=== PATIENT | male | born 1970 | race Caucasian/White ===

== ENCOUNTER 2021-06-13 11:24 | Inpatient (IN) | payer BC ==
[2021-06-13] MEDS ORDERED: IBUPROFEN 600 MG TAB PO STA (12:21)
[2021-06-13] MEDS ORDERED: ACETAMINOPHEN TAB 500 MG TAB PO STA (12:21)
--- NOTE | 2021-06-13 12:24 | ED ---
General Adult HPI - General Chief complaint: Shortness of Breath Stated complaint: fever, SOB, exhaustion Time Seen by Provider: 06/13/21 12:00 Source: patient, RN notes reviewed Mode of arrival: ambulatory Limitations: no limitations - History of Present Illness Initial comments: 50-year-old male presents to the emergency room for a chief complaint of shortness of breath. Patient states he developed a cough on June 02. About one week ago today he started to get short of breath and symptoms started to get worse. He fevers. He has had severe shortness of breath. He is not vaccinated for COVID-19. He suspects he has COVID-19.Patient has no other complaints at this time including chest pain, abdominal pain, nausea or vomiting, headache, or visual changes. - Related Data Home Medications Medication Instructions Recorded Confirmed No Known Home Medications 06/13/21 06/13/21 Allergies Allergy/AdvReac Type Severity Reaction Status Date / Time Penicillins Allergy Rash/Hives Verified 06/13/21 12:50 Review of Systems ROS Statement: Those systems with pertinent positive or pertinent negative responses have been documented in the HPI. ROS Other: All systems not noted in ROS Statement are negative. Past Medical History Past Medical History: No Reported History History of Any Multi-Drug Resistant Organisms: None Reported Past Surgical History: No Surgical Hx Reported Past Psychological History: No Psychological Hx Reported Smoking Status: Never smoker Past Alcohol Use History: None Reported Past Drug Use History: None Reported General Exam Limitations: no limitations General appearance: alert, in no apparent distress Head exam: Present: atraumatic Eye exam: Present: normal appearance, PERRL, EOMI. Absent: scleral icterus, conjunctival injection ENT exam: Present: normal exam, mucous membranes moist Neck exam: Present: normal inspection, full ROM. Absent: tenderness Respiratory exam: Present: normal lung sounds bilaterally, rales. Absent: respiratory distress, wheezes Cardiovascular Exam: Present: regular rate, normal rhythm, normal heart sounds GI/Abdominal exam: Present: soft, normal bowel sounds. Absent: distended, tenderness Neurological exam: Present: alert Course Vital Signs 06/13/21 06/13/21 06/13/21 11:46 11:59 12:30 Temperature 101.7 F H Pulse Rate 101 H 87 Respiratory 24 22 20 Rate Blood Pressure 170/110 161/98 O2 Sat by Pulse 87 L 92 L Oximetry 06/13/21 06/13/21 13:30 15:02 Temperature 100.2 F H Pulse Rate 96 88 Respiratory 22 18 Rate Blood Pressure 163/98 139/94 O2 Sat by Pulse 94 L 93 L Oximetry EKG Findings - EKG Comments: EKG Findings:: Sinus tachycardia, ventricular rate 101, pr int 124, QTC 508 Medical Decision Making - Medical Decision Making Presents febrile and 87% on room air. Patient transitioned to 4 L nasal cannula and is saturating 92-94%. CBC and CMP unremarkable aside from some mild transaminitis. COVID-19 is positive. D-dimer was obtained and is positive. CTA shows no evidence of PE however there is diffuse bilateral ground glass densities consistent with acute inflammatory process suspicious for COVID-19 pneumonia. Patient will be admitted on Decadron and pulmonology will be consulted. - Lab Data Result diagrams: 06/13/21 12:30 06/13/21 12:30 Lab Results 06/13/21 06/13/21 06/13/21 Range/Units 12:30 12:30 12:30 WBC 8.0 (3.8-10.6) k/uL RBC 5.59 (4.30-5.90) m/uL Hgb 15.6 (13.0-17.5) gm/dL Hct 48.0 (39.0-53.0) % MCV 85.8 (80.0-100.0) fL MCH 27.9 (25.0-35.0) pg MCHC 32.5 (31.0-37.0) g/dL RDW 13.8 (11.5-15.5) % Plt Count 117 L (150-450) k/uL MPV 10.4 Neutrophils % 87 % Lymphocytes % 7 % Monocytes % 4 % Eosinophils % 0 % Basophils % 1 % Neutrophils # 6.9 (1.3-7.7) k/uL Lymphocytes # 0.6 L (1.0-4.8) k/uL Monocytes # 0.3 (0-1.0) k/uL Eosinophils # 0.0 (0-0.7) k/uL Basophils # 0.1 (0-0.2) k/uL PT 9.7 (9.0-12.0) sec INR 0.9 (<1.2) APTT 24.8 (22.0-30.0) sec D-Dimer 1.86 H (<0.60) mg/L FEU Sodium 133 L (137-145) mmol/L Potassium 3.7 (3.5-5.1) mmol/L Chloride 98 (98-107) mmol/L Carbon Dioxide 24 (22-30) mmol/L Anion Gap 11 mmol/L BUN 16 (9-20) mg/dL Creatinine 0.90 (0.66-1.25) mg/dL Est GFR (CKD-EPI)AfAm >90 (>60 ml/min/1.73 sqM) Est GFR (CKD-EPI)NonAf >90 (>60 ml/min/1.73 sqM) Glucose 117 H (74-99) mg/dL Plasma Lactic Acid Scar (0.7-2.0) mmol/L Calcium 8.2 L (8.4-10.2) mg/dL Magnesium 1.9 (1.6-2.3) mg/dL Total Bilirubin 1.0 (0.2-1.3) mg/dL AST 110 H (17-59) U/L ALT 41 (4-49) U/L Alkaline Phosphatase 91 (38-126) U/L Lactate Dehydrogenase 2142 H (313-618) U/L C-Reactive Protein 9.0 H (<1.0) mg/dL Total Protein 6.7 (6.3-8.2) g/dL Albumin 3.7 (3.5-5.0) g/dL Coronavirus (PCR) (Not Detectd) Influenza Type A (PCR) (Not Detectd) Influenza Type B (PCR) (Not Detectd) RSV (PCR) (Not Detectd) SARS-CoV-2 (PCR) (Not Detectd) 06/13/21 06/13/21 06/13/21 Range/Units 12:30 12:30 13:44 WBC (3.8-10.6) k/uL RBC (4.30-5.90) m/uL Hgb (13.0-17.5) gm/dL Hct (39.0-53.0) % MCV (80.0-100.0) fL MCH (25.0-35.0) pg MCHC (31.0-37.0) g/dL RDW (11.5-15.5) % Plt Count (150-450) k/uL MPV Neutrophils % % Lymphocytes % % Monocytes % % Eosinophils % % Basophils % % Neutrophils # (1.3-7.7) k/uL Lymphocytes # (1.0-4.8) k/uL Monocytes # (0-1.0) k/uL Eosinophils # (0-0.7) k/uL Basophils # (0-0.2) k/uL PT (9.0-12.0) sec INR (<1.2) APTT (22.0-30.0) sec D-Dimer (<0.60) mg/L FEU Sodium (137-145) mmol/L Potassium (3.5-5.1) mmol/L Chloride (98-107) mmol/L Carbon Dioxide (22-30) mmol/L Anion Gap mmol/L BUN (9-20) mg/dL Creatinine (0.66-1.25) mg/dL Est GFR (CKD-EPI)AfAm (>60 ml/min/1.73 sqM) Est GFR (CKD-EPI)NonAf (>60 ml/min/1.73 sqM) Glucose (74-99) mg/dL Plasma Lactic Acid Scar 1.6 (0.7-2.0) mmol/L Calcium (8.4-10.2) mg/dL Magnesium (1.6-2.3) mg/dL Total Bilirubin (0.2-1.3) mg/dL AST (17-59) U/L ALT (4-49) U/L Alkaline Phosphatase (38-126) U/L Lactate Dehydrogenase (313-618) U/L C-Reactive Protein (<1.0) mg/dL Total Protein (6.3-8.2) g/dL Albumin (3.5-5.0) g/dL Coronavirus (PCR) Not Detected (Not Detectd) Influenza Type A (PCR) Not Detected (Not Detectd) Influenza Type B (PCR) Not Detected (Not Detectd) RSV (PCR) Not Detected (Not Detectd) SARS-CoV-2 (PCR) Detected A (Not Detectd) Disposition Clinical Impression: COVID-19, Pneumonia due to COVID-19 virus, Acute respiratory failure with hypoxia Disposition: ADMITTED IP TO THIS HOSP Is patient prescribed a controlled substance at d/c from ED?: No Referrals: Gurmeet Pretty MD [Primary Care Provider] - 1-2 days Time of Disposition: 15:18
--- NOTE | 2021-06-13 12:46 | XR ---
EXAMINATION TYPE: XR chest 1V portable DATE OF EXAM: 06/13/2021 COMPARISON: NONE HISTORY: Covid 19 pneumonia, fever and shortness of breath TECHNIQUE: Single frontal view of the chest is obtained. FINDINGS: Bilateral airspace disease is present. There is no evident pneumothorax or pleural effusio n. Cardiac mediastinal silhouette is within normal limits. There are overlying leads. IMPRESSION: Findings consistent with Covid pneumonia, follow-up suggested.
[2021-06-13 12:57] LABS: INR 0.9 (<1.2); Partial Thromboplastin Time 24.8 sec (22.0-30.0); Prothrombin Time 9.7 sec (9.0-12.0)
[2021-06-13 13:02] LABS: ALT 41 U/L (4-49); AST 110 U/L (17-59); African American GFR (CKD) >90 (>60 ml/min/1.73 sqM); Albumin 3.7 g/dL (3.5-5.0); Alkaline Phosphatase 91 U/L (38-126); Anion Gap 11 mmol/L; Blood Urea Nitrogen 16 mg/dL (9-20); Calcium 8.2 mg/dL (8.4-10.2); Carbon Dioxide 24 mmol/L (22-30); Chloride 98 mmol/L (98-107); Glucose 117 mg/dL (74-99); Magnesium 1.9 mg/dL (1.6-2.3); Non-African American GFR(CKD) >90 (>60 ml/min/1.73 sqM); Potassium 3.7 mmol/L (3.5-5.1); Sodium 133 mmol/L (137-145); Total Protein 6.7 g/dL (6.3-8.2)
[2021-06-13 13:04] LABS: Basophils # (A) 0.1 k/uL (0-0.2); Basophils % (A) 1 %; Eosinophils % (A) 0 %; HGB 15.6 gm/dL (13.0-17.5); Lymphocytes # (A) 0.6 k/uL (1.0-4.8); Lymphocytes % (A) 7 %; MCH 27.9 pg (25.0-35.0); MCHC 32.5 g/dL (31.0-37.0); MCV 85.8 fL (80.0-100.0); Mean Platelet Volume 10.4; Monocytes # (A) 0.3 k/uL (0-1.0); Monocytes % (A) 4 %; Neutrophils # (A) 6.9 k/uL (1.3-7.7); Neutrophils % (A) 87 %; Platelet Count 117 k/uL (150-450); RBC 5.59 m/uL (4.30-5.90); RDW 13.8 % (11.5-15.5)
[2021-06-13 13:07] LABS: LDH 2142 U/L (313-618)
[2021-06-13] MEDS ORDERED: DEXAMETHASONE SOD PHOSPHATE 10 MG/ML 1 ML VIAL IVP STA (13:32)
--- NOTE | 2021-06-13 14:09 | CT ---
EXAMINATION TYPE: CT chest angio for PE DATE OF EXAM: 06/13/2021 COMPARISON: None HISTORY: SOB CT DLP: 340.6 mGycm Automated exposure control for dose reduction was used. CONTRAST: CT Chest for pulmonary embolism performed with with IV Contrast, patient injected with 100 mL of Isov ue 370. FINDINGS: There are marked diffuse groundglass densities throughout both lungs consistent with an acute inflamm atory process, highly suspicious for Covid pneumonia.. There is mild mediastinal and hilar adenopathy. There is no pleural effusion or pneumothorax. Vessels chest are normal and there is no filling the pulmonary arteries or pulmonary embolism Limited scanning through the upper abdomen reveals no gross abnormality. The osseous structures are intact. IMPRESSION: 1. No evidence of pulmonary embolism. 2. Diffuse bilateral ground glass densities consistent with an acute inflammatory process, suspicious for Covid pneumonia and clinical correlation is recommended.
[2021-06-13] MEDS ORDERED: NALOXONE 0.4 MG/ML 1 ML VIAL IV PRN (15:18)
[2021-06-13] MEDS ORDERED: ACETAMINOPHEN TAB 325 MG TAB PO PRN (15:18)
[2021-06-13] MEDS: SODIUM CHLORIDE 0.9% 1,000 ML IV SCH (16:13)
[2021-06-13] MEDS: ENOXAPARIN 40 MG/0.4 ML SYRINGE SQ SCH (16:14)
--- NOTE | 2021-06-13 17:20 | P.HPIM ---
History of Present Illness H&P Date: 06/13/21 Chief Complaint: Shortness of breath, weakness 50-year-old man with no significant medical history, unvaccinated for Covid, presented with generalized weakness, dyspnea. He developed symptoms on June 02. He has fevers, chills, loss of appetite. He noticed that his shortness of breath was getting worse and worse, prompting his evaluation in the emergency room. He denies chest pain, palpitations, syncope, presyncope, abdominal pain, diarrhea, constipation, numbness/weakness. In the emergency room, patient is febrile to a maximum of 101.7, blood pressure 163/98, heart rate 96, 94% on 4 L of nasal cannula. CBC remarkable for thrombocytopenia and lymphopenia to 117/0.6 respectively. D-dimer was elevated to 1.6. Sodium was 133. Lactate dehydrogenase was 2142. CRP was 9.0. Covid PCR was positive. Chest x-ray demonstrated bilateral infiltrates consistent with Covid pneumonia, which CTA confirmed; CTA did not show pulmonary embolism. EKG is significant for sinus tachycardia without ischemic changes. Review of Systems All Systems reviewed and pertinent positives and negatives noted in HPI, all other symptoms are negative Past Medical History Past Medical History: No Reported History History of Any Multi-Drug Resistant Organisms: None Reported Past Surgical History: No Surgical Hx Reported Past Psychological History: No Psychological Hx Reported Smoking Status: Never smoker Past Alcohol Use History: None Reported Past Drug Use History: None Reported Medications and Allergies Home Medications Medication Instructions Recorded Confirmed Type No Known Home Medications 06/13/21 06/13/21 History Allergies Allergy/AdvReac Type Severity Reaction Status Date / Time Penicillins Allergy Rash/Hives Verified 06/13/21 12:50 Physical Exam Osteopathic Statement: *. No significant issues noted on an osteopathic structural exam other than those noted in the History and Physical/Consult. Vitals: Vital Signs Temp Pulse Resp BP Pulse Ox 06/13/21 16:14 99.7 F H 80 20 131/95 93 L 06/13/21 15:02 100.2 F H 88 18 139/94 93 L 06/13/21 13:30 96 22 163/98 94 L 06/13/21 12:30 87 20 161/98 92 L 06/13/21 11:59 22 06/13/21 11:46 101.7 F H 101 H 24 170/110 87 L Intake and Output 06/13/21 06/13/21 06/13/21 06:59 14:59 22:59 Other: Weight 90 kg Gen: awake, alert HEENT: normocephalic, atraumatic, good hearing acuity, moist mucous membranes Resp: good air exchange, breathing comfortably with no accessory muscle use CVS: good distal perfusion x 4, GI: soft, NTTP, ND : no SPT, no CVAT, moore catheter not present MSK: no pitting edema, no clubbing Neuro: non-focal, moving all extremities Psych: cooperative, euthymic mood Results CBC & Chem 7: 06/13/21 12:30 06/13/21 12:30 Labs: Abnormal Lab Results - Last 24 Hours (Table) 06/13/21 06/13/21 06/13/21 Range/Units 12:30 12:30 12:30 Plt Count 117 L (150-450) k/uL Lymphocytes # 0.6 L (1.0-4.8) k/uL D-Dimer 1.86 H (<0.60) mg/L FEU Sodium 133 L (137-145) mmol/L Glucose 117 H (74-99) mg/dL Calcium 8.2 L (8.4-10.2) mg/dL AST 110 H (17-59) U/L Lactate Dehydrogenase 2142 H (313-618) U/L C-Reactive Protein 9.0 H (<1.0) mg/dL SARS-CoV-2 (PCR) (Not Detectd) 06/13/21 Range/Units 13:44 Plt Count (150-450) k/uL Lymphocytes # (1.0-4.8) k/uL D-Dimer (<0.60) mg/L FEU Sodium (137-145) mmol/L Glucose (74-99) mg/dL Calcium (8.4-10.2) mg/dL AST (17-59) U/L Lactate Dehydrogenase (313-618) U/L C-Reactive Protein (<1.0) mg/dL SARS-CoV-2 (PCR) Detected A (Not Detectd) Assessment and Plan Assessment: Acute hypoxemic respiratory failure ARDS secondary to Covid 19 -Admit to inpatient, telemetry -Pulmonary consult -Dexamethasone -Vitamin C/D, zinc -Daily inflammatory markers -Oxygen as needed Patient is a full code DVT prophylaxis with enoxaparin
[2021-06-14] MEDS: SODIUM CHLORIDE 0.9% 1,000 ML IV SCH ×2 (06:25→16:30)
[2021-06-14] MEDS: ENOXAPARIN 40 MG/0.4 ML SYRINGE SQ SCH (07:59)
[2021-06-14] MEDS: ASCORBIC ACID 500 MG TAB PO SCH (07:59)
[2021-06-14] MEDS: DEXAMETHASONE SOD PHOSPHATE 10 MG/ML 1 ML VIAL IVP SCH (07:59)
[2021-06-14] MEDS: CHOLECALCIFEROL 25 MCG (1000 IU) TABLET PO SCH (07:59)
[2021-06-14] MEDS: ZINC SULFATE 220 MG CAP PO SCH (08:00)
[2021-06-14 11:34] LABS: HCT 40.8 % (39.6-50.0); HGB 13.2 g/dL (13.0-17.0); MCH 27.3 pg (27.0-32.0); MCHC 32.4 g/dL (32.0-37.0); MCV 84.3 fL (80.0-97.0); Mean Platelet Volume 10.9 fL (9.5-12.2); Platelet Count 227 X 10*3/uL (140-440); RBC 4.84 X 10*6/uL (4.40-5.60); RDW 14.5 % (11.5-14.5); WBC 6.16 X 10*3/uL (4.50-10.00)
[2021-06-14 12:05] LABS: African American GFR (CKD) 110.3 (60.0-200.0); Albumin 3.3 g/dL (3.8-4.9); Albumin/Globulin Ratio 1.4 (1.60-3.17); Anion Gap 12.8 mmol/L (10.00-18.00); BUN/Creat Ratio 19.65 Ratio (12.00-20.00); Bilirubin, Conjugated 0.21 mg/dL (0.20-0.40); Bilirubin,Unconjugated 0.22 mg/dL (0.20-1.00); Blood Urea Nitrogen 18.1 mg/dL (9.0-27.0); C Reactive Protein 9.8 mg/dL (0.00-0.80); Calcium 8.2 mg/dL (8.7-10.3); Carbon Dioxide 24.2 mmol/L (20.0-27.5); Globulin 2.4 g/dL (1.6-3.3); Magnesium 2.4 mg/dL (1.5-2.4); Non-African American GFR(CKD) 95.2 (60.0-200.0); Potassium 3.9 mmol/L (3.5-5.5); Total Bilirubin 0.4 mg/dL (0.30-1.20); Total Protein 5.7 g/dL (6.2-8.2)
[2021-06-14 12:16] LABS: Basophils # (A) 0.01 X 10*3/uL (0.00-0.10); Basophils % (A) 0.2 %; Eosinophils # (A) 0 X 10*3/uL (0.04-0.35); Eosinophils % (A) 0 %; Lymphocytes # (A) 0.79 X 10*3/uL (0.90-5.00); Lymphocytes % (A) 12.8 %; Monocytes # (A) 0.32 X 10*3/uL (0.20-1.00); Monocytes % (A) 5.2 %; Neutrophils # (A) 4.99 X 10*3/uL (1.80-7.70)
--- NOTE | 2021-06-14 12:21 | P.PN ---
Subjective Progress Note Date: 06/14/21 Increased o2 requirement today, now on 5L, still does not qualify for baricitinib. ongoing steroids, vitamins. Objective - Vital Signs Vital signs: Vital Signs Temp 97.8 F 06/14/21 09:03 Pulse 83 06/14/21 09:03 Resp 17 06/14/21 09:03 BP 134/85 06/14/21 09:03 Pulse Ox 90 L 06/14/21 09:03 Intake & Output 06/13/21 06/14/21 06/14/21 18:59 06:59 18:59 Intake Total 600 Balance 600 Weight 90 kg Intake: Intake, IV Titration 600 Amount Sodium Chloride 0.9% 1, 600 000 ml @ 75 mls/hr IV . [id number] [facility] Rx#:[id number] Other: # Voids 0 - Exam Gen: awake, alert HEENT: normocephalic, atraumatic, good hearing acuity, moist mucous membranes Resp: good air exchange, breathing comfortably with no accessory muscle use CVS: good distal perfusion x 4, GI: soft, NTTP, ND : no SPT, no CVAT, moore catheter not present MSK: no pitting edema, no clubbing Neuro: non-focal, moving all extremities Psych: cooperative, euthymic mood - Labs CBC & Chem 7: 06/14/21 07:19 06/14/21 07:19 Labs: Abnormal Lab Results - Last 24 Hours (Table) 06/13/21 06/13/21 06/13/21 Range/Units 12:30 12:30 12:30 Plt Count 117 L (150-450) k/uL Immature Gran # (0.00-0.04) X 10*3/uL Lymphocytes # 0.6 L (1.0-4.8) k/uL Eosinophils # (0.04-0.35) X 10*3/uL D-Dimer 1.86 H (<0.60) mg/L FEU Sodium 133 L (137-145) mmol/L Glucose 117 H (74-99) mg/dL Calcium 8.2 L (8.4-10.2) mg/dL Ferritin 1948.0 H (22.0-322.0) ng/mL AST 110 H (17-59) U/L Lactate Dehydrogenase 2142 H (313-618) U/L C-Reactive Protein 9.0 H (<1.0) mg/dL Total Protein (6.2-8.2) g/dL Albumin (3.8-4.9) g/dL Albumin/Globulin Ratio (1.60-3.17) g/dL Procalcitonin (0.02-0.09) ng/mL SARS-CoV-2 (PCR) (Not Detectd) 06/13/21 06/13/21 06/14/21 Range/Units 12:30 13:44 07:19 Plt Count (150-450) k/uL Immature Gran # 0.05 H (0.00-0.04) X 10*3/uL Lymphocytes # 0.79 L (1.0-4.8) k/uL Eosinophils # 0 L (0.04-0.35) X 10*3/uL D-Dimer (<0.60) mg/L FEU Sodium (137-145) mmol/L Glucose (74-99) mg/dL Calcium (8.4-10.2) mg/dL Ferritin (22.0-322.0) ng/mL AST (17-59) U/L Lactate Dehydrogenase (313-618) U/L C-Reactive Protein (<1.0) mg/dL Total Protein (6.2-8.2) g/dL Albumin (3.8-4.9) g/dL Albumin/Globulin Ratio (1.60-3.17) g/dL Procalcitonin 0.31 H (0.02-0.09) ng/mL SARS-CoV-2 (PCR) Detected A (Not Detectd) 06/14/21 06/14/21 Range/Units 07:19 07:19 Plt Count (150-450) k/uL Immature Gran # (0.00-0.04) X 10*3/uL Lymphocytes # (1.0-4.8) k/uL Eosinophils # (0.04-0.35) X 10*3/uL D-Dimer 1.41 H (<0.60) mg/L FEU Sodium (137-145) mmol/L Glucose 147 H (74-99) mg/dL Calcium 8.2 L (8.4-10.2) mg/dL Ferritin (22.0-322.0) ng/mL AST 70 H (17-59) U/L Lactate Dehydrogenase 668 H (313-618) U/L C-Reactive Protein 9.80 H (<1.0) mg/dL Total Protein 5.7 L (6.2-8.2) g/dL Albumin 3.3 L (3.8-4.9) g/dL Albumin/Globulin Ratio 1.40 L (1.60-3.17) g/dL Procalcitonin (0.02-0.09) ng/mL SARS-CoV-2 (PCR) (Not Detectd) Assessment and Plan Assessment: Acute hypoxemic respiratory failure ARDS secondary to Covid 19 -Admit to inpatient, telemetry -Pulmonary consult -Dexamethasone -Vitamin C/D, zinc -Daily inflammatory markers -Oxygen as needed Patient is a full code DVT prophylaxis with enoxaparin
--- NOTE | 2021-06-14 14:53 | P.CNPUL ---
History of Present Illness Consult date: 06/14/21 Requesting physician: Jessica Funk Reason for consult: dyspnea, abnormal CXR/CT Chief complaint: Shortness of breath cough congestion History of present illness: This is a pleasant 50-year-old male patient with no significant past medical history. Resulted to the emergency room yesterday with ongoing symptoms of shortness of breath cough and congestion. His symptoms started 06/02/2021. He is not vaccinated against the COVID-19. He was suspicious of possible symptoms and did test positive yesterday. He did have a temperature of 100.2. He is oxygen saturation 87% on room air. He's currently seen today in consultation on the regular medical floor. He is requiring 5 L nasal cannula to maintain O2 saturation at 94%. He has normal saline at 75 ML's per hour. His x-ray reveals bilateral airspace disease. CT angiogram ruled out pulmonary embolism. There is diffuse bilateral groundglass densities consistent with COVID-19 pneumonia. White count 6.1. Hemoglobin 13.2. Platelets 227. Lymphocytes 0.79. D-dimer 1.41. Sodium 141 potassium 3.9. Creatinine 0.9. Glucose 147. LDH 668. C- reactive protein 9.8. Pro-calcitonin 0.31. He's been initiated on Decadron, Lovenox, vitamin supplements. Review of Systems REVIEW OF SYSTEMS: CONSTITUTIONAL: Denies any recent significant weight loss or weight gain. EYES: Denies change in vision. EARS, NOSE, MOUTH, THROAT: Denies headaches, denies sore throat. CARDIOVASCULAR: Denies chest pain, palpitations or syncopal episodes. RESPIRATORY: Positive for shortness of breath, cough, congestion no hemoptysis. GASTROINTESTINAL: Denies change in appetite, denies abdominal pain GENITOURINARY: Denies hematuria, denies infections. MUSKULOSKELETAL: Denies pain, denies swelling. INTEGUMENTARY: Denies rash, denies eczema. NEUROLOGICAL: Denies recent memory loss, no recent seizure activity. PSYCHIATRIC: Denies anxiety, denies depression. HEMATOLOGIC/LYMPHATIC: Denies anemia, denies enlarged lymph nodes. Past Medical History Past Medical History: No Reported History History of Any Multi-Drug Resistant Organisms: None Reported Past Surgical History: No Surgical Hx Reported Past Psychological History: No Psychological Hx Reported Smoking Status: Never smoker Past Alcohol Use History: None Reported Past Drug Use History: None Reported Medications and Allergies Home Medications Medication Instructions Recorded Confirmed Type No Known Home Medications 06/13/21 06/13/21 History Allergies Allergy/AdvReac Type Severity Reaction Status Date / Time Penicillins Allergy Rash/Hives Verified 06/13/21 12:50 Physical Exam Vitals: Vital Signs Temp Pulse Pulse Resp BP BP Pulse Ox 06/14/21 09:03 97.8 F 83 17 134/85 90 L 06/14/21 06:00 98.2 F 73 17 113/49 94 L 06/14/21 02:00 97.2 F L 66 18 112/73 94 L 06/13/21 22:00 98.1 F 71 18 130/81 93 L 06/13/21 20:51 18 06/13/21 18:27 78 18 93 L 06/13/21 17:22 75 18 127/84 92 L 06/13/21 16:14 99.7 F H 80 20 131/95 93 L 06/13/21 15:02 100.2 F H 88 18 139/94 93 L Intake and Output 06/13/21 06/14/21 06/14/21 22:59 06:59 14:59 Intake Total 600 Balance 600 Intake: Intake, IV Titration 600 Amount Sodium Chloride 0.9% 1, 600 000 ml @ 75 mls/hr IV . [id number] [facility] Rx#:[id number] Other: # Voids 0 Weight 90 kg GENERAL EXAM: Alert, pleasant 50-year-old male patient, up in a chair at the bedside, on 5 L nasal cannula, fairly, comfortable in no apparent distress. HEAD: Normocephalic. EYES: Normal reaction of pupils, equal size. NOSE: Clear with pink turbinates. THROAT: No erythema or exudates. NECK: No masses, no JVD. CHEST: No chest wall deformity. LUNGS: Equal air entry with crackles in the bilateral bases. CVS: S1 and S2 normal with no audible murmur, regular rhythm. ABDOMEN: No hepatosplenomegaly, normal bowel sounds, no guarding or rigidity. SPINE: No scoliosis or deformity SKIN: No rashes CENTRAL NERVOUS SYSTEM: No focal deficits, tone is normal in all 4 extremities. EXTREMITIES: There is no peripheral edema. No clubbing, no cyanosis. Peripheral pulses are intact. Results - Laboratory Findings CBC and BMP: 06/14/21 07:19 06/14/21 07:19 PT/INR, D-dimer PT 9.7 sec (9.0-12.0) 06/13/21 12:30 INR 0.9 (<1.2) 06/13/21 12:30 D-Dimer 1.41 mg/L FEU (<0.60) H 06/14/21 07:19 Abnormal lab findings: Abnormal Labs 06/13/21 06/13/21 06/13/21 12:30 12:30 12:30 Plt Count 117 L Immature Gran # Lymphocytes # 0.6 L Eosinophils # D-Dimer 1.86 H Sodium 133 L Glucose 117 H Calcium 8.2 L Ferritin 1948.0 H AST 110 H Lactate Dehydrogenase 2142 H C-Reactive Protein 9.0 H Total Protein Albumin Albumin/Globulin Ratio Procalcitonin SARS-CoV-2 (PCR) 06/13/21 06/13/21 06/14/21 12:30 13:44 07:19 Plt Count Immature Gran # 0.05 H Lymphocytes # 0.79 L Eosinophils # 0 L D-Dimer Sodium Glucose Calcium Ferritin AST Lactate Dehydrogenase C-Reactive Protein Total Protein Albumin Albumin/Globulin Ratio Procalcitonin 0.31 H SARS-CoV-2 (PCR) Detected A 06/14/21 06/14/21 07:19 07:19 Plt Count Immature Gran # Lymphocytes # Eosinophils # D-Dimer 1.41 H Sodium Glucose 147 H Calcium 8.2 L Ferritin AST 70 H Lactate Dehydrogenase 668 H C-Reactive Protein 9.80 H Total Protein 5.7 L Albumin 3.3 L Albumin/Globulin Ratio 1.40 L Procalcitonin SARS-CoV-2 (PCR) - Diagnostic Findings Chest x-ray: image reviewed CT scan - chest: image reviewed Assessment and Plan Assessment: 1 Acute hypoxemic respiratory failure secondary to acute COVID-19 pneumonia. Started June 02. Outside the window for Remdesivir. Not vaccinated. 2 Elevated inflammatory markers secondary to above Plan: The patient was seen and evaluated today Chest x-ray, CAT scans and labs reviewed Continue Lovenox, Decadron, vitamin supplements Add incentive spirometer Titrate the FiO2 as tolerated We will continue to follow and make further recommendations based on his clinical status I, the cosigning physician, performed a history & physical examination of the patient. Lungs sounds bilateral bases. Maintaining good O2 saturations in the 90s on 5 liters per minute per nasal cannula. I discussed the assessment and plan of care with my nurse practitioner, Amy Mccormick. I attest to the above consultation as dictated by her. Time with Patient: Greater than 30
[2021-06-15] MEDS: SODIUM CHLORIDE 0.9% 1,000 ML IV SCH ×2 (07:27→20:50)
[2021-06-15] MEDS: ENOXAPARIN 40 MG/0.4 ML SYRINGE SQ SCH (07:27)
[2021-06-15] MEDS: ASCORBIC ACID 500 MG TAB PO SCH (07:28)
[2021-06-15] MEDS: DEXAMETHASONE SOD PHOSPHATE 10 MG/ML 1 ML VIAL IVP SCH (07:28)
[2021-06-15] MEDS: CHOLECALCIFEROL 25 MCG (1000 IU) TABLET PO SCH (07:28)
[2021-06-15] MEDS: ZINC SULFATE 220 MG CAP PO SCH (07:28)
--- NOTE | 2021-06-15 07:37 | XR ---
EXAMINATION TYPE: XR chest 1V portable DATE OF EXAM: 06/15/2021 CLINICAL HISTORY: Difficulty breathing progress study. TECHNIQUE: Single AP portable upright view of the chest is obtained. COMPARISON: Chest x-ray from 2 days earlier FINDINGS: Bilateral multifocal and confluent opacities remain present. Cardiac silhouette size stabl e and upper limits of normal. Osseous structures are intact IMPRESSION: Bilateral multifocal and confluent opacities consistent with covid-19 infection are redem onstrated. No significant change from 2 days earlier.
[2021-06-15] MEDS: ONDANSETRON 4 MG/2 ML VIAL IVP PRN (09:33)
[2021-06-15 11:28] LABS: C Reactive Protein 3.6 mg/dL (0.00-0.80)
--- NOTE | 2021-06-15 12:10 | P.PN ---
Subjective Progress Note Date: 06/15/21 Pt having some nausea today, but otherwise reports feeling the same to slightly better. O2 requirement unchanged from yesterday. Objective - Vital Signs Vital signs: Vital Signs Temp 97.5 F L 06/15/21 09:15 Pulse 82 06/15/21 09:15 Resp 17 06/15/21 09:15 BP 142/91 06/15/21 09:15 Pulse Ox 93 L 06/15/21 09:15 Intake & Output 06/14/21 06/15/21 06/15/21 18:59 06:59 18:59 Intake Total 600 900 600 Output Total 500 Balance 600 400 600 Intake: Intake, IV Titration 600 900 600 Amount Sodium Chloride 0.9% 1, 600 900 600 000 ml @ 75 mls/hr IV . [id number] [facility] Rx#:[id number] Output: Urine 500 Other: # Voids 2 - Exam Gen: awake, alert HEENT: normocephalic, atraumatic, good hearing acuity, moist mucous membranes Resp: good air exchange, breathing comfortably with no accessory muscle use CVS: good distal perfusion x 4, GI: soft, NTTP, ND : no SPT, no CVAT, moore catheter not present MSK: no pitting edema, no clubbing Neuro: non-focal, moving all extremities Psych: cooperative, euthymic mood - Labs CBC & Chem 7: 06/14/21 07:19 06/14/21 07:19 Labs: Abnormal Lab Results - Last 24 Hours (Table) 06/14/21 06/15/21 06/15/21 Range/Units 07:19 06:48 06:48 Immature Gran # 0.05 H (0.00-0.04) X 10*3/uL Lymphocytes # 0.79 L (0.90-5.00) X 10*3/uL Eosinophils # 0 L (0.04-0.35) X 10*3/uL D-Dimer 2.09 H (<0.60) mg/L FEU Lactate Dehydrogenase 581 H (120-246) U/L C-Reactive Protein 3.60 H (0.00-0.80) mg/dL Assessment and Plan Assessment: Acute hypoxemic respiratory failure ARDS secondary to Covid 19 -Admit to inpatient, telemetry -Pulmonary consult -Dexamethasone -Vitamin C/D, zinc -Daily inflammatory markers -Oxygen as needed Patient is a full code DVT prophylaxis with enoxaparin
--- NOTE | 2021-06-15 13:59 | P.PN ---
Subjective Progress Note Date: 06/15/21 Principal diagnosis: Dyspnea, hypoxia, COVID-19 This is a pleasant 50-year-old male patient with no significant past medical history. Resulted to the emergency room yesterday with ongoing symptoms of shortness of breath cough and congestion. His symptoms started 06/02/2021. He is not vaccinated against the COVID-19. He was suspicious of possible symptoms and did test positive yesterday. He did have a temperature of 100.2. He is oxygen saturation 87% on room air. He's currently seen today in consultation on the regular medical floor. He is requiring 5 L nasal cannula to maintain O2 saturation at 94%. He has normal saline at 75 ML's per hour. His x-ray reveals bilateral airspace disease. CT angiogram ruled out pulmonary embolism. There is diffuse bilateral groundglass densities consistent with COVID-19 pneumonia. White count 6.1. Hemoglobin 13.2. Platelets 227. Lymphocytes 0.79. D-dimer 1.41. Sodium 141 potassium 3.9. Creatinine 0.9. Glucose 147. LDH 668. C- reactive protein 9.8. Pro-calcitonin 0.31. He's been initiated on Decadron, Lovenox, vitamin supplements. On 06/15/2021 patient seen in follow-up on medical surgical floor. He is awake and alert, in no acute distress, he is currently on 5 L of oxygen, pulse ox is 93%, he's coughing up occasionally small amount of blood-tinged sputum, no complaints of chest discomfort, lung sounds reveal some diffuse crackles, does have a cough, this morning she felt nauseous, he required some Zofran, however does not appear to be in any acute distress currently, he continues on Decadron 6 mg daily, he is receiving Lovenox 40 mg, he is on multivitamins, and she is receiving gentle IV hydration at 75 ML per hour. His chest x-ray today showing bilateral multifocal and confluent opacities consistent with COVID-19 infection, no significant change compared to 2 days earlier. His labs have been reviewed, d-dimer is 2.09, slightly increased, electrolytes and renal profile were unremarkable and yesterday's labs, his inflammatory markers are improving and LDH is down to 581, and CRP is down to 3.6, pro-calcitonin level was ordered along is 0.31. Objective - Vital Signs Vital signs: Vital Signs Temp 97.5 F L 06/15/21 09:15 Pulse 82 06/15/21 09:15 Resp 17 06/15/21 09:15 BP 142/91 06/15/21 09:15 Pulse Ox 93 L 06/15/21 09:15 Intake & Output 06/14/21 06/15/21 06/15/21 18:59 06:59 18:59 Intake Total 600 900 600 Output Total 500 Balance 600 400 600 Intake: Intake, IV Titration 600 900 600 Amount Sodium Chloride 0.9% 1, 600 900 600 000 ml @ 75 mls/hr IV . [id number] [facility] Rx#:[id number] Output: Urine 500 Other: # Voids 2 - Exam GENERAL EXAM: Alert, very pleasant, 50-year-old white male, on 5 L of oxygen with a pulse ox of 93% comfortable in no apparent distress. HEAD: Normocephalic/atraumatic. EYES: Normal reaction of pupils, equal size. Conjunctiva pink, sclera white. NOSE: Clear with pink turbinates. THROAT: No erythema or exudates. NECK: No masses, no JVD, no thyroid enlargement, no adenopathy. CHEST: No chest wall deformity. Symmetrical expansion. LUNGS: Equal air entry with basilar crackles CVS: Regular rate and rhythm, normal S1 and S2, no gallops, no murmurs, no rubs ABDOMEN: Soft, nontender. No hepatosplenomegaly, normal bowel sounds, no guarding or rigidity. EXTREMITIES: No clubbing, no edema, no cyanosis, 2+ pulses and upper and lower extremities. MUSCULOSKELETAL: Muscle strength and tone normal. SPINE: No scoliosis or deformity SKIN: No rashes CENTRAL NERVOUS SYSTEM: Alert and oriented -3. No focal deficits, tone is normal in all 4 extremities. PSYCHIATRIC: Alert and oriented -3. Appropriate affect. Intact judgment and insight. - Labs CBC & Chem 7: 06/14/21 07:19 06/14/21 07:19 Labs: Abnormal Lab Results - Last 24 Hours (Table) 06/15/21 06/15/21 Range/Units 06:48 06:48 D-Dimer 2.09 H (<0.60) mg/L FEU Lactate Dehydrogenase 581 H (120-246) U/L C-Reactive Protein 3.60 H (0.00-0.80) mg/dL Assessment and Plan Plan: Assessment: #1. Acute hypoxic respiratory failure related to acute COVID-19 related pneumonia, patient presented to the emergency department on 06/13/2021. First onset of symptoms was on 06/02/2021 area he is not vaccinated against the COVID- 19. he was outside the window for Remdesivir. #2. Elevated inflammatory markers related to the above, improving #3. Elevated d-dimer, without CT evidence of pulmonary embolism #4. Mild hyponatremia related to dehydration, improving with gentle IV hydration Plan: Continue Decadron Continue current dose Lovenox We will obtain lower extremity Dopplers to rule out possibility DVT Continue multivitamins Will try to obtain sputum for culture Follow-up her calcitonin, follow-up inflammatory markers and a d-dimer tomorrow I performed a history & physical examination of the patient and discussed their management with my nurse practitioner, Sharri White. I reviewed the nurse practitioner's note and agree with the documented findings and plan of care. Lung sounds are positive for diffuse crackles throughout the lung george. The findings and the impression was discussed with the patient. I attest to the documentation by the nurse practitioner. Time with Patient: Less than 30
--- NOTE | 2021-06-15 16:15 | US ---
EXAMINATION TYPE: US venous doppler duplex LE DATE OF EXAM: 06/15/2021 3:36 PM COMPARISON: NONE CLINICAL HISTORY: elevated d-dimer. Exam done portable on covid patient SIDE PERFORMED: Bilateral TECHNIQUE: The lower extremity deep venous system is examined utilizing real time linear array sonog yehuda with graded compression, doppler sonography and color-flow sonography. VESSELS IMAGED: Common Femoral Vein Deep Femoral Vein Greater Saphenous Vein * Femoral Vein Popliteal Vein Small Saphenous Vein * Proximal Calf Veins (* superficial vessels) Right Leg: Appears negative for DVT Left Leg: Appears negative for DVT IMPRESSION: No evidence of deep vein thrombosis in both legs.
[2021-06-15] MEDS ORDERED: LORazepam 2 MG/ML INJ IV STA (23:21)
[2021-06-16 02:39] LABS: Glucose,Whole Blood 117 mg/dL (75-99)
--- NOTE | 2021-06-16 02:41 | P.PN ---
Progress Note - Text Progress Note Date: 06/15/21 RN notified me to evaluate patient who is becoming anxious and increasingly hypoxic. he also reporting left hand and arm numbness. no other focal neuro deficits. upon arrival , BP within normal limits, heart rate in 70s. however, he was hypoxic in mid to upper 80s while on 15 LPM NC. patient reporting left fingers numbness and feels his left forearm numb. patient was switched to non rebreather at 15 LPM which he seems to tolerate better and his oxygen sat improved to 92-95% upon exam patient alert oriented X3 , anxious lungs good breath sounds bilaterally CVS normal S1 S2 RRR neuro , strength 5/5 bilateral upper extremity and bilateral lower extremity , sensation to light touch is grossly intact, finger nose test intact bilaterally , no facial droop , speech intact acute hypoxic respiratory failure 2/2 COVID anxiety continue supportive care oxygenation improved with non rebreather one time dose of ativan ordered
[2021-06-16] MEDS ORDERED: SODIUM CHLORIDE 0.9% 1,000 ML IV ONE (02:47)
[2021-06-16] MEDS ORDERED: ASPIRIN 325 MG TAB PO STA (03:12)
--- NOTE | 2021-06-16 03:16 | CT ---
CT brain. History weakness. Comparison none. TECHNIQUE: Images of the brain obtained without contrast. FINDINGS: Ventricles of normal size. There is no mass effect or midline shift. There is no sign of intracranial hemorrhage. Calvarium is intact. There is no evidence of cerebral edema. There is incomplete pneumat ization of the mastoid sinuses. IMPRESSION: Negative unenhanced head CT scan.
--- NOTE | 2021-06-16 03:21 | CT ---
EXAMINATION TYPE: CODE STROKE: CTA head neck DATE OF EXAM: 06/16/2021 COMPARISON: None HISTORY: R/O Stroke CT DLP: 637.7 mGycm Automated exposure control for dose reduction was used. CONTRAST: Performed with IV Contrast, patient injected with 65 mL of Isovue 370. Images obtained from the aortic arch to the vertex of the brain with IV contrast. There are 3-D postprocess images. There is normal branching pattern of the great vessels on the aortic arch. There is extensive airspac e infiltrates in the visualized lung george. There is arterial flow in both subclavian arteries. Ther e is arterial flow in the common internal and external carotid arteries bilaterally. There is wide pa tency of a carotid artery bifurcations. There is arterial flow in both vertebral arteries. There is n o evidence of carotid or vertebral artery aneurysm or dissection. There is arterial flow in the anterior middle and posterior cerebral arteries. There is no sign of in tracranial aneurysm or neovascularity. There is no evidence of intracranial arterial stenosis. There is normal enhancement of the venous sinuses. There is no mass effect. IMPRESSION: Negative CT angiogram of the brain. Negative CT angiogram of the neck. Extensive pulmonary infiltrates.
--- NOTE | 2021-06-16 03:30 | P.PN ---
Progress Note - Text Progress Note Date: 06/16/21 code stroke was called on the patient for left upper extremity sudden flaccid paralysis neuro recommended CT brain and CTA head and neck which both returned negative upon brief exam , patient symptoms are inconsistent, and changes with each exam for example , when asked to raise his left upper extremity , he would shaking raise his left upper extremity all the way , however with hand droop , at the same time when keeping his left upper extremity down , he has a slightly weak machine spreader in his left hand again exam is inconsistent along with some off/on vigorous shaking of his whole left upper extremity plan neuro recommends no immediate intervention at this time , except for medical m anagement with full dose aspirin neuro consult in AM , with possible [place]AK[place]ET to rule out seizure seizure precautions
[2021-06-16 03:52] LABS: Basophils % (A) 0 %; Eosinophils % (A) 0 %; Lymphocytes % (A) 9 %; MCH 28.2 pg (25.0-35.0); MCHC 32.5 g/dL (31.0-37.0); MCV 86.7 fL (80.0-100.0); Mean Platelet Volume 8.3; Monocytes # (A) 0.5 k/uL (0-1.0); Monocytes % (A) 4 %; Neutrophils # (A) 9.6 k/uL (1.3-7.7); Neutrophils % (A) 85 %; RBC 4.38 m/uL (4.30-5.90); RDW 13.9 % (11.5-15.5); WBC 11.2 k/uL (3.8-10.6)
[2021-06-16 03:57] LABS: HGB 12.3 gm/dL (13.0-17.5); INR 0.9 (<1.2); Platelet Count 332 k/uL (150-450); Prothrombin Time 9.9 sec (9.0-12.0)
[2021-06-16 04:01] LABS: Partial Thromboplastin Time 19.1 sec (22.0-30.0)
[2021-06-16 04:07] LABS: ALT 54 U/L (4-49); AST 66 U/L (17-59); African American GFR (CKD) >90 (>60 ml/min/1.73 sqM); Albumin 2.7 g/dL (3.5-5.0); Alkaline Phosphatase 76 U/L (38-126); Anion Gap 8 mmol/L; Blood Urea Nitrogen 24 mg/dL (9-20); Calcium 7.6 mg/dL (8.4-10.2); Carbon Dioxide 22 mmol/L (22-30); Chloride 108 mmol/L (98-107); Globulin 2.7 g/dL; Glucose 105 mg/dL (74-99); Non-African American GFR(CKD) >90 (>60 ml/min/1.73 sqM); Potassium 4.1 mmol/L (3.5-5.1); Sodium 138 mmol/L (137-145); Total Bilirubin 0.9 mg/dL (0.2-1.3); Total Protein 5.4 g/dL (6.3-8.2)
[2021-06-16] MEDS: DEXAMETHASONE SOD PHOSPHATE 10 MG/ML 1 ML VIAL IVP SCH (07:50)
[2021-06-16] MEDS: ENOXAPARIN 40 MG/0.4 ML SYRINGE SQ SCH (07:50)
[2021-06-16] MEDS: CHOLECALCIFEROL 25 MCG (1000 IU) TABLET PO SCH (07:50)
[2021-06-16] MEDS: ZINC SULFATE 220 MG CAP PO SCH (07:50)
[2021-06-16] MEDS: ASCORBIC ACID 500 MG TAB PO SCH (07:50)
[2021-06-16] MEDS: SODIUM CHLORIDE 0.9% 1,000 ML IV SCH (07:52)
[2021-06-16 10:35] LABS: Basophils # (A) 0.01 X 10*3/uL (0.00-0.10); Basophils % (A) 0.1 %; Eosinophils # (A) 0.01 X 10*3/uL (0.04-0.35); Eosinophils % (A) 0.1 %; HCT 38.1 % (39.6-50.0); HGB 12.2 g/dL (13.0-17.0); Lymphocytes % (A) 10.8 %; MCH 27.1 pg (27.0-32.0); MCV 84.5 fL (80.0-97.0); Mean Platelet Volume 10.2 fL (9.5-12.2); Monocytes # (A) 0.55 X 10*3/uL (0.20-1.00); Monocytes % (A) 5.4 %; Neutrophils # (A) 8.43 X 10*3/uL (1.80-7.70); Neutrophils % (A) 82.5 %; Platelet Count 301 X 10*3/uL (140-440); RBC 4.51 X 10*6/uL (4.40-5.60); RDW 14.4 % (11.5-14.5); WBC 10.21 X 10*3/uL (4.50-10.00)
[2021-06-16] MEDS ORDERED: ASPIRIN 325 MG TAB PO SCH (11:30)
[2021-06-16 11:38] LABS: C Reactive Protein 2.9 mg/dL (0.00-0.80)
--- NOTE | 2021-06-16 11:42 | P.CNNES ---
History of Present Illness Consult date: 06/16/21 Requesting physician: Keenan Bingham Reason for Consult: Stroke History of Present Illness: Patient is a 50-year-old left-handed male came to the hospital on 06/13/2020 at 11:24 AM with chief complaints of shortness of breath, and a cough that started on June 02. Patient has developed severe shortness of breath. He is not vaccinated for Covid-19. Patient is otherwise very healthy, with no history of hypertension or diabetes. Patient's blood test shows mild transaminitis. Thomas virus was positive. D-dimer was positive. CTA shows no evidence of PE however there is diffuse bilateral groundglass densities consistent with acute inflammatory process, suspicious for Covid-19 pneumonia. Patient started on Decadron. Patient had a stroke code activated yesterday. On looking at the notes of the nurse, as below. Patient yesterday at 10:50 PM patient called the nurse complaining he has developed abnormal involuntary movement of left arm. Patient reported seeing a kaleidoscope like things, shapes/colors in his vision. The nurse noticed that his left arm was moving in a regular "snakelike" movements. Patient was noted to have some weakness in the left upper extremity although he was able to lift them up above the shoulder bilaterally. His tongue was midline and there was no facial droop. Patient was speaking clear sentences. Patient was able to lift bilateral lower extremities evenly. Patient noticed that he was unable to feel his left hand. Patient does not take any antidepressants or antipsychotics. Patient was seen by internal medicine, and some anxiety was suspected. Patient was given Ativan. Apparently stroke code was activated at 2:32 AM early this morning. The nurse noticed that patient's left arm was weak and numbness were worsening. Patient was unable to grasp with the hand and his left arm was limp when asked to lift it up. Patient was still alert and oriented 3 with mild slurring to his speech. He was able to answer questions appropriately. Patient mentioned that he cannot feel his arm and that the muscle spasms he is experiencing are uncontrollable. He was able to stick out his tongue, his pupils are equal and reactive. No facial drooping. Patient's left foot had increased weakness. Patient on placed on nonrebreather as saturation was 90- 93%. Vital signs at 2:40 AM was 148/89, temperature 98.1, pulse rate 82 and saturation 90%. Stroke neurologist Dr. Bingham was contacted, who noticed no large vessel occlusion. One-time dose of aspirin 325 mg was ordered and a neurology consult. Patient did not receive TPA. Patient has been on Lovenox 40 mg subcu daily since arrival to the hospital. CT head was normal, CTA of head and neck reported as "negative". Extensive pulmonary infiltrates. I personally reviewed computed tomography scan of the head and agree with the findings. No acute process. No hyperdensity. Patient had a venous Doppler of bilateral lower extremities performed yesterday which was negative. Patient's blood tests from early this morning shows WBC 11.2 hemoglobin 12.3, platelets 332. D-dimer is elevated 4.11. Normal INR, PTT 19.1. Electrolytes are normal, BUN 24 creatinine 0.93. Glucose was normal. AST 66, ALT 54. Troponin negative. Influenza negative, Thomas virus positive. I started my service week, this morning (Wednesday) at 8 AM. Reviewed patient's chart. Patient states that his symptoms last night started while he was awake The left hand was moving in a curling manner. At present he complains of numbness of the left arm, but not the leg. He denies any weakness. Denies any speech problems, no headache or any visual issues. He appears overall sick. Patient's current NIH stroke scale is 9. (0, 0, 0, 0, 2, 2, 1, 0, 1, 0, 0, 2, 0, 0, 1) Patient denies any history of hypertension, diabetes, no history of strokes. He states his mother had CVA in the past. Could not tell more details. He does not take any antiplatelet medication at home. Does not smoke. 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 Review of Systems As above in detail. Patient has shortness of breath. Denies any chest pain, no abdominal pain. Patient not able to provide details of review of systems because of his mental status. Past Medical History Past Medical History: No Reported History History of Any Multi-Drug Resistant Organisms: None Reported Past Surgical History: No Surgical Hx Reported Past Psychological History: No Psychological Hx Reported Smoking Status: Never smoker Past Alcohol Use History: None Reported Past Drug Use History: None Reported Medications and Allergies Home Medications Medication Instructions Recorded Confirmed Type No Known Home Medications 06/13/21 06/13/21 History Allergies Allergy/AdvReac Type Severity Reaction Status Date / Time Penicillins Allergy Rash/Hives Verified 06/13/21 12:50 Physical Examination - Vital Signs Vital Signs: Vital Signs Temp Pulse Resp BP Pulse Ox 06/16/21 05:04 98.3 F 79 16 138/88 97 06/16/21 04:58 17 06/16/21 02:30 97.9 F 75 28 H 132/79 96 06/16/21 02:25 22 06/16/21 02:06 97.9 F 75 16 132/79 96 06/16/21 01:00 98.3 F 63 17 126/80 92 L 06/15/21 23:50 17 96 06/15/21 23:30 98.2 F 77 17 135/80 93 L 06/15/21 23:22 17 85 L 06/15/21 23:20 17 88 L 06/15/21 22:50 17 06/15/21 21:40 17 91 L 06/15/21 21:37 97.7 F 81 16 126/80 88 L 06/15/21 19:31 90 17 06/15/21 17:09 98.0 F 79 17 136/85 90 L 06/15/21 13:56 97.9 F 78 17 133/82 94 L Intake and Output 06/15/21 06/16/21 06/16/21 22:59 06:59 14:59 Intake Total 1600 Balance 1600 Intake: Intake, IV Titration 1600 Amount Sodium Chloride 0.9% 1, 600 000 ml @ 75 mls/hr IV . [id number] [facility] Rx#:[id number] Sodium Chloride 0.9% 1, 1000 000 ml @ 999 mls/hr IV . Q1H1M [facility] Rx#:[id number] Patient is a middle aged male, who is appearing sick, mild respiratory distress, appears generalized weak, slightly lethargic. Patient is otherwise awake, follows commands well. Speech and language functions are normal. Patient can name and repeat very well. No aphasia or dysarthria. Attention, concentration is decreased and fund of knowledge is adequate. Patient knows it is June 2021 and that he is in the hospital. On cranial examination, pupils are round and reacting to light, patient has slight right gaze preference. His visual george reveal complete homonymous hemianopia on the left noticed on confrontation, extraocular muscles are intact with no nystagmus. Face has left-sided asymmetry, with normal movement of the upper part of the face, tongue protrudes to the midline. Palatal elevation and sensation normal, hearing is normal, facial sensation decreased on the left. Shoulder shrug at least moderately decreased on the left. On muscle strength testing, there patient's strength is normal in the right arm and right leg. On the left side, biceps is 4+, triceps 5, deltoid 4+, inspector salvage 2. Patient has left wrist drop. Ankle dorsiflexion is decreased range of motion, but the strength appears normal. Hip flexion is 4+5-on the left side. Deep tendon reflexes are 2+ to 3+ bilaterally and plantar is questionable up on the left whereas questionable down on the right. Sensory to touch reveals severe deficit on the left side. Patient not able to feel sensations of the left. Cerebellar function showed no ataxia for [id number] testing although he is slow on the left. Tone is decreased in the left hand and bulk of muscles normal. Gait not checked. On general examination, there is no carotid bruit or murmur, S1-S2 audible. Abdomen is soft nontender, no organomegaly. Chest is clear. Peripheral pulses are present. No edema. Results - Laboratory Findings CBC and BMP: 06/16/21 07:41 06/16/21 07:41 Abnormal Lab Findings: Abnormal Labs 06/13/21 06/13/21 06/13/21 12:30 12:30 12:30 WBC Hgb Hct Plt Count 117 L Immature Gran # Neutrophils # Lymphocytes # 0.6 L Eosinophils # APTT D-Dimer 1.86 H Sodium 133 L Chloride BUN Glucose 117 H POC Glucose (mg/dL) Calcium 8.2 L Ferritin 1948.0 H AST 110 H ALT Lactate Dehydrogenase 2142 H C-Reactive Protein 9.0 H Total Protein Albumin Albumin/Globulin Ratio Procalcitonin SARS-CoV-2 (PCR) 06/13/21 06/13/21 06/14/21 12:30 13:44 07:19 WBC Hgb Hct Plt Count Immature Gran # 0.05 H Neutrophils # Lymphocytes # 0.79 L Eosinophils # 0 L APTT D-Dimer Sodium Chloride BUN Glucose POC Glucose (mg/dL) Calcium Ferritin AST ALT Lactate Dehydrogenase C-Reactive Protein Total Protein Albumin Albumin/Globulin Ratio Procalcitonin 0.31 H SARS-CoV-2 (PCR) Detected A 06/14/21 06/14/21 06/15/21 07:19 07:19 06:48 WBC Hgb Hct Plt Count Immature Gran # Neutrophils # Lymphocytes # Eosinophils # APTT D-Dimer 1.41 H 2.09 H Sodium Chloride BUN Glucose 147 H POC Glucose (mg/dL) Calcium 8.2 L Ferritin AST 70 H ALT Lactate Dehydrogenase 668 H C-Reactive Protein 9.80 H Total Protein 5.7 L Albumin 3.3 L Albumin/Globulin Ratio 1.40 L Procalcitonin SARS-CoV-2 (PCR) 06/15/21 06/16/21 06/16/21 06:48 02:37 03:08 WBC 11.2 H Hgb 12.3 L D Hct 38.0 L Plt Count Immature Gran # Neutrophils # 9.6 H Lymphocytes # Eosinophils # APTT D-Dimer Sodium Chloride BUN Glucose POC Glucose (mg/dL) 117 H Calcium Ferritin AST ALT Lactate Dehydrogenase 581 H C-Reactive Protein 3.60 H Total Protein Albumin Albumin/Globulin Ratio Procalcitonin SARS-CoV-2 (PCR) 06/16/21 06/16/21 03:08 03:08 WBC Hgb Hct Plt Count Immature Gran # Neutrophils # Lymphocytes # Eosinophils # APTT 19.1 L D-Dimer 4.11 H Sodium Chloride 108 H BUN 24 H Glucose 105 H POC Glucose (mg/dL) Calcium 7.6 L Ferritin AST 66 H ALT 54 H Lactate Dehydrogenase C-Reactive Protein Total Protein 5.4 L Albumin 2.7 L Albumin/Globulin Ratio Procalcitonin SARS-CoV-2 (PCR) Assessment and Plan Assessment: * Acute ischemic stroke, manifesting with complete left homonymous hemianopia, left hemisensory loss and mild left hemiparesis. Patient's NIH stroke scale is 9. Patient did not receive TPA. * Acute Covid-19 infection with pneumonia. * Elevated d-dimer * Elevated hepatic panel Plan: * Patient has received aspirin 325 mg earlier this morning. We will continue aspirin for now. * Stat MRI of the brain rule out any hemorrhagic conversion. If negative, then we'll add Plavix. * MRA of the head rule out large vessel occlusion, not visible on the CTA head. * 2-D echo with bubble study to rule out PFO. * Hemoglobin A1c, fasting lipid panel. * Continue Lovenox 40 mg subcu for DVT prophylaxis. * Continue close neuro checks. * Start Telemetry monitoring now (not on telemetry at this time). * Consider transfer to stepdown unit for close neurological monitoring. * Permissive hypertension. * Neurology will follow. Addendum: MRI of the brain revealed significant evolving right-sided acute infarcts. These areas of acute infarction involves the right parietal lobe posterior watershed but additional multifocal areas of involvement throughout the frontal and temporal lobes. These involvement in the right head of caudate nucleus, extending into the basal ganglia through the anterior limb of the internal capsule. No definitive restricted diffusion on the left. Background mild diffuse age-related cerebral atrophy and chronic small vessel ischemic change. MRA of the brain revealed suboptimal study without significant focal stenosis or obvious aneurysm at the level of [place]. 2-D echo with bubble study has been completed, results pending. Start Plavix 75 mg daily along with aspirin 81 mg. Patient being transferred to ICU. Discussed with patient's friend Jennifer and updated about his condition. Time with Patient: Greater than 30
[2021-06-16 11:45] LABS: African American GFR (CKD) 109.9 (60.0-200.0); Albumin 2.9 g/dL (3.8-4.9); Albumin/Globulin Ratio 1.38 (1.60-3.17); Anion Gap 11.5 mmol/L (10.00-18.00); BUN/Creat Ratio 22.51 Ratio (12.00-20.00); Bilirubin, Conjugated 0.27 mg/dL (0.20-0.40); Bilirubin,Unconjugated 0.33 mg/dL (0.20-1.00); Blood Urea Nitrogen 20.8 mg/dL (9.0-27.0); Calcium 7.5 mg/dL (8.7-10.3); Carbon Dioxide 19.9 mmol/L (20.0-27.5); Globulin 2.1 g/dL (1.6-3.3); Non-African American GFR(CKD) 94.8 (60.0-200.0); Potassium 3.4 mmol/L (3.5-5.5); Total Bilirubin 0.6 mg/dL (0.30-1.20)
[2021-06-16] MEDS: POTASSIUM CHLORIDE ER 10 MEQ TAB.ER.PRT PO SCH (12:35)
--- NOTE | 2021-06-16 14:25 | MR ---
EXAMINATION TYPE: MR brain wo con DATE OF EXAM: 06/16/2021 COMPARISON: CT brain earlier today HISTORY: Acute CVA. Acute onset neural deficit earlier today. TECHNIQUE: Multiplanar, multisequence imaging of the brain and brainstem is performed without IV cont rast. FINDINGS: Some motion artifact degradation is present. Diffusion weighted images demonstrate multifocal areas of increased signal on diffusion-weighted imag ing with diminished signal on ADC mapping on the right side with greatest involvement right parietal lobe posterior watershed but additional multifocal areas of involvement throughout the frontal and te mporal lobes. There is involvement in the right head of caudate nucleus extending into the basal gang pepe through the anterior limb of the internal capsule. No definitive restricted diffusion on the left . Mild ventricular and sulcal prominence. Few small scattered foci of T2 hyperintensity seen throughout the white matter bilaterally. Midline structures demonstrate normal morphology. The craniocervical junction appears within normal limits. Normal vascular flow voids are present. Mild mucosal thickening inferior maxillary sinuses ot herwise paranasal sinuses are clear. Globes are intact bilaterally. IMPRESSION: 1. Significant evolving right-sided acute infarcts as detailed above. 2. Background mild diffuse age-related cerebral atrophy and chronic small vessel ischemic change is n oted.
--- NOTE | 2021-06-16 14:28 | MR ---
EXAMINATION TYPE: MR angio head wo con DATE OF EXAM: 06/16/2021 COMPARISON: CTA head earlier today HISTORY: Acute CVA TECHNIQUE: Time of flight images focusing on the [place] were performed without contrast.. 2-D and 3-D postprocessing imaging is performed an independent workstation and reviewed. FINDINGS: Exam slightly suboptimal as degraded by patient motion. Codominant vertebral arteries paten t to basilar junction redemonstrated. No significant focal stenosis or aneurysm. Hypoplastic bilatera l posterior communicating arteries noted. Images of the anterior circulation show hypoplastic anterior communicating artery. There is no signif icant focal stenosis or aneurysm clearly seen bilaterally. IMPRESSION: Suboptimal study without significant focal stenosis or obvious aneurysm at the level of t he [place].
--- NOTE | 2021-06-16 16:48 | P.PN ---
Subjective Progress Note Date: 06/16/21 Principal diagnosis: COVID-19 pneumonia/CVA Patient was examined at bedside today complaining of any new symptomatology. Apparently overnight surgical neurologic deficits was outside the window and was found to have a stroke. Case was discussed with RN present at bedside. Ra rology consult is pending MRI. Patient continues to be on high flow approximately 10 L modified high flow. Saturation above 92%. Objective - Vital Signs Vital signs: Vital Signs Temp 97.9 F 06/16/21 14:00 Pulse 73 06/16/21 14:00 Resp 20 06/16/21 14:00 BP 142/89 06/16/21 14:00 Pulse Ox 92 L 06/16/21 14:00 Intake & Output 06/15/21 06/16/21 06/16/21 18:59 06:59 18:59 Intake Total 600 1600 600 Balance 600 1600 600 Intake: Intake, IV Titration 600 1600 600 Amount Sodium Chloride 0.9% 1, 600 600 600 000 ml @ 75 mls/hr IV . [id number] [facility] Rx#:[id number] Sodium Chloride 0.9% 1, 1000 000 ml @ 999 mls/hr IV . Q1H1M [facility] Rx#:[id number] - Exam Constitutional: No acute distress, conversant, pleasant Eyes:Anicteric sclerae, moist conjunctiva, no lid-lag, PERRLA, ENMT: Oropharynx clear, no erythema, exudates Neck: Supple, FROM, no masses, or JVD, No carotid bruits, No thyromegaly Lungs: Some rhonchi appreciated Cardiovascular: Heart regular in rate and rhythm, No murmurs, gallops, or rubs, No peripheral edema Abdominal: Soft, Nontender, no guarding, rebound or rigidity, Normoactive bowel sounds, No hepatomegaly, No splenomegaly, No palpable mass Neuro: -Cranial nerves II 12 grossly intact -Sensation upper and lower extremity -Patient does have left upper extremity weakness and unable to make a fist- -slight facial droop noted on the left - Labs CBC & Chem 7: 06/16/21 07:41 06/16/21 07:41 Labs: Abnormal Lab Results - Last 24 Hours (Table) 06/16/21 06/16/21 06/16/21 Range/Units 02:37 03:08 03:08 WBC 11.2 H (3.8-10.6) k/uL Hgb 12.3 L D (13.0-17.5) gm/dL Hct 38.0 L (39.0-53.0) % Immature Gran # (0.00-0.04) X 10*3/uL Neutrophils # 9.6 H (1.3-7.7) k/uL Eosinophils # (0.04-0.35) X 10*3/uL APTT 19.1 L (22.0-30.0) sec D-Dimer 4.11 H (<0.60) mg/L FEU Potassium (3.5-5.5) mmol/L Chloride (98-107) mmol/L Carbon Dioxide (20.0-27.5) mmol/L BUN (9-20) mg/dL BUN/Creatinine Ratio (12.00-20.00) Ratio Glucose (74-99) mg/dL POC Glucose (mg/dL) 117 H (75-99) mg/dL Calcium (8.4-10.2) mg/dL AST (17-59) U/L ALT (4-49) U/L Lactate Dehydrogenase (120-246) U/L C-Reactive Protein (0.00-0.80) mg/dL Total Protein (6.3-8.2) g/dL Albumin (3.5-5.0) g/dL Albumin/Globulin Ratio (1.60-3.17) g/dL Procalcitonin (0.02-0.09) ng/mL 06/16/21 06/16/21 06/16/21 Range/Units 03:08 07:41 07:41 WBC (3.8-10.6) k/uL Hgb (13.0-17.5) gm/dL Hct (39.0-53.0) % Immature Gran # (0.00-0.04) X 10*3/uL Neutrophils # (1.3-7.7) k/uL Eosinophils # (0.04-0.35) X 10*3/uL APTT (22.0-30.0) sec D-Dimer (<0.60) mg/L FEU Potassium 3.4 L (3.5-5.5) mmol/L Chloride 108 H (98-107) mmol/L Carbon Dioxide 19.9 L (20.0-27.5) mmol/L BUN 24 H (9-20) mg/dL BUN/Creatinine Ratio 22.51 H (12.00-20.00) Ratio Glucose 105 H (74-99) mg/dL POC Glucose (mg/dL) (75-99) mg/dL Calcium 7.6 L 7.5 L (8.4-10.2) mg/dL AST 66 H 54 H (17-59) U/L ALT 54 H 60 H (4-49) U/L Lactate Dehydrogenase 510 H (120-246) U/L C-Reactive Protein 2.90 H (0.00-0.80) mg/dL Total Protein 5.4 L 5.0 L (6.3-8.2) g/dL Albumin 2.7 L 2.9 L (3.5-5.0) g/dL Albumin/Globulin Ratio 1.38 L (1.60-3.17) g/dL Procalcitonin 0.13 H (0.02-0.09) ng/mL 06/16/21 Range/Units 07:41 WBC 10.21 H (3.8-10.6) k/uL Hgb 12.2 L (13.0-17.5) gm/dL Hct 38.1 L (39.0-53.0) % Immature Gran # 0.11 H (0.00-0.04) X 10*3/uL Neutrophils # 8.43 H (1.3-7.7) k/uL Eosinophils # 0.01 L (0.04-0.35) X 10*3/uL APTT (22.0-30.0) sec D-Dimer (<0.60) mg/L FEU Potassium (3.5-5.5) mmol/L Chloride (98-107) mmol/L Carbon Dioxide (20.0-27.5) mmol/L BUN (9-20) mg/dL BUN/Creatinine Ratio (12.00-20.00) Ratio Glucose (74-99) mg/dL POC Glucose (mg/dL) (75-99) mg/dL Calcium (8.4-10.2) mg/dL AST (17-59) U/L ALT (4-49) U/L Lactate Dehydrogenase (120-246) U/L C-Reactive Protein (0.00-0.80) mg/dL Total Protein (6.3-8.2) g/dL Albumin (3.5-5.0) g/dL Albumin/Globulin Ratio (1.60-3.17) g/dL Procalcitonin (0.02-0.09) ng/mL Microbiology - Last 24 Hours (Table) 06/15/21 23:50 Gram Stain - Preliminary Sputum Sputum Culture - Preliminary Assessment and Plan Plan: Assessment: #1 acute hypoxia respiratory distress secondary to COVID-19 pneumonia #2 COVID-19 pneumonia #3 acute ischemic stroke most likely secondary to COVID as a risk factor? #4 essential hypertension Plan: -Aspiration/fall precaution -Obtain 2-D echocardiogram with bubble study -Risk stratify patient with lipid profile, hemoglobin A1c -Allow for permissive hypertension -Patient did not receive TPA was outside the window overnight -Neurology consulted -PT/OT, swallow eval -Pulmonary and neurology consulted -MRI pending, CTA, computed tomography scan of the head -DVT prophylaxis as per neurology Disposition disposition discharge in the next 48 hours after evaluation of CVA and respiratory status improves.
--- NOTE | 2021-06-16 16:52 | P.PN ---
Subjective Progress Note Date: 06/16/21 Principal diagnosis: Dyspnea, hypoxia, COVID-19 This is a pleasant 50-year-old male patient with no significant past medical history. Resulted to the emergency room yesterday with ongoing symptoms of shortness of breath cough and congestion. His symptoms started 06/02/2021. He is not vaccinated against the COVID-19. He was suspicious of possible symptoms and did test positive yesterday. He did have a temperature of 100.2. He is oxygen saturation 87% on room air. He's currently seen today in consultation on the regular medical floor. He is requiring 5 L nasal cannula to maintain O2 saturation at 94%. He has normal saline at 75 ML's per hour. His x-ray reveals bilateral airspace disease. CT angiogram ruled out pulmonary embolism. There is diffuse bilateral groundglass densities consistent with COVID-19 pneumonia. White count 6.1. Hemoglobin 13.2. Platelets 227. Lymphocytes 0.79. D-dimer 1.41. Sodium 141 potassium 3.9. Creatinine 0.9. Glucose 147. LDH 668. C- reactive protein 9.8. Pro-calcitonin 0.31. He's been initiated on Decadron, Lovenox, vitamin supplements. On 06/15/2021 patient seen in follow-up on medical surgical floor. He is awake and alert, in no acute distress, he is currently on 5 L of oxygen, pulse ox is 93%, he's coughing up occasionally small amount of blood-tinged sputum, no complaints of chest discomfort, lung sounds reveal some diffuse crackles, does have a cough, this morning she felt nauseous, he required some Zofran, however does not appear to be in any acute distress currently, he continues on Decadron 6 mg daily, he is receiving Lovenox 40 mg, he is on multivitamins, and she is receiving gentle IV hydration at 75 ML per hour. His chest x-ray today showing bilateral multifocal and confluent opacities consistent with COVID-19 infection, no significant change compared to 2 days earlier. His labs have been reviewed, d-dimer is 2.09, slightly increased, electrolytes and renal profile were unremarkable and yesterday's labs, his inflammatory markers are improving and LDH is down to 581, and CRP is down to 3.6, pro-calcitonin level was ordered along is 0.31. On 06/16/2021 patient seen in follow-up on medical surgical floor. Patient is awake and alert, in no acute distress, however patient suffered an acute ischemic stroke last night. Last night patient was noted to develop left arm weakness and numbness which was worsening, patient was unable to grasp with his left hand, and his left arm was limp. Patient was noted to have mild slurring of his speech however he was able to answer questions appropriately. His pupils are equal and reactive, he also had some left foot increased weakness. Code stroke was called, and CT of the brain showed negative unenhanced head CT scan, angiography CT of the brain showed no acute findings, and it was negative CT angiogram of the neck. Patient is currently awaiting MRI and MRA of the brain, neurology services are following. Currently remains on Lovenox 40 mg daily, he is on aspirin which was started today at 325 mg daily. He also remains on Deca dron 6 mg daily, 0.9 normal saline at a rate of 75 ML per hour. He is afebrile, blood pressures been stable at 142/89, placed on a monitor. Objective - Vital Signs Vital signs: Vital Signs Temp 97.9 F 06/16/21 14:00 Pulse 73 06/16/21 14:00 Resp 20 06/16/21 14:00 BP 142/89 06/16/21 14:00 Pulse Ox 92 L 06/16/21 14:00 Intake & Output 06/15/21 06/16/21 06/16/21 18:59 06:59 18:59 Intake Total 600 1600 600 Balance 600 1600 600 Intake: Intake, IV Titration 600 1600 600 Amount Sodium Chloride 0.9% 1, 600 600 600 000 ml @ 75 mls/hr IV . [id number] [facility] Rx#:[id number] Sodium Chloride 0.9% 1, 1000 000 ml @ 999 mls/hr IV . Q1H1M [facility] Rx#:[id number] - Exam GENERAL EXAM: Alert, very pleasant, 50-year-old white male, on 10 L of oxygen with a pulse ox of 92-97% comfortable in no apparent distress. HEAD: Normocephalic/atraumatic. EYES: Normal reaction of pupils, equal size. Conjunctiva pink, sclera white. NOSE: Clear with pink turbinates. THROAT: No erythema or exudates. NECK: No masses, no JVD, no thyroid enlargement, no adenopathy. CHEST: No chest wall deformity. Symmetrical expansion. LUNGS: Equal air entry with basilar crackles CVS: Regular rate and rhythm, normal S1 and S2, no gallops, no murmurs, no rubs ABDOMEN: Soft, nontender. No hepatosplenomegaly, normal bowel sounds, no guarding or rigidity. EXTREMITIES: No clubbing, no edema, no cyanosis, 2+ pulses and upper and lower extremities. MUSCULOSKELETAL: Muscle strength and tone normal. SPINE: No scoliosis or deformity SKIN: No rashes CENTRAL NERVOUS SYSTEM: Alert and oriented -3. No focal deficits, tone is normal in all 4 extremities. PSYCHIATRIC: Alert and oriented -3. Appropriate affect. Intact judgment and insight. - Labs CBC & Chem 7: 06/16/21 07:41 06/16/21 07:41 Labs: Abnormal Lab Results - Last 24 Hours (Table) 06/16/21 06/16/21 06/16/21 Range/Units 02:37 03:08 03:08 WBC 11.2 H (3.8-10.6) k/uL Hgb 12.3 L D (13.0-17.5) gm/dL Hct 38.0 L (39.0-53.0) % Immature Gran # (0.00-0.04) X 10*3/uL Neutrophils # 9.6 H (1.3-7.7) k/uL Eosinophils # (0.04-0.35) X 10*3/uL APTT 19.1 L (22.0-30.0) sec D-Dimer 4.11 H (<0.60) mg/L FEU Potassium (3.5-5.5) mmol/L Chloride (98-107) mmol/L Carbon Dioxide (20.0-27.5) mmol/L BUN (9-20) mg/dL BUN/Creatinine Ratio (12.00-20.00) Ratio Glucose (74-99) mg/dL POC Glucose (mg/dL) 117 H (75-99) mg/dL Calcium (8.4-10.2) mg/dL AST (17-59) U/L ALT (4-49) U/L Lactate Dehydrogenase (120-246) U/L C-Reactive Protein (0.00-0.80) mg/dL Total Protein (6.3-8.2) g/dL Albumin (3.5-5.0) g/dL Albumin/Globulin Ratio (1.60-3.17) g/dL Procalcitonin (0.02-0.09) ng/mL 06/16/21 06/16/21 06/16/21 Range/Units 03:08 07:41 07:41 WBC (3.8-10.6) k/uL Hgb (13.0-17.5) gm/dL Hct (39.0-53.0) % Immature Gran # (0.00-0.04) X 10*3/uL Neutrophils # (1.3-7.7) k/uL Eosinophils # (0.04-0.35) X 10*3/uL APTT (22.0-30.0) sec D-Dimer (<0.60) mg/L FEU Potassium 3.4 L (3.5-5.5) mmol/L Chloride 108 H (98-107) mmol/L Carbon Dioxide 19.9 L (20.0-27.5) mmol/L BUN 24 H (9-20) mg/dL BUN/Creatinine Ratio 22.51 H (12.00-20.00) Ratio Glucose 105 H (74-99) mg/dL POC Glucose (mg/dL) (75-99) mg/dL Calcium 7.6 L 7.5 L (8.4-10.2) mg/dL AST 66 H 54 H (17-59) U/L ALT 54 H 60 H (4-49) U/L Lactate Dehydrogenase 510 H (120-246) U/L C-Reactive Protein 2.90 H (0.00-0.80) mg/dL Total Protein 5.4 L 5.0 L (6.3-8.2) g/dL Albumin 2.7 L 2.9 L (3.5-5.0) g/dL Albumin/Globulin Ratio 1.38 L (1.60-3.17) g/dL Procalcitonin 0.13 H (0.02-0.09) ng/mL 06/16/21 Range/Units 07:41 WBC 10.21 H (3.8-10.6) k/uL Hgb 12.2 L (13.0-17.5) gm/dL Hct 38.1 L (39.0-53.0) % Immature Gran # 0.11 H (0.00-0.04) X 10*3/uL Neutrophils # 8.43 H (1.3-7.7) k/uL Eosinophils # 0.01 L (0.04-0.35) X 10*3/uL APTT (22.0-30.0) sec D-Dimer (<0.60) mg/L FEU Potassium (3.5-5.5) mmol/L Chloride (98-107) mmol/L Carbon Dioxide (20.0-27.5) mmol/L BUN (9-20) mg/dL BUN/Creatinine Ratio (12.00-20.00) Ratio Glucose (74-99) mg/dL POC Glucose (mg/dL) (75-99) mg/dL Calcium (8.4-10.2) mg/dL AST (17-59) U/L ALT (4-49) U/L Lactate Dehydrogenase (120-246) U/L C-Reactive Protein (0.00-0.80) mg/dL Total Protein (6.3-8.2) g/dL Albumin (3.5-5.0) g/dL Albumin/Globulin Ratio (1.60-3.17) g/dL Procalcitonin (0.02-0.09) ng/mL Microbiology - Last 24 Hours (Table) 06/15/21 23:50 Gram Stain - Preliminary Sputum Sputum Culture - Preliminary Assessment and Plan Plan: Assessment: #1. Acute hypoxic respiratory failure related to acute COVID-19 related pneumonia, patient presented to the emergency department on 06/13/2021. First onset of symptoms was on 06/02/2021 area he is not vaccinated against the COVID- 19. he was outside the window for Remdesivir. #2. Acute ischemic stroke with left-sided upper and lower extremity weakness, mild left hemiparesis, and mild slurring of speech, CT of the brain without contrast, and angiography CT showed no acute findings, MRI and MRA of the brain or being completed. Neurology service is following. Patient was started on aspirin #3. Elevated inflammatory markers related to the above, improving #4. Elevated d-dimer, without CT evidence of pulmonary embolism #5. Mild hyponatremia related to dehydration, resolved with gentle IV hydration Plan: Maintain aspiration precautions Continue current medical treatment with Decadron, continue Lovenox Continue Decadron Continue current dose Lovenox Today's labs have been reviewed, d-dimer has increased, his lower extremity Dopplers were negative for DVT Unfortunately the patient has suffered an acute ischemic stroke Patient is being followed closely by neurology services on the case Continue close neurological monitoring Patient has been started on aspirin Tinea with neurology recommendations MRI of the brain feel significant involving right-sided acute infarct Continue to follow Overall prognosis is extremely guarded Transfer the patient to the intensive care unit, for closer monitoring follow up blood work for tomorrow, CBC, CMP, chest x-ray, PT/INR, d-dimer, PTT, LDH, CRP in the morning I performed a history & physical examination of the patient and discussed their management with my nurse practitioner, Sharri White. I reviewed the nurse practitioner's note and agree with the documented findings and plan of care. Lung sounds are positive for diffuse crackles throughout the lung george. The findings and the impression was discussed with the patient. I attest to the documentation by the nurse practitioner. Time with Patient: Greater than 30
[2021-06-16 18:36] LABS: Glucose,Whole Blood 139 mg/dL (75-99)
[2021-06-17] MEDS: CLOPIDOGREL 75 MG TAB PO SCH ×2 (04:49→20:16)
[2021-06-17] MEDS: SODIUM CHLORIDE 0.9% 1,000 ML IV SCH ×2 (04:50→19:30)
[2021-06-17 06:27] LABS: Basophils % (A) 0 %; Eosinophils % (A) 0 %; HCT 38.9 % (39.0-53.0); HGB 12.4 gm/dL (13.0-17.5); Lymphocytes # (A) 0.8 k/uL (1.0-4.8); Lymphocytes % (A) 8 %; MCH 27.3 pg (25.0-35.0); MCHC 31.8 g/dL (31.0-37.0); MCV 85.8 fL (80.0-100.0); Mean Platelet Volume 7.8; Monocytes # (A) 0.5 k/uL (0-1.0); Monocytes % (A) 5 %; Neutrophils # (A) 9.1 k/uL (1.3-7.7); Neutrophils % (A) 85 %; Platelet Count 354 k/uL (150-450); RBC 4.53 m/uL (4.30-5.90); RDW 13.9 % (11.5-15.5); WBC 10.7 k/uL (3.8-10.6)
[2021-06-17 06:44] LABS: ALT 81 U/L (4-49); AST 73 U/L (17-59); African American GFR (CKD) >90 (>60 ml/min/1.73 sqM); Albumin 2.8 g/dL (3.5-5.0); Alkaline Phosphatase 96 U/L (38-126); Anion Gap 5 mmol/L; Blood Urea Nitrogen 19 mg/dL (9-20); Carbon Dioxide 22 mmol/L (22-30); Chloride 112 mmol/L (98-107); Glucose 107 mg/dL (74-99); LDH 1517 U/L (313-618); Non-African American GFR(CKD) 89 (>60 ml/min/1.73 sqM); Potassium 3.8 mmol/L (3.5-5.1); Sodium 139 mmol/L (137-145); Total Bilirubin 1.3 mg/dL (0.2-1.3); Total Protein 5.7 g/dL (6.3-8.2)
[2021-06-17 06:52] LABS: Prothrombin Time 10.9 sec (9.0-12.0)
[2021-06-17 07:52] LABS: C Reactive Protein 15.5 mg/dL (<1.0)
[2021-06-17] MEDS: ZINC SULFATE 220 MG CAP PO SCH (08:18)
[2021-06-17] MEDS: ASCORBIC ACID 500 MG TAB PO SCH (08:18)
[2021-06-17] MEDS: DEXAMETHASONE SOD PHOSPHATE 10 MG/ML 1 ML VIAL IVP SCH (08:19)
[2021-06-17] MEDS: ASPIRIN 81 MG PO SCH (08:19)
[2021-06-17] MEDS: ENOXAPARIN 40 MG/0.4 ML SYRINGE SQ SCH (08:20)
[2021-06-17] MEDS: CHOLECALCIFEROL 25 MCG (1000 IU) TABLET PO SCH (08:22)
--- NOTE | 2021-06-17 09:14 | P.PN ---
Subjective Progress Note Date: 06/17/21 Principal diagnosis: Dyspnea, hypoxia, COVID-19 This is a pleasant 50-year-old male patient with no significant past medical history. Resulted to the emergency room yesterday with ongoing symptoms of shortness of breath cough and congestion. His symptoms started 06/02/2021. He is not vaccinated against the COVID-19. He was suspicious of possible symptoms and did test positive yesterday. He did have a temperature of 100.2. He is oxygen saturation 87% on room air. He's currently seen today in consultation on the regular medical floor. He is requiring 5 L nasal cannula to maintain O2 saturation at 94%. He has normal saline at 75 ML's per hour. His x-ray reveals bilateral airspace disease. CT angiogram ruled out pulmonary embolism. There is diffuse bilateral groundglass densities consistent with COVID-19 pneumonia. White count 6.1. Hemoglobin 13.2. Platelets 227. Lymphocytes 0.79. D-dimer 1.41. Sodium 141 potassium 3.9. Creatinine 0.9. Glucose 147. LDH 668. C- reactive protein 9.8. Pro-calcitonin 0.31. He's been initiated on Decadron, Lovenox, vitamin supplements. On 06/15/2021 patient seen in follow-up on medical surgical floor. He is awake and alert, in no acute distress, he is currently on 5 L of oxygen, pulse ox is 93%, he's coughing up occasionally small amount of blood-tinged sputum, no complaints of chest discomfort, lung sounds reveal some diffuse crackles, does have a cough, this morning she felt nauseous, he required some Zofran, however does not appear to be in any acute distress currently, he continues on Decadron 6 mg daily, he is receiving Lovenox 40 mg, he is on multivitamins, and she is receiving gentle IV hydration at 75 ML per hour. His chest x-ray today showing bilateral multifocal and confluent opacities consistent with COVID-19 infection, no significant change compared to 2 days earlier. His labs have been reviewed, d-dimer is 2.09, slightly increased, electrolytes and renal profile were unremarkable and yesterday's labs, his inflammatory markers are improving and LDH is down to 581, and CRP is down to 3.6, pro-calcitonin level was ordered along is 0.31. On 06/16/2021 patient seen in follow-up on medical surgical floor. Patient is awake and alert, in no acute distress, however patient suffered an acute ischemic stroke last night. Last night patient was noted to develop left arm weakness and numbness which was worsening, patient was unable to grasp with his left hand, and his left arm was limp. Patient was noted to have mild slurring of his speech however he was able to answer questions appropriately. His pupils are equal and reactive, he also had some left foot increased weakness. Code stroke was called, and CT of the brain showed negative unenhanced head CT scan, angiography CT of the brain showed no acute findings, and it was negative CT angiogram of the neck. Patient is currently awaiting MRI and MRA of the brain, neurology services are following. Currently remains on Lovenox 40 mg daily, he is on aspirin which was started today at 325 mg daily. He also remains on Deca dron 6 mg daily, 0.9 normal saline at a rate of 75 ML per hour. He is afebrile, blood pressures been stable at 142/89, placed on a monitor. On 06/17/2021 patient seen in follow-up in the intensive care unit, yesterday he was transferred to the intensive care unit in view of his evolving acute isch emic CVA. On today's exam his left upper arm weakness is improved, he is able to lift up his left arm against gravity, however he is unable to psychologist with his left hand, left lower extremity strength is improved, he still has a slight left facial droop in the corner of his mouth, his speech is improved, and he was noted to have normal swallowing issues, he is awake and alert, he is oriented 3, is currently on 15 L per high flow nasal cannula however his pulse ox is only 85-86%. Generally she seems to be weak but in no acute distress. He remains on Decadron 6 mg daily, she remains on prophylactic Lovenox, aspirin 325 mg and Lipitor was added by neurology service. His bilateral airspace disease, fairly stable in appearance. Today's labs have been reviewed showing white blood cell count of 10.7, hemoglobin of 12.4, his platelet count is 354, d-dimer is 13.59, sodium is 139, potassium 3.8, chloride is 112, CO2 is 22, BUN is 19 creatinine 0.98, his LDH has increased and is up to 1517, and CRP is up to 15.5 on today's labs. On yesterday's labs at 0.13. Overnight patient has been afeb rile, and hemodynamically stable. Sinus mechanism with a controlled rate. Maintenance IV fluids are 0.9 normal saline at a rate of 75 ML per hour. As a week occasional cough, but denies any worsening dyspnea. Objective - Vital Signs Vital signs: Vital Signs Temp 98.8 F 06/17/21 04:00 Pulse 68 06/17/21 07:00 Resp 28 H 06/17/21 07:00 BP 151/95 06/17/21 07:00 Pulse Ox 95 06/17/21 07:00 Intake & Output 06/16/21 06/17/21 06/17/21 18:59 06:59 18:59 Intake Total 600 800 75 Output Total 1700 Balance 600 -900 75 Weight 101.3 kg Intake: Intake, IV Titration 600 750 75 Amount Sodium Chloride 0.9% 1, 600 750 75 000 ml @ 75 mls/hr IV . [id number] [facility] Rx#:[id number] Oral 50 Output: Urine 1700 - Exam GENERAL EXAM: Alert, very pleasant, 50-year-old white male, on 15 L of oxygen with a pulse ox of 85% comfortable in no apparent distress. HEAD: Normocephalic/atraumatic. EYES: Normal reaction of pupils, equal size. Conjunctiva pink, sclera white. NOSE: Clear with pink turbinates. THROAT: No erythema or exudates. NECK: No masses, no JVD, no thyroid enlargement, no adenopathy. CHEST: No chest wall deformity. Symmetrical expansion. LUNGS: Equal air entry with basilar crackles CVS: Regular rate and rhythm, normal S1 and S2, no gallops, no murmurs, no rubs ABDOMEN: Soft, nontender. No hepatosplenomegaly, normal bowel sounds, no guarding or rigidity. EXTREMITIES: No clubbing, no edema, no cyanosis, 2+ pulses and upper and lower extremities. MUSCULOSKELETAL: Muscle strength and tone normal. SPINE: No scoliosis or deformity SKIN: No rashes CENTRAL NERVOUS SYSTEM: Alert and oriented -3. Patient has slight left facial droop, left arm weakness improved, able to lift left arm against gravity, but unable to psychologist with left hand, left leg strength is improved PSYCHIATRIC: Alert and oriented -3. Appropriate affect. Intact judgment and insight. - Labs CBC & Chem 7: 06/17/21 06:08 06/17/21 06:08 Labs: Abnormal Lab Results - Last 24 Hours (Table) 06/16/21 06/16/21 06/16/21 Range/Units 07:41 07:41 07:41 WBC 10.21 H (4.50-10.00) X 10*3/uL Hgb 12.2 L (13.0-17.0) g/dL Hct 38.1 L (39.6-50.0) % Immature Gran # 0.11 H (0.00-0.04) X 10*3/uL Neutrophils # 8.43 H (1.80-7.70) X 10*3/uL Lymphocytes # (1.0-4.8) k/uL Eosinophils # 0.01 L (0.04-0.35) X 10*3/uL D-Dimer (<0.60) mg/L FEU Potassium 3.4 L (3.5-5.5) mmol/L Chloride (98-107) mmol/L Carbon Dioxide 19.9 L (20.0-27.5) mmol/L BUN/Creatinine Ratio 22.51 H (12.00-20.00) Ratio Glucose (74-99) mg/dL POC Glucose (mg/dL) (75-99) mg/dL Calcium 7.5 L (8.7-10.3) mg/dL AST 54 H (14-35) U/L ALT 60 H (10-49) U/L Lactate Dehydrogenase 510 H (120-246) U/L C-Reactive Protein 2.90 H (0.00-0.80) mg/dL Total Protein 5.0 L (6.2-8.2) g/dL Albumin 2.9 L (3.8-4.9) g/dL Albumin/Globulin Ratio 1.38 L (1.60-3.17) g/dL Procalcitonin 0.13 H (0.02-0.09) ng/mL 06/16/21 06/17/21 06/17/21 Range/Units 18:34 06:08 06:08 WBC 10.7 H (4.50-10.00) X 10*3/uL Hgb 12.4 L (13.0-17.0) g/dL Hct 38.9 L (39.6-50.0) % Immature Gran # (0.00-0.04) X 10*3/uL Neutrophils # 9.1 H (1.80-7.70) X 10*3/uL Lymphocytes # 0.8 L (1.0-4.8) k/uL Eosinophils # (0.04-0.35) X 10*3/uL D-Dimer (<0.60) mg/L FEU Potassium (3.5-5.5) mmol/L Chloride 112 H (98-107) mmol/L Carbon Dioxide (20.0-27.5) mmol/L BUN/Creatinine Ratio (12.00-20.00) Ratio Glucose 107 H (74-99) mg/dL POC Glucose (mg/dL) 139 H (75-99) mg/dL Calcium 8.0 L (8.7-10.3) mg/dL AST 73 H (14-35) U/L ALT 81 H (10-49) U/L Lactate Dehydrogenase 1517 H (120-246) U/L C-Reactive Protein 15.5 H (0.00-0.80) mg/dL Total Protein 5.7 L (6.2-8.2) g/dL Albumin 2.8 L (3.8-4.9) g/dL Albumin/Globulin Ratio (1.60-3.17) g/dL Procalcitonin (0.02-0.09) ng/mL 06/17/21 Range/Units 06:08 WBC (4.50-10.00) X 10*3/uL Hgb (13.0-17.0) g/dL Hct (39.6-50.0) % Immature Gran # (0.00-0.04) X 10*3/uL Neutrophils # (1.80-7.70) X 10*3/uL Lymphocytes # (1.0-4.8) k/uL Eosinophils # (0.04-0.35) X 10*3/uL D-Dimer 13.59 H (<0.60) mg/L FEU Potassium (3.5-5.5) mmol/L Chloride (98-107) mmol/L Carbon Dioxide (20.0-27.5) mmol/L BUN/Creatinine Ratio (12.00-20.00) Ratio Glucose (74-99) mg/dL POC Glucose (mg/dL) (75-99) mg/dL Calcium (8.7-10.3) mg/dL AST (14-35) U/L ALT (10-49) U/L Lactate Dehydrogenase (120-246) U/L C-Reactive Protein (0.00-0.80) mg/dL Total Protein (6.2-8.2) g/dL Albumin (3.8-4.9) g/dL Albumin/Globulin Ratio (1.60-3.17) g/dL Procalcitonin (0.02-0.09) ng/mL Microbiology - Last 24 Hours (Table) 06/15/21 23:50 Gram Stain - Preliminary Sputum Sputum Culture - Preliminary Assessment and Plan Plan: Assessment: #1. Acute hypoxic respiratory failure related to acute COVID-19 related pneumonia, patient presented to the emergency department on 06/13/2021. First onset of symptoms was on 06/02/2021 area he is not vaccinated against the COVID- 19. he was outside the window for Remdesivir. #2. Acute ischemic stroke with left-sided upper and lower extremity weakness, mild left hemiparesis, and mild slurring of speech, CT of the brain without contrast, and angiography CT showed no acute findings, MRI and MRA of the brain completed. MRI of the brain showed significant evolving right-sided acute infarct. MRA of the brain showed no significant focal stenosis, or obvious aneurysm at the level of the [place]. Neurology service is following. Patient was started on aspirin #3. Elevated inflammatory markers related to the above, improved and then worsened #4. Elevated d-dimer, without CT evidence of pulmonary embolism, evidence of DVT on lower extremity Dopplers. #5. Mild hyponatremia related to dehydration, resolved with gentle IV hydration Plan: Titrate FiO2 to keep O2 sats at or above 90% Today's chest x-ray reviewed showing stable airspace disease bilaterally, however his oxygenation needs are increased, and placed on Airvo Maintain aspiration precautions Continue current medical treatment with Decadron 6 mg daily, continue Lovenox 40 mg daily Neurologically patient is a bit better left sided weakness slightly improved Speech is improved, no difficulty swallowing detected Continue close neurological monitoring Echocardiogram completed, report is not available yet Hemodynamically patient is stable Keep patient in ICU follow up blood work for tomorrow, CBC, CMP, chest x-ray, PT/INR, d-dimer, PTT, LDH, CRP in the morning I performed a history & physical examination of the patient and discussed their management with my nurse practitioner, Sharri White. I reviewed the nurse practitioner's note and agree with the documented findings and plan of care. Lung sounds are positive for diffuse crackles throughout the lung george. The findings and the impression was discussed with the patient. I attest to the documentation by the nurse practitioner. Time with Patient: Greater than 30
--- NOTE | 2021-06-17 09:37 | XR ---
EXAMINATION TYPE: XR chest 1V portable DATE OF EXAM: 06/17/2021 COMPARISON: 06/15/2021 HISTORY: Cough TECHNIQUE: Single frontal view of the chest is obtained. FINDINGS: Bilateral multifocal and confluent opacities remain present. Cardiac silhouette size stabl e and upper limits of normal. Osseous structures are intact IMPRESSION: Stable diffuse bilateral areas of infiltrate.
[2021-06-17 12:24] LABS: Chol/HDL Ratio 2.67 Ratio; LDL Cholesterol,Calculated 51.4 mg/dL (0.0-131.0)
--- NOTE | 2021-06-17 16:48 | P.PN ---
Subjective Progress Note Date: 06/17/21 Principal diagnosis: COVID-19 pneumonia/CVA Patient was examined at bedside today not complaining of any new symptomatology. No worsening or new neurologic deficits noted. Patient's left upper extremity weakness is also slightly improving compared to yesterday. Today he was able to make a small cyst which was not possible yesterday. Continues to demonstrate good strength in his lower extremities and sensation within normal limits. Unfortunately continues to be on high flow and we will titrate his oxygen levels accordingly to maintain saturations above 92%. Objective - Vital Signs Vital signs: Vital Signs Temp 98.8 F 06/17/21 04:00 Pulse 72 06/17/21 13:00 Resp 22 06/17/21 13:00 BP 139/91 06/17/21 13:00 Pulse Ox 93 L 06/17/21 15:56 Intake & Output 06/16/21 06/17/21 06/17/21 18:59 06:59 18:59 Intake Total 133 052 5623 Output Total 1700 300 Balance 600 -900 765 Weight 101.3 kg Intake: IV 450 Sodium Chloride 0.9% 1, 450 000 ml @ 75 mls/hr IV . [id number] [facility] Rx#:[id number] Intake, IV Titration 600 750 75 Amount Sodium Chloride 0.9% 1, 600 750 75 000 ml @ 75 mls/hr IV . [id number] [facility] Rx#:[id number] Oral 50 540 Output: Urine 1700 300 - Exam Constitutional: No acute distress, conversant, pleasant Eyes:Anicteric sclerae, moist conjunctiva, no lid-lag, PERRLA, ENMT: Oropharynx clear, no erythema, exudates Neck: Supple, FROM, no masses, or JVD, No carotid bruits, No thyromegaly Lungs: Some rhonchi appreciated Cardiovascular: Heart regular in rate and rhythm, No murmurs, gallops, or rubs, No peripheral edema Abdominal: Soft, Nontender, no guarding, rebound or rigidity, Normoactive bowel sounds, No hepatomegaly, No splenomegaly, No palpable mass Neuro: -Cranial nerves II 12 grossly intact -Sensation upper and lower extremity -Patient does have left upper extremity weakness and unable to make a decision as improved compared to yesterday. -slight facial droop noted on the left-improving -No worsening dysarthria noted - Labs CBC & Chem 7: 06/17/21 06:08 06/17/21 06:08 Labs: Abnormal Lab Results - Last 24 Hours (Table) 06/16/21 06/17/21 06/17/21 Range/Units 18:34 06:08 06:08 WBC 10.7 H (3.8-10.6) k/uL Hgb 12.4 L (13.0-17.5) gm/dL Hct 38.9 L (39.0-53.0) % Neutrophils # 9.1 H (1.3-7.7) k/uL Lymphocytes # 0.8 L (1.0-4.8) k/uL D-Dimer (<0.60) mg/L FEU Chloride 112 H (98-107) mmol/L Glucose 107 H (74-99) mg/dL POC Glucose (mg/dL) 139 H (75-99) mg/dL Calcium 8.0 L (8.4-10.2) mg/dL AST 73 H (17-59) U/L ALT 81 H (4-49) U/L Lactate Dehydrogenase 1517 H (313-618) U/L C-Reactive Protein 15.5 H (<1.0) mg/dL Total Protein 5.7 L (6.3-8.2) g/dL Albumin 2.8 L (3.5-5.0) g/dL 06/17/21 Range/Units 06:08 WBC (3.8-10.6) k/uL Hgb (13.0-17.5) gm/dL Hct (39.0-53.0) % Neutrophils # (1.3-7.7) k/uL Lymphocytes # (1.0-4.8) k/uL D-Dimer 13.59 H (<0.60) mg/L FEU Chloride (98-107) mmol/L Glucose (74-99) mg/dL POC Glucose (mg/dL) (75-99) mg/dL Calcium (8.4-10.2) mg/dL AST (17-59) U/L ALT (4-49) U/L Lactate Dehydrogenase (313-618) U/L C-Reactive Protein (<1.0) mg/dL Total Protein (6.3-8.2) g/dL Albumin (3.5-5.0) g/dL Microbiology - Last 24 Hours (Table) 06/15/21 23:50 Gram Stain - Preliminary Sputum Sputum Culture - Preliminary Assessment and Plan Plan: Assessment: #1 acute hypoxia respiratory distress secondary to COVID-19 pneumonia #2 COVID-19 pneumonia #3 acute ischemic stroke most likely secondary to COVID as a risk factor? #4 essential hypertension Plan: -Aspiration/fall precaution -Obtain 2-D echocardiogram with bubble study pending read -Risk stratify patient pending hemoglobin A1c -PT/OT, swallow eval normal -Pulmonary and neurology consulted -She continues to be on high flow with a setting of 50 L 65% FiO2 -DVT prophylaxis Lovenox Disposition disposition discharge in the next 48 hours after evaluation of CVA and respiratory status improves.
--- NOTE | 2021-06-17 22:53 | P.PN ---
Subjective Progress Note Date: 06/17/21 Patient was seen for a follow-up. Patient is doing much better. Patient denies headache, only when he coughs, gets right temporal headache. Denies any dizziness, any pain anywhere. Denies any visual problem. Objective - Vital Signs Vital signs: Vital Signs Temp 98.8 F 06/17/21 04:00 Pulse 68 06/17/21 07:00 Resp 28 H 06/17/21 07:00 BP 151/95 06/17/21 07:00 Pulse Ox 92 L 06/17/21 09:06 Intake & Output 06/16/21 06/17/21 06/17/21 18:59 06:59 18:59 Intake Total 600 800 75 Output Total 1700 Balance 600 -900 75 Weight 101.3 kg Intake: Intake, IV Titration 600 750 75 Amount Sodium Chloride 0.9% 1, 600 750 75 000 ml @ 75 mls/hr IV . [id number] [facility] Rx#:[id number] Oral 50 Output: Urine 1700 - Exam Patient is a middle aged male, who is appearing sick, mild respiratory distress, appears generalized weak, slightly lethargic, however much better than yesterday. Patient has high flow oxygen running through airvo. He appears more interactive, more alert. Patient is otherwise awake, follows commands well. Speech and language functions are normal. Patient can name and repeat very well. Able to name objects like knuckles, and can repeat. No aphasia or dysarthria. Attention, concentration is decreased and fund of knowledge is adequate. Patient knows it is June 2021 and that he is in the hospital. On cranial examination, pupils are round and reacting to light, patient is acknowledging bilateral visual george much better. His visual george reveal complete homonymous hemianopia on the left, noticed on confrontation, extraocular muscles are intact with no nystagmus. Face has left-sided asymmetry, with normal movement of the upper part of the face, tongue protrudes to the midline. Palatal elevation and sensation normal, hearing is normal, facial sensation equal bilaterally. Shoulder shrug at least moderately decreased on the left. On muscle strength testing, there patient's strength is normal in the right arm and right leg. 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 Patient has left wrist drop. Normal strength in the left lower extremity distally and proximally as compared to the right. Deep tendon reflexes are 2+ to 3+ bilaterally and plantar is questionable up on the left whereas questionable down on the right. Sensory to touch has much improved. Patient not neglecting the left side as compared to yesterday. Patient has no neglect in the lower extremity although still has mild neglect on the left on double simultaneous stimulation. Cerebellar function showed no ataxia for [id number] testing although he is slow on the left. Tone is decreased in the left hand and bulk of muscles normal. Gait not checked. On general examination, there is no carotid bruit or murmur, S1-S2 audible. Abdomen is soft nontender, no organomegaly. Chest is clear. Peripheral pulses are present. No edema. Patient's NIH stroke scale is 7 (0, 0, 0, 0, 2, 2, 1, 0, 0, 0, 0, 1, 0, 0, 1) - Labs CBC & Chem 7: 06/17/21 06:08 06/17/21 06:08 Labs: Abnormal Lab Results - Last 24 Hours (Table) 06/16/21 06/16/21 06/17/21 Range/Units 07:41 18:34 06:08 WBC (3.8-10.6) k/uL Hgb (13.0-17.5) gm/dL Hct (39.0-53.0) % Neutrophils # (1.3-7.7) k/uL Lymphocytes # (1.0-4.8) k/uL D-Dimer (<0.60) mg/L FEU Potassium 3.4 L (3.5-5.5) mmol/L Chloride 112 H (98-107) mmol/L Carbon Dioxide 19.9 L (20.0-27.5) mmol/L BUN/Creatinine Ratio 22.51 H (12.00-20.00) Ratio Glucose 107 H (74-99) mg/dL POC Glucose (mg/dL) 139 H (75-99) mg/dL Calcium 7.5 L 8.0 L (8.7-10.3) mg/dL AST 54 H 73 H (14-35) U/L ALT 60 H 81 H (10-49) U/L Lactate Dehydrogenase 510 H 1517 H (120-246) U/L C-Reactive Protein 2.90 H 15.5 H (0.00-0.80) mg/dL Total Protein 5.0 L 5.7 L (6.2-8.2) g/dL Albumin 2.9 L 2.8 L (3.8-4.9) g/dL Albumin/Globulin Ratio 1.38 L (1.60-3.17) g/dL 06/17/21 06/17/21 Range/Units 06:08 06:08 WBC 10.7 H (3.8-10.6) k/uL Hgb 12.4 L (13.0-17.5) gm/dL Hct 38.9 L (39.0-53.0) % Neutrophils # 9.1 H (1.3-7.7) k/uL Lymphocytes # 0.8 L (1.0-4.8) k/uL D-Dimer 13.59 H (<0.60) mg/L FEU Potassium (3.5-5.5) mmol/L Chloride (98-107) mmol/L Carbon Dioxide (20.0-27.5) mmol/L BUN/Creatinine Ratio (12.00-20.00) Ratio Glucose (74-99) mg/dL POC Glucose (mg/dL) (75-99) mg/dL Calcium (8.7-10.3) mg/dL AST (14-35) U/L ALT (10-49) U/L Lactate Dehydrogenase (120-246) U/L C-Reactive Protein (0.00-0.80) mg/dL Total Protein (6.2-8.2) g/dL Albumin (3.8-4.9) g/dL Albumin/Globulin Ratio (1.60-3.17) g/dL Microbiology - Last 24 Hours (Table) 06/15/21 23:50 Gram Stain - Preliminary Sputum Sputum Culture - Preliminary Assessment and Plan Assessment: * Acute ischemic stroke, manifesting with complete left homonymous hemianopia, left hemisensory loss and mild left hemiparesis. Patient's NIH stroke scale is 7 today. Patient's examination is much improved as compared to yesterday. * Acute Covid-19 infection with pneumonia. * Elevated d-dimer * Elevated hepatic panel Plan: Patient is doing much better as compared to yesterday. Continue dual antiplatelet medications with Plavix 75 mg and aspirin 81 mg. Telemetry monitoring showing sinus rhythm, with no other arrhythmia. Lipid panel with cholesterol 127, LDL 51, HDL 47 and triglycerides 140. Lipids are well controlled, no indication for statins. Hemoglobin A1c pending. MRI of the brain revealed significant evolving right-sided acute infarcts. These areas of acute infarction involves the right parietal lobe posterior watershed but additional multifocal areas of involvement throughout the frontal and temporal lobes. These involvement in the right head of caudate nucleus, extending into the basal ganglia through the anterior limb of the internal caps ule. No definitive restricted diffusion on the left. Background mild diffuse age-related cerebral atrophy and chronic small vessel ischemic change. MRA of the brain revealed suboptimal study without significant focal stenosis or obvious aneurysm at the level of [place]. 2-D echo has been completed, results still pending. Suggest cardiology consultation for embolic strokes noted on the MRI. Continue Lovenox 40 mg subcu daily for DVT prophylaxis. PT OT, speech therapy Treatment of other medical conditions as per IM and critical care. Discussed with nursing staff.
[2021-06-18 06:33] LABS: African American GFR (CKD) >90 (>60 ml/min/1.73 sqM); Anion Gap 5 mmol/L; Blood Urea Nitrogen 23 mg/dL (9-20); Carbon Dioxide 21 mmol/L (22-30); Chloride 111 mmol/L (98-107); Glucose 111 mg/dL (74-99); Non-African American GFR(CKD) >90 (>60 ml/min/1.73 sqM); Sodium 137 mmol/L (137-145)
[2021-06-18] MEDS: SODIUM CHLORIDE 0.9% 1,000 ML IV SCH ×2 (06:58→18:03)
--- NOTE | 2021-06-18 08:57 | US ---
EXAMINATION TYPE: US abdomen limited DATE OF EXAM: 06/18/2021 COMPARISON: CT CLINICAL HISTORY: ELEVATED LFTS. Elevated LFT's EXAM MEASUREMENTS: Liver Length: 16.5 cm Gallbladder Wall: 0.3 cm CBD: 0.4 cm Right Kidney: 12.4 x 5.9 x 5.6 cm Pancreas: wnl, body and tail obscured by overlying bowel gas Liver: There is a coarse echotexture present, poor penetration of the ultrasound, liver may be enlar ged Gallbladder: Lumen clear, slightly contracted, pt not NPO Evidence for sonographic Gallegos's sign: NO CBD: wnl Right Kidney: Cyst lower pole= 1.5 cm , cortical medullary differentiation is maintained, there is n o hydronephrosis IMPRESSION: Correlate for possible hepatic steatosis, hepatocellular disease. Exam is limited.
--- NOTE | 2021-06-18 08:58 | P.PN ---
Subjective Progress Note Date: 06/18/21 Principal diagnosis: Dyspnea, hypoxia, COVID-19 This is a pleasant 50-year-old male patient with no significant past medical history. Resulted to the emergency room yesterday with ongoing symptoms of shortness of breath cough and congestion. His symptoms started 06/02/2021. He is not vaccinated against the COVID-19. He was suspicious of possible symptoms and did test positive yesterday. He did have a temperature of 100.2. He is oxygen saturation 87% on room air. He's currently seen today in consultation on the regular medical floor. He is requiring 5 L nasal cannula to maintain O2 saturation at 94%. He has normal saline at 75 ML's per hour. His x-ray reveals bilateral airspace disease. CT angiogram ruled out pulmonary embolism. There is diffuse bilateral groundglass densities consistent with COVID-19 pneumonia. White count 6.1. Hemoglobin 13.2. Platelets 227. Lymphocytes 0.79. D-dimer 1.41. Sodium 141 potassium 3.9. Creatinine 0.9. Glucose 147. LDH 668. C- reactive protein 9.8. Pro-calcitonin 0.31. He's been initiated on Decadron, Lovenox, vitamin supplements. On 06/15/2021 patient seen in follow-up on medical surgical floor. He is awake and alert, in no acute distress, he is currently on 5 L of oxygen, pulse ox is 93%, he's coughing up occasionally small amount of blood-tinged sputum, no complaints of chest discomfort, lung sounds reveal some diffuse crackles, does have a cough, this morning she felt nauseous, he required some Zofran, however does not appear to be in any acute distress currently, he continues on Decadron 6 mg daily, he is receiving Lovenox 40 mg, he is on multivitamins, and she is receiving gentle IV hydration at 75 ML per hour. His chest x-ray today showing bilateral multifocal and confluent opacities consistent with COVID-19 infection, no significant change compared to 2 days earlier. His labs have been reviewed, d-dimer is 2.09, slightly increased, electrolytes and renal profile were unremarkable and yesterday's labs, his inflammatory markers are improving and LDH is down to 581, and CRP is down to 3.6, pro-calcitonin level was ordered along is 0.31. On 06/16/2021 patient seen in follow-up on medical surgical floor. Patient is awake and alert, in no acute distress, however patient suffered an acute ischemic stroke last night. Last night patient was noted to develop left arm weakness and numbness which was worsening, patient was unable to grasp with his left hand, and his left arm was limp. Patient was noted to have mild slurring of his speech however he was able to answer questions appropriately. His pupils are equal and reactive, he also had some left foot increased weakness. Code stroke was called, and CT of the brain showed negative unenhanced head CT scan, angiography CT of the brain showed no acute findings, and it was negative CT angiogram of the neck. Patient is currently awaiting MRI and MRA of the brain, neurology services are following. Currently remains on Lovenox 40 mg daily, he is on aspirin which was started today at 325 mg daily. He also remains on Deca dron 6 mg daily, 0.9 normal saline at a rate of 75 ML per hour. He is afebrile, blood pressures been stable at 142/89, placed on a monitor. On 06/17/2021 patient seen in follow-up in the intensive care unit, yesterday he was transferred to the intensive care unit in view of his evolving acute isch emic CVA. 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 Generally she seems to be weak but in no acute distress. He remains on Decadron 6 mg daily, she remains on prophylactic Lovenox, aspirin 325 mg and Lipitor was added by neurology service. His bilateral airspace disease, fairly stable in appearance. Today's labs have been reviewed showing white blood cell count of 10.7, hemoglobin of 12.4, his platelet count is 354, d-dimer is 13.59, sodium is 139, potassium 3.8, chloride is 112, CO2 is 22, BUN is 19 creatinine 0.98, his LDH has increased and is up to 1517, and CRP is up to 15.5 on today's labs. On yesterday's labs at 0.13. Overnight patient has been afeb rile, and hemodynamically stable. Sinus mechanism with a controlled rate. Maintenance IV fluids are 0.9 normal saline at a rate of 75 ML per hour. As a week occasional cough, but denies any worsening dyspnea. On 06/18/2021 patient is seen in follow-up in the intensive care unit. He is awake and alert, oriented 3, seems a little fatigued, but no acute distress, he states he still coughs, the cough is dry, lung sounds are positive for diffuse rales, his oxygenation has further worsened, and he is currently on high flow oxygen device in the form of Airvo and 50 L and FiO2 of 80%, and his pulse ox is 89-95%, he is on 0.9 normal saline AT 75 ML per hour. Today's chest x-ray and blood work is still pending, his inflammatory markers and d-dimer were worsening on yesterday's labs however there was no CTA evidence of pulmonary embolism or lower extremity DVT on his lower extremity Dopplers. Neurologically patient seems to be stable compared to yesterday's exam, he still has left facial weakness in the corner of his mouth, and left hand weakness. He is able to lift his arm up against gravity. His left lower extremity weakness has significantly improved. And continues on Decadron 6 program daily, prophylactic Lovenox 40 mg daily, he is tolerating oral intake, his speech is non-slurred. He continues on oral aspirin 325 mg, we'll file showed triglycerides of 140, cholesterol level of 127, LDL of 58 1.4, HDL of 47.6. Echocardiogram has been completed but the results are still pending Objective - Vital Signs Vital signs: Vital Signs Temp 98.5 F 06/18/21 08:00 Pulse 91 06/18/21 08:00 Resp 16 06/18/21 08:00 BP 144/93 06/18/21 08:00 Pulse Ox 89 L 06/18/21 08:00 Intake & Output 06/17/21 06/18/21 06/18/21 18:59 06:59 18:59 Intake Total 1680 1180 75 Output Total 500 575 0 Balance 1180 605 75 Weight 99.8 kg Intake: IV 825 900 75 Sodium Chloride 0.9% 1, 825 900 75 000 ml @ 75 mls/hr IV . [id number] [facility] Rx#:[id number] Intake, IV Titration 75 Amount Sodium Chloride 0.9% 1, 75 000 ml @ 75 mls/hr IV . [id number] [facility] Rx#:[id number] Oral 780 280 Output: Urine 500 575 0 Other: Voiding Method Urinal - Exam GENERAL EXAM: Alert, very pleasant, 50-year-old white male, on Airvo at 50l/ and Fio2 of 80% comfortable in no apparent distress. HEAD: Normocephalic/atraumatic. EYES: Normal reaction of pupils, equal size. Conjunctiva pink, sclera white. NOSE: Clear with pink turbinates. THROAT: No erythema or exudates. NECK: No masses, no JVD, no thyroid enlargement, no adenopathy. CHEST: No chest wall deformity. Symmetrical expansion. LUNGS: Equal air entry with basilar crackles CVS: Regular rate and rhythm, normal S1 and S2, no gallops, no murmurs, no rubs ABDOMEN: Soft, nontender. No hepatosplenomegaly, normal bowel sounds, no guarding or rigidity. EXTREMITIES: No clubbing, no edema, no cyanosis, 2+ pulses and upper and lower extremities. MUSCULOSKELETAL: Muscle strength and tone normal. SPINE: No scoliosis or deformity SKIN: No rashes CENTRAL NERVOUS SYSTEM: Alert and oriented -3. 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 Appropriate affect. Intact judgment and insight. - Labs CBC & Chem 7: 06/17/21 06:08 06/18/21 05:50 Labs: Abnormal Lab Results - Last 24 Hours (Table) 06/18/21 Range/Units 05:50 Chloride 111 H (98-107) mmol/L Carbon Dioxide 21 L (22-30) mmol/L BUN 23 H (9-20) mg/dL Glucose 111 H (74-99) mg/dL Calcium 8.0 L (8.4-10.2) mg/dL Microbiology - Last 24 Hours (Table) 06/15/21 23:50 Gram Stain - Preliminary Sputum Sputum Culture - Preliminary Assessment and Plan Plan: Assessment: #1. Acute hypoxic respiratory failure related to acute COVID-19 related pneumonia, patient presented to the emergency department on 06/13/2021. First onset of symptoms was on 06/02/2021 area he is not vaccinated against the COVID- 19. he was outside the window for Remdesivir. #2. Acute ischemic stroke with left-sided upper and lower extremity weakness, mild left hemiparesis, and mild slurring of speech, CT of the brain without contrast, and angiography CT showed no acute findings, MRI and MRA of the brain completed. MRI of the brain showed significant evolving right-sided acute infarct. MRA of the brain showed no significant focal stenosis, or obvious aneurysm at the level of the [place]. Neurology service is following. Patient was started on aspirin #3. Elevated inflammatory markers related to the above, improved and then worsened #4. Elevated d-dimer, without CT evidence of pulmonary embolism, evidence of DVT on lower extremity Dopplers. #5. Mild hyponatremia related to dehydration, resolved with gentle IV hydration Plan: Remains on Airvo at 50 L and FiO2 of 80% Does not appear to be in any acute distress We'll consult with pharmacy to see if the patient is a candidate for Baricitinib Continue current medical treatment with Decadron 6 mg daily, continue Lovenox 40 mg daily Neurologically patient is stable Has the slight left facial droop, and left hand weakness, but left leg weakness has improved, no dysarthria, no dysphagia Continue close neurological monitoring Echocardiogram completed, report is still not available Keep patient in ICU follow up blood work for tomorrow, CBC, CMP, chest x-ray, d-dimer, PTT, LDH, CRP in the morning I performed a history & physical examination of the patient and discussed their management with my nurse practitioner, Sharri White. I reviewed the nurse practitioner's note and agree with the documented findings and plan of care. Lung sounds are positive for diffuse crackles throughout the lung george. The findings and the impression was discussed with the patient. I attest to the documentation by the nurse practitioner. Time with Patient: Greater than 30
[2021-06-18 09:02] LABS: Basophils # (A) 0.1 k/uL (0-0.2); Basophils % (A) 0 %; Eosinophils # (A) 0.1 k/uL (0-0.7); Eosinophils % (A) 1 %; HCT 39.4 % (39.0-53.0); HGB 12.3 gm/dL (13.0-17.5); Lymphocytes # (A) 1.2 k/uL (1.0-4.8); Lymphocytes % (A) 11 %; MCH 27.5 pg (25.0-35.0); MCHC 31.3 g/dL (31.0-37.0); MCV 88.1 fL (80.0-100.0); Mean Platelet Volume 8.5; Monocytes # (A) 0.5 k/uL (0-1.0); Monocytes % (A) 5 %; Neutrophils # (A) 8.7 k/uL (1.3-7.7); Neutrophils % (A) 81 %; Platelet Count 362 k/uL (150-450); RBC 4.47 m/uL (4.30-5.90); WBC 10.8 k/uL (3.8-10.6)
--- NOTE | 2021-06-18 09:10 | XR ---
EXAMINATION TYPE: XR chest 1V portable DATE OF EXAM: 06/18/2021 COMPARISON: Chest x-ray 06/17/2021 HISTORY: Covid pneumonia TECHNIQUE: Single frontal view of the chest is obtained. FINDINGS: Bilateral airspace disease is again noted. There is no evident pneumothorax or pleural eff usion. Cardiac mediastinal silhouette is stable. There are overlying artifacts. IMPRESSION: Findings consistent with patient's history Covid pneumonia are stable
[2021-06-18] MEDS: ASPIRIN 81 MG PO SCH (09:12)
[2021-06-18] MEDS: ASCORBIC ACID 500 MG TAB PO SCH (09:12)
[2021-06-18] MEDS: ZINC SULFATE 220 MG CAP PO SCH (09:12)
[2021-06-18] MEDS: DEXAMETHASONE SOD PHOSPHATE 10 MG/ML 1 ML VIAL IVP SCH (09:13)
[2021-06-18] MEDS: CHOLECALCIFEROL 25 MCG (1000 IU) TABLET PO SCH (09:13)
[2021-06-18] MEDS: ENOXAPARIN 40 MG/0.4 ML SYRINGE SQ SCH (09:13)
[2021-06-18] MEDS: BARICITINIB 2 MG TABLET PO SCH ×2 (09:55→14:44)
[2021-06-18 13:08] LABS: Hepatitis A Antibody IgM Nonreactive (Nonreactive); Hepatitis B Core IgM Nonreactive (Nonreactive); Hepatitis B Surface Antigen Nonreactive (Nonreactive); Hepatitis C IgG Antibody Nonreactive (Nonreactive)
--- NOTE | 2021-06-18 15:26 | P.PN ---
Subjective Progress Note Date: 06/18/21 Patient was seen and examined at the bedside in ICU. He is awake and oriented 3. He denies any chest pain or shortness of breath. Patient currently on a rapid 50 L 80%. Still complaining of weakness in the left side. Objective - Vital Signs Vital signs: Vital Signs Temp 98.8 F 06/18/21 12:00 Pulse 71 06/18/21 14:00 Resp 30 H 06/18/21 14:00 BP 143/97 06/18/21 14:00 Pulse Ox 94 L 06/18/21 14:00 Intake & Output 06/17/21 06/18/21 06/18/21 18:59 06:59 18:59 Intake Total 1680 1180 1100 Output Total 930 352 9488 Balance 1180 605 100 Weight 99.8 kg Intake: IV 825 900 600 Sodium Chloride 0.9% 1, 825 900 600 000 ml @ 75 mls/hr IV . [id number] [facility] Rx#:[id number] Intake, IV Titration 75 Amount Sodium Chloride 0.9% 1, 75 000 ml @ 75 mls/hr IV . [id number] [facility] Rx#:[id number] Oral 780 280 500 Output: Urine 399 350 1162 Other: Voiding Method Urinal Urinal - Exam GENERAL EXAM: Alert, very pleasant, 50-year-old white male, on Airvo at 50l/ and Fio2 of 80% comfortable in no apparent distress. HEAD: Normocephalic/atraumatic. EYES: Normal reaction of pupils, equal size. Conjunctiva pink, sclera white. NOSE: Clear with pink turbinates. THROAT: No erythema or exudates. NECK: No masses, no JVD, no thyroid enlargement, no adenopathy. CHEST: No chest wall deformity. Symmetrical expansion. LUNGS: Equal air entry with basilar crackles CVS: Regular rate and rhythm, normal S1 and S2, no gallops, no murmurs, no rubs ABDOMEN: Soft, nontender. No hepatosplenomegaly, normal bowel sounds, no guarding or rigidity. EXTREMITIES: No clubbing, no edema, no cyanosis, 2+ pulses and upper and lower extremities. MUSCULOSKELETAL: Muscle strength and tone normal. SPINE: No scoliosis or deformity SKIN: No rashes CENTRAL NERVOUS SYSTEM: Alert and oriented -3. 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 Appropriate affect. Intact judgment and insight. - Labs CBC & Chem 7: 06/18/21 05:50 06/18/21 05:50 Labs: Abnormal Lab Results - Last 24 Hours (Table) 06/18/21 06/18/21 06/18/21 Range/Units 05:50 05:50 05:50 WBC 10.8 H (3.8-10.6) k/uL Hgb 12.3 L (13.0-17.5) gm/dL Neutrophils # 8.7 H (1.3-7.7) k/uL D-Dimer 17.91 H (<0.60) mg/L FEU Chloride 111 H (98-107) mmol/L Carbon Dioxide 21 L (22-30) mmol/L BUN 23 H (9-20) mg/dL Glucose 111 H (74-99) mg/dL Calcium 8.0 L (8.4-10.2) mg/dL Microbiology - Last 24 Hours (Table) 06/15/21 23:50 Gram Stain - Final Sputum Sputum Culture - Final Assessment and Plan Plan: Assessment and Plan: #Acute hypoxic respiratory failure related to acute COVID-19 related pneumonia -patient presented to the emergency department on 06/13/2021. -First onset of symptoms was on 06/02/2021 area he is not vaccinated against the COVID-19. -he was outside the window for Remdesivir. -Remains on Airvo at 50 L and FiO2 of 80% -Does not appear to be in any acute distress -Prednisone Decadron -Pharmacy started Baricitinib -Pulmonary critical following #Elevated d-dimer, without CT evidence of pulmonary embolism, evidence of DVT on lower extremity Dopplers. #Acute ischemic stroke with left-hemiparesis, and mild slurring of speech -CT of the brain without contrast, and angiography CT showed no acute findings, MRI and MRA of the brain completed. -MRI of the brain showed significant evolving right-sided acute infarct. MRA of the brain showed no significant focal stenosis, or obvious aneurysm at the level of the [place]. -Neurology service is following. Patient was started on aspirin and Plavix -Statin and hold due to elevated LFTs -LDL 51.4 -2-D echo pending reading -Neurology recommended further consultation to rule out embolic CVA -PT/OT evaluation #Elevated LFTs -Check hepatitis panel -Ultrasound of abdomen -Trend LFTs daily #DVT prophylaxis with Lovenox
--- NOTE | 2021-06-18 16:13 | P.PN ---
Subjective Progress Note Date: 06/18/21 Patient was seen for a follow-up. Patient is clinically stable as compared to yesterday. Patient denies headache, only when he coughs, gets right temporal headache. Denies any dizziness, any pain anywhere. Denies any visual problem. Objective - Vital Signs Vital signs: Vital Signs Temp 98.8 F 06/18/21 12:00 Pulse 79 06/18/21 15:00 Resp 27 H 06/18/21 15:00 BP 143/95 06/18/21 15:00 Pulse Ox 100 06/18/21 15:00 Intake & Output 06/17/21 06/18/21 06/18/21 18:59 06:59 18:59 Intake Total 1680 1180 1175 Output Total 556 720 6253 Balance 1180 605 175 Weight 99.8 kg Intake: IV 825 900 675 Sodium Chloride 0.9% 1, 825 900 675 000 ml @ 75 mls/hr IV . [id number] [facility] Rx#:[id number] Intake, IV Titration 75 Amount Sodium Chloride 0.9% 1, 75 000 ml @ 75 mls/hr IV . [id number] [facility] Rx#:[id number] Oral 780 280 500 Output: Urine 776 317 4090 Other: Voiding Method Urinal Urinal - Exam Patient is a middle aged male, who is appearing sick, mild respiratory distress, appears generalized weak, slightly lethargic, however stable as compared to yesterday. Patient has high flow oxygen running through airvo. He appears clinically and changes compared to yesterday. Patient is otherwise awake, follows commands well. Speech and language functions are normal. Patient can name and repeat very well. No aphasia or dysarthria. Attention, concentration is decreased and fund of knowledge is adequate. On cranial examination, pupils are round and reacting to light, patient is a cknowledging bilateral visual george much better. His visual george reveal complete homonymous hemianopia on the left, although not as dense as yesterday. extraocular muscles are intact with no nystagmus. Patient's left eye somewhat adducts, which was also noticed for the last couple days, but did not document. He still has full extraocular muscles movement. No diplopia. Face has left- sided asymmetry, with normal movement of the upper part of the face, tongue protrudes to the midline. Palatal elevation and sensation normal, hearing is normal, facial sensation equal bilaterally. Shoulder shrug at least moderately decreased on the left. On muscle strength testing, there patient's strength is normal in the right arm and right leg. On the left side, biceps is 5-, triceps 5, deltoid 4+5-, guest services 4. Patient has left wrist drop, slightly better than yesterday. Normal strength in the left lower extremity distally and proximally as compared to the right. Deep tendon reflexes are 2+ to 3+ bilaterally and plantar is questionable up on the left whereas questionable down on the right. Sensory to touch still sore shows significant sensory deficit on the left. Cerebellar function showed no ataxia for [id number] testing although he is slow on the left. Tone is decreased in the left hand and bulk of muscles normal. Gait not checked. On general examination, there is no carotid bruit or murmur, S1-S2 audible. Abdomen is soft nontender, no organomegaly. Chest is clear. Peripheral pulses are present. No edema. Patient's NIH stroke scale is 7 (0, 0, 0, 0, 2, 2, 1, 0, 0, 0, 0, 1, 0, 0, 1) - Labs CBC & Chem 7: 06/18/21 05:50 06/18/21 05:50 Labs: Abnormal Lab Results - Last 24 Hours (Table) 06/18/21 06/18/21 06/18/21 Range/Units 05:50 05:50 05:50 WBC 10.8 H (3.8-10.6) k/uL Hgb 12.3 L (13.0-17.5) gm/dL Neutrophils # 8.7 H (1.3-7.7) k/uL D-Dimer 17.91 H (<0.60) mg/L FEU Chloride 111 H (98-107) mmol/L Carbon Dioxide 21 L (22-30) mmol/L BUN 23 H (9-20) mg/dL Glucose 111 H (74-99) mg/dL Calcium 8.0 L (8.4-10.2) mg/dL Microbiology - Last 24 Hours (Table) 06/15/21 23:50 Gram Stain - Final Sputum Sputum Culture - Final Assessment and Plan Assessment: * Acute ischemic stroke, manifesting with complete left homonymous hemianopia, left hemisensory loss and mild left hemiparesis. Patient's NIH stroke scale remains at 7 today. Patient's left arm strength has improved slightly as compared to yesterday. * Acute Covid-19 infection with pneumonia. * Elevated d-dimer * Elevated hepatic panel Plan: Patient is doing much better as compared to yesterday. Continue dual antiplatelet medications with Plavix 75 mg and aspirin 81 mg. Telemetry monitoring showing sinus rhythm, with no other arrhythmia. Lipid panel with cholesterol 127, LDL 51, HDL 47 and triglycerides 140. Lipids are well controlled, no indication for statins. Hemoglobin A1c pending. MRI of the brain revealed significant evolving right-sided acute infarcts. These areas of acute infarction involves the right parietal lobe posterior watershed but additional multifocal areas of involvement throughout the frontal and temporal lobes. These involvement in the right head of caudate nucleus, extending into the basal ganglia through the anterior limb of the internal capsule. No definitive restricted diffusion on the left. Background mild diffuse age-related cerebral atrophy and chronic small vessel ischemic change. MRA of the brain revealed suboptimal study without significant focal stenosis or obvious aneurysm at the level of [place]. 2-D echo has been completed, results still pending. Await cardiology consultation for embolic strokes noted on the MRI. Continue Lovenox 40 mg subcu daily for DVT prophylaxis. PT OT, speech therapy Treatment of other medical conditions as per IM and critical care. Discussed with nursing staff.
[2021-06-18] MEDS: CLOPIDOGREL 75 MG TAB PO SCH (20:00)
[2021-06-18 23:33] LABS: LDH 467 U/L (120-246)
[2021-06-19 05:06] LABS: Basophils # (A) 0.1 k/uL (0-0.2); Basophils % (A) 0 %; Eosinophils # (A) 0.1 k/uL (0-0.7); Eosinophils % (A) 1 %; HCT 39.9 % (39.0-53.0); HGB 12.7 gm/dL (13.0-17.5); Lymphocytes # (A) 1.4 k/uL (1.0-4.8); Lymphocytes % (A) 12 %; MCH 27.8 pg (25.0-35.0); MCHC 31.9 g/dL (31.0-37.0); MCV 87.3 fL (80.0-100.0); Mean Platelet Volume 7.8; Monocytes # (A) 0.5 k/uL (0-1.0); Monocytes % (A) 5 %; Neutrophils # (A) 8.8 k/uL (1.3-7.7); Neutrophils % (A) 80 %; Platelet Count 439 k/uL (150-450); RBC 4.57 m/uL (4.30-5.90); WBC 11.1 k/uL (3.8-10.6)
[2021-06-19 05:39] LABS: ALT 73 U/L (4-49); AST 40 U/L (17-59); African American GFR (CKD) >90 (>60 ml/min/1.73 sqM); Albumin 2.7 g/dL (3.5-5.0); Alkaline Phosphatase 96 U/L (38-126); Anion Gap 6 mmol/L; Blood Urea Nitrogen 22 mg/dL (9-20); Calcium 8.4 mg/dL (8.4-10.2); Carbon Dioxide 22 mmol/L (22-30); Chloride 110 mmol/L (98-107); Glucose 104 mg/dL (74-99); Non-African American GFR(CKD) >90 (>60 ml/min/1.73 sqM); Potassium 4.4 mmol/L (3.5-5.1); Sodium 138 mmol/L (137-145); Total Bilirubin 1.1 mg/dL (0.2-1.3); Total Protein 5.7 g/dL (6.3-8.2)
[2021-06-19] MEDS: SODIUM CHLORIDE 0.9% 1,000 ML IV SCH (06:10)
--- NOTE | 2021-06-19 06:11 | P.CONS ---
History of Present Illness - Chief Complaint Medical debility - History of Present Illness I had the opportunity to see patient for inpatient rehab consultation with regard to medical debility. Patient admitted June 13 with shortness of breath, cough, Covid pneumonia. Admitted to Dr. Cheek. Seen by Dr. Camarillo. Seen by neurology, Dr. Asa Naranjo for developing stroke with left hemiparesthesias. Workup includes initial C-spine CT which did demonstrated only diffuse groundglass appearance in the lungs. Venous Doppler negative for right or left leg. Head CT, angiogram CT, brain MRA and head CT were all negative. Brain MRI demonstrated diffuse atrophy and right-sided cerebral changes or infarcts. Abdominal ultrasound consistent with hepatics steatosis. Multiple chest x-rays followed for the pneumonia. His started therapies. PT reports minimal assistance for bed mobility, transfers, gait 28 foot hand-held. OT reports minimal assist for upper dressing, moderate assistance for lower dr essing bathing, maximal assistance for toileting and minimal assistance for functional mobility and transfers. Speech therapy assessing cognition. Previous functional history as elicited from patient: 50-year-old white male who is single lives in one floor home with daughter and mom. Works full-time. Describes independent with own cooking, laundry, driving, standing shower and gait without device. Review of Systems Review of systems: ENT: Denies sneezes or discharge. Eyes: Denies discharge or photophobia. Cardiac: Denies chest pain or palpitation. Pulmonary: At least mild shortness of breath. Gastrointestinal: Denies nausea, emesis, constipation, diarrhea. Genitourinary: Denies discharge or frequency. Musculoskeletal: Denies muscle or bone aches. Neurologic: Gen. weakness and sleepy affect. Endocrine: Denies shakes or sweats. Oncology: Denies cancers. Dermatologic: Denies rash, itching, pruritus. ALLERGY/immunology: Denies sneezes, rashes. Past Medical History Past Medical History: No Reported History History of Any Multi-Drug Resistant Organisms: None Reported Past Surgical History: No Surgical Hx Reported Past Psychological History: No Psychological Hx Reported Smoking Status: Never smoker Past Alcohol Use History: None Reported Past Drug Use History: None Reported Medications and Allergies Home Medications Medication Instructions Recorded Confirmed Type No Known Home Medications 06/13/21 06/13/21 History Allergies Allergy/AdvReac Type Severity Reaction Status Date / Time Penicillins Allergy Rash/Hives Verified 06/13/21 12:50 Physical Exam Vitals: Vital Signs Temp Pulse Resp BP Pulse Ox 06/19/21 04:11 95 06/19/21 03:00 56 L 21 112/89 96 06/19/21 02:00 58 L 21 131/88 97 06/19/21 01:00 64 24 126/91 93 L 06/19/21 00:45 94 L 06/19/21 00:08 66 27 H 95 06/19/21 00:00 98.2 F 63 24 112/96 95 06/18/21 23:00 60 21 132/93 98 06/18/21 22:00 68 24 142/94 96 06/18/21 21:17 96 06/18/21 21:00 68 19 149/97 97 06/18/21 20:00 98.5 F 76 37 H 136/87 97 06/18/21 19:00 74 26 H 139/85 96 06/18/21 18:00 77 16 136/94 97 06/18/21 17:00 80 24 128/96 96 06/18/21 16:00 98.8 F 58 L 22 130/80 99 06/18/21 15:00 79 27 H 143/95 100 06/18/21 14:00 71 30 H 143/97 94 L 06/18/21 13:00 70 23 163/85 98 06/18/21 12:00 98.8 F 74 17 154/117 92 L 06/18/21 11:00 63 24 147/100 96 06/18/21 10:00 71 24 141/96 95 06/18/21 09:00 86 36 H 160/99 92 L 06/18/21 08:00 98.5 F 91 16 144/93 89 L 06/18/21 07:00 58 L 25 H 158/100 95 Intake and Output 06/18/21 06/18/21 06/19/21 14:59 22:59 06:59 Intake Total 1100 1040 450 Output Total 1000 850 0 Balance 100 190 450 Intake: IV 600 600 450 Sodium Chloride 0.9% 1, 600 600 450 000 ml @ 75 mls/hr IV . [id number] [facility] Rx#:[id number] Oral 500 440 Output: Urine 1000 850 0 Other: Voiding Method Urinal Urinal Urinal # Bowel Movements 1 Skin: Good color, texture, turgor. General: Medium build and comfortable and sleepy this a.m. appearance. Head: Normocephalic, atraumatic. Eyes: Symmetric. Pupils equal round. Ears: Symmetric. Hearing within normal limits. Mouth: Clear. Neck: Supple. Carotid without bruit. Cardiac: Regular rate and rhythm. Lungs: Clear anteriorly and posteriorly. Abdomen: Soft active nontender. Extremities: Normal tone. Neurological: Mental status: Alert, cooperative, pleasant. Cranial nerves: Symmetric facial tone and trapezius. Motor: Active movement arms less than antigravity in legs poor. May be slightly weaker on left side. Sensation: Intact throughout. DTRs: Symmetric and equal throughout. Mobility: Requires assistance for functional debility. Results CBC & Chem 7: 06/19/21 04:29 06/19/21 04:29 Labs: Abnormal Lab Results - Last 24 Hours (Table) 06/18/21 06/18/21 06/18/21 Range/Units 05:50 05:50 05:50 WBC 10.8 H (3.8-10.6) k/uL Hgb 12.3 L (13.0-17.5) gm/dL Neutrophils # 8.7 H (1.3-7.7) k/uL D-Dimer 17.91 H (<0.60) mg/L FEU Chloride 111 H (98-107) mmol/L Carbon Dioxide 21 L (22-30) mmol/L BUN 23 H (9-20) mg/dL Glucose 111 H (74-99) mg/dL Calcium 8.0 L (8.4-10.2) mg/dL ALT (4-49) U/L Lactate Dehydrogenase 467 H (120-246) U/L C-Reactive Protein 10.60 H (0.00-0.80) mg/dL Total Protein (6.3-8.2) g/dL Albumin (3.5-5.0) g/dL 06/19/21 06/19/21 06/19/21 Range/Units 04:29 04:29 04:29 WBC 11.1 H (3.8-10.6) k/uL Hgb 12.7 L (13.0-17.5) gm/dL Neutrophils # 8.8 H (1.3-7.7) k/uL D-Dimer 10.00 H (<0.60) mg/L FEU Chloride (98-107) mmol/L Carbon Dioxide (22-30) mmol/L BUN (9-20) mg/dL Glucose (74-99) mg/dL Calcium (8.4-10.2) mg/dL ALT (4-49) U/L Lactate Dehydrogenase 1059 H (120-246) U/L C-Reactive Protein 6.0 H (0.00-0.80) mg/dL Total Protein (6.3-8.2) g/dL Albumin (3.5-5.0) g/dL 06/19/21 Range/Units 04:29 WBC (3.8-10.6) k/uL Hgb (13.0-17.5) gm/dL Neutrophils # (1.3-7.7) k/uL D-Dimer (<0.60) mg/L FEU Chloride 110 H (98-107) mmol/L Carbon Dioxide (22-30) mmol/L BUN 22 H (9-20) mg/dL Glucose 104 H (74-99) mg/dL Calcium (8.4-10.2) mg/dL ALT 73 H (4-49) U/L Lactate Dehydrogenase (120-246) U/L C-Reactive Protein (0.00-0.80) mg/dL Total Protein 5.7 L (6.3-8.2) g/dL Albumin 2.7 L (3.5-5.0) g/dL Microbiology - Last 24 Hours (Table) 06/15/21 23:50 Gram Stain - Final Sputum Sputum Culture - Final Assessment and Plan (1) Acute respiratory failure with hypoxia Current Visit: Yes Status: Acute Code(s): J96.01 - ACUTE RESPIRATORY FAILURE WITH HYPOXIA SNOMED Code(s): 16655452 (2) Pneumonia due to COVID-19 virus Current Visit: Yes Status: Acute Code(s): U07.1 - COVID-19; J12.82 - PNEUMONIA DUE TO CORONAVIRUS DISEASE 2018 SNOMED Code(s): 451209234394437523 Plan: Impression: 1. Medical debility with Covid positive pneumonia. 2. Stroke and left hemiparesthesias. I Comments and plan: At this time PT, OT, TIRE CLASSIFIER ongoing. Patient still within Covid restrictions and with severe weakness was therapy appropriate for inpatient rehab at this time. Of course ICU. We'll continue to follow with yourself.
--- NOTE | 2021-06-19 09:19 | P.PN ---
Subjective Progress Note Date: 06/19/21 Principal diagnosis: Dyspnea, hypoxia, COVID-19 This is a pleasant 50-year-old male patient with no significant past medical history. Resulted to the emergency room yesterday with ongoing symptoms of shortness of breath cough and congestion. His symptoms started 06/02/2021. He is not vaccinated against the COVID-19. He was suspicious of possible symptoms and did test positive yesterday. He did have a temperature of 100.2. He is oxygen saturation 87% on room air. He's currently seen today in consultation on the regular medical floor. He is requiring 5 L nasal cannula to maintain O2 saturation at 94%. He has normal saline at 75 ML's per hour. His x-ray reveals bilateral airspace disease. CT angiogram ruled out pulmonary embolism. There is diffuse bilateral groundglass densities consistent with COVID-19 pneumonia. White count 6.1. Hemoglobin 13.2. Platelets 227. Lymphocytes 0.79. D-dimer 1.41. Sodium 141 potassium 3.9. Creatinine 0.9. Glucose 147. LDH 668. C- reactive protein 9.8. Pro-calcitonin 0.31. He's been initiated on Decadron, Lovenox, vitamin supplements. On 06/15/2021 patient seen in follow-up on medical surgical floor. He is awake and alert, in no acute distress, he is currently on 5 L of oxygen, pulse ox is 93%, he's coughing up occasionally small amount of blood-tinged sputum, no complaints of chest discomfort, lung sounds reveal some diffuse crackles, does have a cough, this morning she felt nauseous, he required some Zofran, however does not appear to be in any acute distress currently, he continues on Decadron 6 mg daily, he is receiving Lovenox 40 mg, he is on multivitamins, and she is receiving gentle IV hydration at 75 ML per hour. His chest x-ray today showing bilateral multifocal and confluent opacities consistent with COVID-19 infection, no significant change compared to 2 days earlier. His labs have been reviewed, d-dimer is 2.09, slightly increased, electrolytes and renal profile were unremarkable and yesterday's labs, his inflammatory markers are improving and LDH is down to 581, and CRP is down to 3.6, pro-calcitonin level was ordered along is 0.31. On 06/16/2021 patient seen in follow-up on medical surgical floor. Patient is awake and alert, in no acute distress, however patient suffered an acute ischemic stroke last night. Last night patient was noted to develop left arm weakness and numbness which was worsening, patient was unable to grasp with his left hand, and his left arm was limp. Patient was noted to have mild slurring of his speech however he was able to answer questions appropriately. His pupils are equal and reactive, he also had some left foot increased weakness. Code stroke was called, and CT of the brain showed negative unenhanced head CT scan, angiography CT of the brain showed no acute findings, and it was negative CT angiogram of the neck. Patient is currently awaiting MRI and MRA of the brain, neurology services are following. Currently remains on Lovenox 40 mg daily, he is on aspirin which was started today at 325 mg daily. He also remains on Deca dron 6 mg daily, 0.9 normal saline at a rate of 75 ML per hour. He is afebrile, blood pressures been stable at 142/89, placed on a monitor. On 06/17/2021 patient seen in follow-up in the intensive care unit, yesterday he was transferred to the intensive care unit in view of his evolving acute isch emic CVA. 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 Generally she seems to be weak but in no acute distress. He remains on Decadron 6 mg daily, she remains on prophylactic Lovenox, aspirin 325 mg and Lipitor was added by neurology service. His bilateral airspace disease, fairly stable in appearance. Today's labs have been reviewed showing white blood cell count of 10.7, hemoglobin of 12.4, his platelet count is 354, d-dimer is 13.59, sodium is 139, potassium 3.8, chloride is 112, CO2 is 22, BUN is 19 creatinine 0.98, his LDH has increased and is up to 1517, and CRP is up to 15.5 on today's labs. On yesterday's labs at 0.13. Overnight patient has been afeb rile, and hemodynamically stable. Sinus mechanism with a controlled rate. Maintenance IV fluids are 0.9 normal saline at a rate of 75 ML per hour. As a week occasional cough, but denies any worsening dyspnea. On 06/18/2021 patient is seen in follow-up in the intensive care unit. He is awake and alert, oriented 3, seems a little fatigued, but no acute distress, he states he still coughs, the cough is dry, lung sounds are positive for diffuse rales, his oxygenation has further worsened, and he is currently on high flow oxygen device in the form of Airvo and 50 L and FiO2 of 80%, and his pulse ox is 89-95%, he is on 0.9 normal saline AT 75 ML per hour. Today's chest x-ray and blood work is still pending, his inflammatory markers and d-dimer were worsening on yesterday's labs however there was no CTA evidence of pulmonary embolism or lower extremity DVT on his lower extremity Dopplers. Neurologically patient seems to be stable compared to yesterday's exam, he still has left facial weakness in the corner of his mouth, and left hand weakness. He is able to lift his arm up against gravity. His left lower extremity weakness has significantly improved. And continues on Decadron 6 program daily, prophylactic Lovenox 40 mg daily, he is tolerating oral intake, his speech is non-slurred. He continues on oral aspirin 325 mg, we'll file showed triglycerides of 140, cholesterol level of 127, LDL of 58 1.4, HDL of 47.6. Echocardiogram has been completed but the results are still pending On 06/19/2021 patient seen in follow-up in the intensive care unit, today he is awake and alert, oriented 3 sitting up in the recliner, breathing comfortably, he is currently switched over to regular high flow nasal cannula at 14 L and his pulse ox is 95%, he denies any worsening dyspnea, he has a mild occasional dry cough. No complaints of chest discomfort. Subsequently his oxygen was dropped down to 13 L, patient continues to maintain stable O2 saturations, no new chest x-ray today, yesterday's chest x-ray was showing airspace disease with no evident pneumothorax or pleural effusion. 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 Objective - Vital Signs Vital signs: Vital Signs Temp 98.4 F 06/19/21 04:00 Pulse 52 L 06/19/21 07:00 Resp 21 06/19/21 07:00 BP 132/85 06/19/21 07:00 Pulse Ox 97 06/19/21 07:38 Intake & Output 06/18/21 06/19/21 06/19/21 18:59 06:59 18:59 Intake Total 1600 1140 150 Output Total 1000 1350 500 Balance 600 -210 -350 Intake: IV 900 900 150 Sodium Chloride 0.9% 1, 900 900 150 000 ml @ 75 mls/hr IV . [id number] [facility] Rx#:[id number] Oral 700 240 Output: Urine 1000 1350 500 Other: Voiding Method Urinal Urinal # Bowel Movements 1 - Exam GENERAL EXAM: Alert, very pleasant, 50-year-old white male, on 14 l/min, sitting up in recliner comfortable in no apparent distress. HEAD: Normocephalic/atraumatic. EYES: Normal reaction of pupils, equal size. Conjunctiva pink, sclera white. NOSE: Clear with pink turbinates. THROAT: No erythema or exudates. NECK: No masses, no JVD, no thyroid enlargement, no adenopathy. CHEST: No chest wall deformity. Symmetrical expansion. LUNGS: Equal air entry with basilar crackles CVS: Regular rate and rhythm, normal S1 and S2, no gallops, no murmurs, no rubs ABDOMEN: Soft, nontender. No hepatosplenomegaly, normal bowel sounds, no guarding or rigidity. EXTREMITIES: No clubbing, no edema, no cyanosis, 2+ pulses and upper and lower extremities. MUSCULOSKELETAL: Muscle strength and tone normal. SPINE: No scoliosis or deformity SKIN: No rashes CENTRAL NERVOUS SYSTEM: Alert and oriented -3. Patient has slight left facial droop, left arm weakness improved, able to lift left arm against gravity, but unable to network/telecom engineer with left hand, left leg strength is improved PSYCHIATRIC: Alert and oriented -3. Appropriate affect. Intact judgment and insight. - Labs CBC & Chem 7: 06/19/21 04:29 06/19/21 04:29 Labs: Abnormal Lab Results - Last 24 Hours (Table) 06/18/21 06/18/21 06/19/21 Range/Units 05:50 05:50 04:29 WBC (3.8-10.6) k/uL Hgb (13.0-17.5) gm/dL Neutrophils # (1.3-7.7) k/uL D-Dimer 17.91 H 10.00 H (<0.60) mg/L FEU Chloride (98-107) mmol/L BUN (9-20) mg/dL Glucose (74-99) mg/dL ALT (4-49) U/L Lactate Dehydrogenase 467 H (120-246) U/L C-Reactive Protein 10.60 H (0.00-0.80) mg/dL Total Protein (6.3-8.2) g/dL Albumin (3.5-5.0) g/dL 06/19/21 06/19/21 06/19/21 Range/Units 04:29 04:29 04:29 WBC 11.1 H (3.8-10.6) k/uL Hgb 12.7 L (13.0-17.5) gm/dL Neutrophils # 8.8 H (1.3-7.7) k/uL D-Dimer (<0.60) mg/L FEU Chloride 110 H (98-107) mmol/L BUN 22 H (9-20) mg/dL Glucose 104 H (74-99) mg/dL ALT 73 H (4-49) U/L Lactate Dehydrogenase 1059 H (120-246) U/L C-Reactive Protein 6.0 H (0.00-0.80) mg/dL Total Protein 5.7 L (6.3-8.2) g/dL Albumin 2.7 L (3.5-5.0) g/dL Microbiology - Last 24 Hours (Table) 06/15/21 23:50 Gram Stain - Final Sputum Sputum Culture - Final Assessment and Plan Plan: Assessment: #1. Acute hypoxic respiratory failure related to acute COVID-19 related pneumonia, patient presented to the emergency department on 06/13/2021. First onset of symptoms was on 06/02/2021 area he is not vaccinated against the COVID- 19. he was outside the window for Remdesivir. #2. Acute ischemic stroke with left-sided upper and lower extremity weakness, mild left hemiparesis, and mild slurring of speech, CT of the brain without contrast, and angiography CT showed no acute findings, MRI and MRA of the brain completed. MRI of the brain showed significant evolving right-sided acute infarct. MRA of the brain showed no significant focal stenosis, or obvious aneurysm at the level of the [place]. Neurology service is following. Patient was started on aspirin #3. Elevated inflammatory markers related to the above, improved and then worsened #4. Elevated d-dimer, without CT evidence of pulmonary embolism, evidence of DVT on lower extremity Dopplers. #5. Mild hyponatremia related to dehydration, resolved with gentle IV hydration Plan: Oxygenation has improved, and patient was transitioned to regular nasal cannula at 14 L, and he is breathing comfortably maintaining stable O2 saturations. Not appear to be in any acute distress, Neurologically patient has remained stable, still continues to have a slight left facial droop, and left hand weakness but his left leg weakness has improved We'll continue with current Decadron dose, and Lovenox, continue COVID-19 multivitamins, We'll continue with neurology recommendations We'll obtain antiphospholipid antibody panel, Continue following inflammatory markers, d-dimer follow up chest x-ray, CBC CMP, LDH, CRP, d-dimer in the morning Physical therapy recommendations Encouraged the patient to deep breathe and cough, Today as tolerated Post monitoring in the ICU I performed a history & physical examination of the patient and discussed their management with my nurse practitioner, Sharri White. I reviewed the nurse practitioner's note and agree with the documented findings and plan of care. Lung sounds are positive for diffuse crackles throughout the lung george. The findings and the impression was discussed with the patient. I attest to the documentation by the nurse practitioner. Time with Patient: Greater than 30
[2021-06-19] MEDS: ASCORBIC ACID 500 MG TAB PO SCH (09:35)
[2021-06-19] MEDS: DEXAMETHASONE SOD PHOSPHATE 10 MG/ML 1 ML VIAL IVP SCH (09:35)
[2021-06-19] MEDS: CHOLECALCIFEROL 25 MCG (1000 IU) TABLET PO SCH (09:36)
[2021-06-19] MEDS: ENOXAPARIN 40 MG/0.4 ML SYRINGE SQ SCH (09:36)
[2021-06-19] MEDS: ZINC SULFATE 220 MG CAP PO SCH (09:36)
[2021-06-19] MEDS: ASPIRIN 81 MG PO SCH (09:36)
--- NOTE | 2021-06-19 11:43 | P.PN ---
Subjective Progress Note Date: 06/19/21 Patient was seen and examined at the bedside in ICU. He is awake and oriented 3. He denies any chest pain or shortness of breath. Patient currently on 6 L high flow nasal cannula satting. He reports improvement in the weakness in the left side. Otherwise no acute changes overnight Objective - Vital Signs Vital signs: Vital Signs Temp 98.4 F 06/19/21 04:00 Pulse 73 06/19/21 11:00 Resp 26 H 06/19/21 11:00 BP 119/74 06/19/21 11:00 Pulse Ox 97 06/19/21 11:00 Intake & Output 06/18/21 06/19/21 06/19/21 18:59 06:59 18:59 Intake Total 1600 1140 150 Output Total 1000 1350 500 Balance 600 -210 -350 Intake: IV 900 900 150 Sodium Chloride 0.9% 1, 900 900 150 000 ml @ 75 mls/hr IV . [id number] [facility] Rx#:[id number] Oral 700 240 Output: Urine 1000 1350 500 Other: Voiding Method Urinal Urinal # Bowel Movements 1 - Exam GENERAL EXAM: Alert, very pleasant, 50-year-old white male, on 6 L high flow nasal cannula HEAD: Normocephalic/atraumatic. EYES: Normal reaction of pupils, equal size. Conjunctiva pink, sclera white. NOSE: Clear with pink turbinates. THROAT: No erythema or exudates. NECK: No masses, no JVD, no thyroid enlargement, no adenopathy. CHEST: No chest wall deformity. Symmetrical expansion. LUNGS: Equal air entry with basilar crackles CVS: Regular rate and rhythm, normal S1 and S2, no gallops, no murmurs, no rubs ABDOMEN: Soft, nontender. No hepatosplenomegaly, normal bowel sounds, no guar ding or rigidity. EXTREMITIES: No clubbing, no edema, no cyanosis, 2+ pulses and upper and lower extremities. MUSCULOSKELETAL: Muscle strength and tone normal. 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 Intact judgment and insight. - Labs CBC & Chem 7: 06/19/21 04:29 06/19/21 04:29 Labs: Abnormal Lab Results - Last 24 Hours (Table) 06/18/21 06/19/21 06/19/21 Range/Units 05:50 04:29 04:29 WBC (3.8-10.6) k/uL Hgb (13.0-17.5) gm/dL Neutrophils # (1.3-7.7) k/uL D-Dimer 10.00 H (<0.60) mg/L FEU Chloride (98-107) mmol/L BUN (9-20) mg/dL Glucose (74-99) mg/dL ALT (4-49) U/L Lactate Dehydrogenase 467 H 1059 H (120-246) U/L C-Reactive Protein 10.60 H 6.0 H (0.00-0.80) mg/dL Total Protein (6.3-8.2) g/dL Albumin (3.5-5.0) g/dL 06/19/21 06/19/21 Range/Units 04:29 04:29 WBC 11.1 H (3.8-10.6) k/uL Hgb 12.7 L (13.0-17.5) gm/dL Neutrophils # 8.8 H (1.3-7.7) k/uL D-Dimer (<0.60) mg/L FEU Chloride 110 H (98-107) mmol/L BUN 22 H (9-20) mg/dL Glucose 104 H (74-99) mg/dL ALT 73 H (4-49) U/L Lactate Dehydrogenase (120-246) U/L C-Reactive Protein (0.00-0.80) mg/dL Total Protein 5.7 L (6.3-8.2) g/dL Albumin 2.7 L (3.5-5.0) g/dL Microbiology - Last 24 Hours (Table) 06/15/21 23:50 Gram Stain - Final Sputum Sputum Culture - Final Assessment and Plan Plan: Assessment and Plan: #Acute hypoxic respiratory failure related to acute COVID-19 related pneumonia -patient presented to the emergency department on 06/13/2021. -First onset of symptoms was on 06/02/2021 area he is not vaccinated against the COVID-19. -he was outside the window for Remdesivir. -Remains on 6 L high flow nasal cannula -Does not appear to be in any acute distress -Resume Decadron -Pharmacy started Baricitinib -Pulmonary critical following #Elevated d-dimer, without CT evidence of pulmonary embolism, evidence of DVT on lower extremity Dopplers. #Acute ischemic stroke with left-hemiparesis, and mild slurring of speech -CT of the brain without contrast, and angiography CT showed no acute findings, MRI and MRA of the brain completed. -MRI of the brain showed significant evolving right-sided acute infarct. MRA of the brain showed no significant focal stenosis, or obvious aneurysm at the level of the [place]. -Neurology service is following. Patient was started on aspirin and Plavix -Statin and hold due to elevated LFTs -LDL 51.4 -2-D echo pending reading -Neurology recommended cardiology consultation to rule out embolic CVA -PT/OT evaluation #Elevated LFTs -LFTs are trending down -Completely secondary to call with -Negative hepatitis panel -Ultrasound of abdomen showed hepatic steatosis and hepatocellular disease -Trend LFTs daily #DVT prophylaxis with Lovenox
--- NOTE | 2021-06-19 18:19 | P.CRDCN ---
History of Present Illness History of present illness: This is Dr. Gonzalez dictating an H/P on this patient Chart review IMPRESSION / ASSESSMENT: Thrombotic-embolic CVA as noted below, in the setting of Covid with pneumonitis Symptoms began on the night of 15 June and there was a corresponding increase in d-dimer is at that time and subsequently for the next 48 hours Absence of any atrial fibrillation Currently and dual antiplatelet therapy PLAN: 2-D echo and Doppler study to assess cardiac structure and function Consider oral anticoagulation plus single antiplatelet therapy since the stroke occurred in association with a rapidly rising d-dimers I would leave that decision to neurology Monitor blood pressure Patient's LDL is excellent No other input at this point HPI patient admitted with Covid pneumonia and acute is free failure with hypoxia, on June 13, 2021 Currently consulted on June 19, 2021 for evaluation of embolic stroke Diffuse bilateral groundglass densities consistent with acute inflammatory process on CT chest from june EKG showed sinus rhythm nonspecific ST-T abnormality normal CO narrow QRS heart rate 101 beats a minute No evidence for DVT on June 15. Seen by pulmonary medicine and management for Covid pneumonitis begun On the night of 15 June patient reported left finger numbness He was alert and oriented 3 that evening He has sudden onset of left upper extremity flaccid paralysis on June 16 No intracranial hemorrhage on computed tomography scan of the brain Negative CT angios the brain and neck Seen by neurology Complete homonymous hemianopia left-sided, left hemisensory loss, mild left hemiparesis Patient did not receive TPA Elevated d-dimer rising levels from through 19 of June, from 1.86-4.1-13.59 then 17.9 and now reduced to 10.0 MRI of the brain shows a significant involving the right-sided acute infarct, multifocal involving the frontal and temporal lobes and caudate nucleus and basal ganglia and anterior lip of the internal capsule EXAMINATION: Normal blood pressure readings for most part with occasional elevations 254 and 163 mmHg on the REVIEW OF LABS, ECG & MEDICAL DATA No evidence for atrial fibrillation Past Medical History Past Medical History: No Reported History History of Any Multi-Drug Resistant Organisms: None Reported Past Surgical History: No Surgical Hx Reported Past Psychological History: No Psychological Hx Reported Smoking Status: Never smoker Past Alcohol Use History: None Reported Past Drug Use History: None Reported Medications and Allergies Home Medications Medication Instructions Recorded Confirmed Type No Known Home Medications 06/13/21 06/13/21 History Allergies Allergy/AdvReac Type Severity Reaction Status Date / Time Penicillins Allergy Rash/Hives Verified 06/13/21 12:50 Physical Exam Vitals: Vital Signs Temp Pulse Resp BP Pulse Ox 06/19/21 15:00 62 26 H 125/93 93 L 06/19/21 14:00 65 25 H 138/93 99 06/19/21 13:00 78 31 H 130/88 95 06/19/21 12:00 58 L 18 130/86 97 06/19/21 11:00 73 26 H 119/74 97 06/19/21 10:00 82 24 137/88 97 06/19/21 09:44 96 06/19/21 09:00 68 28 H 147/91 97 06/19/21 08:00 67 26 H 133/89 91 L 06/19/21 07:38 97 06/19/21 07:00 52 L 21 132/85 94 L 06/19/21 06:00 50 L 24 117/74 94 L 06/19/21 05:00 54 L 20 109/72 93 L 06/19/21 04:11 95 06/19/21 04:00 98.4 F 56 L 19 122/81 95 06/19/21 03:00 56 L 21 112/89 96 06/19/21 02:00 58 L 21 131/88 97 06/19/21 01:00 64 24 126/91 93 L 06/19/21 00:45 94 L 06/19/21 00:08 66 27 H 95 06/19/21 00:00 98.2 F 63 24 112/96 95 06/18/21 23:00 60 21 132/93 98 06/18/21 22:00 68 24 142/94 96 06/18/21 21:17 96 06/18/21 21:00 68 19 149/97 97 06/18/21 20:00 98.5 F 76 37 H 136/87 97 06/18/21 19:00 74 26 H 139/85 96 Intake and Output 06/19/21 06/19/21 06/19/21 06:59 14:59 22:59 Intake Total 600 880 Output Total 500 500 Balance 100 380 Intake: IV 600 450 Sodium Chloride 0.9% 1, 600 450 000 ml @ 75 mls/hr IV . [id number] [facility] Rx#:[id number] Oral 430 Output: Urine 500 500 Other: Voiding Method Urinal Urinal Results 06/19/21 04:29 06/19/21 04:29 Cardiac Enzymes 06/18/21 06/19/21 06/19/21 Range/Units 05:50 04:29 04:29 AST 40 (17-59) U/L Lactate Dehydrogenase 467 H 1059 H (120-246) U/L CBC 06/19/21 Range/Units 04:29 WBC 11.1 H (3.8-10.6) k/uL RBC 4.57 (4.30-5.90) m/uL Hgb 12.7 L (13.0-17.5) gm/dL Hct 39.9 (39.0-53.0) % Plt Count 439 (150-450) k/uL Comprehensive Metabolic Panel 06/19/21 Range/Units 04:29 Sodium 138 (137-145) mmol/L Potassium 4.4 (3.5-5.1) mmol/L Chloride 110 H (98-107) mmol/L Carbon Dioxide 22 (22-30) mmol/L BUN 22 H (9-20) mg/dL Creatinine 0.82 (0.66-1.25) mg/dL Glucose 104 H (74-99) mg/dL Calcium 8.4 (8.4-10.2) mg/dL AST 40 (17-59) U/L ALT 73 H (4-49) U/L Alkaline Phosphatase 96 (38-126) U/L Total Protein 5.7 L (6.3-8.2) g/dL Albumin 2.7 L (3.5-5.0) g/dL Current Medications Generic Name Dose Route Start Last Admin Trade Name Freq PRN Reason Stop Dose Admin Ascorbic Acid 1,000 mg 06/14/21 09:00 06/19/21 09:35 Ascorbic Acid 500 Mg Tab PO 1,000 mg DAILY [facility] Administration Aspirin 81 mg 06/17/21 09:00 06/19/21 09:36 Aspirin 81 Mg PO 81 mg DAILY [facility] Administration Cholecalciferol 50 mcg 06/14/21 09:00 06/19/21 09:36 Cholecalciferol 25 Mcg (1000 Iu) Tablet PO 50 mcg DAILY [facility] Administration Clopidogrel Bisulfate 75 mg 06/16/21 22:30 06/18/21 20:00 Clopidogrel 75 Mg Tab PO 75 mg HS [facility] Administration Dexamethasone Sodium Phosphate 6 mg 06/14/21 09:00 06/19/21 09:35 Dexamethasone Sod Phosphate 10 Mg/Ml 1 Ml Vial IVP 6 mg DAILY [facility] Administration Enoxaparin Sodium 40 mg 06/13/21 15:48 06/19/21 09:36 Enoxaparin 40 Mg/0.4 Ml Syringe SQ 40 mg DAILY [facility] Administration Naloxone HCl 0.2 mg 06/13/21 15:18 Naloxone 0.4 Mg/Ml 1 Ml Vial IV Q2M PRN Opioid Reversal Ondansetron HCl 4 mg 06/15/21 09:17 06/15/21 09:33 Ondansetron 4 Mg/2 Ml Vial IVP 4 mg Q6HR PRN Administration Nausea And Vomiting Zinc Sulfate 220 mg 06/14/21 09:00 06/19/21 09:36 Zinc Sulfate 220 Mg Cap PO 220 mg DAILY [facility] Administration Intake and Output 06/19/21 06/19/21 06/19/21 06:59 14:59 22:59 Intake Total 600 880 Output Total 500 500 Balance 100 380 Intake: IV 600 450 Sodium Chloride 0.9% 1, 600 450 000 ml @ 75 mls/hr IV . [id number] [facility] Rx#:[id number] Oral 430 Output: Urine 500 500 Other: Voiding Method Urinal Urinal 06/19/21 04:29 06/19/21 04:29
[2021-06-19 20:48] LABS: Cardiolipin Ab IgG Interp NEGATIVE (NEGATIVE); Cardiolipin Ab IgM Interp NEGATIVE (NEGATIVE); Cardiolipin IgA Antibody <2.0 U/mL; Cardiolipin IgM Antibody <1.5 U/mL
[2021-06-19] MEDS: CLOPIDOGREL 75 MG TAB PO SCH (21:18)
--- NOTE | 2021-06-19 23:42 | P.PN ---
Subjective Progress Note Date: 06/19/21 Patient was seen for a follow-up. Patient is more alert and awake today. Patient is sitting in the recliner. Patient denies headache. Denies any dizziness, any pain anywhere. Denies any visual problem. Objective - Vital Signs Vital signs: Vital Signs Temp 97.8 F 06/19/21 21:14 Pulse 66 06/19/21 21:14 Resp 18 06/19/21 21:14 BP 153/86 06/19/21 21:14 Pulse Ox 97 06/19/21 21:14 Intake & Output 06/19/21 06/19/21 06/20/21 06:59 18:59 06:59 Intake Total 1140 880 Output Total 1350 500 Balance -210 380 Intake: IV 900 450 Sodium Chloride 0.9% 1, 900 450 000 ml @ 75 mls/hr IV . [id number] [facility] Rx#:[id number] Oral 240 430 Output: Urine 1350 500 Other: Voiding Method Urinal Urinal # Bowel Movements 1 - Exam Patient is a middle aged male, with slightly slow mentation. Patient appears generalized weak, more alert than yesterday. Patient is otherwise awake, follows commands well. Speech and language functions are normal. Patient can name and repeat very well. No aphasia or dysarthria. Attention, concentration is decreased and fund of knowledge is adequate. On cranial examination, pupils are round and reacting to light, patient is acknowledging bilateral visual george much better. His visual george reveal complete homonymous hemianopia on the left. His extraocular muscles are intact with no nystagmus. Patient's left eye somewhat adducts, which was also noticed for the last couple days, but did not document. He still has full extraocular muscles movement. No diplopia. Face has left-sided asymmetry, , improved as compared to yesterday. His tongue protrudes to the midline. Palatal elevation and sensation normal, hearing is normal, facial sensation equal bilaterally. Shoulder shrug at least moderately decreased on the left. On muscle strength testing, there patient's strength is normal in the right arm and right leg. On the left side, deltoid 5 to 5-, biceps is 5, triceps 5, sql server bi developer 4+. Patient has less left wrist drop as compared to yesterday. Normal strength in the left lower extremity distally and proximally as compared to the right. Deep tendon reflexes are 2+ to 3+ bilaterally and plantar is questionable up on the left whereas questionable down on the right. Sensory to touch revealed decreased sensation in the left arm as compared to the right arm. However sensations are equal in both legs. Cerebellar function showed no ataxia for [id number] testing although he is slow on the left. Tone is decreased in the left hand and bulk of muscles normal. Gait not checked. On general examination, there is no carotid bruit or murmur, S1-S2 audible. Abdomen is soft nontender, no organomegaly. Chest is clear. Peripheral pulses are present. No edema. Patient's NIH stroke scale is 6 (0, 0, 0, 0, 2, 1, 1, 0, 0, 0, 0, 1, 0, 0, 1) - Labs CBC & Chem 7: 06/19/21 04:29 06/19/21 04:29 Labs: Abnormal Lab Results - Last 24 Hours (Table) 06/18/21 06/19/21 06/19/21 Range/Units 05:50 04:29 04:29 WBC (3.8-10.6) k/uL Hgb (13.0-17.5) gm/dL Neutrophils # (1.3-7.7) k/uL D-Dimer 10.00 H (<0.60) mg/L FEU Chloride (98-107) mmol/L BUN (9-20) mg/dL Glucose (74-99) mg/dL ALT (4-49) U/L Lactate Dehydrogenase 467 H 1059 H (120-246) U/L C-Reactive Protein 6.0 H (<1.0) mg/dL Total Protein (6.3-8.2) g/dL Albumin (3.5-5.0) g/dL 06/19/21 06/19/21 Range/Units 04:29 04:29 WBC 11.1 H (3.8-10.6) k/uL Hgb 12.7 L (13.0-17.5) gm/dL Neutrophils # 8.8 H (1.3-7.7) k/uL D-Dimer (<0.60) mg/L FEU Chloride 110 H (98-107) mmol/L BUN 22 H (9-20) mg/dL Glucose 104 H (74-99) mg/dL ALT 73 H (4-49) U/L Lactate Dehydrogenase (120-246) U/L C-Reactive Protein (<1.0) mg/dL Total Protein 5.7 L (6.3-8.2) g/dL Albumin 2.7 L (3.5-5.0) g/dL Assessment and Plan Assessment: * Acute ischemic stroke, manifesting with complete left homonymous hemianopia, left hemisensory loss and mild left hemiparesis. Patient's NIH stroke scale improved at 6 today. Patient's left arm strength has improved slightly as compared to yesterday. * Acute Covid-19 infection with pneumonia. * Elevated d-dimer * Elevated hepatic panel Plan: Patient is doing better as compared to yesterday. Continue dual antiplatelet medications with Plavix 75 mg and aspirin 81 mg. Lipid panel with cholesterol 127, LDL 51, HDL 47 and triglycerides 140. Lipids are well controlled, no indication for statins. Hemoglobin A1c pending. MRI of the brain revealed significant evolving right-sided acute infarcts. These areas of acute infarction involves the right parietal lobe posterior watershed but additional multifocal areas of involvement throughout the frontal and temporal lobes. These involvement in the right head of caudate nucleus, extending into the basal ganglia through the anterior limb of the internal capsule. No definitive restricted diffusion on the left. Background mild diffuse age-related cerebral atrophy and chronic small vessel ischemic change. MRA of the brain revealed suboptimal study without significant focal stenosis or obvious aneurysm at the level of [place]. 2-D echo has been completed, results still pending. Await cardiology consultation for embolic strokes noted on the MRI. Continue Lovenox 40 mg subcu daily for DVT prophylaxis. PT OT, speech therapy Treatment of other medical conditions as per IM and critical care.
[2021-06-20] MEDS: ASPIRIN 81 MG PO SCH (08:40)
[2021-06-20] MEDS: ZINC SULFATE 220 MG CAP PO SCH (08:40)
[2021-06-20] MEDS: DEXAMETHASONE SOD PHOSPHATE 10 MG/ML 1 ML VIAL IVP SCH (08:40)
[2021-06-20] MEDS: ENOXAPARIN 40 MG/0.4 ML SYRINGE SQ SCH (08:40)
[2021-06-20] MEDS: CHOLECALCIFEROL 25 MCG (1000 IU) TABLET PO SCH (08:41)
[2021-06-20] MEDS: ASCORBIC ACID 500 MG TAB PO SCH (08:41)
[2021-06-20 08:45] LABS: African American GFR (CKD) 113.4 (60.0-200.0); Albumin/Globulin Ratio 1.2 (1.60-3.17); Anion Gap 10.3 mmol/L (10.00-18.00); BUN/Creat Ratio 21.33 Ratio (12.00-20.00); Blood Urea Nitrogen 19.2 mg/dL (9.0-27.0); C Reactive Protein 3.3 mg/dL (0.00-0.80); Calcium 8.6 mg/dL (8.7-10.3); Carbon Dioxide 24.7 mmol/L (20.0-27.5); Globulin 2.5 g/dL (1.6-3.3); Non-African American GFR(CKD) 97.9 (60.0-200.0); Potassium 4.4 mmol/L (3.5-5.5); Total Bilirubin 0.8 mg/dL (0.30-1.20); Total Protein 5.5 g/dL (6.2-8.2)
--- NOTE | 2021-06-20 08:58 | XR ---
EXAMINATION TYPE: XR chest 1V portable DATE OF EXAM: 06/20/2021 COMPARISON: 06/18/2021 HISTORY: Shortness of breath TECHNIQUE: Single frontal view of the chest is obtained. FINDINGS: Bilateral airspace disease is again noted. There is no evident pneumothorax or pleural eff usion. Cardiac mediastinal silhouette is stable. Metallic densities overlying the right lung apices c ould be related to her surgery perfusion patient correlate with hypertrophic changes of the spine. IMPRESSION: Stable diffuse bilateral infiltrates.
[2021-06-20] MEDS: ONDANSETRON 4 MG/2 ML VIAL IVP PRN (08:59)
[2021-06-20 09:02] LABS: Glucose,Whole Blood 112 mg/dL (75-99)
[2021-06-20 09:08] LABS: INR 0.95 (0.90-1.11); Prothrombin Time 10.8 sec (9.9-11.9)
[2021-06-20 09:14] LABS: Basophils # (A) 0.03 X 10*3/uL (0.00-0.10); Basophils % (A) 0.3 %; Eosinophils # (A) 0.14 X 10*3/uL (0.04-0.35); Eosinophils % (A) 1.5 %; HCT 37.7 % (39.6-50.0); HGB 11.9 g/dL (13.0-17.0); Lymphocytes # (A) 1.75 X 10*3/uL (0.90-5.00); Lymphocytes % (A) 18.9 %; MCH 26.8 pg (27.0-32.0); MCHC 31.6 g/dL (32.0-37.0); MCV 84.9 fL (80.0-97.0); Mean Platelet Volume 9.8 fL (9.5-12.2); Monocytes # (A) 0.89 X 10*3/uL (0.20-1.00); Monocytes % (A) 9.6 %; Neutrophils % (A) 66.8 %; Platelet Count 467 X 10*3/uL (140-440); RBC 4.44 X 10*6/uL (4.40-5.60); RDW 14.3 % (11.5-14.5); WBC 9.28 X 10*3/uL (4.50-10.00)
--- NOTE | 2021-06-20 09:14 | ECHOF ---
Referral Reason:Acute ischemic CVA MEASUREMENTS -------- HEIGHT: 0.0 cm WEIGHT: 0.0 kg BP: FINDINGS -------- Sinus rhythm. Limited Echo due to Covid 19 exposure: bubble study inconclusive due to images. Overall left ventricular systolic function is low-normal with, an EF between 50 - 55 %. CONCLUSIONS -------- 1. Limited Echo due to Covid 19 exposure: bubble study inconclusive due to images. 2. Overall left ventricular systolic function is low-normal with, an EF between 50 - 55 %. PRODUCE FIELD MERCHANDISER: Benita Victor RDCS
[2021-06-20] MEDS: APIXABAN 5 MG TAB PO SCH ×2 (09:46→19:56)
--- NOTE | 2021-06-20 10:51 | P.PN ---
Subjective Progress Note Date: 06/20/21 CHIEF COMPLAINT: CVA HISTORY OF PRESENT ILLNESS: This is a 50 year old male who was admitted to the hospital secondary to Covid. Patient developed left-sided weakness. He was found to have an acute CVA. Neurology is following. echocardiogram completed revealing ejection fraction 50-55%. vital signs are stable. Patient is on 5 L nasal cannula with oxygen saturations greater than 92%. PHYSICAL EXAM: Thorough physical exam not completed secondary to limited evaluation/examination due to Covid19 ASSESSMENT: Acute Covid 19 Pneumonia acute hypoxic respiratory failure Acute ischemic CVA Elevated D-Dimer Elevated LFTs PLAN: Per. Dr. Gonzalez, he spoke with neurology and okay to begin Eliquis. Will begin Eliquis 5mg BID. Continue plavix Continue telemetry monitoring Continue to monitor blood pressure Further recommendations pending patient course Nurse practitioner note has been reviewed by physician. Signing provider agrees with the documented findings, assessment, and plan of care. Objective - Vital Signs Vital signs: Vital Signs Temp 98.0 F 06/20/21 10:00 Pulse 67 06/20/21 10:00 Resp 17 06/20/21 10:00 BP 143/88 06/20/21 10:00 Pulse Ox 95 06/20/21 10:00 Intake & Output 06/19/21 06/20/21 06/20/21 18:59 06:59 18:59 Intake Total 880 Output Total 500 500 Balance 380 -500 Intake: IV 450 Sodium Chloride 0.9% 1, 450 000 ml @ 75 mls/hr IV . [id number] [facility] Rx#:[id number] Oral 430 Output: Urine 500 500 Other: Voiding Method Urinal Urinal # Voids 2 - Labs CBC & Chem 7: 06/20/21 06:22 06/20/21 06:22 Labs: Abnormal Lab Results - Last 24 Hours (Table) 06/17/21 06/20/21 06/20/21 Range/Units 06:08 06:22 06:22 Hgb 11.9 L (13.0-17.0) g/dL Hct 37.7 L (39.6-50.0) % MCH 26.8 L (27.0-32.0) pg MCHC 31.6 L (32.0-37.0) g/dL Plt Count 467 H (140-440) X 10*3/uL Immature Gran # 0.27 H (0.00-0.04) X 10*3/uL BUN/Creatinine Ratio 21.33 H (12.00-20.00) Ratio POC Glucose (mg/dL) (75-99) mg/dL Hemoglobin A1c 6.5 H (4.0-6.0) % Calcium 8.6 L (8.7-10.3) mg/dL ALT 73 H (10-49) U/L Lactate Dehydrogenase 372 H (120-246) U/L C-Reactive Protein 3.30 H (0.00-0.80) mg/dL Total Protein 5.5 L (6.2-8.2) g/dL Albumin 3.0 L (3.8-4.9) g/dL Albumin/Globulin Ratio 1.20 L (1.60-3.17) g/dL 06/20/21 Range/Units 08:49 Hgb (13.0-17.0) g/dL Hct (39.6-50.0) % MCH (27.0-32.0) pg MCHC (32.0-37.0) g/dL Plt Count (140-440) X 10*3/uL Immature Gran # (0.00-0.04) X 10*3/uL BUN/Creatinine Ratio (12.00-20.00) Ratio POC Glucose (mg/dL) 112 H (75-99) mg/dL Hemoglobin A1c (4.0-6.0) % Calcium (8.7-10.3) mg/dL ALT (10-49) U/L Lactate Dehydrogenase (120-246) U/L C-Reactive Protein (0.00-0.80) mg/dL Total Protein (6.2-8.2) g/dL Albumin (3.8-4.9) g/dL Albumin/Globulin Ratio (1.60-3.17) g/dL
--- NOTE | 2021-06-20 12:43 | P.PN ---
Subjective Progress Note Date: 06/20/21 This is a pleasant 50-year-old male patient with no significant past medical history. Resulted to the emergency room yesterday with ongoing symptoms of shortness of breath cough and congestion. His symptoms started 06/02/2021. He is not vaccinated against the COVID-19. He was suspicious of possible symptoms and did test positive yesterday. He did have a temperature of 100.2. He is oxygen saturation 87% on room air. He's currently seen today in consultation on the regular medical floor. He is requiring 5 L nasal cannula to maintain O2 saturation at 94%. He has normal saline at 75 ML's per hour. His x-ray reveals bilateral airspace disease. CT angiogram ruled out pulmonary embolism. There is diffuse bilateral groundglass densities consistent with COVID-19 pneumonia. White count 6.1. Hemoglobin 13.2. Platelets 227. Lymphocytes 0.79. D-dimer 1.41. Sodium 141 potassium 3.9. Creatinine 0.9. Glucose 147. LDH 668. C- reactive protein 9.8. Pro-calcitonin 0.31. He's been initiated on Decadron, Lovenox, vitamin supplements. On 06/15/2021 patient seen in follow-up on medical surgical floor. He is awake and alert, in no acute distress, he is currently on 5 L of oxygen, pulse ox is 93%, he's coughing up occasionally small amount of blood-tinged sputum, no complaints of chest discomfort, lung sounds reveal some diffuse crackles, does have a cough, this morning she felt nauseous, he required some Zofran, however does not appear to be in any acute distress currently, he continues on Decadron 6 mg daily, he is receiving Lovenox 40 mg, he is on multivitamins, and she is r eceiving gentle IV hydration at 75 ML per hour. His chest x-ray today showing bilateral multifocal and confluent opacities consistent with COVID-19 infection, no significant change compared to 2 days earlier. His labs have been reviewed, d-dimer is 2.09, slightly increased, electrolytes and renal profile were unremarkable and yesterday's labs, his inflammatory markers are improving and LDH is down to 581, and CRP is down to 3.6, pro-calcitonin level was ordered along is 0.31. On 06/16/2021 patient seen in follow-up on medical surgical floor. Patient is awake and alert, in no acute distress, however patient suffered an acute ischemic stroke last night. Last night patient was noted to develop left arm weakness and numbness which was worsening, patient was unable to grasp with his left hand, and his left arm was limp. Patient was noted to have mild slurring of his speech however he was able to answer questions appropriately. His pupils are equal and reactive, he also had some left foot increased weakness. Code stroke was called, and CT of the brain showed negative unenhanced head CT scan, angiography CT of the brain showed no acute findings, and it was negative CT angiogram of the neck. Patient is currently awaiting MRI and MRA of the brain, neurology services are following. Currently remains on Lovenox 40 mg daily, he is on aspirin which was started today at 325 mg daily. He also remains on Decadron 6 mg daily, 0.9 normal saline at a rate of 75 ML per hour. He is af ebrile, blood pressures been stable at 142/89, placed on a monitor. On 06/17/2021 patient seen in follow-up in the intensive care unit, yesterday he was transferred to the intensive care unit in view of his evolving acute ischemic CVA. 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 Generally she seems to be weak but in no acute distress. He remains on Decadron 6 mg daily, she remains on prophylactic Lovenox, aspirin 325 mg and Lipitor was added by neurology service. His bilateral airspace disease, fairly stable in appearance. Today's labs have been reviewed showing white blood cell count of 10.7, hemoglobin of 12.4, his platelet count is 354, d-dimer is 13.59, sodium is 139, potassium 3.8, chloride is 112, CO2 is 22, BUN is 19 creatinine 0.98, his LDH has increased and is up to 1517, and CRP is up to 15.5 on today's labs. On yesterday's labs at 0.13. Overnight patient has been afebrile, and hemodynamically stable. Sinus mechanism with a controlled rate. Maintenance IV fluids are 0.9 normal saline at a rate of 75 ML per hour. As a week occasional cough, but denies any worsening dyspnea. On 06/18/2021 patient is seen in follow-up in the intensive care unit. He is awake and alert, oriented 3, seems a little fatigued, but no acute distress, he states he still coughs, the cough is dry, lung sounds are positive for diffuse rales, his oxygenation has further worsened, and he is currently on high flow oxygen device in the form of Airvo and 50 L and FiO2 of 80%, and his pulse ox is 89-95%, he is on 0.9 normal saline AT 75 ML per hour. Today's chest x-ray and blood work is still pending, his inflammatory markers and d-dimer were worsening on yesterday's labs however there was no CTA evidence of pulmonary embolism or lower extremity DVT on his lower extremity Dopplers. Neurologically patient seems to be stable compared to yesterday's exam, he still has left facial weakness in the corner of his mouth, and left hand weakness. He is able to lift his arm up against gravity. His left lower extremity weakness has significantly improved. And continues on Decadron 6 program daily, prophylactic Lovenox 40 mg daily, he is tolerating oral intake, his speech is non-slurred. He continues on oral aspirin 325 mg, we'll file showed triglycerides of 140, cholesterol level of 127, LDL of 58 1.4, HDL of 47.6. Echocardiogram has been completed but the results are still pending On 06/19/2021 patient seen in follow-up in the intensive care unit, today he is awake and alert, oriented 3 sitting up in the recliner, breathing comfortably, he is currently switched over to regular high flow nasal cannula at 14 L and his pulse ox is 95%, he denies any worsening dyspnea, he has a mild occasional dry cough. No complaints of chest discomfort. Subsequently his oxygen was dropped down to 13 L, patient continues to maintain stable O2 saturations, no new chest x-ray today, yesterday's chest x-ray was showing airspace disease with no evident pneumothorax or pleural effusion. 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 06/20/2021, I'm seeing this patient for a follow-up. The patient is sleepy. He is communicating. Increased lethargy and sleepiness is probably related to his underlying CVA. He continues to have weakness in his left upper extremity. Is able to swallow. He is able to sit up on a chair. He is down to 5 L about 2 by nasal cannula. No signs of any respiratory distress for now. The patient has a white cell count of 9.8 with a hemoglobin of 11.9 and a platelet count of 11/08/1968. The patient's d-dimer was as high as 10.0 yesterday and this was essentially dropping in value. Rest of the electrodes are all normal. Renal function stable and is normal. Patient has a LDH level of 372, CRP level is down to 3.3, antiphospholipid antibodies came back all negative. Blood sugars of 112. A repeat chest x-ray was done today and the chest x-ray shows stable bilateral diffuse pulmonary infiltrates consistent with COVID pneumonia. No new onset neurological deficits. No headaches. No seizure activity. No altered mentation. He is communicating. He is appropriate. Objective - Vital Signs Vital signs: Vital Signs Temp 98.0 F 06/20/21 10:00 Pulse 67 06/20/21 10:00 Resp 17 06/20/21 10:00 BP 143/88 06/20/21 10:00 Pulse Ox 95 06/20/21 10:00 Intake & Output 06/19/21 06/20/21 06/20/21 18:59 06:59 18:59 Intake Total 880 Output Total 500 500 Balance 380 -500 Intake: IV 450 Sodium Chloride 0.9% 1, 450 000 ml @ 75 mls/hr IV . [id number] [facility] Rx#:[id number] Oral 430 Output: Urine 500 500 Other: Voiding Method Urinal Urinal # Voids 2 - Exam GENERAL EXAM: Alert, very pleasant, 50-year-old white male, on 5 l/min, sitting up in recliner comfortable in no apparent distress. HEAD: Normocephalic/atraumatic. EYES: Normal reaction of pupils, equal size. Conjunctiva pink, sclera white. NOSE: Clear with pink turbinates. THROAT: No erythema or exudates. NECK: No masses, no JVD, no thyroid enlargement, no adenopathy. CHEST: No chest wall deformity. Symmetrical expansion. LUNGS: Equal air entry with basilar crackles CVS: Regular rate and rhythm, normal S1 and S2, no gallops, no murmurs, no rubs ABDOMEN: Soft, nontender. No hepatosplenomegaly, normal bowel sounds, no guarding or rigidity. EXTREMITIES: No clubbing, no edema, no cyanosis, 2+ pulses and upper and lower extremities. MUSCULOSKELETAL: Muscle strength and tone normal. SPINE: No scoliosis or deformity SKIN: No rashes CENTRAL NERVOUS SYSTEM: Alert and oriented -3. 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 Appropriate affect. Intact judgment and insight. - Labs CBC & Chem 7: 06/20/21 06:22 06/20/21 06:22 Labs: Abnormal Lab Results - Last 24 Hours (Table) 06/17/21 06/20/21 06/20/21 Range/Units 06:08 06:22 06:22 Hgb 11.9 L (13.0-17.0) g/dL Hct 37.7 L (39.6-50.0) % MCH 26.8 L (27.0-32.0) pg MCHC 31.6 L (32.0-37.0) g/dL Plt Count 467 H (140-440) X 10*3/uL Immature Gran # 0.27 H (0.00-0.04) X 10*3/uL BUN/Creatinine Ratio 21.33 H (12.00-20.00) Ratio POC Glucose (mg/dL) (75-99) mg/dL Hemoglobin A1c 6.5 H (4.0-6.0) % Calcium 8.6 L (8.7-10.3) mg/dL ALT 73 H (10-49) U/L Lactate Dehydrogenase 372 H (120-246) U/L C-Reactive Protein 3.30 H (0.00-0.80) mg/dL Total Protein 5.5 L (6.2-8.2) g/dL Albumin 3.0 L (3.8-4.9) g/dL Albumin/Globulin Ratio 1.20 L (1.60-3.17) g/dL 06/20/21 Range/Units 08:49 Hgb (13.0-17.0) g/dL Hct (39.6-50.0) % MCH (27.0-32.0) pg MCHC (32.0-37.0) g/dL Plt Count (140-440) X 10*3/uL Immature Gran # (0.00-0.04) X 10*3/uL BUN/Creatinine Ratio (12.00-20.00) Ratio POC Glucose (mg/dL) 112 H (75-99) mg/dL Hemoglobin A1c (4.0-6.0) % Calcium (8.7-10.3) mg/dL ALT (10-49) U/L Lactate Dehydrogenase (120-246) U/L C-Reactive Protein (0.00-0.80) mg/dL Total Protein (6.2-8.2) g/dL Albumin (3.8-4.9) g/dL Albumin/Globulin Ratio (1.60-3.17) g/dL Assessment and Plan Plan: #1. Acute hypoxic respiratory failure related to acute COVID-19 related pneumonia, patient presented to the emergency department on 06/13/2021. First onset of symptoms was on 06/02/2021 area he is not vaccinated against the COVID- 19. he was outside the window for Remdesivir. During the course of his illness, the patient developed an acute right-sided infarct. He continues to have left-sided weakness gases is mainly in his left upper extremity. Motor function left upper extremities around 3-5. His oxygenation is improved. His shortness of breath is less. Patient is currently on 5 L of oxygen by nasal cannula. The patient is also demonstrated improvement in inflammatory markers including LDH and CRP. D-dimer was elevated and the number is essentially improving. The patient remains on Decadron for now. #2. Acute ischemic stroke with left-sided upper and lower extremity weakness, mild left hemiparesis, and mild slurring of speech, CT of the brain without contrast, and angiography CT showed no acute findings, MRI and MRA of the brain completed. MRI of the brain showed significant evolving right-sided acute infarct. MRA of the brain showed no significant focal stenosis, or obvious aneurysm at the level of the [place]. Neurology service is following. Patient was started on aspirin. No interval worsening in the neurologic findings and the patient continues to have motor weakness on the left upper extremity. He is able to swallow. No altered mentation. #3. Elevated inflammatory markers related to the above, improved #4. Elevated d-dimer, without CT evidence of pulmonary embolism, evidence of DVT on lower extremity Dopplers. the d-dimer level is improving. #5. Mild hyponatremia related to dehydration, resolved with gentle IV hydration, sodium level has normalized Plan: Oxygenation has improved, and patient was transitioned to regular nasal cannula and FiO2 has been weaned down to 5 L per minute nasal cannula Not appear to be in any acute distress Chest x-ray findings from today are essentially stable bilateral pulmonary infiltrates Neurologically patient has remained stable, still continues to have a slight left facial droop, and left hand weakness but his left leg weakness has improved. The weakness is stable compared to yesterday. The patient continues to have some lethargy and increased sleepiness. The patient remains on aspirin. No new onset focal neurological deficits. We'll continue with current Decadron dose, and Lovenox, continue COVID-19 multivitamins, We'll continue with neurology recommendations the patient had a negative ntiphospholipid antibody panel, Continue following inflammatory markers, d-dimer. Note that the inflammatory markers improved and the d-dimer is also improving Physical therapy recommendations We'll continue to follow make further recommendations based on his progress. The left ICU and currently is on the medical floor.
[2021-06-20 13:34] VITALS: BMI 30.7
--- NOTE | 2021-06-20 17:08 | P.PN ---
Subjective Progress Note Date: 06/20/21 Patient was seen and examined at the bedside. He was transferred out of the ICU overnight. He is awake and oriented 3. He denies any chest pain or shortness of breath. Patient currently on 5 L nasal cannula satting. He reports improvement in the weakness in the left side. Otherwise no acute changes overnight Objective - Vital Signs Vital signs: Vital Signs Temp 97.7 F 06/20/21 15:21 Pulse 69 06/20/21 15:21 Resp 17 06/20/21 15:21 BP 110/71 06/20/21 15:21 Pulse Ox 96 06/20/21 15:21 Intake & Output 06/19/21 06/20/21 06/20/21 18:59 06:59 18:59 Intake Total 880 300 Output Total 500 500 Balance 380 -500 300 Weight 99.8 kg Intake: IV 450 Sodium Chloride 0.9% 1, 450 000 ml @ 75 mls/hr IV . [id number] [facility] Rx#:[id number] Oral 430 300 Output: Urine 500 500 Other: Voiding Method Urinal Urinal # Voids 2 - Labs CBC & Chem 7: 06/20/21 06:22 06/20/21 06:22 Labs: Abnormal Lab Results - Last 24 Hours (Table) 06/17/21 06/20/21 06/20/21 Range/Units 06:08 06:22 06:22 Hgb 11.9 L (13.0-17.0) g/dL Hct 37.7 L (39.6-50.0) % MCH 26.8 L (27.0-32.0) pg MCHC 31.6 L (32.0-37.0) g/dL Plt Count 467 H (140-440) X 10*3/uL Immature Gran # 0.27 H (0.00-0.04) X 10*3/uL BUN/Creatinine Ratio 21.33 H (12.00-20.00) Ratio POC Glucose (mg/dL) (75-99) mg/dL Hemoglobin A1c 6.5 H (4.0-6.0) % Calcium 8.6 L (8.7-10.3) mg/dL ALT 73 H (10-49) U/L Lactate Dehydrogenase 372 H (120-246) U/L C-Reactive Protein 3.30 H (0.00-0.80) mg/dL Total Protein 5.5 L (6.2-8.2) g/dL Albumin 3.0 L (3.8-4.9) g/dL Albumin/Globulin Ratio 1.20 L (1.60-3.17) g/dL 06/20/21 Range/Units 08:49 Hgb (13.0-17.0) g/dL Hct (39.6-50.0) % MCH (27.0-32.0) pg MCHC (32.0-37.0) g/dL Plt Count (140-440) X 10*3/uL Immature Gran # (0.00-0.04) X 10*3/uL BUN/Creatinine Ratio (12.00-20.00) Ratio POC Glucose (mg/dL) 112 H (75-99) mg/dL Hemoglobin A1c (4.0-6.0) % Calcium (8.7-10.3) mg/dL ALT (10-49) U/L Lactate Dehydrogenase (120-246) U/L C-Reactive Protein (0.00-0.80) mg/dL Total Protein (6.2-8.2) g/dL Albumin (3.8-4.9) g/dL Albumin/Globulin Ratio (1.60-3.17) g/dL Assessment and Plan Plan: Assessment and Plan: #Acute hypoxic respiratory failure related to acute COVID-19 related pneumonia -Improving -Patient currently 5 L nasal cannula -patient presented to the emergency department on 06/13/2021. -First onset of symptoms was on 06/02/2021 area he is not vaccinated against the COVID-19. -he was outside the window for Remdesivir. -Does not appear to be in any acute distress -Resume Decadron -Pharmacy started Baricitinib -Pulmonary critical following #Elevated d-dimer, without CT evidence of pulmonary embolism, evidence of DVT on lower extremity Dopplers. #Acute thromboembolic stroke with left-hemiparesis, and mild slurring of speech -CT of the brain without contrast, and angiography CT showed no acute findings, MRI and MRA of the brain completed. -MRI of the brain showed significant evolving right-sided acute infarct. MRA of the brain showed no significant focal stenosis, or obvious aneurysm at the level of the [place]. -Neurology service is following. Patient was started on aspirin and Plavix -Statin and hold due to elevated LFTs -LDL 51.4 -2-D echo pending reading -Discussed with Dr. Naranjo from neurology. He recommended Eliquis 5 mg twice daily and to discontinue both aspirin and Plavix. -PT/OT evaluation #Elevated LFTs -LFTs are trending down -Completely secondary to call with -Negative hepatitis panel -Ultrasound of abdomen showed hepatic steatosis and hepatocellular disease -Trend LFTs daily #DVT prophylaxis with Lovenox
--- NOTE | 2021-06-21 01:30 | P.PN ---
Subjective Progress Note Date: 06/20/21 Patient was seen for a follow-up. Patient is almost fully alert and awake today. Patient is sitting in the recliner. Patient denies headache. Denies any dizziness, any pain anywhere. Denies any visual problem. He does use eye- glasses. Objective - Vital Signs Vital signs: Vital Signs Temp 97.6 F 06/20/21 18:48 Pulse 77 06/20/21 20:00 Resp 17 06/20/21 20:00 BP 125/80 06/20/21 18:48 Pulse Ox 96 06/20/21 18:48 Intake & Output 06/20/21 06/20/21 06/21/21 06:59 18:59 06:59 Intake Total 300 Output Total 500 Balance -500 300 Weight 99.8 kg Intake: Oral 300 Output: Urine 500 Other: Voiding Method Urinal Urinal # Voids 2 - Exam Patient is a middle aged male, with slightly slow mentation. Patient much more alert and awake today. Patient is more interactive. Patient is fully awake, follows commands well. Speech and language functions are normal. Patient can name and repeat very well. No aphasia or dysarthria. Attention, concentration is decreased and fund of knowledge is adequate. On cranial examination, pupils are round and reacting to light, patient is acknowledging bilateral visual george much better. His visual georeg reveal complete homonymous hemianopia on the left. It appears patient has slightly better vision in the central lateral region on the left, as compared to left upper and left lower quadrants of visual field. His extraocular muscles are intact with no nystagmus. Patient's left eye somewhat adducts, which was also noticed for the last couple days, but did not document. She denies any history of lazy eye. He still has full extraocular muscles movement. No diplopia. Face has left-sided asymmetry, improved as compared to yesterday. His tongue protrudes to the midline. Palatal elevation and sensation normal, hearing is normal, facial sensation equal bilaterally. Shoulder shrug at least moderately decreased on the left. On muscle strength testing, there patient's strength is normal in the right arm and right leg. 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 Patient able to extend his left wrist much better. Less wrist drop. Normal strength in the left lower extremity distally and proximally as compared to the right. Deep tendon reflexes are 2+ to 3+ bilaterally and plantar is questionable up on the left whereas questionable down on the right. Sensory to touch revealed decreased sensation in the left arm as compared to the right arm. However sensations are equal in both legs. Cerebellar function showed no ataxia for [id number] testing although he is slow on the left. Tone is decreased in the left hand and bulk of muscles normal. Gait not checked. On general examination, there is no carotid bruit or murmur, S1-S2 audible. Abdomen is soft nontender, no organomegaly. Chest is clear. Patient has mod erate peripheral edema.. Patient's NIH stroke scale is 6 (0, 0, 0, 0, 2, 1, 1, 0, 0, 0, 0, 1, 0, 0, 1) - Labs CBC & Chem 7: 06/20/21 06:22 06/20/21 06:22 Labs: Abnormal Lab Results - Last 24 Hours (Table) 06/17/21 06/20/21 06/20/21 Range/Units 06:08 06:22 06:22 Hgb 11.9 L (13.0-17.0) g/dL Hct 37.7 L (39.6-50.0) % MCH 26.8 L (27.0-32.0) pg MCHC 31.6 L (32.0-37.0) g/dL Plt Count 467 H (140-440) X 10*3/uL Immature Gran # 0.27 H (0.00-0.04) X 10*3/uL BUN/Creatinine Ratio 21.33 H (12.00-20.00) Ratio POC Glucose (mg/dL) (75-99) mg/dL Hemoglobin A1c 6.5 H (4.0-6.0) % Calcium 8.6 L (8.7-10.3) mg/dL ALT 73 H (10-49) U/L Lactate Dehydrogenase 372 H (120-246) U/L C-Reactive Protein 3.30 H (0.00-0.80) mg/dL Total Protein 5.5 L (6.2-8.2) g/dL Albumin 3.0 L (3.8-4.9) g/dL Albumin/Globulin Ratio 1.20 L (1.60-3.17) g/dL 06/20/21 Range/Units 08:49 Hgb (13.0-17.0) g/dL Hct (39.6-50.0) % MCH (27.0-32.0) pg MCHC (32.0-37.0) g/dL Plt Count (140-440) X 10*3/uL Immature Gran # (0.00-0.04) X 10*3/uL BUN/Creatinine Ratio (12.00-20.00) Ratio POC Glucose (mg/dL) 112 H (75-99) mg/dL Hemoglobin A1c (4.0-6.0) % Calcium (8.7-10.3) mg/dL ALT (10-49) U/L Lactate Dehydrogenase (120-246) U/L C-Reactive Protein (0.00-0.80) mg/dL Total Protein (6.2-8.2) g/dL Albumin (3.8-4.9) g/dL Albumin/Globulin Ratio (1.60-3.17) g/dL Assessment and Plan Assessment: * Acute ischemic stroke, manifesting with complete left homonymous hemianopia, left hemisensory loss and mild left hemiparesis. Patient's NIH stroke scale again at 6 today. Patient's left arm strength has improved as compared to yesterday. * Acute Covid-19 infection with pneumonia. * Elevated d-dimer * Elevated hepatic panel Plan: Patient is doing better as compared to yesterday. Continue dual antiplatelet medications with Plavix 75 mg and aspirin 81 mg. Lipid panel with cholesterol 127, LDL 51, HDL 47 and triglycerides 140. Lipids are well controlled, no indication for statins. Patient's hepatic enzymes are also elevated, therefore would hold off on statins. Hemoglobin A1c 6.5 MRI of the brain revealed significant evolving right-sided acute infarcts. These areas of acute infarction involves the right parietal lobe posterior watershed but additional multifocal areas of involvement throughout the frontal and temporal lobes. These involvement in the right head of caudate nucleus, extending into the basal ganglia through the anterior limb of the internal capsule. No definitive restricted diffusion on the left. Background mild diffuse age-related cerebral atrophy and chronic small vessel ischemic change. MRA of the brain revealed suboptimal study without significant focal stenosis or obvious aneurysm at the level of [place] of [place]. 2-D echo has been completed, results still pending. Discussed with cardiology Dr. Gonzalez, appreciate input. Patient started on Eliquis 5 mg bid for stroke prevention, as his strokes were clearly embolic in nature (especially in background of elevated D-dimer). Patient is 5 days post stroke, therefore anticoagulation is okay to start at this time. However we will stop antiplatelet medications, as patient has no evidence of atherosclerotic cerebrovascular disease. Start Pepcid 20 mg twice a day for gastric ulcer prophylaxis. PT OT, speech therapy Neurologically clear for transfer to inpatient rehabilitation. Dr. Pacheco covering neurology service over the weekend. Dr. Emiliano Barahona will sta rt neurology service on Wednesday. Please call neurology if any concerns.
--- NOTE | 2021-06-21 08:10 | XR ---
EXAMINATION TYPE: XR chest 1V portable DATE OF EXAM: 06/21/2021 COMPARISON: 06/20/2021 HISTORY: Pneumonia TECHNIQUE: Single frontal view of the chest is obtained. FINDINGS: There has been a mild decrease in the scattered partially consolidative airspace opacities bilaterally. There is no pneumothorax. There is no large pleural effusion. Heart size is normal. There is a chroni c rotator cuff tear of the right shoulder. IMPRESSION: Mild interval improvement in the acute cardiopulmonary disease.
[2021-06-21] MEDS: DEXAMETHASONE SOD PHOSPHATE 10 MG/ML 1 ML VIAL IVP SCH (09:23)
[2021-06-21] MEDS: CHOLECALCIFEROL 25 MCG (1000 IU) TABLET PO SCH (09:24)
[2021-06-21] MEDS: ZINC SULFATE 220 MG CAP PO SCH (09:24)
[2021-06-21] MEDS: ASCORBIC ACID 500 MG TAB PO SCH (09:24)
[2021-06-21] MEDS: APIXABAN 5 MG TAB PO SCH ×2 (09:24→19:55)
[2021-06-21] MEDS: FAMOTIDINE 20 MG TAB PO SCH ×2 (09:25→19:55)
--- NOTE | 2021-06-21 11:09 | P.PN ---
Subjective Progress Note Date: 06/21/21 Patient was seen and examined at the bedside. Patient currently on 5 L nasal cannula. He denies any chest pain or shortness of breath. He stated that the weakness in his left side is slowly getting better. Objective - Vital Signs Vital signs: Vital Signs Temp 97.7 F 06/21/21 10:00 Pulse 73 06/21/21 10:00 Resp 20 06/21/21 10:00 BP 123/88 06/21/21 10:00 Pulse Ox 99 06/21/21 10:00 Intake & Output 06/20/21 06/21/21 06/21/21 18:59 06:59 18:59 Intake Total 300 Balance 300 Weight 99.8 kg 99.9 kg Intake: Oral 300 Other: Voiding Method Urinal - Exam GENERAL EXAM: Alert, very pleasant, 50-year-old white male, on 6 L high flow nasal cannula HEAD: Normocephalic/atraumatic. EYES: Normal reaction of pupils, equal size. Conjunctiva pink, sclera white. NOSE: Clear with pink turbinates. THROAT: No erythema or exudates. NECK: No masses, no JVD, no thyroid enlargement, no adenopathy. CHEST: No chest wall deformity. Symmetrical expansion. LUNGS: Equal air entry with basilar crackles CVS: Regular rate and rhythm, normal S1 and S2, no gallops, no murmurs, no rubs ABDOMEN: Soft, nontender. No hepatosplenomegaly, normal bowel sounds, no gu arding or rigidity. EXTREMITIES: No clubbing, no edema, no cyanosis, 2+ pulses and upper and lower e xtremities. MUSCULOSKELETAL: Muscle strength and tone normal. 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 Intact judgment and insight. - Labs CBC & Chem 7: 06/20/21 06:22 06/20/21 06:22 Assessment and Plan Plan: Assessment and Plan: #Acute hypoxic respiratory failure related to acute COVID-19 related pneumonia -Improving -Patient currently 5 L nasal cannula -patient presented to the emergency department on 06/13/2021. -First onset of symptoms was on 06/02/2021 area he is not vaccinated against the COVID-19. -he was outside the window for Remdesivir. -Does not appear to be in any acute distress -Resume Decadron -Finished Baricitinib -Pulmonary following #Acute thromboembolic stroke with left-hemiparesis, and mild slurring of speech -CT of the brain without contrast, and angiography CT showed no acute findings, MRI and MRA of the brain completed. -MRI of the brain showed significant evolving right-sided acute infarct. MRA of the brain showed no significant focal stenosis, or obvious aneurysm at the level of the [facility] [place]. -Neurology service is following. Patient was started on aspirin and Plavix -Statin and hold due to elevated LFTs -LDL 51.4 -2-D echo EF 50-55% and includes with bubble study -Discussed with Dr. Naranjo from neurology. He recommended Eliquis 5 mg twice daily and to discontinue both aspirin and Plavix. -PT/OT evaluation #Elevated LFTs -LFTs are trending down. ALT stable. -Fatty liver on ultrasound -Ultrasound of abdomen showed hepatic steatosis and hepatocellular disease -Trend LFTs daily #DVT prophylaxis : Patient will Eliquis disposition : long-term home
--- NOTE | 2021-06-21 11:17 | P.PN ---
Subjective Progress Note Date: 06/21/21 The patient is a 50-year-old male who was admitted to the hospital secondary to cocaine. Patient upset but sided hemiparesis he was found to have an acute CVA secondary to elevated d-dimer. Echocardiogram revealed EF at 50-55%. Left- sided hemiparesis is improving. The patient was interviewed as he was sitting comfortably in the recliner chair. He states his breathing is improving. He has not been up ambulating throughout his room. He believes his left-sided weakness is improving. No chest pain or chest pressure. PHYSICAL EXAM: Thorough physical exam is not completed secondary to limited eval uation/examination due to COVID-19. VITALS: Blood pressure 123/88, 5 L nasal cannula, temp 97.7F, pulse 73, respiratory rate 20 TELEMETRY: Sinus rhythm LABS: No labs completed today IMPRESSION: Acute COVID-19 Zak pneumonia Acute ischemic CVA Elevated d-dimer Elevated LFTs PLAN: Recommend continuing anticoagulation Further recommendations based upon clinical course The patient has been seen and evaluated by nurse practitioner and coordinating physician. Plan of care has been reviewed and agreed upon by Dr Gonzalez. Objective - Vital Signs Vital signs: Vital Signs Temp 97.7 F 06/21/21 10:00 Pulse 73 06/21/21 10:00 Resp 20 06/21/21 10:00 BP 123/88 06/21/21 10:00 Pulse Ox 99 06/21/21 10:00 Intake & Output 06/20/21 06/21/21 06/21/21 18:59 06:59 18:59 Intake Total 300 Balance 300 Weight 99.8 kg 99.9 kg Intake: Oral 300 Other: Voiding Method Urinal - Labs CBC & Chem 7: 06/20/21 06:22 06/20/21 06:22
[2021-06-21 12:30] LABS: African American GFR (CKD) 114.9 (60.0-200.0); Albumin 3.1 g/dL (3.8-4.9); Albumin/Globulin Ratio 1.19 (1.60-3.17); Anion Gap 18.8 mmol/L (10.00-18.00); BUN/Creat Ratio 22.94 Ratio (12.00-20.00); C Reactive Protein 1.7 mg/dL (0.00-0.80); Calcium 8.8 mg/dL (8.7-10.3); Carbon Dioxide 17.4 mmol/L (20.0-27.5); Globulin 2.6 g/dL (1.6-3.3); Non-African American GFR(CKD) 99.1 (60.0-200.0); Potassium 4.8 mmol/L (3.5-5.5); Total Bilirubin 0.7 mg/dL (0.30-1.20); Total Protein 5.6 g/dL (6.2-8.2)
[2021-06-21 12:52] LABS: INR 0.96 (0.90-1.11); Prothrombin Time 10.9 sec (9.9-11.9)
[2021-06-21 13:40] LABS: Basophils # (A) 0.03 X 10*3/uL (0.00-0.10); Basophils % (A) 0.3 %; Eosinophils # (A) 0.15 X 10*3/uL (0.04-0.35); Eosinophils % (A) 1.7 %; HCT 40.1 % (39.6-50.0); HGB 12.4 g/dL (13.0-17.0); Lymphocytes # (A) 1.79 X 10*3/uL (0.90-5.00); Lymphocytes % (A) 20.5 %; MCH 26.7 pg (27.0-32.0); MCHC 30.9 g/dL (32.0-37.0); MCV 86.4 fL (80.0-97.0); Mean Platelet Volume 9.7 fL (9.5-12.2); Monocytes # (A) 0.85 X 10*3/uL (0.20-1.00); Monocytes % (A) 9.7 %; Neutrophils # (A) 5.58 X 10*3/uL (1.80-7.70); Neutrophils % (A) 64.1 %; Platelet Count 470 X 10*3/uL (140-440); RBC 4.64 X 10*6/uL (4.40-5.60); RDW 14.5 % (11.5-14.5); WBC 8.72 X 10*3/uL (4.50-10.00)
--- NOTE | 2021-06-21 14:54 | P.PN ---
Subjective Progress Note Date: 06/21/21 This is a pleasant 50-year-old male patient with no significant past medical history. Resulted to the emergency room yesterday with ongoing symptoms of shortness of breath cough and congestion. His symptoms started 06/02/2021. He is not vaccinated against the COVID-19. He was suspicious of possible symptoms and did test positive yesterday. He did have a temperature of 100.2. He is oxygen saturation 87% on room air. He's currently seen today in consultation on the regular medical floor. He is requiring 5 L nasal cannula to maintain O2 saturation at 94%. He has normal saline at 75 ML's per hour. His x-ray reveals bilateral airspace disease. CT angiogram ruled out pulmonary embolism. There is diffuse bilateral groundglass densities consistent with COVID-19 pneumonia. White count 6.1. Hemoglobin 13.2. Platelets 227. Lymphocytes 0.79. D-dimer 1.41. Sodium 141 potassium 3.9. Creatinine 0.9. Glucose 147. LDH 668. C- reactive protein 9.8. Pro-calcitonin 0.31. He's been initiated on Decadron, Lovenox, vitamin supplements. On 06/15/2021 patient seen in follow-up on medical surgical floor. He is awake and alert, in no acute distress, he is currently on 5 L of oxygen, pulse ox is 93%, he's coughing up occasionally small amount of blood-tinged sputum, no complaints of chest discomfort, lung sounds reveal some diffuse crackles, does have a cough, this morning she felt nauseous, he required some Zofran, however does not appear to be in any acute distress currently, he continues on Decadron 6 mg daily, he is receiving Lovenox 40 mg, he is on multivitamins, and she is r eceiving gentle IV hydration at 75 ML per hour. His chest x-ray today showing bilateral multifocal and confluent opacities consistent with COVID-19 infection, no significant change compared to 2 days earlier. His labs have been reviewed, d-dimer is 2.09, slightly increased, electrolytes and renal profile were unremarkable and yesterday's labs, his inflammatory markers are improving and LDH is down to 581, and CRP is down to 3.6, pro-calcitonin level was ordered along is 0.31. On 06/16/2021 patient seen in follow-up on medical surgical floor. Patient is awake and alert, in no acute distress, however patient suffered an acute ischemic stroke last night. Last night patient was noted to develop left arm weakness and numbness which was worsening, patient was unable to grasp with his left hand, and his left arm was limp. Patient was noted to have mild slurring of his speech however he was able to answer questions appropriately. His pupils are equal and reactive, he also had some left foot increased weakness. Code stroke was called, and CT of the brain showed negative unenhanced head CT scan, angiography CT of the brain showed no acute findings, and it was negative CT angiogram of the neck. Patient is currently awaiting MRI and MRA of the brain, neurology services are following. Currently remains on Lovenox 40 mg daily, he is on aspirin which was started today at 325 mg daily. He also remains on Decadron 6 mg daily, 0.9 normal saline at a rate of 75 ML per hour. He is af ebrile, blood pressures been stable at 142/89, placed on a monitor. On 06/17/2021 patient seen in follow-up in the intensive care unit, yesterday he was transferred to the intensive care unit in view of his evolving acute ischemic CVA. On today's exam his left upper arm weakness is improved, he is able to lift up his left arm against gravity, however he is unable to manager sterile with his left hand, left lower extremity strength is improved, he still has a slight left facial droop in the corner of his mouth, his speech is improved, and he was noted to have normal swallowing issues, he is awake and alert, he is oriented 3, is currently on 15 L per high flow nasal cannula however his pulse ox is onl y 85-86%. Generally she seems to be weak but in no acute distress. He remains on Decadron 6 mg daily, she remains on prophylactic Lovenox, aspirin 325 mg and Lipitor was added by neurology service. His bilateral airspace disease, fairly stable in appearance. Today's labs have been reviewed showing white blood cell count of 10.7, hemoglobin of 12.4, his platelet count is 354, d-dimer is 13.59, sodium is 139, potassium 3.8, chloride is 112, CO2 is 22, BUN is 19 creatinine 0.98, his LDH has increased and is up to 1517, and CRP is up to 15.5 on today's labs. On yesterday's labs at 0.13. Overnight patient has been afebrile, and hemodynamically stable. Sinus mechanism with a controlled rate. Maintenance IV fluids are 0.9 normal saline at a rate of 75 ML per hour. As a week occasional cough, but denies any worsening dyspnea. On 06/18/2021 patient is seen in follow-up in the intensive care unit. He is awake and alert, oriented 3, seems a little fatigued, but no acute distress, he states he still coughs, the cough is dry, lung sounds are positive for diffuse rales, his oxygenation has further worsened, and he is currently on high flow oxygen device in the form of Airvo and 50 L and FiO2 of 80%, and his pulse ox is 89-95%, he is on 0.9 normal saline AT 75 ML per hour. Today's chest x-ray and blood work is still pending, his inflammatory markers and d-dimer were worsening on yesterday's labs however there was no CTA evidence of pulmonary embolism or lower extremity DVT on his lower extremity Dopplers. Neurologically patient seems to be stable compared to yesterday's exam, he still has left facial weakness in the corner of his mouth, and left hand weakness. He is able to lift his arm up against gravity. His left lower extremity weakness has significantly improved. And continues on Decadron 6 program daily, prophylactic Lovenox 40 mg daily, he is tolerating oral intake, his speech is non-slurred. He continues on oral aspirin 325 mg, we'll file showed triglycerides of 140, cholesterol level of 127, LDL of 58 1.4, HDL of 47.6. Echocardiogram has been completed but the results are still pending On 06/19/2021 patient seen in follow-up in the intensive care unit, today he is awake and alert, oriented 3 sitting up in the recliner, breathing comfortably, he is currently switched over to regular high flow nasal cannula at 14 L and his pulse ox is 95%, he denies any worsening dyspnea, he has a mild occasional dry cough. No complaints of chest discomfort. Subsequently his oxygen was dropped down to 13 L, patient continues to maintain stable O2 saturations, no new chest x-ray today, yesterday's chest x-ray was showing airspace disease with no evident pneumothorax or pleural effusion. He was started on Baricitinib yesterday on 06/18/2021, continues on Decadron, and prophylactic Lovenox, he is on full dose aspirin, and COVID-19 multivitamins, neurologically he has been stable, and he still continues to have left manager sterile weakness, and slight left faci al droop, no dysphagia, no dysarthria. 06/20/2021, I'm seeing this patient for a follow-up. The patient is sleepy. He is communicating. Increased lethargy and sleepiness is probably related to his underlying CVA. He continues to have weakness in his left upper extremity. Is able to swallow. He is able to sit up on a chair. He is down to 5 L about 2 by nasal cannula. No signs of any respiratory distress for now. The patient has a white cell count of 9.8 with a hemoglobin of 11.9 and a platelet count of 11/08/1968. The patient's d-dimer was as high as 10.0 yesterday and this was essentially dropping in value. Rest of the electrodes are all normal. Renal function stable and is normal. Patient has a LDH level of 372, CRP level is down to 3.3, antiphospholipid antibodies came back all negative. Blood sugars of 112. A repeat chest x-ray was done today and the chest x-ray shows stable bilateral diffuse pulmonary infiltrates consistent with COVID pneumonia. No new onset neurological deficits. No headaches. No seizure activity. No altered mentation. He is communicating. He is appropriate. 06/21/2021, the patient is much more alert compared to yesterday. He is getting up by himself and is moving himself back and forth to the bathroom. He reports that his left arm weakness improved. His breathing is also getting better. The patient is currently on oxygen at 5 L per minute nasal cannula with a pulse ox ranging between 96-98%. This can be further weaned down. He is afebrile. He is hemodynamically stable. He remains on treatment and the patient is currently receiving Decadron 6 mg IV every 24 hours. The patient is suffering from an acute ischemic stroke and he seems to be improving. No new onset focal neurological deficits. CAT scan of the brain without contrast and angiogram of the brain showed no acute abnormalities. MRI of the brain showed a right-sided acute infarct. MRA of the brain was also noted. His LDL level was 51. Echocardiogram was within normal limits and the patient is being seen by neurology. Overall Mr. status is also stable. In terms of his blood work, the patient's white cell count is at 8.7 with a hemoglobin of 12.4 and platelet count of 470. The patient has a LDH evidence of dropped down to 346, CRP is at 1.7. Sodium is at 139. TPN is at 20 with a creatinine of 0.9. Renal function is stable at creatinine of 0.9. LFTs are showing some mild transaminitis with an AST of 37, ALT of 75 and alkaline phosphatase of 93. Objective - Vital Signs Vital signs: Vital Signs Temp 97.5 F L 06/21/21 14:15 Pulse 83 06/21/21 14:15 Resp 17 06/21/21 14:15 BP 112/69 06/21/21 14:15 Pulse Ox 96 06/21/21 14:15 Intake & Output 06/20/21 06/21/21 06/21/21 18:59 06:59 18:59 Intake Total 300 Balance 300 Weight 99.8 kg 99.9 kg Intake: Oral 300 Other: Voiding Method Urinal # Voids 1 - Exam GENERAL EXAM: Alert, very pleasant, 50-year-old white male, on 5 l/min, sitting up in recliner comfortable in no apparent distress. HEAD: Normocephalic/atraumatic. EYES: Normal reaction of pupils, equal size. Conjunctiva pink, sclera white. NOSE: Clear with pink turbinates. THROAT: No erythema or exudates. NECK: No masses, no JVD, no thyroid enlargement, no adenopathy. CHEST: No chest wall deformity. Symmetrical expansion. LUNGS: Equal air entry with basilar crackles CVS: Regular rate and rhythm, normal S1 and S2, no gallops, no murmurs, no rubs ABDOMEN: Soft, nontender. No hepatosplenomegaly, normal bowel sounds, no guarding or rigidity. EXTREMITIES: No clubbing, no edema, no cyanosis, 2+ pulses and upper and lower extremities. MUSCULOSKELETAL: Muscle strength and tone normal. SPINE: No scoliosis or deformity SKIN: No rashes CENTRAL NERVOUS SYSTEM: Alert and oriented -3. Patient has slight left facial droop, left arm weakness improved, able to lift left arm against gravity, but unable to manager sterile with left hand, left leg strength is improved PSYCHIATRIC: Alert and oriented -3. Appropriate affect. Intact judgment and i nsight. - Labs CBC & Chem 7: 06/21/21 07:41 06/21/21 07:41 Labs: Abnormal Lab Results - Last 24 Hours (Table) 06/21/21 06/21/21 Range/Units 07:41 07:41 Hgb 12.4 L (13.0-17.0) g/dL MCH 26.7 L (27.0-32.0) pg MCHC 30.9 L (32.0-37.0) g/dL Plt Count 470 H (140-440) X 10*3/uL Immature Gran # 0.32 H (0.00-0.04) X 10*3/uL Carbon Dioxide 17.4 L (20.0-27.5) mmol/L Anion Gap 18.80 H (10.00-18.00) mmol/L BUN/Creatinine Ratio 22.94 H (12.00-20.00) Ratio AST 37 H (14-35) U/L ALT 75 H (10-49) U/L Lactate Dehydrogenase 346 H (120-246) U/L C-Reactive Protein 1.70 H (0.00-0.80) mg/dL Total Protein 5.6 L (6.2-8.2) g/dL Albumin 3.1 L (3.8-4.9) g/dL Albumin/Globulin Ratio 1.19 L (1.60-3.17) g/dL Assessment and Plan Plan: #1. Acute hypoxic respiratory failure related to acute COVID-19 related p neumonia, patient presented to the emergency department on 06/13/2021. First onset of symptoms was on 06/02/2021 area he is not vaccinated against the COVID- 19. he was outside the window for Remdesivir. During the course of his illness, the patient developed an acute right-sided infarct. He continues to have left-sided weakness gases is mainly in his left upper extremity. Motor function left upper extremities around 3-5. His oxygenation is improved. His shortness of breath is less. Patient is currently on 5 L of oxygen by nasal cannula. The patient is also demonstrated improvement in inflammatory markers including LDH and CRP. D-dimer was elevated and the number is essentially impr oving. The patient remains on Decadron for now. Clinically improving. Inflammatory markers are quite low at this point in time. No worsening shortness of breath. #2. Acute ischemic stroke with left-sided upper and lower extremity weakness, mild left hemiparesis, and mild slurring of speech, CT of the brain without contrast, and angiography CT showed no acute findings, MRI and MRA of the brain completed. MRI of the brain showed significant evolving right-sided acute infarct. MRA of the brain showed no significant focal stenosis, or obvious aneurysm at the level of the [place]. Neurology service is following. Patient was started on aspirin. No interval worsening in the neurologic findings and the patient continues to have motor weakness on the left upper extremity. He is able to swallow. No altered mentation. Clinically improving. Motor function the left upper extremity is also improving and the patient is emanating. #3. Elevated inflammatory markers related to the above, improved #4. Elevated d-dimer, without CT evidence of pulmonary embolism, evidence of DV T on lower extremity Dopplers. the d-dimer level is improving. #5. Mild hyponatremia related to dehydration, resolved with gentle IV hydration, sodium level has normalized Plan: Oxygenation has improved, and patient was transitioned to regular nasal cannula and FiO2 has been weaned down to 5 L per minute nasal cannula, the patient can be further weaned down on his FiO2 Chest x-ray findings from today are essentially stable bilateral pulmonary infiltrates Neurologically patient has remained stable, still continues to have a slight left facial droop, and left hand weakness but his left leg weakness has improved. The weakness is stable compared to yesterday. The patient continues to have some lethargy and increased sleepiness. The patient remains on aspirin. No new onset focal neurological deficits. The patient reports since he is getting stronger and daily basis. We'll continue with current Decadron dose and the patient is currently off Baricitinib. We'll continue with neurology recommendations the patient had a negative ntiphospholipid antibody panel, Physical therapy recommendations We'll continue to follow make further recommendations based on his progress.
--- NOTE | 2021-06-22 07:54 | XR ---
EXAMINATION TYPE: XR chest 1V portable DATE OF EXAM: 06/22/2021 COMPARISON: 06/21/2021 HISTORY: Covid pneumonia TECHNIQUE: Single frontal view of the chest is obtained. FINDINGS: There is no interval change in diffuse interstitial and small alveolar/airspace opacities. There is no pneumothorax or large pleural effusion. Heart size normal. The osseous structures are in tact IMPRESSION: No change in the diffuse acute cardiopulmonary process.
[2021-06-22] MEDS: CHOLECALCIFEROL 25 MCG (1000 IU) TABLET PO SCH (08:52)
[2021-06-22] MEDS: APIXABAN 5 MG TAB PO SCH ×2 (08:52→20:44)
[2021-06-22] MEDS: FAMOTIDINE 20 MG TAB PO SCH ×2 (08:52→20:44)
[2021-06-22] MEDS: ASCORBIC ACID 500 MG TAB PO SCH (08:52)
[2021-06-22] MEDS: ZINC SULFATE 220 MG CAP PO SCH (08:52)
[2021-06-22] MEDS: DEXAMETHASONE SOD PHOSPHATE 10 MG/ML 1 ML VIAL IVP SCH (08:52)
[2021-06-22 12:06] LABS: African American GFR (CKD) 112.7 (60.0-200.0); Albumin 3.1 g/dL (3.8-4.9); Albumin/Globulin Ratio 1.22 (1.60-3.17); Anion Gap 10.2 mmol/L (10.00-18.00); BUN/Creat Ratio 20.99 Ratio (12.00-20.00); Calcium 8.7 mg/dL (8.7-10.3); Carbon Dioxide 26.3 mmol/L (20.0-27.5); Globulin 2.5 g/dL (1.6-3.3); Non-African American GFR(CKD) 97.2 (60.0-200.0); Potassium 4.4 mmol/L (3.5-5.5); Total Bilirubin 0.8 mg/dL (0.30-1.20); Total Protein 5.6 g/dL (6.2-8.2)
[2021-06-22 12:14] LABS: INR 0.97 (0.90-1.11)
--- NOTE | 2021-06-22 13:36 | P.PN ---
Subjective Patient was seen and examined at the bedside. Patient currently on 5 L nasal cannula. He denies any chest pain or shortness of breath. Patient weakness in the left side is improving and he is currently ambulatory. No reported acute changes overnight Objective - Vital Signs Vital signs: Vital Signs Temp 98.8 F 06/22/21 10:00 Pulse 74 06/22/21 10:00 Resp 16 06/22/21 10:00 BP 126/82 06/22/21 10:00 Pulse Ox 94 L 06/22/21 11:40 Intake & Output 06/21/21 06/22/21 06/22/21 18:59 06:59 18:59 Output Total 700 Balance -700 Weight 98 kg Output: Urine 700 Other: Voiding Method Urinal # Voids 1 1 1 - Exam GENERAL EXAM: Alert, very pleasant, 50-year-old white male, on 6 L high flow nasal cannula HEAD: Normocephalic/atraumatic. EYES: Normal reaction of pupils, equal size. Conjunctiva pink, sclera white. NOSE: Clear with pink turbinates. THROAT: No erythema or exudates. NECK: No masses, no JVD, no thyroid enlargement, no adenopathy. CHEST: No chest wall deformity. Symmetrical expansion. LUNGS: Equal air entry with basilar crackles CVS: Regular rate and rhythm, normal S1 and S2, no gallops, no murmurs, no rubs ABDOMEN: Soft, nontender. No hepatosplenomegaly, normal bowel sounds, no guarding or rigidity. EXTREMITIES: No clubbing, no edema, no cyanosis, 2+ pulses and upper and lower extremities. MUSCULOSKELETAL: Muscle strength and tone normal. 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 Intact judgment and insight. - Labs CBC & Chem 7: 06/21/21 07:41 06/22/21 07:02 Labs: Abnormal Lab Results - Last 24 Hours (Table) 06/21/21 06/22/21 Range/Units 07:41 07:02 Hgb 12.4 L (13.0-17.0) g/dL MCH 26.7 L (27.0-32.0) pg MCHC 30.9 L (32.0-37.0) g/dL Plt Count 470 H (140-440) X 10*3/uL Immature Gran # 0.32 H (0.00-0.04) X 10*3/uL BUN/Creatinine Ratio 20.99 H (12.00-20.00) Ratio ALT 71 H (10-49) U/L Lactate Dehydrogenase 334 H (120-246) U/L C-Reactive Protein 1.00 H (0.00-0.80) mg/dL Total Protein 5.6 L (6.2-8.2) g/dL Albumin 3.1 L (3.8-4.9) g/dL Albumin/Globulin Ratio 1.22 L (1.60-3.17) g/dL Assessment and Plan Plan: Assessment and Plan: #Acute hypoxic respiratory failure related to acute COVID-19 related pneumonia -Improving -Patient currently 5 L nasal cannula -patient presented to the emergency department on 06/13/2021. -First onset of symptoms was on 06/02/2021 area he is not vaccinated against the COVID-19. -he was outside the window for Remdesivir. -Does not appear to be in any acute distress -Resume Decadron -Finished Baricitinib -Pulmonary following #Acute thromboembolic stroke with left-hemiparesis, and mild slurring of speech -Sided Weakness is improving -CT of the brain without contrast, and angiography CT showed no acute findings, MRI and MRA of the brain completed. -MRI of the brain showed significant evolving right-sided acute infarct. MRA of the brain showed no significant focal stenosis, or obvious aneurysm at the level of the [place]. -Neurology service is following. Patient was started on aspirin and Plavix -Statin and hold due to elevated LFTs -LDL 51.4 -2-D echo EF 50-55% and includes with bubble study -Discussed with Dr. Naranjo from neurology. -Neurology recommended Eliquis 5 mg twice daily -aspirin and Plavix both discontinued. -PT/OT evaluation #Elevated LFTs -AST level normalized. ALT still elevated but stable. -Fatty liver on ultrasound -Ultrasound of abdomen showed hepatic steatosis and hepatocellular disease -Monitor LFTs daily #DVT prophylaxis : Patient will Eliquis disposition : [facility] home
--- NOTE | 2021-06-22 15:06 | P.PN ---
Subjective Progress Note Date: 06/22/21 This is a pleasant 50-year-old male patient with no significant past medical history. Resulted to the emergency room yesterday with ongoing symptoms of shortness of breath cough and congestion. His symptoms started 06/02/2021. He is not vaccinated against the COVID-19. He was suspicious of possible symptoms and did test positive yesterday. He did have a temperature of 100.2. He is oxygen saturation 87% on room air. He's currently seen today in consultation on the regular medical floor. He is requiring 5 L nasal cannula to maintain O2 saturation at 94%. He has normal saline at 75 ML's per hour. His x-ray reveals bilateral airspace disease. CT angiogram ruled out pulmonary embolism. There is diffuse bilateral groundglass densities consistent with COVID-19 pneumonia. White count 6.1. Hemoglobin 13.2. Platelets 227. Lymphocytes 0.79. D-dimer 1.41. Sodium 141 potassium 3.9. Creatinine 0.9. Glucose 147. LDH 668. C- reactive protein 9.8. Pro-calcitonin 0.31. He's been initiated on Decadron, Lovenox, vitamin supplements. On 06/15/2021 patient seen in follow-up on medical surgical floor. He is awake and alert, in no acute distress, he is currently on 5 L of oxygen, pulse ox is 93%, he's coughing up occasionally small amount of blood-tinged sputum, no complaints of chest discomfort, lung sounds reveal some diffuse crackles, does have a cough, this morning she felt nauseous, he required some Zofran, however does not appear to be in any acute distress currently, he continues on Decadron 6 mg daily, he is receiving Lovenox 40 mg, he is on multivitamins, and she is r eceiving gentle IV hydration at 75 ML per hour. His chest x-ray today showing bilateral multifocal and confluent opacities consistent with COVID-19 infection, no significant change compared to 2 days earlier. His labs have been reviewed, d-dimer is 2.09, slightly increased, electrolytes and renal profile were unremarkable and yesterday's labs, his inflammatory markers are improving and LDH is down to 581, and CRP is down to 3.6, pro-calcitonin level was ordered along is 0.31. On 06/16/2021 patient seen in follow-up on medical surgical floor. Patient is awake and alert, in no acute distress, however patient suffered an acute ischemic stroke last night. Last night patient was noted to develop left arm weakness and numbness which was worsening, patient was unable to grasp with his left hand, and his left arm was limp. Patient was noted to have mild slurring of his speech however he was able to answer questions appropriately. His pupils are equal and reactive, he also had some left foot increased weakness. Code stroke was called, and CT of the brain showed negative unenhanced head CT scan, angiography CT of the brain showed no acute findings, and it was negative CT angiogram of the neck. Patient is currently awaiting MRI and MRA of the brain, neurology services are following. Currently remains on Lovenox 40 mg daily, he is on aspirin which was started today at 325 mg daily. He also remains on Decadron 6 mg daily, 0.9 normal saline at a rate of 75 ML per hour. He is af ebrile, blood pressures been stable at 142/89, placed on a monitor. On 06/17/2021 patient seen in follow-up in the intensive care unit, yesterday he was transferred to the intensive care unit in view of his evolving acute ischemic CVA. 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 Generally she seems to be weak but in no acute distress. He remains on Decadron 6 mg daily, she remains on prophylactic Lovenox, aspirin 325 mg and Lipitor was added by neurology service. His bilateral airspace disease, fairly stable in appearance. Today's labs have been reviewed showing white blood cell count of 10.7, hemoglobin of 12.4, his platelet count is 354, d-dimer is 13.59, sodium is 139, potassium 3.8, chloride is 112, CO2 is 22, BUN is 19 creatinine 0.98, his LDH has increased and is up to 1517, and CRP is up to 15.5 on today's labs. On yesterday's labs at 0.13. Overnight patient has been afebrile, and hemodynamically stable. Sinus mechanism with a controlled rate. Maintenance IV fluids are 0.9 normal saline at a rate of 75 ML per hour. As a week occasional cough, but denies any worsening dyspnea. On 06/18/2021 patient is seen in follow-up in the intensive care unit. He is awake and alert, oriented 3, seems a little fatigued, but no acute distress, he states he still coughs, the cough is dry, lung sounds are positive for diffuse rales, his oxygenation has further worsened, and he is currently on high flow oxygen device in the form of Airvo and 50 L and FiO2 of 80%, and his pulse ox is 89-95%, he is on 0.9 normal saline AT 75 ML per hour. Today's chest x-ray and blood work is still pending, his inflammatory markers and d-dimer were worsening on yesterday's labs however there was no CTA evidence of pulmonary embolism or lower extremity DVT on his lower extremity Dopplers. Neurologically patient seems to be stable compared to yesterday's exam, he still has left facial weakness in the corner of his mouth, and left hand weakness. He is able to lift his arm up against gravity. His left lower extremity weakness has significantly improved. And continues on Decadron 6 program daily, prophylactic Lovenox 40 mg daily, he is tolerating oral intake, his speech is non-slurred. He continues on oral aspirin 325 mg, we'll file showed triglycerides of 140, cholesterol level of 127, LDL of 58 1.4, HDL of 47.6. Echocardiogram has been completed but the results are still pending On 06/19/2021 patient seen in follow-up in the intensive care unit, today he is awake and alert, oriented 3 sitting up in the recliner, breathing comfortably, he is currently switched over to regular high flow nasal cannula at 14 L and his pulse ox is 95%, he denies any worsening dyspnea, he has a mild occasional dry cough. No complaints of chest discomfort. Subsequently his oxygen was dropped down to 13 L, patient continues to maintain stable O2 saturations, no new chest x-ray today, yesterday's chest x-ray was showing airspace disease with no evident pneumothorax or pleural effusion. 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 06/20/2021, I'm seeing this patient for a follow-up. The patient is sleepy. He is communicating. Increased lethargy and sleepiness is probably related to his underlying CVA. He continues to have weakness in his left upper extremity. Is able to swallow. He is able to sit up on a chair. He is down to 5 L about 2 by nasal cannula. No signs of any respiratory distress for now. The patient has a white cell count of 9.8 with a hemoglobin of 11.9 and a platelet count of 11/08/1968. The patient's d-dimer was as high as 10.0 yesterday and this was essentially dropping in value. Rest of the electrodes are all normal. Renal function stable and is normal. Patient has a LDH level of 372, CRP level is down to 3.3, antiphospholipid antibodies came back all negative. Blood sugars of 112. A repeat chest x-ray was done today and the chest x-ray shows stable bilateral diffuse pulmonary infiltrates consistent with COVID pneumonia. No new onset neurological deficits. No headaches. No seizure activity. No altered mentation. He is communicating. He is appropriate. 06/21/2021, the patient is much more alert compared to yesterday. He is getting up by himself and is moving himself back and forth to the bathroom. He reports that his left arm weakness improved. His breathing is also getting better. The patient is currently on oxygen at 5 L per minute nasal cannula with a pulse ox ranging between 96-98%. This can be further weaned down. He is afebrile. He is hemodynamically stable. He remains on treatment and the patient is currently receiving Decadron 6 mg IV every 24 hours. The patient is suffering from an acute ischemic stroke and he seems to be improving. No new onset focal neurological deficits. CAT scan of the brain without contrast and angiogram of the brain showed no acute abnormalities. MRI of the brain showed a right-sided acute infarct. MRA of the brain was also noted. His LDL level was 51. Echocardiogram was within normal limits and the patient is being seen by neurology. Overall Mr. status is also stable. In terms of his blood work, the patient's white cell count is at 8.7 with a hemoglobin of 12.4 and platelet count of 470. The patient has a LDH evidence of dropped down to 346, CRP is at 1.7. Sodium is at 139. TPN is at 20 with a creatinine of 0.9. Renal function is stable at creatinine of 0.9. LFTs are showing some mild transaminitis with an AST of 37, ALT of 75 and alkaline phosphatase of 93. 06/22/2021, the patient is doing well. He reports ongoing improvement in the left upper extremity weakness. He remains stable. No worsening in his condition. In fact, is getting stronger. Is ambulating. No new onset focal neurological deficit. The patient also has had a follow-up chest x-ray which shows some limited improvement in bilateral pulmonary infiltrates. This is related to Covid 19 infection/pneumonia. The patient is currently on 5 L of oxygen by nasal cannula. He remains on Decadron 6 October grams IV every 24 hours. He lethargic and sleepy. Nevertheless, there is no altered mentation. 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 The electrolytes are all within normal limits. The LDH level is down to 334, CRP level is down to 1.0, LFTs are normal, nitrites are normal, renal function shows a creatinine of 0.9, normal coagulation profile. The patient was given anticoagulation with Eliquis by cardiology. Cardiology on the case. Neurology is also on the case. Objective - Vital Signs Vital signs: Vital Signs Temp 98.6 F 06/22/21 14:00 Pulse 72 06/22/21 14:00 Resp 16 06/22/21 14:00 BP 115/71 06/22/21 14:00 Pulse Ox 93 L 06/22/21 14:00 Intake & Output 06/21/21 06/22/21 06/22/21 18:59 06:59 18:59 Output Total 700 Balance -700 Weight 98 kg Output: Urine 700 Other: Voiding Method Urinal # Voids 1 1 1 - Exam GENERAL EXAM: Alert, very pleasant, 50-year-old white male, on 5 l/min, sitting up in recliner comfortable in no apparent distress. HEAD: Normocephalic/atraumatic. EYES: Normal reaction of pupils, equal size. Conjunctiva pink, sclera white. NOSE: Clear with pink turbinates. THROAT: No erythema or exudates. NECK: No masses, no JVD, no thyroid enlargement, no adenopathy. CHEST: No chest wall deformity. Symmetrical expansion. LUNGS: Equal air entry with basilar crackles CVS: Regular rate and rhythm, normal S1 and S2, no gallops, no murmurs, no rubs ABDOMEN: Soft, nontender. No hepatosplenomegaly, normal bowel sounds, no guarding or rigidity. EXTREMITIES: No clubbing, no edema, no cyanosis, 2+ pulses and upper and lower extremities. MUSCULOSKELETAL: Muscle strength and tone normal. SPINE: No scoliosis or deformity SKIN: No rashes CENTRAL NERVOUS SYSTEM: Alert and oriented -3. 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 Appropriate affect. Intact judgment and insight. - Labs CBC & Chem 7: 06/21/21 07:41 06/22/21 07:02 Labs: Abnormal Lab Results - Last 24 Hours (Table) 06/22/21 Range/Units 07:02 BUN/Creatinine Ratio 20.99 H (12.00-20.00) Ratio ALT 71 H (10-49) U/L Lactate Dehydrogenase 334 H (120-246) U/L C-Reactive Protein 1.00 H (0.00-0.80) mg/dL Total Protein 5.6 L (6.2-8.2) g/dL Albumin 3.1 L (3.8-4.9) g/dL Albumin/Globulin Ratio 1.22 L (1.60-3.17) g/dL Assessment and Plan Plan: #1. Acute hypoxic respiratory failure related to acute COVID-19 related pneumonia, patient presented to the emergency department on 06/13/2021. First onset of symptoms was on 06/02/2021 area he is not vaccinated against the COVID- 19. he was outside the window for Remdesivir. During the course of his illness, the patient developed an acute right-sided infarct. He continues to have left-sided weakness gases is mainly in his left upper extremity. Motor function left upper extremities around 4/5. His oxygenation is improved. His shortness of breath is less. Patient is currently on 5 L of oxygen by nasal cannula. The patient has no other specific complaints. Repeat chest x-ray was done today and comparing it to the one that was done a few days back, there is improvement in the pulmonary infiltrates. Note that the infiltrates are not completely resolved. The patient remains on 5 L. Inflammatory markers are normal including LDH and CRP. #2. Acute ischemic stroke with left-sided upper and lower extremity weakness, mild left hemiparesis, and mild slurring of speech, CT of the brain without contrast, and angiography CT showed no acute findings, MRI and MRA of the brain completed. MRI of the brain showed significant evolving right-sided acute infarct. MRA of the brain showed no significant focal stenosis, or obvious aneurysm at the level of the [place]. Neurology service is following. Patient was started on aspirin. No interval worsening in the neurologic findings and the patient continues to have motor weakness on the left upper extremity. He is able to swallow. No altered mentation. Clinically improving. Motor function the left upper extremity is also improving and the patient is emanating. In fact, on today's evaluation, the grab using his left hand is stronger and a motor power in the left upper extremities around 4 out of 5. #3. Elevated inflammatory markers related to the above, improved #4. Elevated d-dimer, without CT evidence of pulmonary embolism, evidence of DVT on lower extremity Dopplers. the d-dimer level is improving. #5. Mild hyponatremia related to dehydration, resolved with gentle IV hydration, sodium level has normalized Plan: Chest x-ray findings are slowly improving Oxygenation is improved and the patient on 5 L Physically and functionally the patient is doing better Left upper extremity weakness and also improving Currently on Eliquis Currently on Decadron CVA workup is been negative Antiphospholipid antibodies have been negative Physical therapy recommendations We'll continue to follow make further recommendations based on his progress.
[2021-06-22] MEDS ORDERED: ACETAMINOPHEN TAB 325 MG TAB PO PRN (20:33)
[2021-06-23] MEDS: FAMOTIDINE 20 MG TAB PO SCH ×2 (08:34→20:49)
[2021-06-23] MEDS: CHOLECALCIFEROL 25 MCG (1000 IU) TABLET PO SCH (08:34)
[2021-06-23] MEDS: APIXABAN 5 MG TAB PO SCH ×2 (08:34→20:49)
[2021-06-23] MEDS: ZINC SULFATE 220 MG CAP PO SCH (08:34)
[2021-06-23] MEDS: DEXAMETHASONE SOD PHOSPHATE 10 MG/ML 1 ML VIAL IVP SCH (08:34)
[2021-06-23] MEDS: ASCORBIC ACID 500 MG TAB PO SCH (08:34)
[2021-06-23 11:43] LABS: ALT 72 U/L (4-49); AST 44 U/L (17-59); African American GFR (CKD) >90 (>60 ml/min/1.73 sqM); Alkaline Phosphatase 88 U/L (38-126); Anion Gap 5 mmol/L; Blood Urea Nitrogen 23 mg/dL (9-20); Calcium 8.7 mg/dL (8.4-10.2); Carbon Dioxide 29 mmol/L (22-30); Chloride 102 mmol/L (98-107); Globulin 2.9 g/dL; Glucose 210 mg/dL (74-99); Non-African American GFR(CKD) >90 (>60 ml/min/1.73 sqM); Potassium 4.6 mmol/L (3.5-5.1); Sodium 136 mmol/L (137-145); Total Protein 5.9 g/dL (6.3-8.2)
[2021-06-23 12:04] LABS: Basophils % (A) 0 %; Eosinophils # (A) 0.1 k/uL (0-0.7); Eosinophils % (A) 1 %; HCT 40.9 % (39.0-53.0); HGB 12.6 gm/dL (13.0-17.5); Hypochromasia Slight; Lymphocytes # (A) 0.8 k/uL (1.0-4.8); Lymphocytes % (A) 7 %; MCHC 30.9 g/dL (31.0-37.0); MCV 90.5 fL (80.0-100.0); Monocytes # (A) 0.3 k/uL (0-1.0); Monocytes % (A) 3 %; Neutrophils % (A) 88 %; Platelet Count 408 k/uL (150-450); RBC 4.52 m/uL (4.30-5.90); RDW 14.3 % (11.5-15.5); WBC 11.4 k/uL (3.8-10.6)
--- NOTE | 2021-06-23 13:08 | P.PN ---
Subjective Patient was seen and examined at the bedside. Patient currently on 5 L nasal cannula. He denies any chest pain or shortness of breath. Patient weakness in the left side is improving and he is currently ambulatory. No reported acute changes overnight Objective - Vital Signs Vital signs: Vital Signs Temp 97.6 F 06/23/21 08:52 Pulse 94 06/23/21 08:52 Resp 18 06/23/21 08:52 BP 127/79 06/23/21 08:52 Pulse Ox 94 L 06/23/21 08:52 Intake & Output 06/22/21 06/23/21 06/23/21 18:59 06:59 18:59 Weight 92.9 kg Other: Voiding Method Urinal # Voids 1 3 # Bowel Movements 0 - Exam GENERAL EXAM: Alert, very pleasant, 50-year-old white male, on 6 L high flow nasal cannula HEAD: Normocephalic/atraumatic. EYES: Normal reaction of pupils, equal size. Conjunctiva pink, sclera white. NOSE: Clear with pink turbinates. THROAT: No erythema or exudates. NECK: No masses, no JVD, no thyroid enlargement, no adenopathy. CHEST: No chest wall deformity. Symmetrical expansion. LUNGS: Equal air entry with basilar crackles CVS: Regular rate and rhythm, normal S1 and S2, no gallops, no murmurs, no rubs ABDOMEN: Soft, nontender. No hepatosplenomegaly, normal bowel sounds, no guarding or rigidity. EXTREMITIES: No clubbing, no edema, no cyanosis, 2+ pulses and upper and lower extremities. MUSCULOSKELETAL: Muscle strength and tone normal. 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 Intact judgment and insight. - Labs CBC & Chem 7: 06/23/21 10:46 06/23/21 10:46 Labs: Abnormal Lab Results - Last 24 Hours (Table) 06/23/21 06/23/21 Range/Units 10:46 10:46 WBC 11.4 H (3.8-10.6) k/uL Hgb 12.6 L (13.0-17.5) gm/dL MCHC 30.9 L (31.0-37.0) g/dL Neutrophils # 10.0 H (1.3-7.7) k/uL Lymphocytes # 0.8 L (1.0-4.8) k/uL Sodium 136 L (137-145) mmol/L BUN 23 H (9-20) mg/dL Glucose 210 H (74-99) mg/dL ALT 72 H (4-49) U/L Total Protein 5.9 L (6.3-8.2) g/dL Albumin 3.0 L (3.5-5.0) g/dL Assessment and Plan Plan: Assessment and Plan: #Acute hypoxic respiratory failure related to acute COVID-19 related pneumonia -Improving -Patient currently 5 L nasal cannula -patient presented to the emergency department on 06/13/2021. -First onset of symptoms was on 06/02/2021 area he is not vaccinated against the COVID-19. -he was outside the window for Remdesivir. -Does not appear to be in any acute distress -Resume Decadron. -Finished Baricitinib. -Pulmonary following #Acute thromboembolic stroke with left-hemiparesis, and mild slurring of speech -Sided Weakness is improving -CT of the brain without contrast, and angiography CT showed no acute findings, MRI and MRA of the brain completed. -MRI of the brain showed significant evolving right-sided acute infarct. MRA of the brain showed no significant focal stenosis, or obvious aneurysm at the level of the [place]. -Neurology service is following. Patient was started on aspirin and Plavix -Statin and hold due to elevated LFTs -LDL 51.4 -2-D echo EF 50-55% and includes with bubble study -Discussed with Dr. Naranjo from neurology. -Neurology recommended Eliquis 5 mg twice daily -aspirin and Plavix both discontinued. -PT/OT evaluation #Elevated LFTs -AST level normalized. ALT still elevated but stable. -Fatty liver on ultrasound -Ultrasound of abdomen showed hepatic steatosis and hepatocellular disease -Monitor LFTs daily. #DVT prophylaxis : Patient will Eliquis disposition: [facility] on June 24
--- NOTE | 2021-06-23 19:09 | P.PN ---
Subjective Progress Note Date: 06/23/21 Principal diagnosis: Dyspnea, hypoxia, COVID-19 This is a pleasant 50-year-old male patient with no significant past medical history. Resulted to the emergency room yesterday with ongoing symptoms of shortness of breath cough and congestion. His symptoms started 06/02/2021. He is not vaccinated against the COVID-19. He was suspicious of possible symptoms and did test positive yesterday. He did have a temperature of 100.2. He is oxygen saturation 87% on room air. He's currently seen today in consultation on the regular medical floor. He is requiring 5 L nasal cannula to maintain O2 saturation at 94%. He has normal saline at 75 ML's per hour. His x-ray reveals bilateral airspace disease. CT angiogram ruled out pulmonary embolism. There is diffuse bilateral groundglass densities consistent with COVID-19 pneumonia. White count 6.1. Hemoglobin 13.2. Platelets 227. Lymphocytes 0.79. D-dimer 1.41. Sodium 141 potassium 3.9. Creatinine 0.9. Glucose 147. LDH 668. C- reactive protein 9.8. Pro-calcitonin 0.31. He's been initiated on Decadron, Lovenox, vitamin supplements. On 06/15/2021 patient seen in follow-up on medical surgical floor. He is awake and alert, in no acute distress, he is currently on 5 L of oxygen, pulse ox is 93%, he's coughing up occasionally small amount of blood-tinged sputum, no complaints of chest discomfort, lung sounds reveal some diffuse crackles, does have a cough, this morning she felt nauseous, he required some Zofran, however does not appear to be in any acute distress currently, he continues on Decadron 6 mg daily, he is receiving Lovenox 40 mg, he is on multivitamins, and she is receiving gentle IV hydration at 75 ML per hour. His chest x-ray today showing bilateral multifocal and confluent opacities consistent with COVID-19 infection, no significant change compared to 2 days earlier. His labs have been reviewed, d-dimer is 2.09, slightly increased, electrolytes and renal profile were unremarkable and yesterday's labs, his inflammatory markers are improving and LDH is down to 581, and CRP is down to 3.6, pro-calcitonin level was ordered along is 0.31. On 06/16/2021 patient seen in follow-up on medical surgical floor. Patient is awake and alert, in no acute distress, however patient suffered an acute ischemic stroke last night. Last night patient was noted to develop left arm weakness and numbness which was worsening, patient was unable to grasp with his left hand, and his left arm was limp. Patient was noted to have mild slurring of his speech however he was able to answer questions appropriately. His pupils are equal and reactive, he also had some left foot increased weakness. Code stroke was called, and CT of the brain showed negative unenhanced head CT scan, angiography CT of the brain showed no acute findings, and it was negative CT angiogram of the neck. Patient is currently awaiting MRI and MRA of the brain, neurology services are following. Currently remains on Lovenox 40 mg daily, he is on aspirin which was started today at 325 mg daily. He also remains on Deca dron 6 mg daily, 0.9 normal saline at a rate of 75 ML per hour. He is afebrile, blood pressures been stable at 142/89, placed on a monitor. On 06/17/2021 patient seen in follow-up in the intensive care unit, yesterday he was transferred to the intensive care unit in view of his evolving acute isch emic CVA. On today's exam his left upper arm weakness is improved, he is able to lift up his left arm against gravity, however he is unable to supervisor irrigation with his left hand, left lower extremity strength is improved, he still has a slight left facial droop in the corner of his mouth, his speech is improved, and he was noted to have normal swallowing issues, he is awake and alert, he is oriented 3, is currently on 15 L per high flow nasal cannula however his pulse ox is only 85-86%. Generally she seems to be weak but in no acute distress. He remains on Decadron 6 mg daily, she remains on prophylactic Lovenox, aspirin 325 mg and Lipitor was added by neurology service. His bilateral airspace disease, fairly stable in appearance. Today's labs have been reviewed showing white blood cell count of 10.7, hemoglobin of 12.4, his platelet count is 354, d-dimer is 13.59, sodium is 139, potassium 3.8, chloride is 112, CO2 is 22, BUN is 19 creatinine 0.98, his LDH has increased and is up to 1517, and CRP is up to 15.5 on today's labs. On yesterday's labs at 0.13. Overnight patient has been afeb rile, and hemodynamically stable. Sinus mechanism with a controlled rate. Maintenance IV fluids are 0.9 normal saline at a rate of 75 ML per hour. As a week occasional cough, but denies any worsening dyspnea. On 06/18/2021 patient is seen in follow-up in the intensive care unit. He is awake and alert, oriented 3, seems a little fatigued, but no acute distress, he states he still coughs, the cough is dry, lung sounds are positive for diffuse rales, his oxygenation has further worsened, and he is currently on high flow oxygen device in the form of Airvo and 50 L and FiO2 of 80%, and his pulse ox is 89-95%, he is on 0.9 normal saline AT 75 ML per hour. Today's chest x-ray and blood work is still pending, his inflammatory markers and d-dimer were worsening on yesterday's labs however there was no CTA evidence of pulmonary embolism or lower extremity DVT on his lower extremity Dopplers. Neurologically patient seems to be stable compared to yesterday's exam, he still has left facial weakness in the corner of his mouth, and left hand weakness. He is able to lift his arm up against gravity. His left lower extremity weakness has significantly improved. And continues on Decadron 6 program daily, prophylactic Lovenox 40 mg daily, he is tolerating oral intake, his speech is non-slurred. He continues on oral aspirin 325 mg, we'll file showed triglycerides of 140, cholesterol level of 127, LDL of 58 1.4, HDL of 47.6. Echocardiogram has been completed but the results are still pending On 06/19/2021 patient seen in follow-up in the intensive care unit, today he is awake and alert, oriented 3 sitting up in the recliner, breathing comfortably, he is currently switched over to regular high flow nasal cannula at 14 L and his pulse ox is 95%, he denies any worsening dyspnea, he has a mild occasional dry cough. No complaints of chest discomfort. Subsequently his oxygen was dropped down to 13 L, patient continues to maintain stable O2 saturations, no new chest x-ray today, yesterday's chest x-ray was showing airspace disease with no evident pneumothorax or pleural effusion. He was started on Baricitinib yesterday on 06/18/2021, continues on Decadron, and prophylactic Lovenox, he is on full dose aspirin, and COVID-19 multivitamins, neurologically he has been stable, and he still continues to have left supervisor irrigation weakness, and slight left facial droop, no dysphagia, no dysarthria. On 06/23/2021 patient seen in follow-up on medical surgical floor. He is sitting up in the recliner, awake and alert, oriented 3, on 5 L of oxygen his pulse ox is 100%, his FiO2 has been subsequently cut back to 3 L, patient is any worsening dyspnea, no cough, lung sounds are clear to auscultation, no complaint of chest discomfort, neurologically he is improving, he is able to supervisor irrigation with his left hand, very slight left facial weakness in the corner of his mouth, neurologically patient seems to be recovering. No new chest x-ray, today's labs have been reviewed showing white blood cell count of 11.4, hemoglobin of 12.6, sodium is 136, potassium is 4.6, chloride is 102, CO2 is 29, B1 is 23 creatinine 0.93. His inflammatory markers are improving, yesterday's levels were noted and LDH is 334, and CRP is 1. He remains on Eliquis 5 mg twice daily, he is on Decadron 6 mg daily Objective - Vital Signs Vital signs: Vital Signs Temp 98.2 F 06/23/21 16:43 Pulse 71 06/23/21 16:43 Resp 18 06/23/21 16:43 BP 109/76 06/23/21 16:43 Pulse Ox 98 06/23/21 16:43 Intake & Output 06/23/21 06/23/21 06/24/21 06:59 18:59 06:59 Weight 92.9 kg Other: Voiding Method Urinal # Voids 3 # Bowel Movements 0 - Exam GENERAL EXAM: Alert, very pleasant, 50-year-old white male, on 5 l/min, the pulse ox of 100% sitting up in recliner comfortable in no apparent distress. HEAD: Normocephalic/atraumatic. EYES: Normal reaction of pupils, equal size. Conjunctiva pink, sclera white. NOSE: Clear with pink turbinates. THROAT: No erythema or exudates. NECK: No masses, no JVD, no thyroid enlargement, no adenopathy. CHEST: No chest wall deformity. Symmetrical expansion. LUNGS: Equal air entry with basilar crackles CVS: Regular rate and rhythm, normal S1 and S2, no gallops, no murmurs, no rubs ABDOMEN: Soft, nontender. No hepatosplenomegaly, normal bowel sounds, no guarding or rigidity. EXTREMITIES: No clubbing, no edema, no cyanosis, 2+ pulses and upper and lower extremities. MUSCULOSKELETAL: Muscle strength and tone normal. SPINE: No scoliosis or deformity SKIN: No rashes CENTRAL NERVOUS SYSTEM: Alert and oriented -3. Patient has slight left facial droop, left arm weakness improved, able to lift left arm against gravity, and able to supervisor irrigation with his left hand PSYCHIATRIC: Alert and oriented -3. Appropriate affect. Intact judgment and insight. - Labs CBC & Chem 7: 06/23/21 10:46 06/23/21 10:46 Labs: Abnormal Lab Results - Last 24 Hours (Table) 06/23/21 06/23/21 Range/Units 10:46 10:46 WBC 11.4 H (3.8-10.6) k/uL Hgb 12.6 L (13.0-17.5) gm/dL MCHC 30.9 L (31.0-37.0) g/dL Neutrophils # 10.0 H (1.3-7.7) k/uL Lymphocytes # 0.8 L (1.0-4.8) k/uL Sodium 136 L (137-145) mmol/L BUN 23 H (9-20) mg/dL Glucose 210 H (74-99) mg/dL ALT 72 H (4-49) U/L Total Protein 5.9 L (6.3-8.2) g/dL Albumin 3.0 L (3.5-5.0) g/dL Assessment and Plan Plan: Assessment: #1. Acute hypoxic respiratory failure related to acute COVID-19 related pneumonia, patient presented to the emergency department on 06/13/2021. First onset of symptoms was on 06/02/2021 area he is not vaccinated against the COVID- 19. he was outside the window for Remdesivir. #2. Acute ischemic stroke with left-sided upper and lower extremity weakness, mild left hemiparesis, and mild slurring of speech, CT of the brain without contrast, and angiography CT showed no acute findings, MRI and MRA of the brain completed. MRI of the brain showed significant evolving right-sided acute infarct. MRA of the brain showed no significant focal stenosis, or obvious aneurysm at the level of the [place]. Neurology service is following. Patient was started on aspirin and Eliquis. Neurology service is following, no interval worsening in the neurological findings and patient's motor weakness in his left upper extremity is improving, no difficulty swallowing, no dysarthria, #3. Elevated inflammatory markers related to the above, improved and then worsened #4. Elevated d-dimer, without CT evidence of pulmonary embolism, evidence of DVT on lower extremity Dopplers. #5. Mild hyponatremia related to dehydration, resolved with gentle IV hydration Plan: Clinically patient continues to improve No difficulty breathing, FiO2 has been cut back to 3 L, patient is maintaining stable O2 saturations Continue weaning FiO2 to keep O2 sats x-ray she is at or above 90% Currently on Eliquis that was started by cardiology Continue Decadron Physical therapy is working with the patient, and patient has been ambulating and tolerating activity well he is awaiting insurance authorization for placement into [facility] [place] Stable for discharge to inpatient rehab from pulmonary perspective I performed a history & physical examination of the patient and discussed their management with my nurse practitioner, Sharri White. I reviewed the nurse practitioner's note and agree with the documented findings and plan of care. Lung sounds are positive for diffuse crackles throughout the lung george. The findings and the impression was discussed with the patient. I attest to the documentation by the nurse practitioner. Time with Patient: Less than 30
[2021-06-24] MEDS: DEXAMETHASONE SOD PHOSPHATE 10 MG/ML 1 ML VIAL IVP SCH (08:48)
[2021-06-24] MEDS: CHOLECALCIFEROL 25 MCG (1000 IU) TABLET PO SCH (08:49)
[2021-06-24] MEDS: APIXABAN 5 MG TAB PO SCH ×2 (08:49→20:11)
[2021-06-24] MEDS: FAMOTIDINE 20 MG TAB PO SCH ×2 (08:49→20:10)
[2021-06-24] MEDS: ZINC SULFATE 220 MG CAP PO SCH (08:49)
[2021-06-24] MEDS: ASCORBIC ACID 500 MG TAB PO SCH (08:49)
[2021-06-24 09:00] LABS: Basophils # (A) 0.04 X 10*3/uL (0.00-0.10); Basophils % (A) 0.4 %; Eosinophils # (A) 0.12 X 10*3/uL (0.04-0.35); Eosinophils % (A) 1.2 %; HCT 38.8 % (39.6-50.0); HGB 12.3 g/dL (13.0-17.0); Lymphocytes % (A) 21.8 %; MCH 27.3 pg (27.0-32.0); MCHC 31.7 g/dL (32.0-37.0); MCV 86.2 fL (80.0-97.0); Mean Platelet Volume 10.3 fL (9.5-12.2); Monocytes # (A) 0.93 X 10*3/uL (0.20-1.00); Monocytes % (A) 9.2 %; Neutrophils # (A) 6.68 X 10*3/uL (1.80-7.70); Neutrophils % (A) 66.2 %; Platelet Count 432 X 10*3/uL (140-440); RDW 14.6 % (11.5-14.5); WBC 10.09 X 10*3/uL (4.50-10.00)
--- NOTE | 2021-06-24 11:36 | P.DS ---
<Harrison Mckenna - Last Filed: 06/24/21 12:11> Providers Expected date of discharge: 06/24/21 Hospital Course: Discharge Diagnosis: Acute hypoxic respiratory failure secondary to acute COVID-19 pneumonia, completed course of Decadron as well as Baracitinib, discharged to rehabilitation facility on 2 L O2 via nasal cannula Acute thromboembolic stroke affecting right parietal, frontal, and temporal lobes resulting in left-hemiparesis, and mild slurring of speech. Elevated d-dimer, CTA negative for pulmonary embolism and bilateral lower extremity Dopplers negative for DVTs. Elevated LFTs Mild hyponatremia secondary to dehydration, resolved after IV fluid administration. Hospital Course: Patient is a very pleasant 50-year-old male with no known reported past medical history. He presented to the hospital on 06/13/21 with a chief complaint of shortness of breath and weakness beginning 06/02/21 and progressively worsening. In the emergency department patient was found to be febrile with a temp of 10 1.7F, hypertensive with blood pressure of 163/98, heart rate 96, and hypoxic requiring oxygen supplementation 4 L O2 to maintain SpO2 greater than 92%. Patient was found to test positive for Covid 19 through PCR. Patient reported being unvaccinated. D-dimer was elevated at 1.6. Chest x-ray consistent with Covid pneumonia. Chest CTA negative for PE showing diffuse bilateral groundglass densities consistent with inflammatory process such as Covid pneumonia. EKG revealed sinus tachycardia at 101 bpm with no noted T-wave or ST abnormalities. Patient was admitted under our services with consultation to pulmonology. Patient received oxygen supplementation, steroids and started on Baracitinib as he was out of the window for Remdesivir. On the evening of 06/15/21 patient reportedly became very anxious and increasingly hypoxic with reports of left hand and arm numbness and weakness, a rapid response was called and patient was immediately seen and fully evaluated by physician. He underwent a CT head which was negative for acute intercranial process and CTA of neck also negative for acute process. Neurology was consulted. MRI of brain revealed significant acute right sided infarcts with greatest involvement of right parietal lobe followed by areas of involvement throughout the frontal and temporal lobes. MRA with suboptimal study showing no significant focal stenosis or obvious aneurysm. Pt started on aspirin and plavix. Echocardiogram was limited secondary to Covid 19 exposure revealing an EF between 50-55%. Patient was started on anticoagulation with Eliquis and aspirin and Plavix discontinued at this time. Patient continues to have left-sided deficits mostly left arm and hand. He has underwent treatment by PT/OT. He also remains on supplemental oxygen. He has completed 10 day course of Decadron as well as Baracitinib. He did undergo an abdominal ultrasound secondary to elevated LFTs, Abdominal ultrasound showing hepatic steatosis. It is recommended that pt be transferred to in-patient rehab for continued physical and occupational and speech therapy. Patient cleared by neurology to follow-up outpatient and recommended to continue anticoagulant as discussed. Patient has been cleared by cardiology and to follow up outpatient. Patient is medically stable for discharge to inpatient rehabilitation Center, [facility], at this time. Patient to continue anticoagulation with Eliquis along with daily atorvastatin, zinc, Pepcid, ascorbic acid, and vitamin D. Patient seen and examined at bedside. Vital signs reviewed and stable. General: Nontoxic, no distress and appears stated age. Derm: Skin warm and dry, normal coloration for ethnicity. Head: Atraumatic, normocephalic and symmetric. Eyes: EOMs intact, no lid lag, and anicteric sclera Mouth: no lip lesions, mucus membranes moist Cardiovascular: regular rate and rhythm with normal S1S2, no murmur, positive posterior tibial pulses bilaterally, and cap refill < 2 seconds. Lungs: Respirations even, regular, and unlabored on room air. Lungs soft crackles at bilateral bases. No rhonchi, no rales, no wheezing, and no accessory muscle usage. Abdominal: soft, nontender to palpation, no guarding, no appreciable organomegaly Ext: No gross muscle atrophy, no edema, no contractures. Patient with mild left lower extremity weakness, but has full range of motion with left leg. Pat ient has slight left-sided facial droop, speech is clear. 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 Neuro: Speech clear, face symmetrical and CN II-XII grossly intact. Mild left- sided facial droop and left sided weakness as above. Psych: Alert and oriented to person, place, time, and situation. Appropriate and pleasant affect. A total of 45 minutes of time were spent preparing this complex discharge summary. Patient Condition at Discharge: Stable Plan - Discharge Summary Discharge Rx Participant: Yes New Discharge Prescriptions: New Apixaban [Eliquis] 5 mg PO BID tab Zinc Sulfate [Orazinc] 220 mg PO DAILY cap Famotidine [Pepcid] 20 mg PO BID tab Ascorbic Acid [Vitamin C] 1,000 mg PO DAILY tab Atorvastatin [Lipitor] 40 mg PO DAILY 30 Days #30 tablet Acetaminophen Tab [Tylenol] 650 mg PO Q6HR PRN tab PRN Reason: Fever and/ or Mild Pain Cholecalciferol [Vitamin D3 (25 Mcg = 1000 Iu)] 50 mcg PO DAILY tablet Discharge Medication List Acetaminophen Tab [Tylenol] 650 mg PO Q6HR PRN tab 06/24/21 [Rx] Apixaban [Eliquis] 5 mg PO BID tab 06/24/21 [Rx] Ascorbic Acid [Vitamin C] 1,000 mg PO DAILY tab 06/24/21 [Rx] Atorvastatin [Lipitor] 40 mg PO DAILY 30 Days #30 tablet 06/24/21 [Rx] Cholecalciferol [Vitamin D3 (25 Mcg = 1000 Iu)] 50 mcg PO DAILY tablet 06/24/21 [Rx] Famotidine [Pepcid] 20 mg PO BID tab 06/24/21 [Rx] Zinc Sulfate [Orazinc] 220 mg PO DAILY cap 06/24/21 [Rx] Follow up Appointment(s)/Referral(s): Parul Ayala MD [STAFF PHYSICIAN] - 07/30/21 1:00 pm Boubacar Gonzalez MD [STAFF PHYSICIAN] - 2 Weeks (Office will call with appointment ) Gurmeet Pretty MD [Primary Care Provider] - 1-2 days Lc Leggett MD [Medical Doctor] - 1 Week (office closed at this time patient to call office and schedule appointment after D/C) Patient Instructions/Handouts: Coronavirus Disease 2019 (COVID-19), Ischemic Stroke (DC) Activity/Diet/Wound Care/Special Instructions: Activity: As tolerated. Take breaks as needed. Diet: Heart healthy and carb consistent diet. Avoid salts, or foods with hidden salts such as canned or boxed foods and frozen dinners. Extra salt makes your heart work harder and traps the fluid in your body for longer. Special Instructions: Take all of your medications as directed and remember to keep all of your doctor's appointments and follow-up as needed. You are being transferred [facility]. It is important to remain on the 2 L of oxygen until further evaluated by pulmonology in your outpatient follow-up and instructed you may discontinue. 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 Thank you for allowing us to participate in your care, it was truly a pleasure having you for our patient!!! Wishing you a very happy and healthy new year!!! Discharge Disposition: DC/TRNS INTERMEDIATE CARE FAC <Salvador Cheek - Last Filed: 06/24/21 17:40> Providers Date of admission: 06/13/21 15:57 Attending physician: Jessica Funk MD Consults: 06/13/21 15:19 Consult Physician Routine Consulting Provider: John Barahona Consult Reason/Comments: COVID 19 Do you want consulting provider notified?: Yes 06/16/21 03:12 Consult Physician Urgent Consulting Provider: Adam Naranjo Consult Reason/Comments: stroke Do you want consulting provider notified?: Yes, Notify in am 06/18/21 15:16 Consult Physician Routine Consulting Provider: Richie Davidson Consult Reason/Comments: Acute CVA Do you want consulting provider notified?: Yes Primary care physician: Gurmeet Pretty [facility] Course: I reviewed the documentation as provided by the YADIRA above, who is the original author of this note. I agree with the documented assessment and plan, with the following changes: None
--- NOTE | 2021-06-24 12:38 | P.PN ---
Subjective Progress Note Date: 06/24/21 This is a pleasant 50-year-old male patient with no significant past medical history. Resulted to the emergency room yesterday with ongoing symptoms of shortness of breath cough and congestion. His symptoms started 06/02/2021. He is not vaccinated against the COVID-19. He was suspicious of possible symptoms and did test positive yesterday. He did have a temperature of 100.2. He is oxygen saturation 87% on room air. He's currently seen today in consultation on the regular medical floor. He is requiring 5 L nasal cannula to maintain O2 saturation at 94%. He has normal saline at 75 ML's per hour. His x-ray reveals bilateral airspace disease. CT angiogram ruled out pulmonary embolism. There is diffuse bilateral groundglass densities consistent with COVID-19 pneumonia. White count 6.1. Hemoglobin 13.2. Platelets 227. Lymphocytes 0.79. D-dimer 1.41. Sodium 141 potassium 3.9. Creatinine 0.9. Glucose 147. LDH 668. C- reactive protein 9.8. Pro-calcitonin 0.31. He's been initiated on Decadron, Lovenox, vitamin supplements. On 06/15/2021 patient seen in follow-up on medical surgical floor. He is awake and alert, in no acute distress, he is currently on 5 L of oxygen, pulse ox is 93%, he's coughing up occasionally small amount of blood-tinged sputum, no complaints of chest discomfort, lung sounds reveal some diffuse crackles, does have a cough, this morning she felt nauseous, he required some Zofran, however does not appear to be in any acute distress currently, he continues on Decadron 6 mg daily, he is receiving Lovenox 40 mg, he is on multivitamins, and she is receiving gentle IV hydration at 75 ML per hour. His chest x-ray today showing bilateral multifocal and confluent opacities consistent with COVID-19 infection, no significant change compared to 2 days earlier. His labs have been reviewed, d-dimer is 2.09, slightly increased, electrolytes and renal profile were unremarkable and yesterday's labs, his inflammatory markers are improving and LDH is down to 581, and CRP is down to 3.6, pro-calcitonin level was ordered along is 0.31. On 06/16/2021 patient seen in follow-up on medical surgical floor. Patient is awake and alert, in no acute distress, however patient suffered an acute ischemic stroke last night. Last night patient was noted to develop left arm weakness and numbness which was worsening, patient was unable to grasp with his left hand, and his left arm was limp. Patient was noted to have mild slurring of his speech however he was able to answer questions appropriately. His pupils are equal and reactive, he also had some left foot increased weakness. Code stroke was called, and CT of the brain showed negative unenhanced head CT scan, angiography CT of the brain showed no acute findings, and it was negative CT angiogram of the neck. Patient is currently awaiting MRI and MRA of the brain, neurology services are following. Currently remains on Lovenox 40 mg daily, he is on aspirin which was started today at 325 mg daily. He also remains on Decadron 6 mg daily, 0.9 normal saline at a rate of 75 ML per hour. He is afeb rile, blood pressures been stable at 142/89, placed on a monitor. On 06/17/2021 patient seen in follow-up in the intensive care unit, yesterday he was transferred to the intensive care unit in view of his evolving acute ischemic CVA. On today's exam his left upper arm weakness is improved, he is a ble to lift up his left arm against gravity, however he is unable to reexaminer with his left hand, left lower extremity strength is improved, he still has a slight left facial droop in the corner of his mouth, his speech is improved, and he was noted to have normal swallowing issues, he is awake and alert, he is oriented 3, is currently on 15 L per high flow nasal cannula however his pulse ox is only 85-86%. Generally she seems to be weak but in no acute distress. He remains on Decadron 6 mg daily, she remains on prophylactic Lovenox, aspirin 325 mg and Lipitor was added by neurology service. His bilateral airspace disease, fairly stable in appearance. Today's labs have been reviewed showing white blood cell count of 10.7, hemoglobin of 12.4, his platelet count is 354, d-dimer is 13.59, sodium is 139, potassium 3.8, chloride is 112, CO2 is 22, BUN is 19 creatinine 0.98, his LDH has increased and is up to 1517, and CRP is up to 15.5 on today's labs. On yesterday's labs at 0.13. Overnight patient has been afebrile, and hemodynamically stable. Sinus mechanism with a controlled rate. Maintenance IV fluids are 0.9 normal saline at a rate of 75 ML per hour. As a week occasional cough, but denies any worsening dyspnea. On 06/18/2021 patient is seen in follow-up in the intensive care unit. He is awake and alert, oriented 3, seems a little fatigued, but no acute distress, he states he still coughs, the cough is dry, lung sounds are positive for diffuse rales, his oxygenation has further worsened, and he is currently on high flow oxygen device in the form of Airvo and 50 L and FiO2 of 80%, and his pulse ox is 89-95%, he is on 0.9 normal saline AT 75 ML per hour. Today's chest x-ray and blood work is still pending, his inflammatory markers and d-dimer were worsening on yesterday's labs however there was no CTA evidence of pulmonary embolism or lower extremity DVT on his lower extremity Dopplers. Neurologically patient seems to be stable compared to yesterday's exam, he still has left facial weakness in the corner of his mouth, and left hand weakness. He is able to lift his arm up against gravity. His left lower extremity weakness has significantly improved. And continues on Decadron 6 program daily, prophylactic Lovenox 40 mg daily, he is tolerating oral intake, his speech is non-slurred. He continues on oral aspirin 325 mg, we'll file showed triglycerides of 140, cholesterol level of 127, LDL of 58 1.4, HDL of 47.6. Echocardiogram has been completed but the results are still pending On 06/19/2021 patient seen in follow-up in the intensive care unit, today he is awake and alert, oriented 3 sitting up in the recliner, breathing comfortably, he is currently switched over to regular high flow nasal cannula at 14 L and his pulse ox is 95%, he denies any worsening dyspnea, he has a mild occasional dry cough. No complaints of chest discomfort. Subsequently his oxygen was dropped down to 13 L, patient continues to maintain stable O2 saturations, no new chest x-ray today, yesterday's chest x-ray was showing airspace disease with no evident pneumothorax or pleural effusion. He was started on Baricitinib yesterday on 06/18/2021, continues on Decadron, and prophylactic Lovenox, he is on full dose aspirin, and COVID-19 multivitamins, neurologically he has been stable, and he still continues to have left reexaminer weakness, and slight left facial droop, no dysphagia, no dysarthria. On 06/23/2021 patient seen in follow-up on medical surgical floor. He is sitting up in the recliner, awake and alert, oriented 3, on 5 L of oxygen his pulse ox is 100%, his FiO2 has been subsequently cut back to 3 L, patient is any worsening dyspnea, no cough, lung sounds are clear to auscultation, no complaint of chest discomfort, neurologically he is improving, he is able to reexaminer with his left hand, very slight left facial weakness in the corner of his mouth, neurologically patient seems to be recovering. No new chest x-ray, today's labs have been reviewed showing white blood cell count of 11.4, hemoglobin of 12.6, sodium is 136, potassium is 4.6, chloride is 102, CO2 is 29, B1 is 23 creatinine 0.93. His inflammatory markers are improving, yesterday's levels were noted and LDH is 334, and CRP is 1. He remains on Eliquis 5 mg twice daily, he is on Decadron 6 mg daily The patient is seen today 06/24/2021 in follow-up on the regular medical floor. He is currently sitting up in a chair at the bedside. Awake and alert in no acute distress. He is currently maintaining O2 saturations in the high 90s on 3 L/m per nasal cannula. He's been up with assistance. Working with physical therapy. He is hoping to go home versus subacute rehabilitation. Chest x-ray remains stable. Sputum culture revealed no growth. White count 10.0. Humulin 12.3. Platelets 432. Magnesium 2.3. He remains on Eliquis, Decadron, vitamin supplements. Objective - Vital Signs Vital signs: Vital Signs Temp 97.9 F 06/24/21 09:35 Pulse 63 06/24/21 09:35 Resp 15 06/24/21 09:35 BP 112/73 06/24/21 09:35 Pulse Ox 98 06/24/21 09:35 Intake & Output 06/23/21 06/24/21 06/24/21 18:59 06:59 18:59 Intake Total 600 Output Total 1350 Balance -750 Weight 93.8 kg Intake: Oral 600 Output: Urine 1350 Other: Voiding Method Urinal Urinal # Voids 2 - Exam GENERAL EXAM: Alert, very pleasant, 50-year-old white male, on 3 l/min, the pulse ox of 98% sitting up in recliner comfortable in no apparent distress. HEAD: Normocephalic/atraumatic. EYES: Normal reaction of pupils, equal size. Conjunctiva pink, sclera white. NOSE: Clear with pink turbinates. THROAT: No erythema or exudates. NECK: No masses, no JVD, no thyroid enlargement, no adenopathy. CHEST: No chest wall deformity. Symmetrical expansion. LUNGS: Equal air entry with coarse basilar crackles CVS: Regular rate and rhythm, normal S1 and S2, no gallops, no murmurs, no rubs ABDOMEN: Soft, nontender. No hepatosplenomegaly, normal bowel sounds, no guarding or rigidity. EXTREMITIES: No clubbing, no edema, no cyanosis, 2+ pulses and upper and lower extremities. MUSCULOSKELETAL: Muscle strength and tone normal. SPINE: No scoliosis or deformity SKIN: No rashes CENTRAL NERVOUS SYSTEM: Patient has slight left facial droop, left arm weakness improved, able to lift left arm against gravity, and able to reexaminer with his left hand PSYCHIATRIC: Alert and oriented -3. Appropriate affect. Intact judgment and insight. - Labs CBC & Chem 7: 06/24/21 06:16 06/23/21 10:46 Labs: Abnormal Lab Results - Last 24 Hours (Table) 06/24/21 Range/Units 06:16 WBC 10.09 H (4.50-10.00) X 10*3/uL Hgb 12.3 L (13.0-17.0) g/dL Hct 38.8 L (39.6-50.0) % MCHC 31.7 L (32.0-37.0) g/dL RDW 14.6 H (11.5-14.5) % Immature Gran # 0.12 H (0.00-0.04) X 10*3/uL Assessment and Plan Assessment: 1 Acute hypoxemic respiratory failure secondary to acute COVID-19 pneumonia. Started June 02. Outside the window for Remdesivir. Not vaccinated. 2 Acute ischemic stroke with left-sided upper and lower extremity weakness, mild left hemiparesis, and mild slurring of speech, CT of the brain without contrast, and angiography CT showed no acute findings, MRI and MRA of the brain completed. MRI of the brain showed significant evolving right-sided acute infarct. MRA of the brain showed no significant focal stenosis, or obvious aneurysm at the level of the [place]. Neurology service is following. Patient was started on aspirin and Eliquis. Neurology service is following, no interval worsening in the neurological findings and patient's motor weakness in his left upper extremity is improving, no difficulty swallowing, no dysarthria, 3 Elevated inflammatory markers related to the above, improved and then worsened 4 Elevated d-dimer, without CT evidence of pulmonary embolism, no evidence of DVT on lower extremity Dopplers. 5 Mild hyponatremia related to dehydration, resolved with gentle IV hydration, sodium 136 Plan: The patient was seen and evaluated today Evaluate for possible home oxygen The plan may be for home versus subacute rehabilitation Follow-up in the office in 3-4 weeks I, the cosigning physician, performed a history & physical examination of the patient. Lungs sounds with coarse crackles in the bilateral bases. Maintaining good O2 saturations in the 90s on 3 liters per minute per nasal cannula. I discussed the assessment and plan of care with my nurse practitioner, Amy Mccormick. I attest to the above note as dictated by her.
[2021-06-25] MEDS: APIXABAN 5 MG TAB PO SCH (08:21)
[2021-06-25] MEDS: ZINC SULFATE 220 MG CAP PO SCH (08:21)
[2021-06-25] MEDS: ASCORBIC ACID 500 MG TAB PO SCH (08:21)
[2021-06-25] MEDS: FAMOTIDINE 20 MG TAB PO SCH (08:21)
[2021-06-25] MEDS: CHOLECALCIFEROL 25 MCG (1000 IU) TABLET PO SCH (08:22)
[2021-06-25] MEDS ORDERED: ATORVASTATIN 40 MG TAB PO SCH (09:00)
[2021-06-25] MEDS: DEXAMETHASONE SOD PHOSPHATE 10 MG/ML 1 ML VIAL IVP SCH (10:24)
[2021-06-25 10:47] VITALS: BP 116/68; PULSE 70; RESP 14; TEMP 97.7
--- NOTE | 2021-06-25 10:58 | P.DS ---
<Harrison Mckenna - Last Filed: 06/25/21 10:43> Providers Expected date of discharge: 06/25/21 Hospital Course: Discharge Diagnosis: Acute hypoxic respiratory failure secondary to acute COVID-19 pneumonia, completed course of Decadron as well as Baracitinib, discharged to rehabilitation facility on 2 L O2 via nasal cannula Acute thromboembolic stroke affecting right parietal, frontal, and temporal lobes resulting in left-hemiparesis, and mild slurring of speech. Elevated d-dimer, CTA negative for pulmonary embolism and bilateral lower extremity Dopplers negative for DVTs. Elevated LFTs Mild hyponatremia secondary to dehydration, resolved after IV fluid administration. Hospital Course: Patient is a very pleasant 50-year-old male with no known reported past medical history. He presented to the hospital on 06/13/21 with a chief complaint of shortness of breath and weakness beginning 06/02/21 and progressively worsening. In the emergency department patient was found to be febrile with a temp of 10 1.7F, hypertensive with blood pressure of 163/98, heart rate 96, and hypoxic requiring oxygen supplementation 4 L O2 to maintain SpO2 greater than 92%. Patient was found to test positive for Covid 19 through PCR. Patient reported being unvaccinated. D-dimer was elevated at 1.6. Chest x-ray consistent with Covid pneumonia. Chest CTA negative for PE showing diffuse bilateral groundglass densities consistent with inflammatory process such as Covid pneumonia. EKG revealed sinus tachycardia at 101 bpm with no noted T-wave or ST abnormalities. Patient was admitted under our services with consultation to pulmonology. Patient received oxygen supplementation, steroids and started on Baracitinib as he was out of the window for Remdesivir. On the evening of 06/15/21 patient reportedly became very anxious and increasingly hypoxic with reports of left hand and arm numbness and weakness, a rapid response was called and patient was immediately seen and fully evaluated by physician. He underwent a CT head which was negative for acute intercranial process and CTA of neck also negative for acute process. Neurology was consulted. MRI of brain revealed significant acute right sided infarcts with greatest involvement of right parietal lobe followed by areas of involvement throughout the frontal and temporal lobes. MRA with suboptimal study showing no significant focal stenosis or obvious aneurysm. Pt started on aspirin and plavix. Echocardiogram was limited secondary to Covid 19 exposure revealing an EF between 50-55%. Patient was started on anticoagulation with Eliquis and aspirin and Plavix were discontinued by neurology at this time as stroke is embolic in nature and patient has no evidence of atherosclerotic cerebrovascular disease. Patient continues to have left-sided deficits mostly left arm and hand. He has underwent treatment by PT/OT. He also remains on supplemental oxygen. He has completed 10 day course of Decadron as well as Baracitinib. He did undergo an abdominal ultrasound secondary to elevated LFTs, Abdominal ultrasound showing hepatic steatosis, and liver enzymes improving. It is recommended that pt be transferred to in-patient rehab for continued physical and occupational and speech therapy. Patient cleared by neurology to follow-up outpatient and recommended to continue anticoagulant as discussed. Patient has been cleared by cardiology and to [facility] outpatient. Patient is medically stable for discharge to inpatient rehabilitation Center, [facility], at this time. Patient to continue anticoagulation with Eliquis along with daily atorvastatin, zinc, Pepcid, ascorbic acid, and vitamin D. Physical exam: Patient seen and examined at bedside. He is doing well this morning. Patient continues to move left arm and able to open and close left hand but continues to have weakness in fig washer and strength. Left leg full range of motion and is equal and strong when compared to right. Patient denies having any headache, lightheadedness, dizziness, chest pain, palpitations, or shortness of breath at rest at this time. He remains on 2 L O2 with SpO2 of 95% at time of assessment. Patient is medically stable for discharge to [facility] inpatient rehabilitation centers at this time. Vital signs reviewed and stable. General: Nontoxic, no distress and appears stated age. Derm: Skin warm and dry, normal coloration for ethnicity. Head: Atraumatic, normocephalic and symmetric. Eyes: EOMs intact, no lid lag, and anicteric sclera Mouth: no lip lesions, mucus membranes moist Cardiovascular: regular rate and rhythm with normal S1S2, no murmur, positive posterior tibial pulses bilaterally, and cap refill < 2 seconds. Lungs: Respirations even, regular, and unlabored on room air. Lungs soft crackles at bilateral bases. No rhonchi, no rales, no wheezing, and no accessory muscle usage. Abdominal: soft, nontender to palpation, no guarding, no appreciable organomegaly Ext: No gross muscle atrophy, no edema, no contractures. Patient with mild left lower extremity weakness, but has full range of motion with left leg. Patient has slight left-sided facial droop, speech is clear. Left upper extremity weakness and decreased strength/fig washer with left hand. Neuro: Speech clear, face symmetrical and CN II-XII grossly intact. Mild left- sided facial droop and left sided weakness as above. Psych: Alert and oriented to person, place, time, and situation. Appropriate and pleasant affect. A total of 45 minutes of time were spent preparing this complex discharge summary. Patient Condition at Discharge: Stable Plan - Discharge Summary Discharge Rx Participant: Yes New Discharge Prescriptions: New Apixaban [Eliquis] 5 mg PO BID tab Zinc Sulfate [Orazinc] 220 mg PO DAILY cap Famotidine [Pepcid] 20 mg PO BID tab Ascorbic Acid [Vitamin C] 1,000 mg PO DAILY tab Atorvastatin [Lipitor] 40 mg PO DAILY 30 Days #30 tablet Acetaminophen Tab [Tylenol] 650 mg PO Q6HR PRN tab PRN Reason: Fever and/ or Mild Pain Cholecalciferol [Vitamin D3 (25 Mcg = 1000 Iu)] 50 mcg PO DAILY tablet Discharge Medication List Acetaminophen Tab [Tylenol] 650 mg PO Q6HR PRN tab 06/24/21 [Rx] Apixaban [Eliquis] 5 mg PO BID tab 06/24/21 [Rx] Ascorbic Acid [Vitamin C] 1,000 mg PO DAILY tab 06/24/21 [Rx] Atorvastatin [Lipitor] 40 mg PO DAILY 30 Days #30 tablet 06/24/21 [Rx] Cholecalciferol [Vitamin D3 (25 Mcg = 1000 Iu)] 50 mcg PO DAILY tablet 06/24/21 [Rx] Famotidine [Pepcid] 20 mg PO BID tab 06/24/21 [Rx] Zinc Sulfate [Orazinc] 220 mg PO DAILY cap 06/24/21 [Rx] Follow up Appointment(s)/Referral(s): Parul Ayala MD [STAFF PHYSICIAN] - 07/30/21 1:00 pm Boubacar Gonzalez MD [STAFF PHYSICIAN] - 2 Weeks (Office will call with appointment ) Gurmeet Pretty MD [Primary Care Provider] - 1-2 days Lc Leggett MD [Medical Doctor] - 1 Week (office closed at this time patient to call office and schedule appointment after D/C) Patient Instructions/Handouts: Coronavirus Disease 2019 (COVID-19), Ischemic Stroke (DC) Activity/Diet/Wound Care/Special Instructions: Activity: As tolerated. Take breaks as needed. Diet: Heart healthy and carb consistent diet. Avoid salts, or foods with hidden salts such as canned or boxed foods and frozen dinners. Extra salt makes your heart work harder and traps the fluid in your body for longer. Special Instructions: Take all of your medications as directed and remember to keep all of your doct or's appointments and follow-up as needed. You are being transferred to [facility]. It is important to remain on the 2 L of oxygen until further evaluated by pulm onology in your outpatient follow-up and instructed you may discontinue. You have been started on new medications throughout this hospitalization including Eliquis and Atorvastatin, it is important to continue taking these medications as directed until further instructed upon outpatient follow up with your [employer] and neurologist. Thank you for allowing us to participate in your care, it was truly a pleasure having you for our patient!!! Wishing you a very happy and healthy new year!!! Discharge Disposition: DC/TRNS INTERMEDIATE CARE FAC <Yi Peters A - Last Filed: 06/25/21 18:29> Providers Date of admission: 06/13/21 15:57 Attending physician: Jessica Funk MD Consults: 06/13/21 15:19 Consult Physician Routine Consulting Provider: John Barahona Consult Reason/Comments: COVID 19 Do you want consulting provider notified?: Yes 06/16/21 03:12 Consult Physician Urgent Consulting Provider: Adam Naranjo Consult Reason/Comments: stroke Do you want consulting provider notified?: Yes, Notify in am 06/18/21 15:16 Consult Physician Routine Consulting Provider: Richie Davidson Consult Reason/Comments: Acute CVA Do you want consulting provider notified?: Yes Primary care physician: Gurmeet Pretty [place] [facility] Course: Harrison Mckenna NP rendered care for this patient independently, reviewed the findings and plan as documented in the note above. I did not physically speak with or examine the patient on this date. Additional diagnoses: Prediabetes
== END 2021-06-25 13:55 | DRG 177 ==
LOC: EC 11:24 → 4SSUR 15:57 → 2SICU 06-16 18:29 → 4SSUR 06-19 19:09
PROVIDERS: ADMIT Internal Medicine; ATTEND Internal Medicine
PROC: XW0DXM6 Introduction of Baricitinib into Mouth and Pharynx, External Approach, New Technology Group 6 (ICD-10-PCS; principal; 2021-06-17)
DX: U07.1 COVID-19 (principal); J96.01 Acute respiratory failure with hypoxia; J12.82 Pneumonia due to coronavirus disease 2019; I63.40 Cerebral infarction due to embolism of unspecified cerebral artery; J80 Acute respiratory distress syndrome; E87.1 Hypo-osmolality and hyponatremia; G81.94 Hemiplegia, unspecified affecting left nondominant side; E86.0 Dehydration; D69.6 Thrombocytopenia, unspecified; D72.810 Lymphocytopenia; F41.9 Anxiety disorder, unspecified; Z86.73 Personal history of transient ischemic attack (TIA), and cerebral infarction without residual deficits; Z82.3 Family history of stroke; Z79.82 Long term (current) use of aspirin; Z79.01 Long term (current) use of anticoagulants; R73.03 Prediabetes; R29.810 Facial weakness; R29.709 NIHSS score 9; R29.707 NIHSS score 7; K76.0 Fatty (change of) liver, not elsewhere classified; I10 Essential (primary) hypertension; H53.462 Homonymous bilateral field defects, left side
CPT/HCPCS: 36415; 70450; 70496; 70498; 70544; 70551; 71045; 71275; 76705; 80048; 80053; 80061; 80074; 80076; 82728; 83036; 83605; 83615; 83735; 84145; 84484; 85025; 85379; 85610; 85730; 86140; 86147; 87070; 87205; 87635; 87636; 93005; 93308; 93970; 94760; 96374; 99285

== ENCOUNTER 2022-01-09 19:47 | Emergency (ER) | payer BC, OTHER ==
--- NOTE | 2022-01-09 21:38 | ED ---
URI HPI - General Chief Complaint: Upper Respiratory Infection Stated Complaint: covid + Time Seen by Provider: 01/09/22 21:06 Source: patient Mode of arrival: ambulatory Limitations: no limitations - History of Present Illness MD Complaint: cough, nasal congestion Onset/Timin -: days(s) Consistency: constant Improves With: nothing Worsens With: nothing Associated Symptoms: chills, nasal congestion, cough Treatments Prior to Arrival: none - Related Data Previous Rx's Medication Instructions Recorded Acetaminophen Tab [Tylenol] 650 mg PO Q6HR PRN tab 06/24/21 Apixaban [Eliquis] 5 mg PO BID tab 06/24/21 Ascorbic Acid [Vitamin C] 1,000 mg PO DAILY tab 06/24/21 Atorvastatin [Lipitor] 40 mg PO DAILY 30 Days #30 tablet 06/24/21 Cholecalciferol [Vitamin D3 (25 50 mcg PO DAILY tablet 06/24/21 Mcg = 1000 Iu)] Famotidine [Pepcid] 20 mg PO BID tab 06/24/21 Zinc Sulfate [Orazinc] 220 mg PO DAILY cap 06/24/21 Nirmatrelvir/Ritonavir [Paxlovid 1 each PO ONCE #1 pack 01/09/22 150-100 mg Pack (Eua)] Allergies Allergy/AdvReac Type Severity Reaction Status Date / Time Penicillins Allergy Rash/Hives Verified 01/09/22 20:06 Review of Systems ROS Statement: Those systems with pertinent positive or pertinent negative responses have been documented in the HPI. ROS Other: All systems not noted in ROS Statement are negative. Constitutional: Reports: fever, chills ENT: Reports: congestion Respiratory: Reports: cough. Denies: dyspnea, hemoptysis Cardiovascular: Denies: chest pain, palpitations Gastrointestinal: Denies: abdominal pain, vomiting, diarrhea Musculoskeletal: Denies: back pain Skin: Denies: rash Neurological: Reports: headache. Denies: weakness, numbness Past Medical History Past Medical History: No Reported History History of Any Multi-Drug Resistant Organisms: None Reported Past Surgical History: No Surgical Hx Reported Past Psychological History: No Psychological Hx Reported Smoking Status: Never smoker Past Alcohol Use History: None Reported Past Drug Use History: None Reported General Exam Limitations: no limitations General appearance: alert, in no apparent distress Head exam: Present: atraumatic, normocephalic Eye exam: Present: normal appearance. Absent: scleral icterus, conjunctival injection Neck exam: Present: normal inspection Respiratory exam: Present: normal lung sounds bilaterally. Absent: respiratory distress, wheezes, rales, rhonchi, stridor, accessory muscle use Cardiovascular Exam: Present: regular rate, normal rhythm, normal heart sounds. Absent: systolic murmur, diastolic murmur, rubs, gallop GI/Abdominal exam: Present: soft. Absent: distended, tenderness, guarding, rebound, rigid, mass Extremities exam: Present: normal inspection, normal capillary refill. Absent: pedal edema, calf tenderness Back exam: Present: normal inspection. Absent: CVA tenderness (R), CVA tenderness (L) Neurological exam: Present: alert Skin exam: Present: warm, dry, intact, normal color. Absent: rash Course Vital Signs 01/09/22 20:04 Temperature 98.2 F Pulse Rate 86 Respiratory 20 Rate Blood Pressure 138/91 O2 Sat by Pulse 97 Oximetry Disposition Clinical Impression: COVID-19 Disposition: HOME SELF-CARE Condition: Good Instructions (If sedation given, give patient instructions): COVID-19 (Coronavirus Disease 2019) (ED) Prescriptions: Nirmatrelvir/Ritonavir [Paxlovid 150-100 mg Pack (Eua)] 1 each PO ONCE #1 pack Is patient prescribed a controlled substance at d/c from ED?: No Referrals: Gurmeet Pretty MD [Primary Care Provider] - 1-2 days
--- NOTE | 2022-01-09 21:45 | XR ---
EXAMINATION TYPE: XR chest 2V DATE OF EXAM: 01/09/2022 COMPARISON: 06/22/2021 HISTORY: Cough and fever TECHNIQUE: 2 views FINDINGS: Heart and mediastinum are normal. Lungs are clear. Diaphragm is normal. Bony thorax is norm al. IMPRESSION: Normal chest. There is complete clearing of the extensive pulmonary edema compared to old exam.
[2022-01-09 21:54] VITALS: BP 147/92; PULSE 78; RESP 16; TEMP 98.3
== END 2022-01-09 21:54 | disposition home or self-care (01) ==
LOC: EC 19:47
DX: U07.1 COVID-19 (principal); Z88.0 Allergy status to penicillin
CPT/HCPCS: 71046

== ENCOUNTER 2022-03-26 10:23 | Inpatient (IN) | payer OTHER ==
[2022-03-26] MEDS ORDERED: SODIUM CHLORIDE 0.9% 500 ML 500 ML IV ONE (10:26)
[2022-03-26] MEDS ORDERED: NALOXONE 0.4 MG/ML 1 ML VIAL IV STA (10:26)
[2022-03-26 10:31] LABS: Glucose,Whole Blood 197 mg/dL (70-110)
--- NOTE | 2022-03-26 10:43 | ED ---
General Adult HPI - General Chief complaint: Neuro Symptoms/Deficit Stated complaint: AMS Time Seen by Provider: 03/26/22 10:23 Source: patient, EMS, RN notes reviewed, old records reviewed Mode of arrival: EMS Limitations: altered mental status - History of Present Illness Initial comments: This is a 51-year-old male who is brought in because of decreased level of consciousness. According to EMS report the patient was seen vomiting multiple times and then he laid on the floor and then was unresponsive and EMS really get an reaction with painful stimuli. Patient is not talking and patient is not following any commands. No further history is available this time. EMS stated the only past medical history that was available was that the patient had a stroke at some time in the past - Related Data Home Medications Medication Instructions Recorded Confirmed [id number] Otic 4 drops OTIC TID 03/26/22 03/26/22 [Cortisporin Otic Soln] Omeprazole [PriLOSEC] 40 mg PO DAILY 03/26/22 03/26/22 Allergies Allergy/AdvReac Type Severity Reaction Status Date / Time Penicillins Allergy Rash/Hives Verified 03/26/22 13:25 Review of Systems ROS Statement: Those systems with pertinent positive or pertinent negative responses have been documented in the HPI. ROS Other: All systems not noted in ROS Statement are negative. Past Medical History Past Medical History: CVA/TIA History of Any Multi-Drug Resistant Organisms: None Reported Past Surgical History: No Surgical Hx Reported Past Psychological History: No Psychological Hx Reported Smoking Status: Never smoker Past Alcohol Use History: None Reported Past Drug Use History: None Reported General Exam - General Exam Comments Initial Comments: GENERAL: Patient is well-developed and well-nourished. Patient is nontoxic and well- hydrated and is in no acute distress. ENT: Neck is soft and supple. No significant lymphadenopathy is noted. Oropharynx is clear. Moist mucous membranes. Neck has full range of motion without eliciting any pain. EYES: The sclera were anicteric and conjunctiva were pink and moist. Extraocular movements were intact and pupils were equal round and reactive to light. Eyelids were unremarkable. PULMONARY: Unlabored respirations. Good breath sounds bilaterally. No audible rales rhonchi or wheezing was noted. CARDIOVASCULAR: There is a regular rate and rhythm without any murmurs gallops or rubs. ABDOMEN: Soft and nontender with normal bowel sounds. SKIN: Skin is clear with no lesions or rashes and otherwise unremarkable. NEUROLOGIC: Patient withdraws from painful stimuli. Patient has not spoke and he follows no commands. MUSCULOSKELETAL: Patient is moving all 4 extremities cannot test strength. LYMPHATICS: No significant lymphadenopathy is noted PSYCHIATRIC: Unable to assess Limitations: altered mental status Course Vital Signs 03/26/22 03/26/22 03/26/22 10:25 10:36 10:52 Temperature 100.1 F H 103.6 F H Pulse Rate 77 Respiratory 16 18 Rate Blood Pressure 164/100 O2 Sat by Pulse 100 Oximetry Fraction of Inspired Oxygen (FIO2) 03/26/22 03/26/22 03/26/22 12:00 12:22 12:56 Temperature 102.3 F H Pulse Rate 98 87 Respiratory 24 16 Rate Blood Pressure 108/63 120/75 O2 Sat by Pulse 95 96 Oximetry Fraction of 100 Inspired Oxygen (FIO2) 03/26/22 03/26/22 12:57 14:14 Temperature Pulse Rate Respiratory Rate Blood Pressure O2 Sat by Pulse Oximetry Fraction of 100 50 Inspired Oxygen (FIO2) Procedures - Intubation Sedative: Versed Paralytic: Succinylcholine Laryngoscope: Lan Size: 4 ET Tube Size: 7.5 ET Tube Uncuffed: No Tube Secured Location: teeth Tube Placement Confirmation: visualized tube passing through cords, equal breath sounds bilaterally, no breath sounds over epigastrium, confirmation by capnometry Patient Tolerated Procedure: well Intubation Complications: none - Lumbar Puncture Consent Obtained: emergent situation Indication for Procedure: fever work up Patient Position: sitting upright/leaning forward Local Anesthetic Used: Lidocaine 1% Spinal Needle Gauge: 22G Spinal Needle Length: 4in Fluid Initially Obtained: cloudy, bloody Complications: none Patient Tolerated Procedure: well - Sepsis Sepsis Focused Exam #1 Time Sepsis Criteria Met: 11:30 Sepsis Focused Exam Date: 03/26/22 Sepsis Focused Exam Time: 14:19 Sepsis Focused Exam Complete: Yes Vital Signs & RN Notes Reviewed: Yes Capillary Refill: < 2 Seconds: Fingers Peripheral Pulses: Normal: Radial (R) Skin Color: Normal for Patient Respiratory Exam: normal lung sounds Cardiovascular Exam: regular rate Medical Decision Making - Medical Decision Making EKG shows sinus rhythm at 71 bpm MS interval 124 QRS is 110 QT interval 36 and QTc is 391. Patient's EKG shows no ST segment elevation or depression. Family eventually arrived and stated that they last saw him normal last evening he was a little tired but otherwise acting normal. The daughter found him this morning on the ground did not see him go to the ground and when she came out and saw him at some point after that she noticed that he did vomit. Patient was also incontinent of urine Patient's initial GCS was 9 but I have reevaluated him he now has a GCS of 7 I will be putting him on the ventilator and did a lumbar puncture. Patient was put on Rocephin as well as vancomycin. Patient was considered septic at 11:30. Assumed infection was meningitis. I spoke with sounds physician's agreed to admit the patient admitted the patient wrote admitting orders. I spoke with Dr. Ayala he agreed to consult the patient to the ICU. Chest x-ray showed good placement of ET tube. - Lab Data Result diagrams: 03/26/22 10:34 03/26/22 11:05 Lab Results 03/26/22 03/26/22 03/26/22 Range/Units 10:30 10:34 10:34 WBC 31.4 H (3.8-10.6) k/uL RBC 5.13 (4.30-5.90) m/uL Hgb 14.6 (13.0-17.5) gm/dL Hct 43.7 (39.0-53.0) % MCV 85.1 (80.0-100.0) fL MCH 28.4 (25.0-35.0) pg MCHC 33.4 (31.0-37.0) g/dL RDW 13.8 (11.5-15.5) % Plt Count 195 (150-450) k/uL MPV 10.6 Neutrophils % (Manual) 82 % Band Neuts % (Manual) 5 % Lymphocytes % (Manual) 3 % Monocytes % (Manual) 10 % Neutrophils # (Manual) 27.30 H (1.3-7.7) k/uL Lymphocytes # (Manual) 0.94 L (1.0-4.8) k/uL Monocytes # (Manual) 3.14 H (0-1.0) k/uL Nucleated RBCs 0 (0-0) /100 WBC Manual Slide Review Performed RBC Morphology Normal PT 11.6 (9.0-12.0) sec INR 1.1 (<1.2) APTT 25.5 (22.0-30.0) sec Sample Site ABG pH (7.35-7.45) ABG pCO2 (35-45) mmHg ABG pO2 (83-108) mmHg ABG HCO3 (21-25) mmol/L ABG Total CO2 (19-24) mmol/L ABG O2 Saturation (94-97) % ABG Base Excess mmol/L Vickey Test FiO2 % Sodium (137-145) mmol/L Potassium (3.5-5.1) mmol/L Chloride (98-107) mmol/L Carbon Dioxide (22-30) mmol/L Anion Gap mmol/L BUN (9-20) mg/dL Creatinine (0.66-1.25) mg/dL Est GFR (CKD-EPI)AfAm (>60 ml/min/1.73 sqM) Est GFR (CKD-EPI)NonAf (>60 ml/min/1.73 sqM) Glucose (74-99) mg/dL POC Glucose (mg/dL) 197 H (70-110) mg/dL POC Glu Senior Housekeeper ID Jagruti Liu Lactic Ac Sepsis Rflx Plasma Lactic Acid Scar (0.7-2.0) mmol/L Calcium (8.4-10.2) mg/dL Total Bilirubin (0.2-1.3) mg/dL AST (17-59) U/L ALT (4-49) U/L Alkaline Phosphatase (38-126) U/L Ammonia (<30) umol/L Troponin I (0.000-0.034) ng/mL Total Protein (6.3-8.2) g/dL Albumin (3.5-5.0) g/dL Urine Color Urine Appearance (Clear) Urine pH (5.0-8.0) Ur Specific [place] (1.001-1.035) Urine Protein (Negative) Urine Glucose (UA) (Negative) Urine Ketones (Negative) Urine Blood (Negative) Urine Nitrite (Negative) Urine Bilirubin (Negative) Urine Urobilinogen (<2.0) mg/dL Ur Leukocyte Esterase (Negative) Urine RBC (0-5) /hpf Urine WBC (0-5) /hpf Ur Squamous Epith Cells (0-4) /hpf Urine Bacteria (None) /hpf Urine Mucus (None) /hpf Urine Opiates Screen (NotDetected) Ur Oxycodone Screen (NotDetected) Urine Methadone Screen (NotDetected) Ur Propoxyphene Screen (NotDetected) Ur Barbiturates Screen (NotDetected) U Tricyclic Antidepress (NotDetected) Ur Phencyclidine Scrn (NotDetected) Ur Amphetamines Screen (NotDetected) U Methamphetamines Scrn (NotDetected) U Benzodiazepines Scrn (NotDetected) Urine Cocaine Screen (NotDetected) U Marijuana (THC) Screen (NotDetected) Coronavirus (PCR) (Not Detectd) 03/26/22 03/26/22 03/26/22 Range/Units 11:05 11:05 11:05 WBC (3.8-10.6) k/uL RBC (4.30-5.90) m/uL Hgb (13.0-17.5) gm/dL Hct (39.0-53.0) % MCV (80.0-100.0) fL MCH (25.0-35.0) pg MCHC (31.0-37.0) g/dL RDW (11.5-15.5) % Plt Count (150-450) k/uL MPV Neutrophils % (Manual) % Band Neuts % (Manual) % Lymphocytes % (Manual) % Monocytes % (Manual) % Neutrophils # (Manual) (1.3-7.7) k/uL Lymphocytes # (Manual) (1.0-4.8) k/uL Monocytes # (Manual) (0-1.0) k/uL Nucleated RBCs (0-0) /100 WBC Manual Slide Review RBC Morphology PT (9.0-12.0) sec INR (<1.2) APTT (22.0-30.0) sec Sample Site ABG pH (7.35-7.45) ABG pCO2 (35-45) mmHg ABG pO2 (83-108) mmHg ABG HCO3 (21-25) mmol/L ABG Total CO2 (19-24) mmol/L ABG O2 Saturation (94-97) % ABG Base Excess mmol/L Vickey Test FiO2 % Sodium 138 (137-145) mmol/L Potassium 3.7 (3.5-5.1) mmol/L Chloride 102 (98-107) mmol/L Carbon Dioxide 18 L (22-30) mmol/L Anion Gap 18 mmol/L BUN 18 (9-20) mg/dL Creatinine 1.09 (0.66-1.25) mg/dL Est GFR (CKD-EPI)AfAm 89 (>60 ml/min/1.73 sqM) Est GFR (CKD-EPI)NonAf 77 (>60 ml/min/1.73 sqM) Glucose 221 H (74-99) mg/dL POC Glucose (mg/dL) (70-110) mg/dL POC Glu Senior Housekeeper ID Lactic Ac Sepsis Rflx Plasma Lactic Acid Scar 6.3 H* (0.7-2.0) mmol/L Calcium 8.8 (8.4-10.2) mg/dL Total Bilirubin 2.3 H (0.2-1.3) mg/dL AST 50 (17-59) U/L ALT 59 H (4-49) U/L Alkaline Phosphatase 114 (38-126) U/L Ammonia <9 (<30) umol/L Troponin I 0.330 H* (0.000-0.034) ng/mL Total Protein 6.8 (6.3-8.2) g/dL Albumin 4.2 (3.5-5.0) g/dL Urine Color Urine Appearance (Clear) Urine pH (5.0-8.0) Ur Specific [place] (1.001-1.035) Urine Protein (Negative) Urine Glucose (UA) (Negative) Urine Ketones (Negative) Urine Blood (Negative) Urine Nitrite (Negative) Urine Bilirubin (Negative) Urine Urobilinogen (<2.0) mg/dL Ur Leukocyte Esterase (Negative) Urine RBC (0-5) /hpf Urine WBC (0-5) /hpf Ur Squamous Epith Cells (0-4) /hpf Urine Bacteria (None) /hpf Urine Mucus (None) /hpf Urine Opiates Screen (NotDetected) Ur Oxycodone Screen (NotDetected) Urine Methadone Screen (NotDetected) Ur Propoxyphene Screen (NotDetected) Ur Barbiturates Screen (NotDetected) U Tricyclic Antidepress (NotDetected) Ur Phencyclidine Scrn (NotDetected) Ur Amphetamines Screen (NotDetected) U Methamphetamines Scrn (NotDetected) U Benzodiazepines Scrn (NotDetected) Urine Cocaine Screen (NotDetected) U Marijuana (THC) Screen (NotDetected) Coronavirus (PCR) (Not Detectd) 03/26/22 03/26/22 03/26/22 Range/Units 11:25 11:47 11:57 WBC (3.8-10.6) k/uL RBC (4.30-5.90) m/uL Hgb (13.0-17.5) gm/dL Hct (39.0-53.0) % MCV (80.0-100.0) fL MCH (25.0-35.0) pg MCHC (31.0-37.0) g/dL RDW (11.5-15.5) % Plt Count (150-450) k/uL MPV Neutrophils % (Manual) % Band Neuts % (Manual) % Lymphocytes % (Manual) % Monocytes % (Manual) % Neutrophils # (Manual) (1.3-7.7) k/uL Lymphocytes # (Manual) (1.0-4.8) k/uL Monocytes # (Manual) (0-1.0) k/uL Nucleated RBCs (0-0) /100 WBC Manual Slide Review RBC Morphology PT (9.0-12.0) sec INR (<1.2) APTT (22.0-30.0) sec Sample Site ABG pH (7.35-7.45) ABG pCO2 (35-45) mmHg ABG pO2 (83-108) mmHg ABG HCO3 (21-25) mmol/L ABG Total CO2 (19-24) mmol/L ABG O2 Saturation (94-97) % ABG Base Excess mmol/L Vickey Test FiO2 % Sodium (137-145) mmol/L Potassium (3.5-5.1) mmol/L Chloride (98-107) mmol/L Carbon Dioxide (22-30) mmol/L Anion Gap mmol/L BUN (9-20) mg/dL Creatinine (0.66-1.25) mg/dL Est GFR (CKD-EPI)AfAm (>60 ml/min/1.73 sqM) Est GFR (CKD-EPI)NonAf (>60 ml/min/1.73 sqM) Glucose (74-99) mg/dL POC Glucose (mg/dL) (70-110) mg/dL POC Glu Senior Housekeeper ID Lactic Ac Sepsis Rflx Y Plasma Lactic Acid Scar (0.7-2.0) mmol/L Calcium (8.4-10.2) mg/dL Total Bilirubin (0.2-1.3) mg/dL AST (17-59) U/L ALT (4-49) U/L Alkaline Phosphatase (38-126) U/L Ammonia (<30) umol/L Troponin I (0.000-0.034) ng/mL Total Protein (6.3-8.2) g/dL Albumin (3.5-5.0) g/dL Urine Color Urine Appearance (Clear) Urine pH (5.0-8.0) Ur Specific [place] (1.001-1.035) Urine Protein (Negative) Urine Glucose (UA) (Negative) Urine Ketones (Negative) Urine Blood (Negative) Urine Nitrite (Negative) Urine Bilirubin (Negative) Urine Urobilinogen (<2.0) mg/dL Ur Leukocyte Esterase (Negative) Urine RBC (0-5) /hpf Urine WBC (0-5) /hpf Ur Squamous Epith Cells (0-4) /hpf Urine Bacteria (None) /hpf Urine Mucus (None) /hpf Urine Opiates Screen Not Detected (NotDetected) Ur Oxycodone Screen Not Detected (NotDetected) Urine Methadone Screen Not Detected (NotDetected) Ur Propoxyphene Screen Not Detected (NotDetected) Ur Barbiturates Screen Not Detected (NotDetected) U Tricyclic Antidepress Not Detected (NotDetected) Ur Phencyclidine Scrn Not Detected (NotDetected) Ur Amphetamines Screen Not Detected (NotDetected) U Methamphetamines Scrn Not Detected (NotDetected) U Benzodiazepines Scrn Not Detected (NotDetected) Urine Cocaine Screen Not Detected (NotDetected) U Marijuana (THC) Screen Not Detected (NotDetected) Coronavirus (PCR) Not Detected (Not Detectd) 03/26/22 03/26/22 Range/Units 11:57 13:55 WBC (3.8-10.6) k/uL RBC (4.30-5.90) m/uL Hgb (13.0-17.5) gm/dL Hct (39.0-53.0) % MCV (80.0-100.0) fL MCH (25.0-35.0) pg MCHC (31.0-37.0) g/dL RDW (11.5-15.5) % Plt Count (150-450) k/uL MPV Neutrophils % (Manual) % Band Neuts % (Manual) % Lymphocytes % (Manual) % Monocytes % (Manual) % Neutrophils # (Manual) (1.3-7.7) k/uL Lymphocytes # (Manual) (1.0-4.8) k/uL Monocytes # (Manual) (0-1.0) k/uL Nucleated RBCs (0-0) /100 WBC Manual Slide Review RBC Morphology PT (9.0-12.0) sec INR (<1.2) APTT (22.0-30.0) sec Sample Site rrad ABG pH 7.37 (7.35-7.45) ABG pCO2 37 (35-45) mmHg ABG pO2 384 H (83-108) mmHg ABG HCO3 21 (21-25) mmol/L ABG Total CO2 22 (19-24) mmol/L ABG O2 Saturation 100.0 H (94-97) % ABG Base Excess -4.0 mmol/L Vickey Test Yes FiO2 100 % Sodium (137-145) mmol/L Potassium (3.5-5.1) mmol/L Chloride (98-107) mmol/L Carbon Dioxide (22-30) mmol/L Anion Gap mmol/L BUN (9-20) mg/dL Creatinine (0.66-1.25) mg/dL Est GFR (CKD-EPI)AfAm (>60 ml/min/1.73 sqM) Est GFR (CKD-EPI)NonAf (>60 ml/min/1.73 sqM) Glucose (74-99) mg/dL POC Glucose (mg/dL) (70-110) mg/dL POC Glu Senior Housekeeper ID Lactic Ac Sepsis Rflx Plasma Lactic Acid Scar (0.7-2.0) mmol/L Calcium (8.4-10.2) mg/dL Total Bilirubin (0.2-1.3) mg/dL AST (17-59) U/L ALT (4-49) U/L Alkaline Phosphatase (38-126) U/L Ammonia (<30) umol/L Troponin I (0.000-0.034) ng/mL Total Protein (6.3-8.2) g/dL Albumin (3.5-5.0) g/dL Urine Color Yellow Urine Appearance Clear (Clear) Urine pH 6.0 (5.0-8.0) Ur Specific [place] 1.028 (1.001-1.035) Urine Protein 2+ H (Negative) Urine Glucose (UA) 3+ H (Negative) Urine Ketones 1+ H (Negative) Urine Blood Large H (Negative) Urine Nitrite Negative (Negative) Urine Bilirubin Negative (Negative) Urine Urobilinogen <2.0 (<2.0) mg/dL Ur Leukocyte Esterase Negative (Negative) Urine RBC 1 (0-5) /hpf Urine WBC 2 (0-5) /hpf Ur Squamous Epith Cells <1 (0-4) /hpf Urine Bacteria Rare H (None) /hpf Urine Mucus Moderate H (None) /hpf Urine Opiates Screen (NotDetected) Ur Oxycodone Screen (NotDetected) Urine Methadone Screen (NotDetected) Ur Propoxyphene Screen (NotDetected) Ur Barbiturates Screen (NotDetected) U Tricyclic Antidepress (NotDetected) Ur Phencyclidine Scrn (NotDetected) Ur Amphetamines Screen (NotDetected) U Methamphetamines Scrn (NotDetected) U Benzodiazepines Scrn (NotDetected) Urine Cocaine Screen (NotDetected) U Marijuana (THC) Screen (NotDetected) Coronavirus (PCR) (Not Detectd) Critical Care Time Critical Care Time: Yes Total Critical Care Time: 35 Disposition Clinical Impression: Altered mental status, Meningitis, Sepsis Disposition: ADMITTED IP TO THIS HOSP Referrals: Gurmeet Pretty MD [Primary Care Provider] - 1-2 days Time of Disposition: 13:50
[2022-03-26] MEDS ORDERED: ACETAMINOPHEN IV (For NPO) 1,000 MG in EMPTY BAG 1 BAG IVPB STA (10:50)
[2022-03-26] MEDS ORDERED: IBUPROFEN IV 600 MG in SODIUM CHLORIDE 0.9% 250 ML IV STA (10:50)
[2022-03-26 11:03] LABS: HCT 43.7 % (39.0-53.0); HGB 14.6 gm/dL (13.0-17.5); MCH 28.4 pg (25.0-35.0); MCHC 33.4 g/dL (31.0-37.0); MCV 85.1 fL (80.0-100.0); Mean Platelet Volume 10.6; Platelet Count 195 k/uL (150-450); RBC 5.13 m/uL (4.30-5.90); RDW 13.8 % (11.5-15.5); WBC 31.4 k/uL (3.8-10.6)
[2022-03-26 11:28] LABS: Albumin 4.2 g/dL (3.5-5.0); Calcium 8.8 mg/dL (8.4-10.2); Potassium 3.7 mmol/L (3.5-5.1); Total Bilirubin 2.3 mg/dL (0.2-1.3); Total Protein 6.8 g/dL (6.3-8.2)
[2022-03-26 11:31] LABS: INR 1.1 (<1.2); Partial Thromboplastin Time 25.5 sec (22.0-30.0); Prothrombin Time 11.6 sec (9.0-12.0)
[2022-03-26 11:41] LABS: Band Neutrophils % 5 %; Lymphocytes # (M) 0.94 k/uL (1.0-4.8); Monocytes # (M) 3.14 k/uL (0-1.0); Neutrophils % (M) 82 %; Nucleated Red Blood Cells 0 /100 WBC (0-0); Total Cells Counted 100
[2022-03-26 11:42] LABS: RBC Morphology Normal
--- NOTE | 2022-03-26 11:44 | CT ---
EXAMINATION TYPE: CT brain wo con DATE OF EXAM: 03/26/2022 HISTORY: Altered mental status CT DLP: 1190.4 mGycm. Automated Exposure Control for Dose Reduction was Utilized. TECHNIQUE: CT scan of the head is performed without contrast. COMPARISON: MRI brain June 16, 2021. FINDINGS: There is no acute intracranial hemorrhage or midline shift identified. Multifocal areas o f old infarct throughout the right brain including largest areas right parietal lobe posterior rand hed region and right head of caudate nucleus identified correlating with prior MRI. Additional area o f encephalomalacia posterior superior right temporal lobe redemonstrated. Sparrow-white matter different iation fairly well maintained. Newly opacified right-sided mastoid air cells and patchy opacification left mastoid air cells. Mucosal thickening with dependent fluid in the bilateral maxillary sinuses. Near complete opacification of the ethmoid and sphenoid sinuses bilaterally. Dependent fluid in the i nferior frontal sinuses. IMPRESSION: No acute intracranial hemorrhage or midline shift. Multiple old right-sided infarcts now identified progressed from June 2021 MRI. New acute on chronic paranasal pansinusitis as detaile d above. New right-sided mastoiditis may be present, correlate clinically.
[2022-03-26 11:47] LABS: Lactic Acid, Venous 6.3 mmol/L (0.7-2.0)
[2022-03-26 12:41] LABS: Appearance,Urine Clear (Clear); Bacteria,Urine Rare /hpf; Bilirubin,Urine Negative (Negative); Blood,Urine Large (Negative); Color,Urine Yellow; Glucose,Urine (UA) 3+ (Negative); Ketones,Urine 1+ (Negative); Leukocyte Esterase,Urine Negative (Negative); Mucus,Urine Moderate /hpf; Nitrite,Urine Negative (Negative); Protein,Urine 2+ (Negative); RBC,Urine 1 /hpf (0-5); Specific Gravity,Urine 1.028 (1.001-1.035); Squamous Epithelial Cell,Urine <1 /hpf (0-4); Urobilinogen,Urine <2.0 mg/dL (<2.0); WBC,Urine 2 /hpf (0-5)
[2022-03-26] MEDS ORDERED: MIDAZOLAM 1 MG/ML 5 ML VIAL IV STA (12:41)
[2022-03-26] MEDS ORDERED: SUCCINYLCHOLINE CHLORIDE 200 MG/10 ML VIAL IV ONE (12:44)
[2022-03-26] MEDS ORDERED: LORazepam 2 MG/ML INJ IV STA (12:49)
[2022-03-26] MEDS ORDERED: SODIUM CHLORIDE 0.9% 2,000 ML IV ONE (13:02)
--- NOTE | 2022-03-26 13:06 | XR ---
EXAMINATION TYPE: XR chest 1V portable DATE OF EXAM: 03/26/2022 COMPARISON: Chest x-ray 01/09/2022 HISTORY: Altered mental status, post intubation TECHNIQUE: Single frontal view of the chest is obtained. FINDINGS: Endotracheal tube is overlying the tracheal air column. Lung volumes are low and the patie nt is rotated. Accentuation of the mediastinum and heart size may be due to technique, there is promi nence of the central vascularity. No evident pneumothorax or pleural effusion. Right hemidiaphragm re carmen elevated. There are overlying leads. IMPRESSION: Interval intubation. Expiratory rotated exam, follow-up is recommended. Correlate to exc lude pulmonary venous hypertension and early interstitial edema
[2022-03-26 13:12] LABS: Amphetamine Screen,Urine Not Detected (NotDetected); Barbiturate Screen,Urine Not Detected (NotDetected); Benzodiazepines Screen,Urine Not Detected (NotDetected); Cocaine Screen,Urine Not Detected (NotDetected); Methadone Screen, Urine Not Detected (NotDetected); Opiate Screen,Urine Not Detected (NotDetected); Oxycodone Screen, Urine Not Detected (NotDetected); Phencyclidine Screen,Urine Not Detected (NotDetected); Tricyclic Antidepressant,Urine Not Detected (NotDetected); Urn Cannabinoid Scrn Not Detected (NotDetected)
[2022-03-26] MEDS ORDERED: SODIUM CHLORIDE 0.9% 1,000 ML IV STA (13:15)
[2022-03-26] MEDS ORDERED: LIDOCAINE 1% INJ 10MG/ML (20 ML MDV) SQ ONE (13:21)
[2022-03-26 13:58] LABS: ABG HCO3 21 mmol/L (21-25); ABG PCO2 37 mmHg (35-45); ABG PH 7.37 (7.35-7.45); ABG PO2 384 mmHg (83-108); ABG TCO2 22 mmol/L (19-24); Allen Test Performed? Yes
[2022-03-26] MEDS ORDERED: NITROGLYCERIN SL TABS 0.4 MG TAB SUBLINGUAL PRN (14:01)
[2022-03-26] MEDS ORDERED: NALOXONE 0.4 MG/ML 1 ML VIAL IV PRN (14:13)
[2022-03-26] MEDS ORDERED: VANCOMYCIN IV PER PHARMACY 1 EACH MISC MISCELLANE PRN (14:25)
[2022-03-26] MEDS ORDERED: VANCOMYCIN 1,000 MG in SODIUM CHLORIDE 0.9% 250 ML IVPB STA (14:26)
--- NOTE | 2022-03-26 14:45 | P.CNPUL ---
History of Present Illness Consult date: 03/26/22 Requesting physician: Rusty Ponce Reason for consult: other (Acute hypoxic respiratory failure, sepsis) Chief complaint: Altered mental status History of present illness: This is a 51-year-old white male brought into the ER with decreased level of consciousness. According to EMS, patient was seen vomiting multiple times then he laid on the floor, and he was unresponsive. When EMS arrived, patient was only responsive to deep painful stimuli. Patient was not following any instructions, he was brought into the ER, and as soon as he arrived, patient underwent intubation and mechanical ventilation. He underwent lumbar puncture results of which are pending. Patient received a dose of Rocephin, and I saw the patient I recommended adding vancomycin, patient is ALLERGIC to penicillin Gram stain from the lumbar puncture is pending. Not much history could be obtained from the patient because he just received succinylcholine, he is on propofol, and he is on mechanical ventilation. 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 And the new right sided mastoiditis noted. According to the ER physician that the last tube during the lumbar puncture was noted to be a bit cloudy again Gram stain is pending and workup on the spinal fluid is pending. On presentation the patient was noted to be febr ile, he had elevated lactic acid of 6.3, he had leukocytosis, all consistent with a picture of sepsis. Drug screen was negative. Hemodynamically the patient was stable, did not require any pressors, COVID-19 PCR was not detected Review of Systems ROS unobtainable: due to mental status Past Medical History Past Medical History: CVA/TIA History of Any Multi-Drug Resistant Organisms: None Reported Past Surgical History: No Surgical Hx Reported Past Psychological History: No Psychological Hx Reported Smoking Status: Never smoker Past Alcohol Use History: None Reported Past Drug Use History: None Reported Medications and Allergies Home Medications Medication Instructions Recorded Confirmed Type Cpvpcyea-Uxmcwkrta-Wz Otic 4 drops OTIC TID 03/26/22 03/26/22 History [Cortisporin Otic Soln] Omeprazole [PriLOSEC] 40 mg PO DAILY 03/26/22 03/26/22 History Allergies Allergy/AdvReac Type Severity Reaction Status Date / Time Penicillins Allergy Rash/Hives Verified 03/26/22 13:25 Physical Exam Vitals: Vital Signs Temp Pulse Resp BP Pulse Ox FiO2 03/26/22 14:14 50 03/26/22 12:57 100 03/26/22 12:56 100 03/26/22 12:22 102.3 F H 87 16 120/75 96 03/26/22 12:00 98 24 108/63 95 03/26/22 10:52 103.6 F H 03/26/22 10:36 18 03/26/22 10:25 100.1 F H 77 16 164/100 100 Intake and Output 03/25/22 03/26/22 03/26/22 22:59 06:59 14:59 Other: Weight 102.058 kg GENERAL: Revealed a 51-year-old white male intubated, mechanically ventilated, not in distress. He is on propofol. ENT: Neck is soft and supple. Endotracheal tube is intact, orogastric tube is intact. EYES: The sclera were anicteric and conjunctiva were pink and moist. PULMONARY: Symmetrical chest expansion, clear breath sound bilaterally no crackles or rhonchi or wheezes. CARDIOVASCULAR: Distant S1 and S2, no S3 gallop, no murmur. ABDOMEN: Soft and nontender, no megaly, no rebound, positive bowel sounds. SKIN: No rashes, no cyanosis. NEUROLOGIC: Unable to assess, patient received succinylcholine and received propofol is presently on propofol drip. According to ER note, patient was only responsive to deep painful stimuli/withdrawing to deep painful stimuli prior to intubation. MUSCULOSKELETAL: No deformities noted., Cannot assess strength. LYMPHATICS: No significant lymphadenopathy is noted PSYCHIATRIC: Could not assess, patient is on propofol. Even on presentation, his psychiatric status could not be assessed. Results - Laboratory Findings CBC and BMP: 03/26/22 10:34 03/26/22 11:05 ABG ABG pH 7.37 (7.35-7.45) 03/26/22 13:55 ABG pCO2 37 mmHg (35-45) 03/26/22 13:55 ABG pO2 384 mmHg (83-108) H 03/26/22 13:55 ABG O2 Saturation 100.0 % (94-97) H 03/26/22 13:55 PT/INR, D-dimer PT 11.6 sec (9.0-12.0) 03/26/22 10:34 INR 1.1 (<1.2) 03/26/22 10:34 Abnormal lab findings: Abnormal Labs 03/26/22 03/26/22 03/26/22 10:30 10:34 11:05 WBC 31.4 H Neutrophils # (Manual) 27.30 H Lymphocytes # (Manual) 0.94 L Monocytes # (Manual) 3.14 H ABG pO2 ABG O2 Saturation Carbon Dioxide Glucose POC Glucose (mg/dL) 197 H Plasma Lactic Acid Scar 6.3 H* Total Bilirubin ALT Troponin I Urine Protein Urine Glucose (UA) Urine Ketones Urine Blood Urine Bacteria Urine Mucus 03/26/22 03/26/22 03/26/22 11:05 11:05 11:57 WBC Neutrophils # (Manual) Lymphocytes # (Manual) Monocytes # (Manual) ABG pO2 ABG O2 Saturation Carbon Dioxide 18 L Glucose 221 H POC Glucose (mg/dL) Plasma Lactic Acid Scar Total Bilirubin 2.3 H ALT 59 H Troponin I 0.330 H* Urine Protein 2+ H Urine Glucose (UA) 3+ H Urine Ketones 1+ H Urine Blood Large H Urine Bacteria Rare H Urine Mucus Moderate H 03/26/22 03/26/22 13:55 14:04 WBC Neutrophils # (Manual) Lymphocytes # (Manual) Monocytes # (Manual) ABG pO2 384 H ABG O2 Saturation 100.0 H Carbon Dioxide Glucose POC Glucose (mg/dL) Plasma Lactic Acid Scar 2.7 H* Total Bilirubin ALT Troponin I Urine Protein Urine Glucose (UA) Urine Ketones Urine Blood Urine Bacteria Urine Mucus - Diagnostic Findings Chest x-ray: image reviewed (No evidence of active disease.) Additional studies: CT of the brain: As noted in HPI. Assessment and Plan Assessment: Impression: Acute hypoxic respiratory failure, suspect sepsis. Exact etiology or source is yet to be determined, patient had a relatively unremarkable chest x-ray, unremarkable urinalysis, grossly abnormal spinal fluid, results from the spinal fluid are pending hence patient will be treated for presumptive meningitis until further diagnostic studies are available. Patient presented with mental status change, unresponsiveness, leukocytosis, fever, lactic acidosis, all consistent with sepsis. And possible meningitis Acute mastoiditis as noted on CT of the brain. History of CVA with abnormal CT of the brain, multiple previous infarcts noted. This was evacuated: History of COVID-19 pneumonia back in June of 2021. Recommendation: Patient was seen in the ER, and we will admit to the ICU Continue present ventilatory support, no changes were made in the ventilator settings except cut down FiO2 to 50%. ABG was noted. Empiric antibiotics. For presumptive meningitis. Patient to be placed on droplet isolation for the time being until further diagnoses has been made Infectious disease to see on consultation. Neurology to see her on consultation. Continue IV fluids, I believe the patient received fluid boluses in the ER. Check blood cultures, urine cultures, sputum cultures, and spinal fluid cultures GI and DVT prophylaxis We will continue to follow. Prognosis is relatively guarded at this point. Time with Patient: Greater than 30
[2022-03-26] MEDS ORDERED: ENOXAPARIN 40 MG/0.4 ML SYRINGE SQ SCH (15:00)
[2022-03-26 15:13] LABS: Glucose,Whole Blood 186 mg/dL (70-110)
[2022-03-26 15:16] LABS: Glucose,Whole Blood 168 mg/dL (70-110)
--- NOTE | 2022-03-26 15:20 | P.HPIM ---
History of Present Illness H&P Date: 03/26/22 Chief Complaint: Patient found by EMS to be unresponsive Patient is a 50-year-old male with a past medical history of COVID-19, thromboembolic stroke who was brought into the ED because of altered mental status. Patient is currently intubated and sedated and there is no family at bedside. History was obtained from patient's chart. Per ED note EMS had reported that patient was seen vomiting multiple times and then he laid on the floor and then was unresponsive. EMS was only able to get a reaction for painful stimuli. Per ED physician family stated that he was last normal yesterday evening. His daughter who is 9 years old is the one that found him on the ground. Patient was reported to have urinary incontinence. In the ED patient is GCS was 7 cm he was intubated and sedated. Lumbar puncture was also done. Patient started on IV Rocephin and vancomycin. I did speak to the patient's friend who was listed as the contact acid plant operator helper. The friend said that his daughter did call her and she instructed the daughter to call her stepmother. The friend also reported that about 5 days ago the patient was complaining of ear pain and went to see the doctor for it. In the ED patient was found to have a fever 102.3. WBC count 31.4, lactic acid 6.3, troponin 0.33 and bilirubin 2.3. Chest x-ray showed pulmonary vascular congestion. CT head showed multiple old right-sided infarcts now progressed from June 2021. 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 Review of Systems Unable to obtain due to altered mental status Past Medical History Past Medical History: CVA/TIA History of Any Multi-Drug Resistant Organisms: None Reported Past Surgical History: No Surgical Hx Reported Past Psychological History: No Psychological Hx Reported Smoking Status: Never smoker Past Alcohol Use History: None Reported Past Drug Use History: None Reported Medications and Allergies Home Medications Medication Instructions Recorded Confirmed Type Ggenpvij-Tozcwthsv-Lg Otic 4 drops OTIC TID 03/26/22 03/26/22 History [Cortisporin Otic Soln] Omeprazole [PriLOSEC] 40 mg PO DAILY 03/26/22 03/26/22 History Allergies Allergy/AdvReac Type Severity Reaction Status Date / Time Penicillins Allergy Rash/Hives Verified 03/26/22 13:25 Physical Exam Osteopathic Statement: *. No significant issues noted on an osteopathic stru ctural exam other than those noted in the History and Physical/Consult. Vitals: Vital Signs Temp Pulse Resp BP Pulse Ox FiO2 03/26/22 14:14 50 03/26/22 12:57 100 03/26/22 12:56 100 03/26/22 12:22 102.3 F H 87 16 120/75 96 03/26/22 12:00 98 24 108/63 95 03/26/22 10:52 103.6 F H 03/26/22 10:36 18 03/26/22 10:25 100.1 F H 77 16 164/100 100 Intake and Output 03/26/22 03/26/22 03/26/22 06:59 14:59 22:59 Other: Weight 102.058 kg General: [Patient intubated sedated. Eye: [Pinpoint pupils, normal conjunctiva]. HENT: [Normocephalic, clear tympanic membranes, no scleral icterus, no sinus tenderness]. Neck: [Supple, non-tender, no carotid bruits, no JVD, no lymphadenopathy]. Lungs: [Diminished breath sounds bilaterally, non-labored respiration]. Heart: [Normal rate, regular rhythm, no murmur, gallop or edema]. Abdomen: [Soft, non-tender, non-distended, normal bowel sounds, no masses]. Musculoskeletal: [+2 pedal pulses, no discoloration or wounds in the lower extremities Neurologic: [Patient currently intubated and sedated so unable to assess]. Psychiatric: [Patient currently intubated and sedated so unable to assess]. Results CBC & Chem 7: 03/26/22 10:34 03/26/22 11:05 Labs: Abnormal Lab Results - Last 24 Hours (Table) 03/26/22 03/26/22 03/26/22 Range/Units 10:30 10: 11:05 WBC 31.4 H (3.8-10.6) k/uL Neutrophils # (Manual) 27.30 H (1.3-7.7) k/uL Lymphocytes # (Manual) 0.94 L (1.0-4.8) k/uL Monocytes # (Manual) 3.14 H (0-1.0) k/uL ABG pO2 (83-108) mmHg ABG O2 Saturation (94-97) % Carbon Dioxide (22-30) mmol/L Glucose (74-99) mg/dL POC Glucose (mg/dL) 197 H (70-110) mg/dL Plasma Lactic Acid Scar 6.3 H* (0.7-2.0) mmol/L Total Bilirubin (0.2-1.3) mg/dL ALT (4-49) U/L Troponin I (0.000-0.034) ng/mL Urine Protein (Negative) Urine Glucose (UA) (Negative) Urine Ketones (Negative) Urine Blood (Negative) Urine Bacteria (None) /hpf Urine Mucus (None) /hpf 03/26/22 03/26/22 03/26/22 Range/Units 11:05 11:05 11:57 WBC (3.8-10.6) k/uL Neutrophils # (Manual) (1.3-7.7) k/uL Lymphocytes # (Manual) (1.0-4.8) k/uL Monocytes # (Manual) (0-1.0) k/uL ABG pO2 (83-108) mmHg ABG O2 Saturation (94-97) % Carbon Dioxide 18 L (22-30) mmol/L Glucose 221 H (74-99) mg/dL POC Glucose (mg/dL) (70-110) mg/dL Plasma Lactic Acid Scar (0.7-2.0) mmol/L Total Bilirubin 2.3 H (0.2-1.3) mg/dL ALT 59 H (4-49) U/L Troponin I 0.330 H* (0.000-0.034) ng/mL Urine Protein 2+ H (Negative) Urine Glucose (UA) 3+ H (Negative) Urine Ketones 1+ H (Negative) Urine Blood Large H (Negative) Urine Bacteria Rare H (None) /hpf Urine Mucus Moderate H (None) /hpf 03/26/22 03/26/22 03/26/22 Range/Units 13:55 14:04 15:11 WBC (3.8-10.6) k/uL Neutrophils # (Manual) (1.3-7.7) k/uL Lymphocytes # (Manual) (1.0-4.8) k/uL Monocytes # (Manual) (0-1.0) k/uL ABG pO2 384 H (83-108) mmHg ABG O2 Saturation 100.0 H (94-97) % Carbon Dioxide (22-30) mmol/L Glucose (74-99) mg/dL POC Glucose (mg/dL) 186 H (70-110) mg/dL Plasma Lactic Acid Scar 2.7 H* (0.7-2.0) mmol/L Total Bilirubin (0.2-1.3) mg/dL ALT (4-49) U/L Troponin I (0.000-0.034) ng/mL Urine Protein (Negative) Urine Glucose (UA) (Negative) Urine Ketones (Negative) Urine Blood (Negative) Urine Bacteria (None) /hpf Urine Mucus (None) /hpf Microbiology - Last 24 Hours (Table) 03/26/22 14:13 CSF Gram Stain - Preliminary Cerebral Spinal Fluid CSF Culture - Preliminary Assessment and Plan Assessment: Ventilator dependent respiratory failure Patient intubated in the ED for GCS score of 7 Plant Technician/Control Room Operator management Toxic encephalopathy Sepsis on admission The source of the infection at this time is unclear. Etiology includes possible meningitis versus aspiration pneumonia versus mastoiditis Resume IV Rocephin and IV vancomycin and Flagyl Patient given fluids as per sepsis protocol at 30 mL an hour Follow-up on LP analysis Trend lactic acid Consult ENT Lactic acidosis likely due to sepsis however could also be due to seizure Patient found to have urinary incontinence Consult neurology Patient currently on sedation Improving with fluids Elevated troponin likely due to type II MN per demand ischemia secondary to sepsis Trend troponin Elevated bilirubin likely due to sepsis LFTs are within normal limits so doubt obstruction Trend LFTs History of thromboembolic strokes Computed tomography scan showing new stroke burden on the right side concerning for embolic strokes. Patient was admitted in June 2021 for thromboembolic strokes. He was discharged on Eliquis Resume atorvastatin Unclear patient is compliant with his medications We'll start the patient on Lovenox full dose CODE STATUS: Unable to confirm as patient is intubated. No family at bedside DVT prophylaxis: Lovenox Discussed with: Patient, ER, rn Anticipated length of stay > than [address]: home A total of 75 minutes was spent on the care of this complex patient more than 50% of the time was spent in counseling and care coordination.
[2022-03-26] MEDS: VANCOMYCIN 1,750 MG in SODIUM CHLORIDE 0.9% 500 ML 500 ML IVPB SCH (15:23)
[2022-03-26 15:30] LABS: Glucose,CSF <20 mg/dL (40-70)
[2022-03-26] MEDS: metroNIDAZOLE-NS PMX 500 MG in SALINE 1 100ML.BAG IVPB SCH ×2 (15:31→22:51)
[2022-03-26 15:32] LABS: Total Protein,CSF >600 mg/dL (12-60)
[2022-03-26] MEDS: PANTOPRAZOLE 40 MG/10 ML VIAL IVP SCH (15:32)
[2022-03-26] MEDS: ENOXAPARIN 100 MG/ML SYRINGE SQ SCH (15:54)
[2022-03-26 16:10] LABS: Appearance,CSF Cloudy; CSF Tube Number 4; CSF Tube Volume 0.5; Red Blood Cell,CSF 1750 u/L (0-10)
[2022-03-26 16:36] LABS: Diff, Total Cells Cnt, CSF 100; Mononuclear WBC,CSF 6 %; Polynuclear WBC,CSF 94 %
[2022-03-26 16:38] LABS: Nucleated Cells, CSF 12450 u/L (0-5)
[2022-03-26] MEDS: NITROGLYCERIN OINT 1 INCH/GM PACKET TOPICAL SCH (17:52)
[2022-03-26] MEDS: ATORVASTATIN 40 MG TAB PO SCH (21:43)
--- NOTE | 2022-03-26 22:25 | P.CNNES ---
History of Present Illness Consult date: 03/26/22 Requesting physician: Tiara Kim Reason for Consult: Encephalopathy History of Present Illness: Patient is a 51-year-old male came to the hospital by ambulance today at 10:23 AM. Patient currently intubated, sedated, cannot provide the history. As per EMS flow sheet when they arrived at the scene, found patient laying on the floor with altered mental status. Family on location stated that patient had approx imately 4 bouts of emesis this morning and then went and laid down on the floor. When they tried to arouse the patient, he would not. Upon EMS arrival, the patient was laying on his right side. He initially did not respond to painful stimuli. When they attempted to roll the patient onto his back, to sit him up, he pulled away and laid back down. The patient's breathing was normal and unlabored. He was very warm to touch. Patient had urinated. Pupils were equal and reactive. Glucose was 233. EKG shows sinus rhythm on threat monitoring analyst. His temperature was 102.3 axillary and was found to be hypertensive with blood pressure 169/92, pulse rate 90 Patient's vitals on arrival was temperature 100.1, but went up to 103.6 rectally. Blood test shows WBC 31.4, hemoglobin 14.6, platelets are normal. PT/PTT normal. CMP with normal metabolic panel. AST is normal 50, ALT 59. Ammonia normal. Troponin mildly elevated 0.330. UA is negative. Urine drug screen negative. Coronal virus PCR negative. CT head showed no acute process. Multiple old right-sided infarcts now identified progressed from June 2021 MRI. Acute on chronic paranasal pansinusitis. New right-sided mastoiditis may be present. I personally reviewed CT head. Agree with the findings. Evidence of old multifocal ischemic areas now prominent on the CT, which was present on the previous MRI. I noticed that there is mild degree of prominence of the lateral and third ventricles as compared to the CT head from 06/16/2021. CSF showed cloudy, xanthochromic, with white cells of 12,450, out of which 6% are mononuclear and 94% polynuclear cells. Glucose is < 20, CSF protein > 600. CSF Gram stain shows many polynuclear leukocytes. Cultures so far negative. Patient was started on ceftriaxone 2 g every 12 hours, vancomycin 1,750 mg every 12 hours. Patient has been seen by myself with the previous admission on 06/16/2021 when patient had presented with acute ischemic strokes. Patient was discharged on Eliquis 5 mg twice a day, Lipitor 40 mg. Patient's home medications apparently include omeprazole 40 mg. I called patient's home, spoke to patient's Mom, who informed me that patient has been having ear infection for the last 5 days. He was given some eardrops. This morning patient's daughter saw him throwing up at least 4 times and then he became unresponsive. Patient's daughter who is 19 years old called grandma, who called 911. Patient's stepmom does not know if patient is taking Eliquis. They will check with the pharmacy and let us know. Review of Systems Patient's family members does not know any more details except for some fever, ear pain. Nurse does not know any more details. ROS unobtainable: due to endotracheal tube, due to mental status Constitutional: Reports fever Past Medical History Past Medical History: CVA/TIA History of Any Multi-Drug Resistant Organisms: None Reported Past Surgical History: No Surgical Hx Reported Past Psychological History: No Psychological Hx Reported Smoking Status: Never smoker Past Alcohol Use History: None Reported Past Drug Use History: None Reported - Past Family History Father Family Medical History: Hyperlipidemia, Hypertension Mother Family Medical History: Dementia Medications and Allergies Home Medications Medication Instructions Recorded Confirmed Type Uiddwucu-Cnazeouqf-Xq Otic 4 drops OTIC TID 03/26/22 03/26/22 History [Cortisporin Otic Soln] Omeprazole [PriLOSEC] 40 mg PO DAILY 03/26/22 03/26/22 History Allergies Allergy/AdvReac Type Severity Reaction Status Date / Time Penicillins Allergy Rash/Hives Verified 03/26/22 13:25 Physical Examination - Vital Signs Vital Signs: Vital Signs Temp Pulse Resp BP Pulse Ox FiO2 03/26/22 15:14 50 03/26/22 14:14 50 03/26/22 12:57 100 03/26/22 12:56 100 03/26/22 12:22 102.3 F H 87 16 120/75 96 03/26/22 12:00 98 24 108/63 95 03/26/22 10:52 103.6 F H 03/26/22 10:36 18 03/26/22 10:25 100.1 F H 77 16 164/100 100 Intake and Output 03/26/22 03/26/22 03/26/22 06:59 14:59 22:59 Other: Weight 102.058 kg Patient is a middle aged male, who is intubated, sedated on propofol 40 mcg/kg/m. Patient is intubated. Patient is not responding to calling his name. On cranial nerve examination, pupils are equal, round and reacting to light, oculocephalics are present. Corneals present. Patient does have a good cough and gag reflex. On muscle strength testing, tone is equal bilaterally. Muscle strength cannot be tested. Patient is noted to move his upper and lower extremities to painful stimuli. He was seen to bring his arm up to ET tube twice per nursing report. Deep tendon reflexes are (right/left) biceps 2+/1+, brachioradialis 2/1+, knees 2+/2+, ankles 1+/1+ and plantars are downgoing versus withdrawal bilaterally. Sensory as above. Cerebellar functions and gait cannot be tested. On general examination, there is no carotid bruit or murmur, S1-S2 audible. Chest is clear on consultation. Abdomen is soft nontender. No organomegaly, bowel sounds present. Peripheral pulses are present. No edema. Results - Laboratory Findings CBC and BMP: 03/26/22 10:34 03/26/22 11:05 Abnormal Lab Findings: Abnormal Labs 03/26/22 03/26/22 03/26/22 10:30 10:34 11:05 WBC 31.4 H Neutrophils # (Manual) 27.30 H Lymphocytes # (Manual) 0.94 L Monocytes # (Manual) 3.14 H ABG pO2 ABG O2 Saturation Carbon Dioxide Glucose POC Glucose (mg/dL) 197 H Plasma Lactic Acid Scar 6.3 H* Total Bilirubin ALT Troponin I Urine Protein Urine Glucose (UA) Urine Ketones Urine Blood Urine Bacteria Urine Mucus CSF RBC CSF Tot Nucleated Cells CSF Glucose CSF Total Protein 03/26/22 03/26/22 03/26/22 11:05 11:05 11:57 WBC Neutrophils # (Manual) Lymphocytes # (Manual) Monocytes # (Manual) ABG pO2 ABG O2 Saturation Carbon Dioxide 18 L Glucose 221 H POC Glucose (mg/dL) Plasma Lactic Acid Scar Total Bilirubin 2.3 H ALT 59 H Troponin I 0.330 H* Urine Protein 2+ H Urine Glucose (UA) 3+ H Urine Ketones 1+ H Urine Blood Large H Urine Bacteria Rare H Urine Mucus Moderate H CSF RBC CSF Tot Nucleated Cells CSF Glucose CSF Total Protein 03/26/22 03/26/22 03/26/22 13:55 14:04 14:13 WBC Neutrophils # (Manual) Lymphocytes # (Manual) Monocytes # (Manual) ABG pO2 384 H ABG O2 Saturation 100.0 H Carbon Dioxide Glucose POC Glucose (mg/dL) Plasma Lactic Acid Scar 2.7 H* Total Bilirubin ALT Troponin I Urine Protein Urine Glucose (UA) Urine Ketones Urine Blood Urine Bacteria Urine Mucus CSF RBC 1750 H CSF Tot Nucleated Cells 79827 H* CSF Glucose <20 L* CSF Total Protein >600 H 03/26/22 03/26/22 03/26/22 15:11 15:14 15:18 WBC Neutrophils # (Manual) Lymphocytes # (Manual) Monocytes # (Manual) ABG pO2 ABG O2 Saturation Carbon Dioxide Glucose POC Glucose (mg/dL) 186 H 168 H Plasma Lactic Acid Scar Total Bilirubin ALT Troponin I 0.269 H* Urine Protein Urine Glucose (UA) Urine Ketones Urine Blood Urine Bacteria Urine Mucus CSF RBC CSF Tot Nucleated Cells CSF Glucose CSF Total Protein Assessment and Plan Assessment: * Acute meningitis, most likely bacterial from otologic source. Patient has been suffering from otitis media for last 5 days. * Pansinusitis, with mastoiditis * Otitis media probably right side * Recent history of acute ischemic stroke 06/13/2021 with Covid infection at that time. * Borderline diabetes Plan: * Patient on vancomycin and ceftriaxone. ID following. CSF cultures pending. * Agree with an ENT consultation for pansinusitis, mastoiditis and otitis media. * Discussed with patient's family in detail. They will check with his pharmacist patient was taking Eliquis at home or not. Patient currently on aspirin 325 mg daily and Lipitor 40 mg daily. * EEG in the morning * Repeat CT head at noon, to rule out hydrocephalus from bacterial meningitis. * DVT prophylaxis: Lovenox 40 mg subcu daily. * Neurology will follow. Thank you for the consult.
[2022-03-26 23:14] LABS: Glucose,Whole Blood 139 mg/dL (70-110)
[2022-03-26] MEDS: SULFAMETHOX TMP IVPB SCH ×2 (23:33)
[2022-03-26] MEDS: DEXTROSE 5% IVPB SCH ×2 (23:33)
[2022-03-26] MEDS: WATER IVPB SCH ×2 (23:33)
[2022-03-27] MEDS: NITROGLYCERIN OINT 1 INCH/GM PACKET TOPICAL SCH ×4 (00:08→20:15)
[2022-03-27] MEDS: ENOXAPARIN 100 MG/ML SYRINGE SQ SCH (03:09)
[2022-03-27] MEDS: VANCOMYCIN 1,750 MG in SODIUM CHLORIDE 0.9% 500 ML 500 ML IVPB SCH ×2 (03:10→16:20)
[2022-03-27] MEDS: ACETAMINOPHEN TAB 325 MG TAB PO PRN (04:38)
[2022-03-27 06:18] LABS: ABG Base Excess -2.8 mmol/L; ABG HCO3 22 mmol/L (21-25); ABG Oxygen Saturation 98.5 % (94-97); ABG PCO2 34 mmHg (35-45); ABG PH 7.42 (7.35-7.45); ABG PO2 89 mmHg (83-108); ABG TCO2 23 mmol/L (19-24); Allen Test Performed? Yes
[2022-03-27 06:48] LABS: Glucose,Whole Blood 98 mg/dL (70-110)
[2022-03-27] MEDS: metroNIDAZOLE-NS PMX 500 MG in SALINE 1 100ML.BAG IVPB SCH (06:54)
--- NOTE | 2022-03-27 07:12 | P.CONS ---
History of Present Illness - Reason for Consult Consult date: 03/26/22 - History of Present Illness Patient is a 51-year-old male who was brought into the ER by EMS for evaluation of mental status changes patient apparently did have a small bouts of emesis this morning and then he went and laid down on the floor we will try to wake him up the patient would not wake up on arrival of EMS patient was lying on his right side did not respond to the painful stimuli patient on arrival to the ER was febrile with a temperature of 103 F patient did have white count of 31,000 with a left shift kidney function was normal ALT mildly elevated urine has been negative COVID testing was negative urine drug screen was negative patient did have an LP CSF examination was reported less than 20 protein more than 600 with a white count of 12,000 450 predominantly polynuclear CSF gram stain culture currently pending blood cultures obtained which are currently pending patient did have a CT of the brain that was negative for any acute bleed chest x-ray with no consolidation patient was started on vancomycin Rocephin and Earl infectious disease was consulted for further management of antibiotic therapy most information has been obtained from review the chart talking nursing staff and the patient is currently intubated on the vent and unable to provide any history no family member at the bedside Past Medical History Past Medical History: CVA/TIA History of Any Multi-Drug Resistant Organisms: None Reported Past Surgical History: No Surgical Hx Reported Past Psychological History: No Psychological Hx Reported Smoking Status: Never smoker Past Alcohol Use History: None Reported Past Drug Use History: None Reported - Past Family History Father Family Medical History: Hyperlipidemia, Hypertension Mother Family Medical History: Dementia Medications and Allergies Home Medications Medication Instructions Recorded Confirmed Type Sqwmmeet-Towkwbhmh-Dh Otic 4 drops OTIC TID 03/26/22 03/26/22 History [Cortisporin Otic Soln] Omeprazole [PriLOSEC] 40 mg PO DAILY 03/26/22 03/26/22 History Allergies Allergy/AdvReac Type Severity Reaction Status Date / Time Penicillins Allergy Rash/Hives Verified 03/26/22 13:25 Physical Exam Vitals: Vital Signs Temp Pulse Resp BP Pulse Ox FiO2 03/26/22 15:14 50 03/26/22 14:14 50 03/26/22 12:57 100 03/26/22 12:56 100 10/20/22 12:22 102.3 F H 87 16 120/75 96 03/26/22 12:00 98 24 108/63 95 03/26/22 10:52 103.6 F H 03/26/22 10:36 18 03/26/22 10:25 100.1 F H 77 16 164/100 100 Intake and Output 03/26/22 03/26/22 03/26/22 06:59 14:59 22:59 Other: Weight 102.058 kg Results CBC & Chem 7: 03/26/22 10:34 03/26/22 11:05 Labs: Abnormal Lab Results - Last 24 Hours (Table) 03/26/22 03/26/22 03/26/22 Range/Units 10:30 10:34 11:05 WBC 31.4 H (3.8-10.6) k/uL Neutrophils # (Manual) 27.30 H (1.3-7.7) k/uL Lymphocytes # (Manual) 0.94 L (1.0-4.8) k/uL Monocytes # (Manual) 3.14 H (0-1.0) k/uL ABG pO2 (83-108) mmHg ABG O2 Saturation (94-97) % Carbon Dioxide (22-30) mmol/L Glucose (74-99) mg/dL POC Glucose (mg/dL) 197 H (70-110) mg/dL Plasma Lactic Acid Scar 6.3 H* (0.7-2.0) mmol/L Total Bilirubin (0.2-1.3) mg/dL ALT (4-49) U/L Troponin I (0.000-0.034) ng/mL Urine Protein (Negative) Urine Glucose (UA) (Negative) Urine Ketones (Negative) Urine Blood (Negative) Urine Bacteria (None) /hpf Urine Mucus (None) /hpf CSF Glucose (40-70) mg/dL CSF Total Protein (12-60) mg/dL 03/26/22 03/26/22 03/26/22 Range/Units 11:05 11:05 11:57 WBC (3.8-10.6) k/uL Neutrophils # (Manual) (1.3-7.7) k/uL Lymphocytes # (Manual) (1.0-4.8) k/uL Monocytes # (Manual) (0-1.0) k/uL ABG pO2 (83-108) mmHg ABG O2 Saturation (94-97) % Carbon Dioxide 18 L (22-30) mmol/L Glucose 221 H (74-99) mg/dL POC Glucose (mg/dL) (70-110) mg/dL Plasma Lactic Acid Scar (0.7-2.0) mmol/L Total Bilirubin 2.3 H (0.2-1.3) mg/dL ALT 59 H (4-49) U/L Troponin I 0.330 H* (0.000-0.034) ng/mL Urine Protein 2+ H (Negative) Urine Glucose (UA) 3+ H (Negative) Urine Ketones 1+ H (Negative) Urine Blood Large H (Negative) Urine Bacteria Rare H (None) /hpf Urine Mucus Moderate H (None) /hpf CSF Glucose (40-70) mg/dL CSF Total Protein (12-60) mg/dL 03/26/22 03/26/22 03/26/22 Range/Units 13:55 14:04 14:13 WBC (3.8-10.6) k/uL Neutrophils # (Manual) (1.3-7.7) k/uL Lymphocytes # (Manual) (1.0-4.8) k/uL Monocytes # (Manual) (0-1.0) k/uL ABG pO2 384 H (83-108) mmHg ABG O2 Saturation 100.0 H (94-97) % Carbon Dioxide (22-30) mmol/L Glucose (74-99) mg/dL POC Glucose (mg/dL) (70-110) mg/dL Plasma Lactic Acid Scar 2.7 H* (0.7-2.0) mmol/L Total Bilirubin (0.2-1.3) mg/dL ALT (4-49) U/L Troponin I (0.000-0.034) ng/mL Urine Protein (Negative) Urine Glucose (UA) (Negative) Urine Ketones (Negative) Urine Blood (Negative) Urine Bacteria (None) /hpf Urine Mucus (None) /hpf CSF Glucose <20 L* (40-70) mg/dL CSF Total Protein >600 H (12-60) mg/dL 03/26/22 03/26/22 Range/Units 15:11 15:14 WBC (3.8-10.6) k/uL Neutrophils # (Manual) (1.3-7.7) k/uL Lymphocytes # (Manual) (1.0-4.8) k/uL Monocytes # (Manual) (0-1.0) k/uL ABG pO2 (83-108) mmHg ABG O2 Saturation (94-97) % Carbon Dioxide (22-30) mmol/L Glucose (74-99) mg/dL POC Glucose (mg/dL) 186 H 168 H (70-110) mg/dL Plasma Lactic Acid Scar (0.7-2.0) mmol/L Total Bilirubin (0.2-1.3) mg/dL ALT (4-49) U/L Troponin I (0.000-0.034) ng/mL Urine Protein (Negative) Urine Glucose (UA) (Negative) Urine Ketones (Negative) Urine Blood (Negative) Urine Bacteria (None) /hpf Urine Mucus (None) /hpf CSF Glucose (40-70) mg/dL CSF Total Protein (12-60) mg/dL Microbiology - Last 24 Hours (Table) 03/26/22 14:13 CSF Gram Stain - Preliminary Cerebral Spinal Fluid CSF Culture - Preliminary Assessment and Plan Plan: 1patient presented hospital with sepsis in this patient who did have a fever elevated white count abnormal CSF likely secondary to bacterial meningitis would be more likely strep pneumo while waiting for the cultures to be finalized. 2patient has already received antibiotic and would not qualify for steroids at this point. 3to continue with Rocephin 2 g every 12 vancomycin pharmacy to dose however will add Bactrim to cover for Listeria cannot use ampicillin as the patient is allergic to penicillin We will follow on clinical condition and cultures to further adjust medication if needed Thank you for this consultation will follow this patient along with you
--- NOTE | 2022-03-27 07:43 | XR ---
EXAMINATION TYPE: XR chest 1V portable DATE OF EXAM: 03/27/2022 7:23 AM COMPARISON: Chest radiograph from one day prior. TECHNIQUE: XR chest 1V portable Portable AP radiograph of the chest. CLINICAL INDICATION:Male, 51 years old with history of Baseline CXR Pulm. infiltrates; FINDINGS: Lungs/Pleura: Low lung volumes are present. Haziness to the left lung base likely secondary to low diallo ng volumes. There is no evidence of pleural effusion, focal consolidation, or pneumothorax. Pulmonary vascularity: Unremarkable. Heart/mediastinum: Cardiomediastinal silhouette is unremarkable. Musculoskeletal: Degenerative changes of the shoulder joints. Lines/Tubes: Endotracheal tube with distal tip 4.5 cm above the violetta Nasogastric tube with its distal tip and side-port projecting under the diaphragm. IMPRESSION: 1. Stable exam with low lung volumes. 2. Stable support lines and tubes.
[2022-03-27] MEDS: ASPIRIN 325 MG TAB PO SCH (08:29)
[2022-03-27] MEDS: PANTOPRAZOLE 40 MG/10 ML VIAL IVP SCH (08:29)
[2022-03-27] MEDS: WATER IVPB SCH ×4 (08:29→16:11)
[2022-03-27] MEDS: DEXTROSE 5% IVPB SCH ×4 (08:29→16:11)
[2022-03-27] MEDS: SULFAMETHOX TMP IVPB SCH ×4 (08:29→16:11)
[2022-03-27 09:13] LABS: Basophils % (A) 0 %; Eosinophils % (A) 0 %; HGB 12.2 gm/dL (13.0-17.5); Lymphocytes % (A) 4 %; MCH 28.4 pg (25.0-35.0); Mean Platelet Volume 9.3; Monocytes # (A) 1.3 k/uL (0-1.0); Monocytes % (A) 5 %; Neutrophils # (A) 22.4 k/uL (1.3-7.7); Neutrophils % (A) 89 %; Platelet Count 133 k/uL (150-450); RBC 4.31 m/uL (4.30-5.90); WBC 25.1 k/uL (3.8-10.6)
[2022-03-27 09:29] LABS: ALT 34 U/L (4-49); AST 31 U/L (17-59); African American GFR (CKD) >90 (>60 ml/min/1.73 sqM); Albumin 3.1 g/dL (3.5-5.0); Alkaline Phosphatase 95 U/L (38-126); Anion Gap 11 mmol/L; Blood Urea Nitrogen 16 mg/dL (9-20); Calcium 7.4 mg/dL (8.4-10.2); Carbon Dioxide 20 mmol/L (22-30); Chloride 107 mmol/L (98-107); Glucose 122 mg/dL (74-99); Non-African American GFR(CKD) 85 (>60 ml/min/1.73 sqM); Potassium 3.5 mmol/L (3.5-5.1); Sodium 138 mmol/L (137-145); Total Protein 5.5 g/dL (6.3-8.2)
[2022-03-27] MEDS ORDERED: IPRATROPIUM-ALBUTEROL 3 ML NEB INHALATION PRN (10:19)
--- NOTE | 2022-03-27 10:20 | P.GSCN ---
History of Present Illness Consult date: 03/27/22 Reason for Consult: Meningitis Requesting physician: Tiara Kim History of present illness: This is a 51-year-old white male who is currently intubated and sedated. The history that I I'm obtaining is from the medical records as the patient is nonresponsive. I understand that he was found at home with an altered mental status with associated. He has associated vomiting and was taken by EMS to the emergency room here at [facility]. He did not respond to painful stimuli and a workup was performed demonstrating meningitis. He also had some multiple old right-sided infarcts. I reviewed the films and there appears to be a mastoiditis on the right with a middle ear infection. This is consistent with otologic etiology to the patient's meningitis been asked to consult regarding this issue. CAT scan of the head did not get clear images of the temporal bone and a follow-up temporal bone computed tomography scan will be ordered. Review of Systems ROS unobtainable: due to endotracheal tube Past Medical History Past Medical History: CVA/TIA Additional Past Medical History / Comment(s): Stroke 06/27, residual left side hand weakness. History of Any Multi-Drug Resistant Organisms: None Reported Past Surgical History: No Surgical Hx Reported Past Anesthesia/Blood Transfusion Reactions: Unable to Obtain Past Psychological History: No Psychological Hx Reported Smoking Status: Never smoker Past Alcohol Use History: None Reported Past Drug Use History: None Reported - Past Family History Father Family Medical History: Hyperlipidemia, Hypertension Mother Family Medical History: Dementia Medications and Allergies Home Medications Medication Instructions Recorded Confirmed Type Ferheulw-Apcuxjgza-Kf Otic 4 drops OTIC TID 03/26/22 03/26/22 History [Cortisporin Otic Soln] Omeprazole [PriLOSEC] 40 mg PO DAILY 03/26/22 03/26/22 History Allergies Allergy/AdvReac Type Severity Reaction Status Date / Time Penicillins Allergy Rash/Hives Verified 03/26/22 13:25 Surgical - Exam Osteopathic Statement: *. No significant issues noted on an osteopathic structural exam other than those noted in the History and Physical/Consult. Vital Signs Temp Pulse Resp BP Pulse Ox 100.1 F H 77 16 164/100 100 03/26/22 10:25 03/26/22 10:25 03/26/22 10:25 03/26/22 10:25 03/26/22 10:25 - General Patient's intubated with a central line in place well developed, well nourished - Eyes Patient is intubated other - ENT The auricles are well performed, the canals are clear, the right tympanic membrane is erythematous and bulging and purulent material was noted in the middle ear space the left side is unremarkable The rest of the ENT exam is limited because of the elevation. Intranasal edema noted - Neck no masses, no venous distension - Cardiovascular Patient is on a ventilator Rhythm: regular - Neurologic Patient is nonresponsive and is intubated on the ventilator - Musculoskeletal Unable to assess patient's on the ventilator - Psychiatric Patient sedated on a ventilator Results - Labs 03/27/22 09:02 03/27/22 09:02 Abnormal Lab Results - Last 24 Hours (Table) 03/26/22 03/26/22 03/26/22 Range/Units 10:30 10:34 11:05 WBC 31.4 H (3.8-10.6) k/uL Hgb (13.0-17.5) gm/dL Hct (39.0-53.0) % Plt Count (150-450) k/uL Neutrophils # (1.3-7.7) k/uL Neutrophils # (Manual) 27.30 H (1.3-7.7) k/uL Lymphocytes # (Manual) 0.94 L (1.0-4.8) k/uL Monocytes # (0-1.0) k/uL Monocytes # (Manual) 3.14 H (0-1.0) k/uL ABG pCO2 (35-45) mmHg ABG pO2 (83-108) mmHg ABG O2 Saturation (94-97) % Carbon Dioxide (22-30) mmol/L Glucose (74-99) mg/dL POC Glucose (mg/dL) 197 H (70-110) mg/dL Plasma Lactic Acid Scar 6.3 H* (0.7-2.0) mmol/L Calcium (8.4-10.2) mg/dL Total Bilirubin (0.2-1.3) mg/dL ALT (4-49) U/L Troponin I (0.000-0.034) ng/mL Total Protein (6.3-8.2) g/dL Albumin (3.5-5.0) g/dL Urine Protein (Negative) Urine Glucose (UA) (Negative) Urine Ketones (Negative) Urine Blood (Negative) Urine Bacteria (None) /hpf Urine Mucus (None) /hpf CSF RBC (0-10) u/L CSF Tot Nucleated Cells (0-5) u/L CSF Glucose (40-70) mg/dL CSF Total Protein (12-60) mg/dL 03/26/22 03/26/22 03/26/22 Range/Units 11:05 11:05 11:57 WBC (3.8-10.6) k/uL Hgb (13.0-17.5) gm/dL Hct (39.0-53.0) % Plt Count (150-450) k/uL Neutrophils # (1.3-7.7) k/uL Neutrophils # (Manual) (1.3-7.7) k/uL Lymphocytes # (Manual) (1.0-4.8) k/uL Monocytes # (0-1.0) k/uL Monocytes # (Manual) (0-1.0) k/uL ABG pCO2 (35-45) mmHg ABG pO2 (83-108) mmHg ABG O2 Saturation (94-97) % Carbon Dioxide 18 L (22-30) mmol/L Glucose 221 H (74-99) mg/dL POC Glucose (mg/dL) (70-110) mg/dL Plasma Lactic Acid Scar (0.7-2.0) mmol/L Calcium (8.4-10.2) mg/dL Total Bilirubin 2.3 H (0.2-1.3) mg/dL ALT 59 H (4-49) U/L Troponin I 0.330 H* (0.000-0.034) ng/mL Total Protein (6.3-8.2) g/dL Albumin (3.5-5.0) g/dL Urine Protein 2+ H (Negative) Urine Glucose (UA) 3+ H (Negative) Urine Ketones 1+ H (Negative) Urine Blood Large H (Negative) Urine Bacteria Rare H (None) /hpf Urine Mucus Moderate H (None) /hpf CSF RBC (0-10) u/L CSF Tot Nucleated Cells (0-5) u/L CSF Glucose (40-70) mg/dL CSF Total Protein (12-60) mg/dL 03/26/22 03/26/22 03/26/22 Range/Units 13:55 14:04 14:13 WBC (3.8-10.6) k/uL Hgb (13.0-17.5) gm/dL Hct (39.0-53.0) % Plt Count (150-450) k/uL Neutrophils # (1.3-7.7) k/uL Neutrophils # (Manual) (1.3-7.7) k/uL Lymphocytes # (Manual) (1.0-4.8) k/uL Monocytes # (0-1.0) k/uL Monocytes # (Manual) (0-1.0) k/uL ABG pCO2 (35-45) mmHg ABG pO2 384 H (83-108) mmHg ABG O2 Saturation 100.0 H (94-97) % Carbon Dioxide (22-30) mmol/L Glucose (74-99) mg/dL POC Glucose (mg/dL) (70-110) mg/dL Plasma Lactic Acid Scar 2.7 H* (0.7-2.0) mmol/L Calcium (8.4-10.2) mg/dL Total Bilirubin (0.2-1.3) mg/dL ALT (4-49) U/L Troponin I (0.000-0.034) ng/mL Total Protein (6.3-8.2) g/dL Albumin (3.5-5.0) g/dL Urine Protein (Negative) Urine Glucose (UA) (Negative) Urine Ketones (Negative) Urine Blood (Negative) Urine Bacteria (None) /hpf Urine Mucus (None) /hpf CSF RBC 1750 H (0-10) u/L CSF Tot Nucleated Cells 79339 H* (0-5) u/L CSF Glucose <20 L* (40-70) mg/dL CSF Total Protein >600 H (12-60) mg/dL 03/26/22 03/26/22 03/26/22 Range/Units 15:11 15:14 15:18 WBC (3.8-10.6) k/uL Hgb (13.0-17.5) gm/dL Hct (39.0-53.0) % Plt Count (150-450) k/uL Neutrophils # (1.3-7.7) k/uL Neutrophils # (Manual) (1.3-7.7) k/uL Lymphocytes # (Manual) (1.0-4.8) k/uL Monocytes # (0-1.0) k/uL Monocytes # (Manual) (0-1.0) k/uL ABG pCO2 (35-45) mmHg ABG pO2 (83-108) mmHg ABG O2 Saturation (94-97) % Carbon Dioxide (22-30) mmol/L Glucose (74-99) mg/dL POC Glucose (mg/dL) 186 H 168 H (70-110) mg/dL Plasma Lactic Acid Scar (0.7-2.0) mmol/L Calcium (8.4-10.2) mg/dL Total Bilirubin (0.2-1.3) mg/dL ALT (4-49) U/L Troponin I 0.269 H* (0.000-0.034) ng/mL Total Protein (6.3-8.2) g/dL Albumin (3.5-5.0) g/dL Urine Protein (Negative) Urine Glucose (UA) (Negative) Urine Ketones (Negative) Urine Blood (Negative) Urine Bacteria (None) /hpf Urine Mucus (None) /hpf CSF RBC (0-10) u/L CSF Tot Nucleated Cells (0-5) u/L CSF Glucose (40-70) mg/dL CSF Total Protein (12-60) mg/dL 03/26/22 03/26/22 03/27/22 Range/Units 17:19 23:12 06:17 WBC (3.8-10.6) k/uL Hgb (13.0-17.5) gm/dL Hct (39.0-53.0) % Plt Count (150-450) k/uL Neutrophils # (1.3-7.7) k/uL Neutrophils # (Manual) (1.3-7.7) k/uL Lymphocytes # (Manual) (1.0-4.8) k/uL Monocytes # (0-1.0) k/uL Monocytes # (Manual) (0-1.0) k/uL ABG pCO2 34 L (35-45) mmHg ABG pO2 (83-108) mmHg ABG O2 Saturation 98.5 H (94-97) % Carbon Dioxide (22-30) mmol/L Glucose (74-99) mg/dL POC Glucose (mg/dL) 139 H (70-110) mg/dL Plasma Lactic Acid Scar (0.7-2.0) mmol/L Calcium (8.4-10.2) mg/dL Total Bilirubin (0.2-1.3) mg/dL ALT (4-49) U/L Troponin I 0.192 H* (0.000-0.034) ng/mL Total Protein (6.3-8.2) g/dL Albumin (3.5-5.0) g/dL Urine Protein (Negative) Urine Glucose (UA) (Negative) Urine Ketones (Negative) Urine Blood (Negative) Urine Bacteria (None) /hpf Urine Mucus (None) /hpf CSF RBC (0-10) u/L CSF Tot Nucleated Cells (0-5) u/L CSF Glucose (40-70) mg/dL CSF Total Protein (12-60) mg/dL 03/27/22 03/27/22 Range/Units 09:02 09:02 WBC 25.1 H (3.8-10.6) k/uL Hgb 12.2 L (13.0-17.5) gm/dL Hct 37.0 L (39.0-53.0) % Plt Count 133 L (150-450) k/uL Neutrophils # 22.4 H (1.3-7.7) k/uL Neutrophils # (Manual) (1.3-7.7) k/uL Lymphocytes # (Manual) (1.0-4.8) k/uL Monocytes # 1.3 H (0-1.0) k/uL Monocytes # (Manual) (0-1.0) k/uL ABG pCO2 (35-45) mmHg ABG pO2 (83-108) mmHg ABG O2 Saturation (94-97) % Carbon Dioxide 20 L (22-30) mmol/L Glucose 122 H (74-99) mg/dL POC Glucose (mg/dL) (70-110) mg/dL Plasma Lactic Acid Scar (0.7-2.0) mmol/L Calcium 7.4 L (8.4-10.2) mg/dL Total Bilirubin (0.2-1.3) mg/dL ALT (4-49) U/L Troponin I (0.000-0.034) ng/mL Total Protein 5.5 L (6.3-8.2) g/dL Albumin 3.1 L (3.5-5.0) g/dL Urine Protein (Negative) Urine Glucose (UA) (Negative) Urine Ketones (Negative) Urine Blood (Negative) Urine Bacteria (None) /hpf Urine Mucus (None) /hpf CSF RBC (0-10) u/L CSF Tot Nucleated Cells (0-5) u/L CSF Glucose (40-70) mg/dL CSF Total Protein (12-60) mg/dL Microbiology - Last 24 Hours (Table) 03/26/22 14:13 CSF Gram Stain - Preliminary Cerebral Spinal Fluid CSF Culture - Preliminary 03/26/22 13:15 Sputum Culture - Preliminary Sputum Diabetes panel 03/26/22 03/27/22 Range/Units 11:05 09:02 Sodium 138 138 (137-145) mmol/L Potassium 3.7 3.5 (3.5-5.1) mmol/L Chloride 102 107 (98-107) mmol/L Carbon Dioxide 18 L 20 L (22-30) mmol/L BUN 18 16 (9-20) mg/dL Creatinine 1.09 1.01 (0.66-1.25) mg/dL Glucose 221 H 122 H (74-99) mg/dL Calcium 8.8 7.4 L (8.4-10.2) mg/dL AST 50 31 (17-59) U/L ALT 59 H 34 (4-49) U/L Alkaline Phosphatase 114 95 (38-126) U/L Total Protein 6.8 5.5 L (6.3-8.2) g/dL Albumin 4.2 3.1 L (3.5-5.0) g/dL Calcium panel 03/26/22 03/27/22 Range/Units 11:05 09:02 Calcium 8.8 7.4 L (8.4-10.2) mg/dL Albumin 4.2 3.1 L (3.5-5.0) g/dL Pituitary panel 03/26/22 03/27/22 Range/Units 11:05 09:02 Sodium 138 138 (137-145) mmol/L Potassium 3.7 3.5 (3.5-5.1) mmol/L Chloride 102 107 (98-107) mmol/L Carbon Dioxide 18 L 20 L (22-30) mmol/L BUN 18 16 (9-20) mg/dL Creatinine 1.09 1.01 (0.66-1.25) mg/dL Glucose 221 H 122 H (74-99) mg/dL Calcium 8.8 7.4 L (8.4-10.2) mg/dL Adrenal panel 03/26/22 03/27/22 Range/Units 11:05 09:02 Sodium 138 138 (137-145) mmol/L Potassium 3.7 3.5 (3.5-5.1) mmol/L Chloride 102 107 (98-107) mmol/L Carbon Dioxide 18 L 20 L (22-30) mmol/L BUN 18 16 (9-20) mg/dL Creatinine 1.09 1.01 (0.66-1.25) mg/dL Glucose 221 H 122 H (74-99) mg/dL Calcium 8.8 7.4 L (8.4-10.2) mg/dL Total Bilirubin 2.3 H 1.0 (0.2-1.3) mg/dL AST 50 31 (17-59) U/L ALT 59 H 34 (4-49) U/L Alkaline Phosphatase 114 95 (38-126) U/L Total Protein 6.8 5.5 L (6.3-8.2) g/dL Albumin 4.2 3.1 L (3.5-5.0) g/dL Assessment and Plan (1) Mastoiditis of right side Current Visit: Yes Status: Acute Code(s): H70.91 - UNSPECIFIED MASTOIDITIS, RIGHT EAR SNOMED Code(s): 5279072488665205 (2) Acute otitis media Current Visit: Yes Status: Acute Code(s): H66.90 - OTITIS MEDIA, UNSPECIFIED, UNSPECIFIED EAR SNOMED Code(s): 7362627 Plan: This patient has meningitis which appears to be from otologic etiology. The right ear has mastoiditis along with a acute otitis media. I'm recommending a temporal bone computed tomography scan along with a right myringotomy and tube placement. I discussed this with the family and a consent has been obtained along with explanation of all risks, benefits and alternative therapies. All questions were answered. We will do this at bedside. Anticipate scheduling is in the afternoon once the OR crew is available. Time with Patient: Greater than 30
--- NOTE | 2022-03-27 10:24 | XR ---
EXAMINATION TYPE: XR chest 1V portable DATE OF EXAM: 03/27/2022 COMPARISON: Chest x-ray 03/27/2022 HISTORY: Status post right jugular central venous catheter placement TECHNIQUE: Single frontal view of the chest is obtained. FINDINGS: There is been interval placement of a right jugular central venous catheter, distal tip is within the right atrium. No evident pneumothorax. Lung lines are low and the patient is rotated. No other significant interval change. IMPRESSION: No evident complication status post central venous catheter placement. Tip of the right jugular central venous catheters within the right atrium.
--- NOTE | 2022-03-27 10:28 | P.PN ---
Subjective Progress Note Date: 03/27/22 Patient CSF analysis came back and he was found to have elevated proteins low glucose levels and elevated WBC consistent with bacterial meningitis. Patient currently is intubated and sedated. He is otherwise hemodynamically stable. Objective - Vital Signs Vital signs: Vital Signs Temp 99.6 F 03/27/22 08:00 Pulse 96 03/27/22 10:00 Resp 24 03/27/22 10:00 BP 127/77 03/27/22 10:00 Pulse Ox 98 03/27/22 10:00 FiO2 45 03/27/22 10:00 Intake & Output 03/26/22 03/27/22 03/27/22 18:59 06:59 18:59 Intake Total 6366.878 1878.096 345.979 Output Total 380 820 170 Balance 104.754 3561.096 175.979 Weight 102.058 kg 100.9 kg Intake: IV 1121 1900 100 Sodium Chloride 0.9% 1, 520 1300 000 ml @ 130 mls/hr IV . Q7H42M [facility] Rx#:[id number] Vancomycin 1,750 mg In 501 500 Sodium Chloride 0.9% 500 ml 500 ml @ 167 mls/hr IVPB Q12H [facility] Rx#: [id number] metroNIDAZOLE-NS PMX 500 100 100 100 mg In Saline 1 100ml.bag @ 100 mls/hr IVPB Q8H [facility] Rx#:[id number] Intake, IV Titration 7.858 1391.096 230.979 Amount Sodium Chloride 0.9% 1, 180 000 ml @ 130 mls/hr IV . Q7H42M [facility] Rx#:[id number] Sulfamethox-Tmp 80-16Mg/ 500 ml 510 mg In Dextrose 5% in Water 500 ml @ 333.33 mls/hr IVPB Q8H [facility] Rx#: [id number] Vancomycin 1,750 mg In 500 Sodium Chloride 0.9% 500 ml 500 ml @ 167 mls/hr IVPB Q12H [facility] Rx#: [id number] cefTRIAXone 2 gm In 50 Sodium Chloride 0.9% 50 ml @ 100 mls/hr IVPB Q12H [facility] Rx#:[id number] propofoL 1,000 mg In 7.858 341.096 50.979 Empty Bag 1 bag @ 20 MCG/ KG/MIN 12.247 mls/hr IV . Q8H10M [facility] Rx#:[id number] Other 15 Output: Urine 380 820 170 Other: Voiding Method Indwelling Catheter Indwelling Catheter ABP, PAP, CO, CI - Last Documented Arterial Blood Pressure 129/68 - Exam General examination - intubated and sedated Heart - + S1S2 no murmurs Lungs - clear for auscultation bilaterally Abdomen soft NT ND +ve BS Extremities - No edema [employer] INSTRU[employer] - unable to assess Psych - unable to assess - Labs CBC & Chem 7: 03/27/22 09:02 03/27/22 09:02 Labs: Abnormal Lab Results - Last 24 Hours (Table) 03/26/22 03/26/22 03/26/22 Range/Units 10:30 10:34 11:05 WBC 31.4 H (3.8-10.6) k/uL Hgb (13.0-17.5) gm/dL Hct (39.0-53.0) % Plt Count (150-450) k/uL Neutrophils # (1.3-7.7) k/uL Neutrophils # (Manual) 27.30 H (1.3-7.7) k/uL Lymphocytes # (Manual) 0.94 L (1.0-4.8) k/uL Monocytes # (0-1.0) k/uL Monocytes # (Manual) 3.14 H (0-1.0) k/uL ABG pCO2 (35-45) mmHg ABG pO2 (83-108) mmHg ABG O2 Saturation (94-97) % Carbon Dioxide (22-30) mmol/L Glucose (74-99) mg/dL POC Glucose (mg/dL) 197 H (70-110) mg/dL Plasma Lactic Acid Scar 6.3 H* (0.7-2.0) mmol/L Calcium (8.4-10.2) mg/dL Total Bilirubin (0.2-1.3) mg/dL ALT (4-49) U/L Troponin I (0.000-0.034) ng/mL Total Protein (6.3-8.2) g/dL Albumin (3.5-5.0) g/dL Urine Protein (Negative) Urine Glucose (UA) (Negative) Urine Ketones (Negative) Urine Blood (Negative) Urine Bacteria (None) /hpf Urine Mucus (None) /hpf CSF RBC (0-10) u/L CSF Tot Nucleated Cells (0-5) u/L CSF Glucose (40-70) mg/dL CSF Total Protein (12-60) mg/dL 03/26/22 03/26/22 03/26/22 Range/Units 11:05 11:05 11:57 WBC (3.8-10.6) k/uL Hgb (13.0-17.5) gm/dL Hct (39.0-53.0) % Plt Count (150-450) k/uL Neutrophils # (1.3-7.7) k/uL Neutrophils # (Manual) (1.3-7.7) k/uL Lymphocytes # (Manual) (1.0-4.8) k/uL Monocytes # (0-1.0) k/uL Monocytes # (Manual) (0-1.0) k/uL ABG pCO2 (35-45) mmHg ABG pO2 (83-108) mmHg ABG O2 Saturation (94-97) % Carbon Dioxide 18 L (22-30) mmol/L Glucose 221 H (74-99) mg/dL POC Glucose (mg/dL) (70-110) mg/dL Plasma Lactic Acid Scar (0.7-2.0) mmol/L Calcium (8.4-10.2) mg/dL Total Bilirubin 2.3 H (0.2-1.3) mg/dL ALT 59 H (4-49) U/L Troponin I 0.330 H* (0.000-0.034) ng/mL Total Protein (6.3-8.2) g/dL Albumin (3.5-5.0) g/dL Urine Protein 2+ H (Negative) Urine Glucose (UA) 3+ H (Negative) Urine Ketones 1+ H (Negative) Urine Blood Large H (Negative) Urine Bacteria Rare H (None) /hpf Urine Mucus Moderate H (None) /hpf CSF RBC (0-10) u/L CSF Tot Nucleated Cells (0-5) u/L CSF Glucose (40-70) mg/dL CSF Total Protein (12-60) mg/dL 03/26/22 03/26/22 03/26/22 Range/Units 13:55 14:04 14:13 WBC (3.8-10.6) k/uL Hgb (13.0-17.5) gm/dL Hct (39.0-53.0) % Plt Count (150-450) k/uL Neutrophils # (1.3-7.7) k/uL Neutrophils # (Manual) (1.3-7.7) k/uL Lymphocytes # (Manual) (1.0-4.8) k/uL Monocytes # (0-1.0) k/uL Monocytes # (Manual) (0-1.0) k/uL ABG pCO2 (35-45) mmHg ABG pO2 384 H (83-108) mmHg ABG O2 Saturation 100.0 H (94-97) % Carbon Dioxide (22-30) mmol/L Glucose (74-99) mg/dL POC Glucose (mg/dL) (70-110) mg/dL Plasma Lactic Acid Scar 2.7 H* (0.7-2.0) mmol/L Calcium (8.4-10.2) mg/dL Total Bilirubin (0.2-1.3) mg/dL ALT (4-49) U/L Troponin I (0.000-0.034) ng/mL Total Protein (6.3-8.2) g/dL Albumin (3.5-5.0) g/dL Urine Protein (Negative) Urine Glucose (UA) (Negative) Urine Ketones (Negative) Urine Blood (Negative) Urine Bacteria (None) /hpf Urine Mucus (None) /hpf CSF RBC 1750 H (0-10) u/L CSF Tot Nucleated Cells 95095 H* (0-5) u/L CSF Glucose <20 L* (40-70) mg/dL CSF Total Protein >600 H (12-60) mg/dL 03/26/22 03/26/22 03/26/22 Range/Units 15:11 15:14 15:18 WBC (3.8-10.6) k/uL Hgb (13.0-17.5) gm/dL Hct (39.0-53.0) % Plt Count (150-450) k/uL Neutrophils # (1.3-7.7) k/uL Neutrophils # (Manual) (1.3-7.7) k/uL Lymphocytes # (Manual) (1.0-4.8) k/uL Monocytes # (0-1.0) k/uL Monocytes # (Manual) (0-1.0) k/uL ABG pCO2 (35-45) mmHg ABG pO2 (83-108) mmHg ABG O2 Saturation (94-97) % Carbon Dioxide (22-30) mmol/L Glucose (74-99) mg/dL POC Glucose (mg/dL) 186 H 168 H (70-110) mg/dL Plasma Lactic Acid Scar (0.7-2.0) mmol/L Calcium (8.4-10.2) mg/dL Total Bilirubin (0.2-1.3) mg/dL ALT (4-49) U/L Troponin I 0.269 H* (0.000-0.034) ng/mL Total Protein (6.3-8.2) g/dL Albumin (3.5-5.0) g/dL Urine Protein (Negative) Urine Glucose (UA) (Negative) Urine Ketones (Negative) Urine Blood (Negative) Urine Bacteria (None) /hpf Urine Mucus (None) /hpf CSF RBC (0-10) u/L CSF Tot Nucleated Cells (0-5) u/L CSF Glucose (40-70) mg/dL CSF Total Protein (12-60) mg/dL 03/26/22 03/26/22 03/27/22 Range/Units 17:19 23:12 06:17 WBC (3.8-10.6) k/uL Hgb (13.0-17.5) gm/dL Hct (39.0-53.0) % Plt Count (150-450) k/uL Neutrophils # (1.3-7.7) k/uL Neutrophils # (Manual) (1.3-7.7) k/uL Lymphocytes # (Manual) (1.0-4.8) k/uL Monocytes # (0-1.0) k/uL Monocytes # (Manual) (0-1.0) k/uL ABG pCO2 34 L (35-45) mmHg ABG pO2 (83-108) mmHg ABG O2 Saturation 98.5 H (94-97) % Carbon Dioxide (22-30) mmol/L Glucose (74-99) mg/dL POC Glucose (mg/dL) 139 H (70-110) mg/dL Plasma Lactic Acid Scar (0.7-2.0) mmol/L Calcium (8.4-10.2) mg/dL Total Bilirubin (0.2-1.3) mg/dL ALT (4-49) U/L Troponin I 0.192 H* (0.000-0.034) ng/mL Total Protein (6.3-8.2) g/dL Albumin (3.5-5.0) g/dL Urine Protein (Negative) Urine Glucose (UA) (Negative) Urine Ketones (Negative) Urine Blood (Negative) Urine Bacteria (None) /hpf Urine Mucus (None) /hpf CSF RBC (0-10) u/L CSF Tot Nucleated Cells (0-5) u/L CSF Glucose (40-70) mg/dL CSF Total Protein (12-60) mg/dL 03/27/22 03/27/22 Range/Units 09:02 09:02 WBC 25.1 H (3.8-10.6) k/uL Hgb 12.2 L (13.0-17.5) gm/dL Hct 37.0 L (39.0-53.0) % Plt Count 133 L (150-450) k/uL Neutrophils # 22.4 H (1.3-7.7) k/uL Neutrophils # (Manual) (1.3-7.7) k/uL Lymphocytes # (Manual) (1.0-4.8) k/uL Monocytes # 1.3 H (0-1.0) k/uL Monocytes # (Manual) (0-1.0) k/uL ABG pCO2 (35-45) mmHg ABG pO2 (83-108) mmHg ABG O2 Saturation (94-97) % Carbon Dioxide 20 L (22-30) mmol/L Glucose 122 H (74-99) mg/dL POC Glucose (mg/dL) (70-110) mg/dL Plasma Lactic Acid Scar (0.7-2.0) mmol/L Calcium 7.4 L (8.4-10.2) mg/dL Total Bilirubin (0.2-1.3) mg/dL ALT (4-49) U/L Troponin I (0.000-0.034) ng/mL Total Protein 5.5 L (6.3-8.2) g/dL Albumin 3.1 L (3.5-5.0) g/dL Urine Protein (Negative) Urine Glucose (UA) (Negative) Urine Ketones (Negative) Urine Blood (Negative) Urine Bacteria (None) /hpf Urine Mucus (None) /hpf CSF RBC (0-10) u/L CSF Tot Nucleated Cells (0-5) u/L CSF Glucose (40-70) mg/dL CSF Total Protein (12-60) mg/dL Microbiology - Last 24 Hours (Table) 03/26/22 14:13 CSF Gram Stain - Preliminary Cerebral Spinal Fluid CSF Culture - Preliminary 03/26/22 13:15 Sputum Culture - Preliminary Sputum Assessment and Plan Assessment: Ventilator dependent respiratory failure Patient intubated in the ED for GCS score of 7 [employer] 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 Discontinue Flagyl. Infectious disease added Bactrim for Lyme disease WBC improving. Lactic acid has normalized. Blood pressure is normotensive Consult ENT for mastoiditis Lactic acidosis likely due to sepsis Resolved Elevated troponin likely due to type II CT per demand ischemia secondary to sepsis Troponin trending down Elevated bilirubin likely due to sepsis Resolved History of thromboembolic strokes Computed tomography scan showing new stroke burden on the right side concerning for embolic strokes. Patient was admitted in June 2021 for thromboembolic strokes. He was discharged on Eliquis I spoke with the patient's stepmother who states that patient has only been taking his Prilosec. Resume atorvastatin We'll start the patient on Lovenox full dose. Discussed with neurology Repeat CT head today CODE STATUS: Full code DVT prophylaxis: Lovenox Anticipated length of stay > than [address]: home A total of 50 minutes was spent on the care of this complex patient more than 50% of the time was spent in counseling and care coordination.
[2022-03-27] MEDS: CHLORHEXIDINE GLUCONATE 15 ML CUP MUCOUS MEM SCH ×2 (10:44→20:16)
[2022-03-27 10:54] LABS: Chol/HDL Ratio 1.91 Ratio; LDL Cholesterol,Calculated 35.9 mg/dL (0.0-131.0)
--- NOTE | 2022-03-27 12:00 | P.PN ---
Subjective Progress Note Date: 03/27/22 Principal diagnosis: Acute meningitis This is a 51-year-old white male brought into the ER with decreased level of consciousness. According to EMS, patient was seen vomiting multiple times then he laid on the floor, and he was unresponsive. When EMS arrived, patient was only responsive to deep painful stimuli. Patient was not following any instructions, he was brought into the ER, and as soon as he arrived, patient underwent intubation and mechanical ventilation. He underwent lumbar puncture results of which are pending. Patient received a dose of Rocephin, and I saw the patient I recommended adding vancomycin, patient is ALLERGIC to penicillin Gram stain from the lumbar puncture is pending. Not much history could be obtained from the patient because he just received succinylcholine, he is on propofol, and he is on mechanical ventilation. 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 And the new right sided mastoiditis noted. According to the ER physician that the last tube during the lumbar puncture was noted to be a bit cloudy again Gram stain is pending and workup on the spinal fluid is pending. On presentation the patient was noted to be febrile, he had elevated lactic acid of 6.3, he had leukocytosis, all consistent with a picture of sepsis. Drug screen was negative. Hemodynamically the patient was stable, did not require any pressors, COVID-19 PCR was not detected Reevaluated today on 03/27/22, patient remains in the ICU, intubated and mechanically. I saw this patient yesterday in the emergency room, and admitted the patient to the ICU with presumptive acute meningitis and respiratory failure. Patient presented with an unresponsive episode associated with fever, leukocytosis, altered mental status, elevated lactic acid, and abnormal spinal fluid on his initial lumbar puncture. Patient was placed on 3 antibiotics including ceftriaxone, vancomycin, and Bactrim. Final cultures on the spinal fluid are pending, but the spinal fluid results are consistent with acute meningitis. The Gram stain is showing many polymorphonuclear leukocytes, the Gram stain is negative so far. The protein in the spinal fluid is over 600 and glucose less than 20, significant leukocytosis is noted with 94% noted to be PMNs. Again this is clearly a picture of acute bacterial meningitis patient was also found to have mastoiditis, and otitis media, patient was seen by ENT, and he is undergoing myringotomy today and tube placement in his right ear. As his mastoiditis is felt to be the most likely cause of his meningitis.Today the patient is on assist control rate of 24 time volume 450 FiO2 50% and PEEP of 5, ABG showed a pO2 of 89 pCO2 34 pH of 7.42. Patient is on propofol at 50 mcg/kg/m, IV fluid at 75 mL per hour in the formal 0.9 normal saline. Patient is receiving antibiotics, GI and DVT prophylaxis, and the patient is being followed by neurology and by infectious disease on the case. Patient was seen by ENT today. Objective - Vital Signs Vital signs: Vital Signs Temp 99.6 F 03/27/22 08:00 Pulse 91 03/27/22 11:00 Resp 24 03/27/22 11:00 BP 117/78 03/27/22 11:00 Pulse Ox 97 03/27/22 11:00 FiO2 45 03/27/22 11:02 Intake & Output 03/26/22 03/27/22 03/27/22 18:59 06:59 18:59 Intake Total 9956.846 3621.096 345.979 Output Total 380 820 170 Balance 523.706 2389.096 175.979 Weight 102.058 kg 100.9 kg Intake: IV 1121 1900 100 Sodium Chloride 0.9% 1, 520 1300 000 ml @ 130 mls/hr IV . Q7H42M [facility] Rx#:[id number] Vancomycin 1,750 mg In 501 500 Sodium Chloride 0.9% 500 ml 500 ml @ 167 mls/hr IVPB Q12H [facility] Rx#: [id number] metroNIDAZOLE-NS PMX 500 100 100 100 mg In Saline 1 100ml.bag @ 100 mls/hr IVPB Q8H [facility] Rx#:[id number] Intake, IV Titration 7.858 1391.096 230.979 Amount Sodium Chloride 0.9% 1, 180 000 ml @ 130 mls/hr IV . Q7H42M [facility] Rx#:[id number] Sulfamethox-Tmp 80-16Mg/ 500 ml 510 mg In Dextrose 5% in Water 500 ml @ 333.33 mls/hr IVPB Q8H [facility] Rx#: [id number] Vancomycin 1,750 mg In 500 Sodium Chloride 0.9% 500 ml 500 ml @ 167 mls/hr IVPB Q12H [facility] Rx#: [id number] cefTRIAXone 2 gm In 50 Sodium Chloride 0.9% 50 ml @ 100 mls/hr IVPB Q12H [facility] Rx#:[id number] propofoL 1,000 mg In 7.858 341.096 50.979 Empty Bag 1 bag @ 20 MCG/ KG/MIN 12.247 mls/hr IV . Q8H10M [facility] Rx#:[id number] Other 15 Output: Urine 380 820 170 Other: Voiding Method Indwelling Catheter Indwelling Catheter ABP, PAP, CO, CI - Last Documented Arterial Blood Pressure 119/69 - Exam Revealed a 51-year-old white male intubated, mechanically ventilated, sedated with propofol ENT: Neck is soft and supple. Endotracheal tube is intact, orogastric tube is intact. EYES: The sclera were anicteric and conjunctiva were pink and moist. PULMONARY: Symmetrical chest expansion, clear breath sound bilaterally no crackles or rhonchi or wheezes. CARDIOVASCULAR: Distant S1 and S2, no S3 gallop, no murmur. ABDOMEN: Soft and nontender, no megaly, no rebound, positive bowel sounds. SKIN: No rashes, no cyanosis. NEUROLOGIC: Unable to assess, sedated on propofol. MUSCULOSKELETAL: No deformities noted., Cannot assess strength. LYMPHATICS: No significant lymphadenopathy is noted PSYCHIATRIC: Could not assess - Labs CBC & Chem 7: 03/27/22 09:02 03/27/22 09:02 Labs: Abnormal Lab Results - Last 24 Hours (Table) 03/26/22 03/26/22 03/26/22 Range/Units 11:05 11:05 11:05 WBC (3.8-10.6) k/uL Hgb (13.0-17.5) gm/dL Hct (39.0-53.0) % Plt Count (150-450) k/uL Neutrophils # (1.3-7.7) k/uL Monocytes # (0-1.0) k/uL ABG pCO2 (35-45) mmHg ABG pO2 (83-108) mmHg ABG O2 Saturation (94-97) % Carbon Dioxide 18 L (22-30) mmol/L Glucose 221 H (74-99) mg/dL POC Glucose (mg/dL) (70-110) mg/dL Plasma Lactic Acid Scar 6.3 H* (0.7-2.0) mmol/L Calcium (8.4-10.2) mg/dL Total Bilirubin 2.3 H (0.2-1.3) mg/dL ALT 59 H (4-49) U/L Troponin I 0.330 H* (0.000-0.034) ng/mL Total Protein (6.3-8.2) g/dL Albumin (3.5-5.0) g/dL HDL Cholesterol (40.00-60.00) mg/dL Urine Protein (Negative) Urine Glucose (UA) (Negative) Urine Ketones (Negative) Urine Blood (Negative) Urine Bacteria (None) /hpf Urine Mucus (None) /hpf CSF RBC (0-10) u/L CSF Tot Nucleated Cells (0-5) u/L CSF Glucose (40-70) mg/dL CSF Total Protein (12-60) mg/dL 03/26/22 03/26/22 03/26/22 Range/Units 11:57 13:55 14:04 WBC (3.8-10.6) k/uL Hgb (13.0-17.5) gm/dL Hct (39.0-53.0) % Plt Count (150-450) k/uL Neutrophils # (1.3-7.7) k/uL Monocytes # (0-1.0) k/uL ABG pCO2 (35-45) mmHg ABG pO2 384 H (83-108) mmHg ABG O2 Saturation 100.0 H (94-97) % Carbon Dioxide (22-30) mmol/L Glucose (74-99) mg/dL POC Glucose (mg/dL) (70-110) mg/dL Plasma Lactic Acid Scar 2.7 H* (0.7-2.0) mmol/L Calcium (8.4-10.2) mg/dL Total Bilirubin (0.2-1.3) mg/dL ALT (4-49) U/L Troponin I (0.000-0.034) ng/mL Total Protein (6.3-8.2) g/dL Albumin (3.5-5.0) g/dL HDL Cholesterol (40.00-60.00) mg/dL Urine Protein 2+ H (Negative) Urine Glucose (UA) 3+ H (Negative) Urine Ketones 1+ H (Negative) Urine Blood Large H (Negative) Urine Bacteria Rare H (None) /hpf Urine Mucus Moderate H (None) /hpf CSF RBC (0-10) u/L CSF Tot Nucleated Cells (0-5) u/L CSF Glucose (40-70) mg/dL CSF Total Protein (12-60) mg/dL 03/26/22 03/26/22 03/26/22 Range/Units 14:13 15:11 15:14 WBC (3.8-10.6) k/uL Hgb (13.0-17.5) gm/dL Hct (39.0-53.0) % Plt Count (150-450) k/uL Neutrophils # (1.3-7.7) k/uL Monocytes # (0-1.0) k/uL ABG pCO2 (35-45) mmHg ABG pO2 (83-108) mmHg ABG O2 Saturation (94-97) % Carbon Dioxide (22-30) mmol/L Glucose (74-99) mg/dL POC Glucose (mg/dL) 186 H 168 H (70-110) mg/dL Plasma Lactic Acid Scar (0.7-2.0) mmol/L Calcium (8.4-10.2) mg/dL Total Bilirubin (0.2-1.3) mg/dL ALT (4-49) U/L Troponin I (0.000-0.034) ng/mL Total Protein (6.3-8.2) g/dL Albumin (3.5-5.0) g/dL HDL Cholesterol (40.00-60.00) mg/dL Urine Protein (Negative) Urine Glucose (UA) (Negative) Urine Ketones (Negative) Urine Blood (Negative) Urine Bacteria (None) /hpf Urine Mucus (None) /hpf CSF RBC 1750 H (0-10) u/L CSF Tot Nucleated Cells 65881 H* (0-5) u/L CSF Glucose <20 L* (40-70) mg/dL CSF Total Protein >600 H (12-60) mg/dL 03/26/22 03/26/22 03/26/22 Range/Units 15:18 17:19 23:12 WBC (3.8-10.6) k/uL Hgb (13.0-17.5) gm/dL Hct (39.0-53.0) % Plt Count (150-450) k/uL Neutrophils # (1.3-7.7) k/uL Monocytes # (0-1.0) k/uL ABG pCO2 (35-45) mmHg ABG pO2 (83-108) mmHg ABG O2 Saturation (94-97) % Carbon Dioxide (22-30) mmol/L Glucose (74-99) mg/dL POC Glucose (mg/dL) 139 H (70-110) mg/dL Plasma Lactic Acid Scar (0.7-2.0) mmol/L Calcium (8.4-10.2) mg/dL Total Bilirubin (0.2-1.3) mg/dL ALT (4-49) U/L Troponin I 0.269 H* 0.192 H* (0.000-0.034) ng/mL Total Protein (6.3-8.2) g/dL Albumin (3.5-5.0) g/dL HDL Cholesterol (40.00-60.00) mg/dL Urine Protein (Negative) Urine Glucose (UA) (Negative) Urine Ketones (Negative) Urine Blood (Negative) Urine Bacteria (None) /hpf Urine Mucus (None) /hpf CSF RBC (0-10) u/L CSF Tot Nucleated Cells (0-5) u/L CSF Glucose (40-70) mg/dL CSF Total Protein (12-60) mg/dL 03/27/22 03/27/22 03/27/22 Range/Units 03:40 06:17 09:02 WBC 25.1 H (3.8-10.6) k/uL Hgb 12.2 L (13.0-17.5) gm/dL Hct 37.0 L (39.0-53.0) % Plt Count 133 L (150-450) k/uL Neutrophils # 22.4 H (1.3-7.7) k/uL Monocytes # 1.3 H (0-1.0) k/uL ABG pCO2 34 L (35-45) mmHg ABG pO2 (83-108) mmHg ABG O2 Saturation 98.5 H (94-97) % Carbon Dioxide (22-30) mmol/L Glucose (74-99) mg/dL POC Glucose (mg/dL) (70-110) mg/dL Plasma Lactic Acid Scar (0.7-2.0) mmol/L Calcium (8.4-10.2) mg/dL Total Bilirubin (0.2-1.3) mg/dL ALT (4-49) U/L Troponin I (0.000-0.034) ng/mL Total Protein (6.3-8.2) g/dL Albumin (3.5-5.0) g/dL HDL Cholesterol 61.70 H (40.00-60.00) mg/dL Urine Protein (Negative) Urine Glucose (UA) (Negative) Urine Ketones (Negative) Urine Blood (Negative) Urine Bacteria (None) /hpf Urine Mucus (None) /hpf CSF RBC (0-10) u/L CSF Tot Nucleated Cells (0-5) u/L CSF Glucose (40-70) mg/dL CSF Total Protein (12-60) mg/dL 03/27/22 Range/Units 09:02 WBC (3.8-10.6) k/uL Hgb (13.0-17.5) gm/dL Hct (39.0-53.0) % Plt Count (150-450) k/uL Neutrophils # (1.3-7.7) k/uL Monocytes # (0-1.0) k/uL ABG pCO2 (35-45) mmHg ABG pO2 (83-108) mmHg ABG O2 Saturation (94-97) % Carbon Dioxide 20 L (22-30) mmol/L Glucose 122 H (74-99) mg/dL POC Glucose (mg/dL) (70-110) mg/dL Plasma Lactic Acid Scar (0.7-2.0) mmol/L Calcium 7.4 L (8.4-10.2) mg/dL Total Bilirubin (0.2-1.3) mg/dL ALT (4-49) U/L Troponin I (0.000-0.034) ng/mL Total Protein 5.5 L (6.3-8.2) g/dL Albumin 3.1 L (3.5-5.0) g/dL HDL Cholesterol (40.00-60.00) mg/dL Urine Protein (Negative) Urine Glucose (UA) (Negative) Urine Ketones (Negative) Urine Blood (Negative) Urine Bacteria (None) /hpf Urine Mucus (None) /hpf CSF RBC (0-10) u/L CSF Tot Nucleated Cells (0-5) u/L CSF Glucose (40-70) mg/dL CSF Total Protein (12-60) mg/dL Microbiology - Last 24 Hours (Table) 03/26/22 14:13 CSF Gram Stain - Preliminary Cerebral Spinal Fluid CSF Culture - Preliminary 03/26/22 13:15 Sputum Culture - Preliminary Sputum Assessment and Plan Assessment: Impression: Acute hypoxic respiratory failure, secondary to acute meningitis Acute mastoiditis as noted on CT of the brain. Being addressed by ENT today. History of CVA with abnormal CT of the brain, multiple previous infarcts noted. History of COVID-19 pneumonia back in June of 2021. Recommendation: Continue present ventilatory support Continue antibiotics including Rocephin, vancomycin, and Bactrim, cultures from the spinal fluid are pending, they seem to be negative so far Continue isolation for meningitis. Discussed the patient's condition with ENT on the case. Planning to placement in the right ear. Tympanostomy Continue IV fluids Enteral feeding/nutrition support via orogastric tube. GI and DVT prophylaxis, we'll change Lovenox to 40 mg subcu daily Continue to monitor in the ICU. Central access and hemodynamic monitoring established. Critical care time is over 30 minutes, not including the time spent on procedures Time with Patient: Greater than 30
[2022-03-27 12:22] LABS: VDRL, Qualitative CSF Nonreactive (Nonreactive)
[2022-03-27] MEDS ORDERED: ROCURONIUM 10 MG/ML (5 ML VIAL) IV ONE (13:30)
[2022-03-27] MEDS ORDERED: MIDAZOLAM 2 MG/2 ML VIAL ONE (13:30)
[2022-03-27] MEDS ORDERED: OFLOXACIN 0.3% OPHTH DROPS 5 ML BOTTLE RIGHT EAR ONE (13:45)
--- NOTE | 2022-03-27 13:53 | P.OP ---
Date of Procedure: 03/27/22 Preoperative Diagnosis: Right-sided eustachian tube obstruction with otomastoiditis and associated meningitis Postoperative Diagnosis: Same Procedure(s) Performed: Right indirect tympanostomy and tube placement utilizing an ultraseal tube with culture and sensitivity from aspirate Anesthesia: KEYANA Surgeon: Tristan Eller Estimated Blood Loss (ml): 0 Pathology: other (Culture and sensitivity from the aspirate) Condition: stable Disposition: PACU Indications for Procedure: This patient suffering from meningitis, mastoiditis on the right and a otitis media. Tympanostomy tube placement was recommended and cultures will be taken with the aspirate removed. Operative Findings: Patient's tympanic membrane on the right was very thickened and bulging with a white purulent material from the middle ear space Description of Procedure: Patient was operated on here in the intensive care unit so we did not have to move. The right ear was visualized with a 250 mm Zeiss microscope and cerumen and epithelial debris was removed from the external auditory canal. Tympanostomy incision was made inferiorly and the purulent material was suctioned and then sent for culture and sensitivity and Gram stain. After all the purulent material was suctioned from the middle ear, an ultraseal tube was placed and the patient tolerated this well. Follow-up will be in the office after discharge. Patient had ofloxacin drops instilled. Cottonball was placed.
[2022-03-27] MEDS: IPRATROPIUM-ALBUTEROL 3 ML NEB INHALATION SCH ×4 (16:02→23:27)
--- NOTE | 2022-03-27 18:59 | CT ---
EXAMINATION TYPE: CT brain wo con DATE OF EXAM: 03/27/2022 COMPARISON: Yesterday HISTORY: R/O hydrocephalus Headache CT DLP: 1182.4 mGycm Automated exposure control for dose reduction was used. There is 4 cm irregular area of decreased attenuation in the right posterior temporal lobe. There is 2 cm hypodensity in the anterior right internal capsule. There is some enlargement of the internal ho rn right lateral ventricle. No midline shift. No sign of intracranial hemorrhage. No mass effect. The calvarium is intact. There is mucosal thickening in the maxillary and ethmoid sinuses. 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 No hemorrhage.
--- NOTE | 2022-03-27 19:07 | CT ---
EXAMINATION TYPE: CT iac wo/w con DATE OF EXAM: 03/27/2022 COMPARISON: None HISTORY: mastoiditis, otogenic meningitis, CT DLP: 685 mGycm Automated exposure control for dose reduction was used. CONTRAST: Performed with IV Contrast, patient injected with 90 mL of Isovue 300. Images obtained from the skull base to the third ventricle with the IV contrast. There is extensive mucosal thickening in the maxillary and ethmoid and frontal sinuses. There is opac ification of the sphenoid sinuses. There is debris in the left external auditory canal. There is significant increased density at the ri ght external auditory canal at the tympanic membrane. There is some mucosal thickening in the right s teresa middle ear cavity at the tympanic recess. There is more normal aeration of the left-sided epitymp anic recess. There is very little pneumatization of the mastoid sinuses. IMPRESSION: Pansinusitis. Bilateral mastoiditis. Increased density in the right middle ear and the right external auditory canal consistent with otiti s interna and externa. Cholesteatoma should be considered. Debris in the left external auditory canal. No evidence of any significant inflammation of the left m iddle ear. Inflammatory changes are mostly new compared to CT scan of 06/16/2021.
[2022-03-27] MEDS: ATORVASTATIN 40 MG TAB PO SCH (20:16)
--- NOTE | 2022-03-27 21:29 | OP ---
OPERATIVE REPORT PROCEDURE PERFORMED: Placement of the right internal jugular triple-lumen catheter. PREOPERATIVE DIAGNOSES: Acute respiratory failure and acute meningitis. POSTOPERATIVE DIAGNOSES: Acute respiratory failure and acute meningitis. ANESTHESIA USED: 2 mL of 1% lidocaine. DESCRIPTION OF PROCEDURE: The patient was placed in a Trendelenburg position. The right cervical region was prepared in a sterile fashion. Drapes were applied. Then, the area behind the posterior belly of the sternocleidomastoid muscle was locally anesthetized, and using the posterior approach, the right IJ vein was easily cannulated, and a guidewire was placed. The area around the guidewire was dilated. Then, a triple-lumen catheter was inserted over the guidewire, and the guidewire was removed. Good blood flow in the 3 different ports of the triple-lumen catheter was noted. Line was secured using 3-0 silk sutures. X-ray postoperatively showed adequate placement, and no complications. MMODL / IJN: [id number] /
--- NOTE | 2022-03-27 21:32 | OP ---
OPERATIVE REPORT PROCEDURE PERFORMED: Placement of the left radial arterial line. PREOPERATIVE DIAGNOSES: Acute meningitis and respiratory failure. POSTOPERATIVE DIAGNOSES: Acute meningitis and respiratory failure. ANESTHESIA USED: None deployed. DESCRIPTION OF PROCEDURE: The left wrist was prepared in a sterile fashion, and drapes were applied. The left radial artery was palpated and cannulated, and a guidewire was placed. A Cook catheter was inserted over the guidewire, and the guidewire was removed. Good blood flow and good waveform were noted. No complications. The line was secured using 3-0 silk sutures. MMODL / IJN: [id number] /
[2022-03-27] MEDS: OFLOXACIN 0.3% OPHTH DROPS 5 ML BOTTLE RIGHT EAR SCH (21:42)
[2022-03-28] MEDS: WATER IVPB SCH ×4 (00:51→07:59)
[2022-03-28] MEDS: SULFAMETHOX TMP IVPB SCH ×4 (00:51→07:59)
[2022-03-28] MEDS: DEXTROSE 5% IVPB SCH ×4 (00:51→07:59)
[2022-03-28] MEDS: NITROGLYCERIN OINT 1 INCH/GM PACKET TOPICAL SCH ×4 (00:57→18:10)
--- NOTE | 2022-03-28 02:11 | EEG ---
ELECTROENCEPHALOGRAM REPORT PREAMBLE: This is a 51-year-old male with bacterial meningitis. This study is performed to rule out any epileptiform activity. Patient is unresponsive. EEG FINDINGS: This is a 21-channel digital EEG recorded with video component, utilizing 10/20 international system with referential and bipolar montages. Background recording starts and continues with presence of diffuse moderate amplitude slowing in 2 to 3 hertz delta, with some theta activity seen in bihemispheric region. Background does not seem to be reactive to eye opening or closing. Photic stimulation was not performed. Different stages of sleep were not seen. No focal or generalized epileptiform activity was seen. IMPRESSION: This is an abnormal EEG due to background slowing of moderate to severe degree. This is suggestive of generalized cerebral dysfunction as can be seen with toxic metabolic encephalopathy or related to diffuse structural brain abnormality. Clinical correlation is recommended. No epileptiform activity was seen. MMSONAL / ROCIO: [id number] / MTDD
[2022-03-28] MEDS: VANCOMYCIN 1,750 MG in SODIUM CHLORIDE 0.9% 500 ML 500 ML IVPB SCH ×2 (03:33→20:09)
[2022-03-28] MEDS: ACETAMINOPHEN TAB 325 MG TAB PO PRN ×3 (04:01→21:41)
[2022-03-28] MEDS: IPRATROPIUM-ALBUTEROL 3 ML NEB INHALATION SCH ×5 (04:17→21:01)
[2022-03-28 06:04] LABS: ABG Base Excess -2.1 mmol/L; ABG HCO3 23 mmol/L (21-25); ABG Oxygen Saturation 99.3 % (94-97); ABG PCO2 36 mmHg (35-45); ABG PH 7.41 (7.35-7.45); ABG PO2 121 mmHg (83-108); ABG TCO2 24 mmol/L (19-24); Allen Test Performed? Yes
[2022-03-28 06:27] LABS: African American GFR (CKD) >90 (>60 ml/min/1.73 sqM); Non-African American GFR(CKD) 80 (>60 ml/min/1.73 sqM)
[2022-03-28] MEDS: ENOXAPARIN 40 MG/0.4 ML SYRINGE SQ SCH (08:20)
[2022-03-28] MEDS: ASPIRIN 325 MG TAB PO SCH (08:20)
[2022-03-28] MEDS: PANTOPRAZOLE 40 MG/10 ML VIAL IVP SCH (08:20)
[2022-03-28] MEDS: CHLORHEXIDINE GLUCONATE 15 ML CUP MUCOUS MEM SCH ×2 (08:20→20:04)
[2022-03-28] MEDS: OFLOXACIN 0.3% OPHTH DROPS 5 ML BOTTLE RIGHT EAR SCH ×2 (08:26→20:09)
--- NOTE | 2022-03-28 08:29 | XR ---
EXAMINATION TYPE: XR chest 1V portable DATE OF EXAM: 03/28/2022 CLINICAL HISTORY: Difficulty breathing progress study. TECHNIQUE: Single AP portable semiupright view of the chest is obtained. COMPARISON: Chest x-ray from one day earlier and older studies. FINDINGS: Stable endotracheal and orogastric tubes. Stable right internal jugular central venous cat heter. Persistent low lung volumes with left greater than right bibasilar opacities. Stable mild cardiomegal y and mild interstitial edema. No pleural effusion or pneumothorax is evident. Osseous structures are intact. IMPRESSION: Low lung volumes redemonstrated. Cardiomegaly with mild interstitial edema felt present. Left greater than right bibasilar acute infiltrate and/or atelectasis. No significant change from one day earlier.
--- NOTE | 2022-03-28 10:36 | P.PN ---
Subjective Progress Note Date: 03/28/22 Patient continues to have high-grade fevers. Patient remains intubated and sedated. ENT placed a tube in his right ear. During the surgery ENT noted that there was white purulent fluid drainage. Cultures have been sent. Currently cultures from the CSF fluid is negative. Objective - Vital Signs Vital signs: Vital Signs Temp 100.6 F H 03/28/22 04:00 Pulse 96 03/28/22 07:57 Resp 15 03/28/22 07:00 BP 140/91 03/28/22 07:00 Pulse Ox 100 03/28/22 07:00 FiO2 40 03/28/22 09:58 Intake & Output 03/27/22 03/28/22 03/28/22 18:59 06:59 18:59 Intake Total 283.750 9425.513 165 Output Total 2029 2091 35 Balance -1055.000 -127.487 130 Weight 104.6 kg Intake: IV 100 1255 65 0.9 KVO 655 65 Vancomycin 1,750 mg In 500 Sodium Chloride 0.9% 500 ml 500 ml @ 167 mls/hr IVPB Q12H [facility] Rx#: [id number] metroNIDAZOLE-NS PMX 500 100 100 mg In Saline 1 100ml.bag @ 100 mls/hr IVPB Q8H [facility] Rx#:[id number] Intake, IV Titration 860.000 709.513 100 Amount Sodium Chloride 0.9% 1, 660 60 000 ml @ 130 mls/hr IV . Q7H42M [facility] Rx#:[id number] Sulfamethox-Tmp 80-16Mg/ 500 ml 510 mg In Dextrose 5% in Water 500 ml @ 333.33 mls/hr IVPB Q8H [facility] Rx#: [id number] propofoL 1,000 mg In 200.000 149.513 100 Empty Bag 1 bag @ 20 MCG/ KG/MIN 12.247 mls/hr IV . Q8H10M [facility] Rx#:[id number] Other 15 Output: Urine 2029 Other: Voiding Method Indwelling Catheter Indwelling Catheter # Bowel Movements 0 0 ABP, PAP, CO, CI - Last Documented Arterial Blood Pressure 161/84 - Exam General examination - intubated and sedated Heart - + S1S2 no murmurs Lungs - clear for auscultation bilaterally Abdomen soft NT ND +ve BS Extremities - No edema BOOK CRITIC - unable to assess Psych - unable to assess - Labs CBC & Chem 7: 03/27/22 09:02 03/28/22 05:55 Labs: Abnormal Lab Results - Last 24 Hours (Table) 03/27/22 03/28/22 Range/Units 03:40 05:53 ABG pO2 121 H (83-108) mmHg ABG O2 Saturation 99.3 H (94-97) % HDL Cholesterol 61.70 H (40.00-60.00) mg/dL Microbiology - Last 24 Hours (Table) 03/27/22 13:45 Gram Stain - Preliminary Ear - Right Wound Culture - Preliminary 03/27/22 13:45 Anaerobic Culture - Preliminary Ear - Right 03/26/22 13:15 Gram Stain - Preliminary Sputum Sputum Culture - Preliminary 03/26/22 11:25 Blood Culture - Preliminary Blood No Growth after 24 hours 03/26/22 11:25 Blood Culture - Preliminary Blood No Growth after 24 hours 03/26/22 14:13 CSF Gram Stain - Preliminary Cerebral Spinal Fluid CSF Culture - Preliminary Assessment and Plan Assessment: Ventilator dependent respiratory failure Patient intubated in the ED for GCS score of 7 [employer] management Toxic encephalopathy Sepsis on admission Bacterial meningitis likely due to mastoiditis translocation into the CSF fluid Right ear mastoiditis status post Right typmanostomy and tube placement on 03/27/2022 Lumbar puncture shows low blood glucose, elevated proteins and elevated WBC. Gram stain growing gram-positive cocci Infectious disease on board Patient on IV Rocephin and vancomycin and Bactrim WBC improving. Lactic acid has normalized. Blood pressure is normotensive Consult ENT for mastoiditis Lactic acidosis likely due to sepsis Resolved Elevated troponin likely due to type II MO per demand ischemia secondary to sepsis Troponin trending down Elevated bilirubin likely due to sepsis Resolved History of thromboembolic strokes Computed tomography scan showing new stroke burden on the right side concerning for embolic strokes. Patient was admitted in June 2021 for thromboembolic strokes. He was discharged on Eliquis I spoke with the patient's stepmother who states that patient was not taking Eliquis Resume atorvastatin We'll need to educate patient on medication compliance. Will plan to discharge patient on Eliquis CODE STATUS: Full code DVT prophylaxis: Lovenox Anticipated length of stay > than [address]: home A total of 50 minutes was spent on the care of this complex patient more than 50% of the time was spent in counseling and care coordination.
--- NOTE | 2022-03-28 10:50 | P.PN ---
Subjective Progress Note Date: 03/27/22 Patient was seen for a follow-up. Patient is intubated, sedated on propofol 50 g per program per minute. Patient was noted that he was trying to grab ET tube. He does move extremities with decrease in sedation. Patient had undergone tympanostomy tube placement right ear by ENT. There was pus. Patient currently on vancomycin, Rocephin and Bactrim. Patient's temperature was 103.6 earlier but now after surgery has improved to 98.6. No seizure-like spells. Patient's CSF showed cloudy, xanthochromic, RBC 1,750. Total nucleated cells 12,450 out of is 94% are polynuclear and 6% mononuclear cells. Glucose is < 20, total protein > 600 mg/dL. CSF VDRL nonreactive. Objective - Vital Signs Vital signs: Vital Signs Temp 98.5 F 03/27/22 16:00 Pulse 98 03/27/22 19:00 Resp 24 03/27/22 19:00 BP 134/84 03/27/22 19:00 Pulse Ox 96 03/27/22 19:00 FiO2 45 03/27/22 16:00 Intake & Output 03/27/22 03/27/22 03/28/22 06:59 18:59 06:59 Intake Total 3291.096 875.000 60 Output Total 820 2030 600 Balance 2471.096 -1155.000 -540 Weight 100.9 kg Intake: IV 1900 100 Sodium Chloride 0.9% 1, 1300 000 ml @ 130 mls/hr IV . Q7H42M [facility] Rx#:[id number] Vancomycin 1,750 mg In 500 Sodium Chloride 0.9% 500 ml 500 ml @ 167 mls/hr IVPB Q12H [facility] Rx#: [id number] metroNIDAZOLE-NS PMX 500 100 100 mg In Saline 1 100ml.bag @ 100 mls/hr IVPB Q8H [facility] Rx#:[id number] Intake, IV Titration 1391.096 760.000 60 Amount Sodium Chloride 0.9% 1, 660 60 000 ml @ 130 mls/hr IV . Q7H42M [facility] Rx#:[id number] Sulfamethox-Tmp 80-16Mg/ 500 ml 510 mg In Dextrose 5% in Water 500 ml @ 333.33 mls/hr IVPB Q8H [facility] Rx#: [id number] Vancomycin 1,750 mg In 500 Sodium Chloride 0.9% 500 ml 500 ml @ 167 mls/hr IVPB Q12H [facility] Rx#: [id number] cefTRIAXone 2 gm In 50 Sodium Chloride 0.9% 50 ml @ 100 mls/hr IVPB Q12H [facility] Rx#:[id number] propofoL 1,000 mg In 341.096 100.000 Empty Bag 1 bag @ 20 MCG/ KG/MIN 12.247 mls/hr IV . Q8H10M [facility] Rx#:[id number] Other 15 Output: Urine 820 2030 600 Other: Voiding Method Indwelling Catheter Indwelling Catheter ABP, PAP, CO, CI - Last Documented Arterial Blood Pressure 133/64 - Exam Patient is intubated, sedated. Pupils are equal, round and reacting. Tone is equal bilaterally. Other examination as mentioned above. - Labs CBC & Chem 7: 03/27/22 09:02 03/28/22 05:55 Labs: Abnormal Lab Results - Last 24 Hours (Table) 03/26/22 03/27/22 03/27/22 Range/Units 23:12 03:40 06:17 WBC (3.8-10.6) k/uL Hgb (13.0-17.5) gm/dL Hct (39.0-53.0) % Plt Count (150-450) k/uL Neutrophils # (1.3-7.7) k/uL Monocytes # (0-1.0) k/uL ABG pCO2 34 L (35-45) mmHg ABG O2 Saturation 98.5 H (94-97) % Carbon Dioxide (22-30) mmol/L Glucose (74-99) mg/dL POC Glucose (mg/dL) 139 H (70-110) mg/dL Calcium (8.4-10.2) mg/dL Total Protein (6.3-8.2) g/dL Albumin (3.5-5.0) g/dL HDL Cholesterol 61.70 H (40.00-60.00) mg/dL 03/27/22 03/27/22 Range/Units 09:02 09:02 WBC 25.1 H (3.8-10.6) k/uL Hgb 12.2 L (13.0-17.5) gm/dL Hct 37.0 L (39.0-53.0) % Plt Count 133 L (150-450) k/uL Neutrophils # 22.4 H (1.3-7.7) k/uL Monocytes # 1.3 H (0-1.0) k/uL ABG pCO2 (35-45) mmHg ABG O2 Saturation (94-97) % Carbon Dioxide 20 L (22-30) mmol/L Glucose 122 H (74-99) mg/dL POC Glucose (mg/dL) (70-110) mg/dL Calcium 7.4 L (8.4-10.2) mg/dL Total Protein 5.5 L (6.3-8.2) g/dL Albumin 3.1 L (3.5-5.0) g/dL HDL Cholesterol (40.00-60.00) mg/dL Microbiology - Last 24 Hours (Table) 03/27/22 13:45 Wound Culture - Preliminary Ear - Right 03/27/22 13:45 Anaerobic Culture - Preliminary Ear - Right 03/26/22 13:15 Gram Stain - Preliminary Sputum Sputum Culture - Preliminary 03/26/22 11:25 Blood Culture - Preliminary Blood No Growth after 24 hours 03/26/22 11:25 Blood Culture - Preliminary Blood No Growth after 24 hours 03/26/22 14:13 CSF Gram Stain - Preliminary Cerebral Spinal Fluid CSF Culture - Preliminary Assessment and Plan Assessment: * Acute meningitis, most likely bacterial from otologic source. Patient has been suffering from otitis media for last 5 days. * Pansinusitis, with mastoiditis * Right-sided eustachian tube obstruction with otomastoiditis and associated meningitis. * Status post right in direct improved ostomy tube placement 03/27/2022. * Recent history of acute ischemic stroke 06/13/2021 with Covid infection at t hat time. * Borderline diabetes Plan: * Patient on vancomycin, ceftriaxone and Bactrim has been added. ID following. CSF Gram stain and culture so far negative. White cells has improved from 31 down to 25. * Patient had undergone right-sided tympanostomy tube placement for eustachian tube obstruction. * Patient previously was prescribed Eliquis for cardioembolic stroke, but patient has been noncompliant, not taking medication. At present patient on aspirin and Lovenox subcu daily. * EEG was abnormal due to background slowing of moderate to severe degree. This is suggestive of generalized cerebral dysfunction as can be seen with toxic metabolic encephalopathy or related to diffuse structural brain abnormality. Clinical correlation is recommended. No epileptiform activity was seen. * Repeat CT head performed today is stable, with no evidence of hydrocephalus from bacterial meningitis. * CT of the internal auditory canal revealed pansinusitis, bilateral mastoiditis. Increased density in the right middle ear in the right external auditory canal, consistent with otitis internal and external. Cholesteatoma should be considered. The brace in the left external auditory canal. No e vidence of any significant inflammation of the left middle ear. * DVT prophylaxis: Lovenox 40 mg subcu daily. * Discussed with primary physician and patient's nurse in detail.
--- NOTE | 2022-03-28 11:04 | P.PN ---
Subjective Progress Note Date: 03/28/22 Principal diagnosis: Acute meningitis This is a 51-year-old white male brought into the ER with decreased level of consciousness. According to EMS, patient was seen vomiting multiple times then he laid on the floor, and he was unresponsive. When EMS arrived, patient was only responsive to deep painful stimuli. Patient was not following any instructions, he was brought into the ER, and as soon as he arrived, patient underwent intubation and mechanical ventilation. He underwent lumbar puncture results of which are pending. Patient received a dose of Rocephin, and I saw the patient I recommended adding vancomycin, patient is ALLERGIC to penicillin Gram stain from the lumbar puncture is pending. Not much history could be obtained from the patient because he just received succinylcholine, he is on propofol, and he is on mechanical ventilation. 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 And the new right sided mastoiditis noted. According to the ER physician that the last tube during the lumbar puncture was noted to be a bit cloudy again Gram stain is pending and workup on the spinal fluid is pending. On presentation the patient was noted to be febrile, he had elevated lactic acid of 6.3, he had leukocytosis, all consistent with a picture of sepsis. Drug screen was negative. Hemodynamically the patient was stable, did not require any pressors, COVID-19 PCR was not detected Reevaluated today on 03/27/22, patient remains in the ICU, intubated and mechanically. I saw this patient yesterday in the emergency room, and admitted the patient to the ICU with presumptive acute meningitis and respiratory failure. Patient presented with an unresponsive episode associated with fever, leukocytosis, altered mental status, elevated lactic acid, and abnormal spinal fluid on his initial lumbar puncture. Patient was placed on 3 antibiotics including ceftriaxone, vancomycin, and Bactrim. Final cultures on the spinal fluid are pending, but the spinal fluid results are consistent with acute meningitis. The Gram stain is showing many polymorphonuclear leukocytes, the Gram stain is negative so far. The protein in the spinal fluid is over 600 and glucose less than 20, significant leukocytosis is noted with 94% noted to be PMNs. Again this is clearly a picture of acute bacterial meningitis patient was also found to have mastoiditis, and otitis media, patient was seen by ENT, and he is undergoing myringotomy today and tube placement in his right ear. As his mastoiditis is felt to be the most likely cause of his meningitis.Today the patient is on assist control rate of 24 time volume 450 FiO2 50% and PEEP of 5, ABG showed a pO2 of 89 pCO2 34 pH of 7.42. Patient is on propofol at 50 mcg/kg/m, IV fluid at 75 mL per hour in the formal 0.9 normal saline. Patient is receiving antibiotics, GI and DVT prophylaxis, and the patient is being followed by neurology and by infectious disease on the case. Patient was seen by ENT today. Reevaluated today on 03/28/22, patient remains in the ICU, intubated and mechanically ventilated. He is on assist control rate of 24 time volume 450 FiO2 45% PEEP of 5. ABG showed a pO2 of 121 pCO2 36 pH of 7.41. Chest x-ray showed minimal left basilar atelectasis. Patient is on propofol at 50 mcg/kg/m she is also on IV fluid at 65 mL per hour. Yesterday he underwent right ear tube placement by ENT, fluid drained was apparently purulent Gram stain remains negative, cultures are pending from the fluid obtained from the right ear. Patient remains on Bactrim vancomycin and Rocephin. His FiO2 was decreased down to 40%. And I am planning today to hold propofol, I would like to assess the patient's mental status, and also assess weaning present parameters and possibly weaning if possible today. Continues to have leukocytosis with WBC count of 25.1 hemoglobin 12.2. Basic metabolic profile is normal renal profile is normal Objective - Vital Signs Vital signs: Vital Signs Temp 100.6 F H 03/28/22 04:00 Pulse 93 03/28/22 10:57 Resp 15 03/28/22 07:00 BP 140/91 03/28/22 07:00 Pulse Ox 100 03/28/22 07:00 FiO2 40 03/28/22 09:58 Intake & Output 03/27/22 03/28/22 03/28/22 18:59 06:59 18:59 Intake Total 688.108 7325.513 165 Output Total 2029 2091 35 Balance -1055.000 -127.487 130 Weight 104.6 kg Intake: IV 100 1255 65 0.9 KVO 655 65 Vancomycin 1,750 mg In 500 Sodium Chloride 0.9% 500 ml 500 ml @ 167 mls/hr IVPB Q12H [facility] Rx#: [id number] metroNIDAZOLE-NS PMX 500 100 100 mg In Saline 1 100ml.bag @ 100 mls/hr IVPB Q8H [facility] Rx#:[id number] Intake, IV Titration 860.000 709.513 100 Amount Sodium Chloride 0.9% 1, 660 60 000 ml @ 130 mls/hr IV . Q7H42M [facility] Rx#:[id number] Sulfamethox-Tmp 80-16Mg/ 500 ml 510 mg In Dextrose 5% in Water 500 ml @ 333.33 mls/hr IVPB Q8H [facility] Rx#: [id number] propofoL 1,000 mg In 200.000 149.513 100 Empty Bag 1 bag @ 20 MCG/ KG/MIN 12.247 mls/hr IV . Q8H10M [facility] Rx#:[id number] Other 15 Output: Urine 2030 2 35 Other: Voiding Method Indwelling Catheter Indwelling Catheter # Bowel Movements 0 0 ABP, PAP, CO, CI - Last Documented Arterial Blood Pressure 161/84 - Exam Physical Exam: Revealed a 51-year-old white male intubated mechanically ventilated sedated on propofol. In no distress. Head: Atraumatic, normocephalic. HEENT:[Neck is supple.] [No neck masses.] [No thyromegaly.] [No JVD.] Chest: [Clear throughout, no crackles, no rhonchi, no wheezes.] Cardiac Exam: [Normal S1 and S2, no S3 gallop, no murmur.] Abdomen: [Soft, nontender, no megaly, no rebound, no guarding, normal bowel sounds.] Extremities: [No clubbing, no edema, no cyanosis.] Neurological Exam: Could not assess well on propofol, however when patient was taken off propofol lead a was noted to be very appropriate, no gross focal deficit. Psychiatric: Normal mood, affect and seems to comprehend, patient was taken off propofol prior to weaning. Musculoskeletal: No deformities and no limitation in range of motion - Labs CBC & Chem 7: 03/27/22 09:02 03/28/22 05:55 Labs: Abnormal Lab Results - Last 24 Hours (Table) 03/28/22 Range/Units 05:53 ABG pO2 121 H (83-108) mmHg ABG O2 Saturation 99.3 H (94-97) % Microbiology - Last 24 Hours (Table) 03/27/22 13:45 Gram Stain - Preliminary Ear - Right Wound Culture - Preliminary 03/27/22 13:45 Anaerobic Culture - Preliminary Ear - Right 03/26/22 13:15 Gram Stain - Preliminary Sputum Sputum Culture - Preliminary 03/26/22 11:25 Blood Culture - Preliminary Blood No Growth after 24 hours 03/26/22 11:25 Blood Culture - Preliminary Blood No Growth after 24 hours 03/26/22 14:13 CSF Gram Stain - Preliminary Cerebral Spinal Fluid CSF Culture - Preliminary Assessment and Plan Assessment: Impression: Acute hypoxic respiratory failure, secondary to acute meningitis Acute mastoiditis as noted on CT of the brain. Status post right tympanostomy. Postoperative day #1 History of CVA with abnormal CT of the brain, multiple previous infarcts noted. History of COVID-19 pneumonia back in June of 2021. Recommendation: Continue present ventilatory support, however the patient will be taken off propofol, we'll assess mental status, and possibly assess weaning parameters, if tolerated may proceed to extubating the patient. Continue antibiotics including Rocephin, vancomycin, and Bactrim, cultures from the spinal fluid are pending, they seem to be negative so far Continue isolation for meningitis. Continue IV fluids Enteral feeding/nutrition support via orogastric tube. However the patient is extubated, he was placed on liquid diet and advance as directed and as tolerated GI and DVT prophylaxis, Continue to monitor in the ICU. Even if extubated today Critical care time is over 30 minutes Time with Patient: Greater than 30
[2022-03-28] MEDS: SODIUM CHLORIDE 0.9% 1,000 ML IV SCH (11:46)
[2022-03-28 13:07] LABS: HCT 33.1 % (39.0-53.0); MCH 28.4 pg (25.0-35.0); MCHC 33.2 g/dL (31.0-37.0); MCV 85.3 fL (80.0-100.0); Mean Platelet Volume 8.9; Platelet Count 183 k/uL (150-450); RBC 3.88 m/uL (4.30-5.90); WBC 14.8 k/uL (3.8-10.6)
[2022-03-28 13:14] LABS: African American GFR (CKD) >90 (>60 ml/min/1.73 sqM); Anion Gap 11 mmol/L; Blood Urea Nitrogen 11 mg/dL (9-20); Calcium 7.5 mg/dL (8.4-10.2); Carbon Dioxide 20 mmol/L (22-30); Chloride 112 mmol/L (98-107); Glucose 131 mg/dL (74-99); Non-African American GFR(CKD) 86 (>60 ml/min/1.73 sqM); Potassium 3.1 mmol/L (3.5-5.1); Sodium 143 mmol/L (137-145)
[2022-03-28] MEDS ORDERED: Potassium Replacement Protocol 1 EACH MISC MISCELLANE PRN (13:29)
[2022-03-28] MEDS: POTASSIUM CHLORIDE 20 MEQ in WATER FOR INJECTION 1 100ML.BAG IVPB SCH ×2 (13:36→15:58)
[2022-03-28] MEDS ORDERED: VANCOMYCIN TROUGH DUE 1 EACH MISC MISCELLANE ONE (14:00)
--- NOTE | 2022-03-28 14:13 | P.PN ---
Subjective Progress Note Date: 03/27/22 Principal diagnosis: Meningitis Patient is a 51-year-old male who was brought into the ER after the patient was found to be unresponsive and did have episodes of vomiting prior to that, patient did have a significant positive CSF examination suggestive of acute bacterial meningitis, patient got intubated protect his airways. today's evaluation that is 03/27/2022, the patient overall fever pattern has improved, the patient remains to be intubated on the vent and FiO2 is currently stable, no significant purulent secretion through the ET diarrhea or any other changes reported by the nursing staff Objective - Vital Signs Vital signs: Vital Signs Temp 99.6 F 03/27/22 08:00 Pulse 91 03/27/22 11:00 Resp 24 03/27/22 11:00 BP 117/78 03/27/22 11:00 Pulse Ox 97 03/27/22 11:00 FiO2 45 03/27/22 12:00 Intake & Output 03/26/22 03/27/22 03/27/22 18:59 06:59 18:59 Intake Total 6892.867 6146.096 345.979 Output Total 380 820 170 Balance 439.890 7877.096 175.979 Weight 102.058 kg 100.9 kg Intake: IV 1121 1900 100 Sodium Chloride 0.9% 1, 520 1300 000 ml @ 130 mls/hr IV . Q7H42M [facility] Rx#:[id number] Vancomycin 1,750 mg In 501 500 Sodium Chloride 0.9% 500 ml 500 ml @ 167 mls/hr IVPB Q12H [facility] Rx#: [id number] metroNIDAZOLE-NS PMX 500 100 100 100 mg In Saline 1 100ml.bag @ 100 mls/hr IVPB Q8H [facility] Rx#:[id number] Intake, IV Titration 7.858 1391.096 230.979 Amount Sodium Chloride 0.9% 1, 180 000 ml @ 130 mls/hr IV . Q7H42M [facility] Rx#:[id number] Sulfamethox-Tmp 80-16Mg/ 500 ml 510 mg In Dextrose 5% in Water 500 ml @ 333.33 mls/hr IVPB Q8H [facility] Rx#: [id number] Vancomycin 1,750 mg In 500 Sodium Chloride 0.9% 500 ml 500 ml @ 167 mls/hr IVPB Q12H [facility] Rx#: [id number] cefTRIAXone 2 gm In 50 Sodium Chloride 0.9% 50 ml @ 100 mls/hr IVPB Q12H [facility] Rx#:[id number] propofoL 1,000 mg In 7.858 341.096 50.979 Empty Bag 1 bag @ 20 MCG/ KG/MIN 12.247 mls/hr IV . Q8H10M [facility] Rx#:[id number] Other 15 Output: Urine 380 820 170 Other: Voiding Method Indwelling Catheter Indwelling Catheter Indwelling Catheter ABP, PAP, CO, CI - Last Documented Arterial Blood Pressure 119/69 - Exam GENERAL DESCRIPTION: Middle-aged lady intubated on the vent RESPIRATORY SYSTEM: Unlabored breathing , decreased breath sounds at bases HEART: S1 S2 regular rate and rhythm , ABDOMEN: Soft , no tenderness EXTREMITIES: No edema feet - Labs CBC & Chem 7: 03/28/22 12:40 03/28/22 12:40 Labs: Abnormal Lab Results - Last 24 Hours (Table) 03/26/22 03/26/22 03/26/22 Range/Units 11:57 13:55 14:04 WBC (3.8-10.6) k/uL Hgb (13.0-17.5) gm/dL Hct (39.0-53.0) % Plt Count (150-450) k/uL Neutrophils # (1.3-7.7) k/uL Monocytes # (0-1.0) k/uL ABG pCO2 (35-45) mmHg ABG pO2 384 H (83-108) mmHg ABG O2 Saturation 100.0 H (94-97) % Carbon Dioxide (22-30) mmol/L Glucose (74-99) mg/dL POC Glucose (mg/dL) (70-110) mg/dL Plasma Lactic Acid Scar 2.7 H* (0.7-2.0) mmol/L Calcium (8.4-10.2) mg/dL Troponin I (0.000-0.034) ng/mL Total Protein (6.3-8.2) g/dL Albumin (3.5-5.0) g/dL HDL Cholesterol (40.00-60.00) mg/dL Urine Protein 2+ H (Negative) Urine Glucose (UA) 3+ H (Negative) Urine Ketones 1+ H (Negative) Urine Blood Large H (Negative) Urine Bacteria Rare H (None) /hpf Urine Mucus Moderate H (None) /hpf CSF RBC (0-10) u/L CSF Tot Nucleated Cells (0-5) u/L CSF Glucose (40-70) mg/dL CSF Total Protein (12-60) mg/dL 03/26/22 03/26/22 03/26/22 Range/Units 14:13 15:11 15:14 WBC (3.8-10.6) k/uL Hgb (13.0-17.5) gm/dL Hct (39.0-53.0) % Plt Count (150-450) k/uL Neutrophils # (1.3-7.7) k/uL Monocytes # (0-1.0) k/uL ABG pCO2 (35-45) mmHg ABG pO2 (83-108) mmHg ABG O2 Saturation (94-97) % Carbon Dioxide (22-30) mmol/L Glucose (74-99) mg/dL POC Glucose (mg/dL) 186 H 168 H (70-110) mg/dL Plasma Lactic Acid Scar (0.7-2.0) mmol/L Calcium (8.4-10.2) mg/dL Troponin I (0.000-0.034) ng/mL Total Protein (6.3-8.2) g/dL Albumin (3.5-5.0) g/dL HDL Cholesterol (40.00-60.00) mg/dL Urine Protein (Negative) Urine Glucose (UA) (Negative) Urine Ketones (Negative) Urine Blood (Negative) Urine Bacteria (None) /hpf Urine Mucus (None) /hpf CSF RBC 1750 H (0-10) u/L CSF Tot Nucleated Cells 74498 H* (0-5) u/L CSF Glucose <20 L* (40-70) mg/dL CSF Total Protein >600 H (12-60) mg/dL 03/26/22 03/26/22 03/26/22 Range/Units 15:18 17:19 23:12 WBC (3.8-10.6) k/uL Hgb (13.0-17.5) gm/dL Hct (39.0-53.0) % Plt Count (150-450) k/uL Neutrophils # (1.3-7.7) k/uL Monocytes # (0-1.0) k/uL ABG pCO2 (35-45) mmHg ABG pO2 (83-108) mmHg ABG O2 Saturation (94-97) % Carbon Dioxide (22-30) mmol/L Glucose (74-99) mg/dL POC Glucose (mg/dL) 139 H (70-110) mg/dL Plasma Lactic Acid Scar (0.7-2.0) mmol/L Calcium (8.4-10.2) mg/dL Troponin I 0.269 H* 0.192 H* (0.000-0.034) ng/mL Total Protein (6.3-8.2) g/dL Albumin (3.5-5.0) g/dL HDL Cholesterol (40.00-60.00) mg/dL Urine Protein (Negative) Urine Glucose (UA) (Negative) Urine Ketones (Negative) Urine Blood (Negative) Urine Bacteria (None) /hpf Urine Mucus (None) /hpf CSF RBC (0-10) u/L CSF Tot Nucleated Cells (0-5) u/L CSF Glucose (40-70) mg/dL CSF Total Protein (12-60) mg/dL 03/27/22 03/27/22 03/27/22 Range/Units 03:40 06:17 09:02 WBC 25.1 H (3.8-10.6) k/uL Hgb 12.2 L (13.0-17.5) gm/dL Hct 37.0 L (39.0-53.0) % Plt Count 133 L (150-450) k/uL Neutrophils # 22.4 H (1.3-7.7) k/uL Monocytes # 1.3 H (0-1.0) k/uL ABG pCO2 34 L (35-45) mmHg ABG pO2 (83-108) mmHg ABG O2 Saturation 98.5 H (94-97) % Carbon Dioxide (22-30) mmol/L Glucose (74-99) mg/dL POC Glucose (mg/dL) (70-110) mg/dL Plasma Lactic Acid Scar (0.7-2.0) mmol/L Calcium (8.4-10.2) mg/dL Troponin I (0.000-0.034) ng/mL Total Protein (6.3-8.2) g/dL Albumin (3.5-5.0) g/dL HDL Cholesterol 61.70 H (40.00-60.00) mg/dL Urine Protein (Negative) Urine Glucose (UA) (Negative) Urine Ketones (Negative) Urine Blood (Negative) Urine Bacteria (None) /hpf Urine Mucus (None) /hpf CSF RBC (0-10) u/L CSF Tot Nucleated Cells (0-5) u/L CSF Glucose (40-70) mg/dL CSF Total Protein (12-60) mg/dL 03/27/22 Range/Units 09:02 WBC (3.8-10.6) k/uL Hgb (13.0-17.5) gm/dL Hct (39.0-53.0) % Plt Count (150-450) k/uL Neutrophils # (1.3-7.7) k/uL Monocytes # (0-1.0) k/uL ABG pCO2 (35-45) mmHg ABG pO2 (83-108) mmHg ABG O2 Saturation (94-97) % Carbon Dioxide 20 L (22-30) mmol/L Glucose 122 H (74-99) mg/dL POC Glucose (mg/dL) (70-110) mg/dL Plasma Lactic Acid Scar (0.7-2.0) mmol/L Calcium 7.4 L (8.4-10.2) mg/dL Troponin I (0.000-0.034) ng/mL Total Protein 5.5 L (6.3-8.2) g/dL Albumin 3.1 L (3.5-5.0) g/dL HDL Cholesterol (40.00-60.00) mg/dL Urine Protein (Negative) Urine Glucose (UA) (Negative) Urine Ketones (Negative) Urine Blood (Negative) Urine Bacteria (None) /hpf Urine Mucus (None) /hpf CSF RBC (0-10) u/L CSF Tot Nucleated Cells (0-5) u/L CSF Glucose (40-70) mg/dL CSF Total Protein (12-60) mg/dL Microbiology - Last 24 Hours (Table) 03/26/22 14:13 CSF Gram Stain - Preliminary Cerebral Spinal Fluid CSF Culture - Preliminary 03/26/22 13:15 Sputum Culture - Preliminary Sputum Assessment and Plan (1) Meningitis Current Visit: Yes Status: Acute Code(s): G03.9 - MENINGITIS, UNSPECIFIED SNOMED Code(s): 2068630 (2) Sepsis Current Visit: Yes Status: Acute Code(s): A41.9 - SEPSIS, UNSPECIFIED ORGANISM SNOMED Code(s): 64340256 Plan: 1patient presented hospital with sepsis in this patient who did have a fever elevated white count abnormal CSF likely secondary to bacterial meningitis would be more likely strep pneumo while waiting for the cultures to be finalized. 2patient has already received antibiotic and would not qualify for steroids at this point. 3patient to to continue with Rocephin 2 g every 12, vancomycin pharmacy to dose however and Bactrim while waiting for the cultures to finalize Time with Patient: Less than 30
--- NOTE | 2022-03-28 14:16 | P.PN ---
Subjective Progress Note Date: 03/28/22 Principal diagnosis: Meningitis Patient is a 51-year-old male who was brought into the ER after the patient was found to be unresponsive and did have episodes of vomiting prior to that, patient did have a significant positive CSF examination suggestive of acute bacterial meningitis, patient got intubated protect his airways. The patient was evaluated by ENT yesterday concerning for left immediately infection CT of the left ear did show suspicious for left middle and external ear infection, The patient was extubated 03/28/2022 today's evaluation that is 03/28/2022, the patient did have low-grade fever of 100.7F this afternoon the patient is complaining of a headache and some pain to the right ear area no further drainage patient denied any nausea vomiting or diarrhea, prior to his Symptoms started, no chest pain shortness of breath or cough Objective - Vital Signs Vital signs: Vital Signs Temp 99.3 F 03/28/22 12:00 Pulse 99 03/28/22 12:00 Resp 19 03/28/22 12:00 BP 137/90 03/28/22 12:00 Pulse Ox 97 03/28/22 12:00 FiO2 35 03/28/22 10:00 Intake & Output 03/27/22 03/28/22 03/28/22 18:59 06:59 18:59 Intake Total 775.687 6897.513 165 Output Total 20292 170 Balance -1055.000 -127.487 -5 Weight 104.6 kg 105 kg Intake: IV 100 1255 65 0.9 KVO 655 65 Vancomycin 1,750 mg In 500 Sodium Chloride 0.9% 500 ml 500 ml @ 167 mls/hr IVPB Q12H [facility] Rx#: [id number] metroNIDAZOLE-NS PMX 500 100 100 mg In Saline 1 100ml.bag @ 100 mls/hr IVPB Q8H [facility] Rx#:[id number] Intake, IV Titration 860.000 709.513 100 Amount Sodium Chloride 0.9% 1, 660 60 000 ml @ 130 mls/hr IV . Q7H42M [facility] Rx#:[id number] Sulfamethox-Tmp 80-16Mg/ 500 ml 510 mg In Dextrose 5% in Water 500 ml @ 333.33 mls/hr IVPB Q8H [facility] Rx#: [id number] propofoL 1,000 mg In 200.000 149.513 100 Empty Bag 1 bag @ 20 MCG/ KG/MIN 12.247 mls/hr IV . Q8H10M [facility] Rx#:[id number] Other 15 Output: Urine 2029 2091 170 Other: Voiding Method Indwelling Catheter Indwelling Catheter Indwelling Catheter # Bowel Movements 0 0 ABP, PAP, CO, CI - Last Documented Arterial Blood Pressure 168/80 - Exam GENERAL DESCRIPTION: Middle-aged lady lying in bed in no distress RESPIRATORY SYSTEM: Unlabored breathing , decreased breath sounds at bases HEART: S1 S2 regular rate and rhythm , ABDOMEN: Soft , no tenderness EXTREMITIES: No edema feet - Labs CBC & Chem 7: 03/28/22 12:40 03/28/22 12:40 Labs: Abnormal Lab Results - Last 24 Hours (Table) 03/28/22 Range/Units 05:53 ABG pO2 121 H (83-108) mmHg ABG O2 Saturation 99.3 H (94-97) % Microbiology - Last 24 Hours (Table) 03/27/22 13:45 Gram Stain - Preliminary Ear - Right Wound Culture - Preliminary 03/27/22 13:45 Anaerobic Culture - Preliminary Ear - Right 03/26/22 13:15 Gram Stain - Preliminary Sputum Sputum Culture - Preliminary 03/26/22 11:25 Blood Culture - Preliminary Blood No Growth after 24 hours 03/26/22 11:25 Blood Culture - Preliminary Blood No Growth after 24 hours Assessment and Plan (1) Mastoiditis of right side Current Visit: Yes Status: Acute Code(s): H70.91 - UNSPECIFIED MASTOIDITIS, RIGHT EAR SNOMED Code(s): 6453971831863273 (2) Meningitis Current Visit: Yes Status: Acute Code(s): G03.9 - MENINGITIS, UNSPECIFIED SNOMED Code(s): 4229719 Plan: 1patient presented hospital with sepsis in this patient who did have a fever elevated white count abnormal CSF likely secondary to bacterial meningitis would be more likely strep pneumo while waiting for the cultures to be finalized. 2patient seemed to show some clinical improvement and has been extubated cult ure has been negative so far with concern for possible right middle ear infection the source of this meningitis it'll be less likely Listeria 3-the patient to continue with Rocephin and vancomycin awaiting for culture finalized however discontinue Bactrim with low clinical suspicious for Listeria and to decrease risk of nephrotoxicity Time with Patient: Less than 30
[2022-03-28] MEDS: HYDROmorphone 1 MG/ML 1 ML SYRINGE IVP PRN ×2 (14:54→21:25)
[2022-03-28] MEDS: ATORVASTATIN 40 MG TAB PO SCH (20:09)
[2022-03-29] MEDS: IPRATROPIUM-ALBUTEROL 3 ML NEB INHALATION SCH ×6 (00:40→20:17)
[2022-03-29] MEDS: NITROGLYCERIN OINT 1 INCH/GM PACKET TOPICAL SCH ×5 (00:51→23:40)
[2022-03-29] MEDS: HYDROmorphone 1 MG/ML 1 ML SYRINGE IVP PRN ×2 (01:27→08:16)
[2022-03-29] MEDS: SODIUM CHLORIDE 0.9% 1,000 ML IV SCH ×2 (02:57→18:07)
[2022-03-29 05:36] LABS: African American GFR (CKD) >90 (>60 ml/min/1.73 sqM); Non-African American GFR(CKD) >90 (>60 ml/min/1.73 sqM)
[2022-03-29 05:46] LABS: HCT 32.8 % (39.0-53.0); HGB 10.9 gm/dL (13.0-17.5); MCH 28.4 pg (25.0-35.0); MCHC 33.3 g/dL (31.0-37.0); MCV 85.2 fL (80.0-100.0); Mean Platelet Volume 8.5; Platelet Count 207 k/uL (150-450); RBC 3.85 m/uL (4.30-5.90); RDW 14.2 % (11.5-15.5); WBC 13.6 k/uL (3.8-10.6)
[2022-03-29 05:57] LABS: African American GFR (CKD) >90 (>60 ml/min/1.73 sqM); Anion Gap 11 mmol/L; Blood Urea Nitrogen 13 mg/dL (9-20); Calcium 7.5 mg/dL (8.4-10.2); Carbon Dioxide 20 mmol/L (22-30); Chloride 110 mmol/L (98-107); Glucose 166 mg/dL (74-99); Non-African American GFR(CKD) >90 (>60 ml/min/1.73 sqM); Potassium 3.6 mmol/L (3.5-5.1); Sodium 141 mmol/L (137-145)
[2022-03-29] MEDS ORDERED: VANCOMYCIN 1,500 MG in SODIUM CHLORIDE 0.9% 500 ML 500 ML IVPB SCH (06:00)
[2022-03-29] MEDS ORDERED: Potassium Replacement Protocol 1 EACH MISC MISCELLANE PRN (06:16)
--- NOTE | 2022-03-29 06:20 | XR ---
EXAMINATION TYPE: XR chest 1V portable DATE OF EXAM: 03/29/2022 CLINICAL HISTORY: Difficulty breathing progress study. TECHNIQUE: Single AP portable semiupright view of the chest is obtained. COMPARISON: Chest x-ray from one day earlier and older studies FINDINGS: Interval extubation with removal of endotracheal and orogastric tubes. Stable right food and beverage intern al jugular central venous catheter. Persistent low lung volumes with left greater than right bibasilar opacities. Stable cardiomegaly and mild interstitial edema. No new pleural effusion or pneumothorax is evident. Osseous structures are intact. IMPRESSION: Interval extubation. Low lung volumes redemonstrated. Cardiomegaly with mild interstitial edema redemonstrated. Left greater than right bibasilar acute infiltrate and/or atelectasis again se en. No significant change from one day earlier.
[2022-03-29] MEDS ORDERED: POTASSIUM CHLORIDE ER 20 MEQ TAB.ER PO SCH (07:00)
[2022-03-29] MEDS: VANCOMYCIN 1,750 MG in SODIUM CHLORIDE 0.9% 500 ML 500 ML IVPB SCH ×2 (08:16→19:50)
[2022-03-29] MEDS: PANTOPRAZOLE 40 MG/10 ML VIAL IVP SCH (08:16)
[2022-03-29] MEDS: ASPIRIN 325 MG TAB PO SCH (08:16)
[2022-03-29] MEDS: ENOXAPARIN 40 MG/0.4 ML SYRINGE SQ SCH (08:17)
[2022-03-29] MEDS: OFLOXACIN 0.3% OPHTH DROPS 5 ML BOTTLE RIGHT EAR SCH ×2 (08:17→19:50)
[2022-03-29] MEDS: ACETAMINOPHEN TAB 325 MG TAB PO PRN ×3 (08:24→19:49)
[2022-03-29] MEDS ORDERED: FUROSEMIDE 10 MG/ML 2 ML VIAL IV ONE (08:51)
--- NOTE | 2022-03-29 09:41 | P.PN ---
Subjective Progress Note Date: 03/29/22 Yesterday patient was extubated to nasal cannula. His O2 requirements are increasing so the quality assurance supervisor final put him on a BiPAP. Patient's sputum cultures did grow strep pneumonia. Patient was seen this morning. He states that he feels weak. He states that he does not remember anything about coming to the hospital. Objective - Vital Signs Vital signs: Vital Signs Temp 102.5 F H 03/29/22 08:00 Pulse 98 03/29/22 09:00 Resp 22 03/29/22 09:00 BP 168/95 03/29/22 09:00 Pulse Ox 81 L 03/29/22 09:00 FiO2 45 03/29/22 09:10 Intake & Output 03/28/22 03/29/22 03/29/22 18:59 06:59 18:59 Intake Total 1090 1720 915 Output Total 575 620 240 Balance 515 1100 675 Weight 105 kg 103 kg Intake: IV 340 1450 675 0.9 KVO 340 900 175 Vancomycin 1,750 mg In 500 500 Sodium Chloride 0.9% 500 ml 500 ml @ 167 mls/hr IVPB Q12H [facility] Rx#: [id number] cefTRIAXone 2 gm In 50 Sodium Chloride 0.9% 50 ml @ 100 mls/hr IVPB Q12H [facility] Rx#:[id number] Intake, IV Titration 750 Amount Potassium Chloride 20 meq 150 In Water For Injection 1 100ml.bag @ 50 mls/hr IVPB Q2H [facility] Rx#: [id number] Vancomycin 1,750 mg In 500 Sodium Chloride 0.9% 500 ml 500 ml @ 167 mls/hr IVPB Q12H [facility] Rx#: [id number] propofoL 1,000 mg In 100 Empty Bag 1 bag @ 20 MCG/ KG/MIN 12.247 mls/hr IV . 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 Psych -lethargic and somnolent - Labs CBC & Chem 7: 03/29/22 04:50 03/29/22 04:50 Labs: Abnormal Lab Results - Last 24 Hours (Table) 03/28/22 03/28/22 03/29/22 Range/Units 12:40 12:40 04:50 WBC 14.8 H 13.6 H (3.8-10.6) k/uL RBC 3.88 L 3.85 L (4.30-5.90) m/uL Hgb 11.0 L 10.9 L (13.0-17.5) gm/dL Hct 33.1 L 32.8 L (39.0-53.0) % Potassium 3.1 L (3.5-5.1) mmol/L Chloride 112 H (98-107) mmol/L Carbon Dioxide 20 L (22-30) mmol/L Glucose 131 H (74-99) mg/dL Calcium 7.5 L (8.4-10.2) mg/dL 03/29/22 Range/Units 04:50 WBC (3.8-10.6) k/uL RBC (4.30-5.90) m/uL Hgb (13.0-17.5) gm/dL Hct (39.0-53.0) % Potassium (3.5-5.1) mmol/L Chloride 110 H (98-107) mmol/L Carbon Dioxide 20 L (22-30) mmol/L Glucose 166 H (74-99) mg/dL Calcium 7.5 L (8.4-10.2) mg/dL Microbiology - Last 24 Hours (Table) 03/26/22 14:13 CSF Gram Stain - Preliminary Cerebral Spinal Fluid CSF Culture - Preliminary 03/26/22 13:15 Gram Stain - Preliminary Sputum Sputum Culture - Preliminary Streptococcus pneumoniae 03/27/22 13:45 Gram Stain - Preliminary Ear - Right Wound Culture - Preliminary 03/26/22 11:25 Blood Culture - Preliminary Blood No Growth after 48 hours 03/26/22 11:25 Blood Culture - Preliminary Blood No Growth after 48 hours Assessment and Plan Assessment: Ventilator dependent respiratory failure Streptococcus pneumonia Patient intubated in the ED for GCS score of 7. Patient extubated on 03/28/2022. Patient antibiotics as below Pulmonology on board Patient currently on BiPAP Toxic encephalopathy Sepsis on admission Bacterial meningitis likely due to mastoiditis translocation into the CSF fluid Right ear mastoiditis status post Right typmanostomy and tube placement on 03/27/2022 by ENT Lumbar puncture shows low blood glucose, elevated proteins and elevated WBC. Cultures from CSF fluid negative to date Follow up on cultures done from draining the right ear Infectious disease on board Patient on IV Rocephin and vancomycin WBC improving. Lactic acid has normalized. Blood pressure is normotensive Lactic acidosis likely due to sepsis Resolved Elevated troponin likely due to type II ME per demand ischemia secondary to sepsis Troponin trending down Elevated bilirubin likely due to sepsis Resolved History of thromboembolic strokes Computed tomography scan showing new stroke burden on the right side concerning for embolic strokes. Patient was admitted in June 2021 for thromboembolic strokes. He was discharged on Eliquis I spoke with the patient's stepmother who states that patient was not taking Eliquis Resume atorvastatin We'll need to educate patient on medication compliance. Will plan to discharge patient on Eliquis CODE STATUS: Full code DVT prophylaxis: Lovenox Anticipated length of stay > than [address]: home A total of 50 minutes was spent on the care of this complex patient more than 50% of the time was spent in counseling and care coordination.
[2022-03-29] MEDS: CHLORHEXIDINE GLUCONATE 15 ML CUP MUCOUS MEM SCH ×2 (09:50→19:50)
--- NOTE | 2022-03-29 10:44 | P.PN ---
Subjective Progress Note Date: 03/28/22 Patient was seen for a follow-up. Patient is intubated, sedated on propofol 50 g per program per minute. Patient still sedated, intubated. No change in clinical condition. He does move extremities with decrease in sedation. Patient had undergone tympanostomy tube placement right ear by ENT. There was pus. Patient currently on vancomycin, Rocephin and Bactrim. No seizure-like spells. Patient's CSF showed cloudy, xanthochromic, RBC 1,750. Total nucleated cells 12,450 out of is 94% are polynuclear and 6% mononuclear cells. Glucose is < 20, total protein > 600 mg/dL. CSF VDRL nonreactive. CSF cultures negative so far. Objective - Vital Signs Vital signs: Vital Signs Temp 102.5 F H 03/29/22 08:00 Pulse 98 03/29/22 09:00 Resp 22 03/29/22 09:00 BP 168/95 03/29/22 09:00 Pulse Ox 81 L 03/29/22 09:00 FiO2 45 03/29/22 09:10 Intake & Output 03/28/22 03/29/22 03/29/22 18:59 06:59 18:59 Intake Total 1090 1720 940 Output Total 575 620 320 Balance 515 1100 620 Weight 105 kg 103 kg Intake: IV 340 1450 700 0.9 KVO 340 900 200 Vancomycin 1,750 mg In 500 500 Sodium Chloride 0.9% 500 ml 500 ml @ 167 mls/hr IVPB Q12H [facility] Rx#: [id number] cefTRIAXone 2 gm In 50 Sodium Chloride 0.9% 50 ml @ 100 mls/hr IVPB Q12H [facility] Rx#:[id number] Intake, IV Titration 750 Amount Potassium Chloride 20 meq 150 In Water For Injection 1 100ml.bag @ 50 mls/hr IVPB Q2H [facility] Rx#: [id number] Vancomycin 1,750 mg In 500 Sodium Chloride 0.9% 500 ml 500 ml @ 167 mls/hr IVPB Q12H [facility] Rx#: [id number] propofoL 1,000 mg In 100 Empty Bag 1 bag @ 20 MCG/ KG/MIN 12.247 mls/hr IV . Q8H10M [facility] Rx#:[id number] Oral 270 240 Output: Urine 575 620 320 Other: Voiding Method Indwelling Catheter Indwelling Catheter Indwelling Catheter # Bowel Movements 0 0 0 ABP, PAP, CO, CI - Last Documented Arterial Blood Pressure 154/75 - Exam Patient is intubated, sedated. Pupils are equal, round and reacting. Tone is equal bilaterally. Other examination as mentioned above. - Labs CBC & Chem 7: 03/29/22 04:50 03/29/22 04:50 Labs: Abnormal Lab Results - Last 24 Hours (Table) 03/28/22 03/28/22 03/29/22 Range/Units 12:40 12:40 04:50 WBC 14.8 H 13.6 H (3.8-10.6) k/uL RBC 3.88 L 3.85 L (4.30-5.90) m/uL Hgb 11.0 L 10.9 L (13.0-17.5) gm/dL Hct 33.1 L 32.8 L (39.0-53.0) % Potassium 3.1 L (3.5-5.1) mmol/L Chloride 112 H (98-107) mmol/L Carbon Dioxide 20 L (22-30) mmol/L Glucose 131 H (74-99) mg/dL Calcium 7.5 L (8.4-10.2) mg/dL 03/29/22 Range/Units 04:50 WBC (3.8-10.6) k/uL RBC (4.30-5.90) m/uL Hgb (13.0-17.5) gm/dL Hct (39.0-53.0) % Potassium (3.5-5.1) mmol/L Chloride 110 H (98-107) mmol/L Carbon Dioxide 20 L (22-30) mmol/L Glucose 166 H (74-99) mg/dL Calcium 7.5 L (8.4-10.2) mg/dL Microbiology - Last 24 Hours (Table) 03/26/22 14:13 CSF Gram Stain - Preliminary Cerebral Spinal Fluid CSF Culture - Preliminary 03/26/22 13:15 Gram Stain - Preliminary Sputum Sputum Culture - Preliminary Streptococcus pneumoniae 03/27/22 13:45 Gram Stain - Preliminary Ear - Right Wound Culture - Preliminary 03/26/22 11:25 Blood Culture - Preliminary Blood No Growth after 48 hours 03/26/22 11:25 Blood Culture - Preliminary Blood No Growth after 48 hours Assessment and Plan Assessment: * Acute meningitis, most likely bacterial from otologic source. Patient has been suffering from otitis media for 5 days prior to arrival. * Pansinusitis, with mastoiditis * Right-sided eustachian tube obstruction with otomastoiditis and associated meningitis. * Status post right indirect tympanostomy and tube placement 03/27/2022. * Recent history of acute ischemic stroke 06/13/2021 with Covid infection at that time. * Borderline diabetes Plan: * Patient on vancomycin, ceftriaxone and Bactrim has been added. ID following. CSF Gram stain and culture so far negative. White cells has improved further down to 14,800. * Patient had undergone right-sided tympanostomy tube placement for eustachian tube obstruction. * Patient previously was prescribed Eliquis for cardioembolic stroke, but patient has been noncompliant, not taking medication. At present patient on aspirin and Lovenox subcu daily. * EEG was abnormal due to background slowing of moderate to severe degree. This is suggestive of generalized cerebral dysfunction as can be seen with toxic metabolic encephalopathy or related to diffuse structural brain abnormality. Clinical correlation is recommended. No epileptiform activity was seen. * Repeat CT head 03/27/2022 is stable, with no evidence of hydrocephalus from bacterial meningitis. * CT of the internal auditory canal revealed pansinusitis, bilateral mastoiditis. Increased density in the right middle ear in the right external auditory canal, consistent with otitis internal and external. Cholesteatoma should be considered. The brace in the left external auditory canal. No evidence of any significant inflammation of the left middle ear. * DVT prophylaxis: Lovenox 40 mg subcu daily.
--- NOTE | 2022-03-29 12:42 | P.PN ---
Subjective Progress Note Date: 03/29/22 Principal diagnosis: Acute meningitis This is a 51-year-old white male brought into the ER with decreased level of consciousness. According to EMS, patient was seen vomiting multiple times then he laid on the floor, and he was unresponsive. When EMS arrived, patient was only responsive to deep painful stimuli. Patient was not following any instructions, he was brought into the ER, and as soon as he arrived, patient underwent intubation and mechanical ventilation. He underwent lumbar puncture results of which are pending. Patient received a dose of Rocephin, and I saw the patient I recommended adding vancomycin, patient is ALLERGIC to penicillin Gram stain from the lumbar puncture is pending. Not much history could be obtained from the patient because he just received succinylcholine, he is on propofol, and he is on mechanical ventilation. 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 And the new right sided mastoiditis noted. According to the ER physician that the last tube during the lumbar puncture was noted to be a bit cloudy again Gram stain is pending and workup on the spinal fluid is pending. On presentation the patient was noted to be febrile, he had elevated lactic acid of 6.3, he had leukocytosis, all consistent with a picture of sepsis. Drug screen was negative. Hemodynamically the patient was stable, did not require any pressors, COVID-19 PCR was not detected Reevaluated today on 03/27/22, patient remains in the ICU, intubated and mechanically. I saw this patient yesterday in the emergency room, and admitted the patient to the ICU with presumptive acute meningitis and respiratory failure. Patient presented with an unresponsive episode associated with fever, leukocytosis, altered mental status, elevated lactic acid, and abnormal spinal fluid on his initial lumbar puncture. Patient was placed on 3 antibiotics including ceftriaxone, vancomycin, and Bactrim. Final cultures on the spinal fluid are pending, but the spinal fluid results are consistent with acute meningitis. The Gram stain is showing many polymorphonuclear leukocytes, the Gram stain is negative so far. The protein in the spinal fluid is over 600 and glucose less than 20, significant leukocytosis is noted with 94% noted to be PMNs. Again this is clearly a picture of acute bacterial meningitis patient was also found to have mastoiditis, and otitis media, patient was seen by ENT, and he is undergoing myringotomy today and tube placement in his right ear. As his mastoiditis is felt to be the most likely cause of his meningitis.Today the patient is on assist control rate of 24 time volume 450 FiO2 50% and PEEP of 5, ABG showed a pO2 of 89 pCO2 34 pH of 7.42. Patient is on propofol at 50 mcg/kg/m, IV fluid at 75 mL per hour in the formal 0.9 normal saline. Patient is receiving antibiotics, GI and DVT prophylaxis, and the patient is being followed by neurology and by infectious disease on the case. Patient was seen by ENT today. Reevaluated today on 03/28/22, patient remains in the ICU, intubated and mechanically ventilated. He is on assist control rate of 24 time volume 450 FiO2 45% PEEP of 5. ABG showed a pO2 of 121 pCO2 36 pH of 7.41. Chest x-ray showed minimal left basilar atelectasis. Patient is on propofol at 50 mcg/kg/m she is also on IV fluid at 65 mL per hour. Yesterday he underwent right ear tube placement by ENT, fluid drained was apparently purulent Gram stain remains negative, cultures are pending from the fluid obtained from the right ear. Patient remains on Bactrim vancomycin and Rocephin. His FiO2 was decreased down to 40%. And I am planning today to hold propofol, I would like to assess the patient's mental status, and also assess weaning present parameters and possibly weaning if possible today. Continues to have leukocytosis with WBC count of 25.1 hemoglobin 12.2. Basic metabolic profile is normal renal profile is normal Reevaluated today on 03/29/22, patient remains in the ICU, he was extubated yesterday, tolerated the extubation well. However the patient is not cooperating with deep coughing and deep breathing, his chest x-ray showed mostly atelectasis, low volumes, and possibly some mild interstitial edema. His O2 saturations are marginal, hence I'm recommending Lasix 20 mg IV push 1, cutting down his IV fluid to KVO, and the patient may have to go on BiPAP briefly. Cut down his pain medications, patient was getting Dilaudid for headaches. Cultures remain negative except he had a sputum culture that positive for Streptococcus pneumoniae WBC count is 13.6 hemoglobin is 10.9, basic metabolic profile and renal profile is normal Objective - Vital Signs Vital signs: Vital Signs Temp 102.5 F H 03/29/22 08:00 Pulse 82 03/29/22 11:30 Resp 12 03/29/22 11:30 BP 143/83 03/29/22 11:30 Pulse Ox 99 03/29/22 11:30 FiO2 45 03/29/22 09:10 Intake & Output 03/28/22 03/29/22 03/29/22 18:59 06:59 18:59 Intake Total 1090 1720 940 Output Total 575 620 320 Balance 515 1100 620 Weight 105 kg 103 kg Intake: IV 340 1450 700 0.9 KVO 340 900 200 Vancomycin 1,750 mg In 500 500 Sodium Chloride 0.9% 500 ml 500 ml @ 167 mls/hr IVPB Q12H [facility] Rx#: [id number] cefTRIAXone 2 gm In 50 Sodium Chloride 0.9% 50 ml @ 100 mls/hr IVPB Q12H [facility] Rx#:[id number] Intake, IV Titration 750 Amount Potassium Chloride 20 meq 150 In Water For Injection 1 100ml.bag @ 50 mls/hr IVPB Q2H [facility] Rx#: [id number] Vancomycin 1,750 mg In 500 Sodium Chloride 0.9% 500 ml 500 ml @ 167 mls/hr IVPB Q12H [facility] Rx#: [id number] propofoL 1,000 mg In 100 Empty Bag 1 bag @ 20 MCG/ KG/MIN 12.247 mls/hr IV . Q8H10M [facility] Rx#:[id number] Oral 270 240 Output: Urine 575 620 320 Other: Voiding Method Indwelling Catheter Indwelling Catheter Indwelling Catheter # Bowel Movements 0 0 0 ABP, PAP, CO, CI - Last Documented Arterial Blood Pressure 166/76 - Exam Physical Exam: Revealed a 51-year-old white male in no distress, on 6 L nasal cannula. Head: Atraumatic, normocephalic. HEENT:[Neck is supple.] [No neck masses.] [No thyromegaly.] [No JVD.] Chest: [Diminished breath sounds at the bases, crackles at the bases Cardiac Exam: [Normal S1 and S2, no S3 gallop, no murmur.] Abdomen: [Soft, nontender, no megaly, no rebound, no guarding, normal bowel sounds.] Extremities: [No clubbing, no edema, no cyanosis.] Neurological patient is appropriate, follows simple instructions, no gross focal deficit. Psychiatric: Depressed mood, flat affect, patient is rather slow and a bit lethargic Musculoskeletal: No deformities and no limitation in range of motion - Labs CBC & Chem 7: 03/29/22 04:50 03/29/22 04:50 Labs: Abnormal Lab Results - Last 24 Hours (Table) 03/28/22 03/28/22 03/29/22 Range/Units 12:40 12:40 04:50 WBC 14.8 H 13.6 H (3.8-10.6) k/uL RBC 3.88 L 3.85 L (4.30-5.90) m/uL Hgb 11.0 L 10.9 L (13.0-17.5) gm/dL Hct 33.1 L 32.8 L (39.0-53.0) % Potassium 3.1 L (3.5-5.1) mmol/L Chloride 112 H (98-107) mmol/L Carbon Dioxide 20 L (22-30) mmol/L Glucose 131 H (74-99) mg/dL Calcium 7.5 L (8.4-10.2) mg/dL 03/29/22 Range/Units 04:50 WBC (3.8-10.6) k/uL RBC (4.30-5.90) m/uL Hgb (13.0-17.5) gm/dL Hct (39.0-53.0) % Potassium (3.5-5.1) mmol/L Chloride 110 H (98-107) mmol/L Carbon Dioxide 20 L (22-30) mmol/L Glucose 166 H (74-99) mg/dL Calcium 7.5 L (8.4-10.2) mg/dL Microbiology - Last 24 Hours (Table) 03/26/22 13:15 Gram Stain - Preliminary Sputum Sputum Culture - Preliminary Streptococcus pneumoniae 03/26/22 14:13 CSF Gram Stain - Preliminary Cerebral Spinal Fluid CSF Culture - Preliminary 03/27/22 13:45 Gram Stain - Preliminary Ear - Right Wound Culture - Preliminary 03/26/22 11:25 Blood Culture - Preliminary Blood No Growth after 48 hours 03/26/22 11:25 Blood Culture - Preliminary Blood No Growth after 48 hours Assessment and Plan Assessment: Impression: Acute hypoxic respiratory failure, secondary to acute meningitis Acute mastoiditis as noted on CT of the brain. Status post right tympanostomy. Postoperative day #2 History of CVA with abnormal CT of the brain, multiple previous infarcts noted. History of COVID-19 pneumonia back in June of 2021. Possible interstitial edema, most likely secondary to fluid overload, patient received significant amount of fluids since his presentation with sepsis. And meningitis. Hence will cut down his IV fluid and we'll give a dose of Lasix 20 mg IV push 1 Recommendation: Lasix 20 mg IV push 1 Encourage incentive spirometry Titrate FiO2 accordingly Patient was extubated on 03/28/22 tolerated the extubation quite well. Continue antibiotics as per infectious disease on the case, patient has been on vancomycin and Rocephin and Bactrim Continue isolation for meningitis. Continue IV fluids however cut down to KVO. Advanced diet as tolerated GI and DVT prophylaxis, Continue to monitor in the ICU. Time with Patient: Less than 30
[2022-03-29] MEDS: hydrALAZINE HCL 10 MG TAB PO SCH ×2 (15:27→21:07)
[2022-03-29] MEDS: ATORVASTATIN 40 MG TAB PO SCH (19:49)
--- NOTE | 2022-03-29 22:44 | P.PN ---
Subjective Progress Note Date: 03/29/22 Patient was seen for a follow-up. Patient has been extubated earlier today. Patient at present is alert and awake. Patient apparently had developed some shortness of breath, therefore BiPAP has been initiated. Per nurse report, patient has been complaining of generalized weakness. Patient at present admits to having headache, which he rated 7/10 with noise sensitivity, but no light sensitivity. Patient denies any nausea vomiting. Patient is otherwise in no distress. Patient had undergone tympanostomy tube placement right ear by ENT. There was pus. Patient currently on vancomycin, Rocephin and Bactrim. No seizure-like spells. Patient's CSF showed cloudy, xanthochromic, RBC 1,750. Total nucleated cells 12,450 out of is 94% are polynuclear and 6% mononuclear cells. Glucose is < 20, total protein > 600 mg/dL. CSF VDRL nonreactive. CSF cultures negative so far. Objective - Vital Signs Vital signs: Vital Signs Temp 101.5 F H 03/29/22 12:00 Pulse 81 03/29/22 15:00 Resp 15 03/29/22 15:00 BP 151/93 03/29/22 15:00 Pulse Ox 94 L 03/29/22 15:00 FiO2 45 03/29/22 14:00 Intake & Output 03/28/22 03/29/22 03/29/22 18:59 06:59 18:59 Intake Total 1090 1720 1260 Output Total 066 194 7434 Balance 515 1100 140 Weight 105 kg 103 kg Intake: IV 340 1450 825 0.9 KVO 340 900 275 Vancomycin 1,750 mg In 500 500 Sodium Chloride 0.9% 500 ml 500 ml @ 167 mls/hr IVPB Q12H [facility] Rx#: [id number] cefTRIAXone 2 gm In 50 50 Sodium Chloride 0.9% 50 ml @ 100 mls/hr IVPB Q12H [facility] Rx#:[id number] Intake, IV Titration 750 75 Amount Potassium Chloride 20 meq 150 In Water For Injection 1 100ml.bag @ 50 mls/hr IVPB Q2H [facility] Rx#: [id number] Sodium Chloride 0.9% 1, 75 000 ml @ 25 mls/hr IV . Q24H [facility] Rx#:[id number] Vancomycin 1,750 mg In 500 Sodium Chloride 0.9% 500 ml 500 ml @ 167 mls/hr IVPB Q12H [facility] Rx#: [id number] propofoL 1,000 mg In 100 Empty Bag 1 bag @ 20 MCG/ KG/MIN 12.247 mls/hr IV . Q8H10M [facility] Rx#:[id number] Oral 270 360 Output: Urine 010 112 8860 Other: Voiding Method Indwelling Catheter Indwelling Catheter Indwelling Catheter # Bowel Movements 0 0 0 ABP, PAP, CO, CI - Last Documented Arterial Blood Pressure 146/74 - Exam Patient is a middle aged male, who is on BiPAP. Patient has been extubated. Patient is mildly encephalopathic, but otherwise alert and awake. Speech appears intact. Patient follows directions very well. Patient knows it is March 28 and that he is in [place] in [place]. His muscle strength is normal in the upper and lower extremities. Sensations are equal. Tone is normal. - Labs CBC & Chem 7: 03/29/22 04:50 03/29/22 04:50 Labs: Abnormal Lab Results - Last 24 Hours (Table) 03/29/22 03/29/22 Range/Units 04:50 04:50 WBC 13.6 H (3.8-10.6) k/uL RBC 3.85 L (4.30-5.90) m/uL Hgb 10.9 L (13.0-17.5) gm/dL Hct 32.8 L (39.0-53.0) % Chloride 110 H (98-107) mmol/L Carbon Dioxide 20 L (22-30) mmol/L Glucose 166 H (74-99) mg/dL Calcium 7.5 L (8.4-10.2) mg/dL Microbiology - Last 24 Hours (Table) 03/27/22 13:45 Anaerobic Culture - Preliminary Ear - Right 03/27/22 13:45 Gram Stain - Final Ear - Right Wound Culture - Final 03/26/22 11:25 Blood Culture - Preliminary Blood No Growth after 72 hours 03/26/22 11:25 Blood Culture - Preliminary Blood No Growth after 72 hours 03/26/22 13:15 Gram Stain - Preliminary Sputum Sputum Culture - Preliminary Streptococcus pneumoniae 03/26/22 14:13 CSF Gram Stain - Preliminary Cerebral Spinal Fluid CSF Culture - Preliminary Assessment and Plan Assessment: * Acute meningitis, most likely bacterial from otologic source. Patient has been suffering from otitis media for 5 days prior to arrival. * Pansinusitis, with mastoiditis * Right-sided eustachian tube obstruction with otomastoiditis and associated meningitis. * Status post extubation. * Status post right indirect tympanostomy and tube placement 03/27/2022. * Cephalgia, due to above. * Recent history of acute ischemic stroke 06/13/2021 with Covid infection at that time. * Borderline diabetes Plan: * Patient is extubated. Patient's mentation is normal. Examination is nonfocal. * Patient on vancomycin, ceftriaxone and Bactrim. ID following. CSF Gram stain and culture so far negative. White cells has improved further down to 13,600 * Patient had undergone right-sided tympanostomy tube placement for eustachian tube obstruction. * Patient previously was prescribed Eliquis for cardioembolic stroke. Patient's mother has mentioned that he was not taking Eliquis, home medications does not list about this medication, but patient claims that he is taking Eliquis. May resume Eliquis if no medical contraindications. At present patient on aspirin and Lovenox subcu daily. * EEG was abnormal due to background slowing of moderate to severe degree. This is suggestive of generalized cerebral dysfunction as can be seen with toxic metabolic encephalopathy or related to diffuse structural brain abnormality. Clinical correlation is recommended. No epileptiform activity was seen. * Repeat CT head 03/27/2022 is stable, with no evidence of hydrocephalus from bacterial meningitis. * CT of the internal auditory canal revealed pansinusitis, bilateral mastoiditis. Increased density in the right middle ear in the right external auditory canal, consistent with otitis internal and external. Cholesteatoma should be considered. The brace in the left external auditory canal. No evidence of any significant inflammation of the left middle ear. * DVT prophylaxis: Lovenox 40 mg subcu daily. * Dr. Emiliano Barahona Will resume neurology service in the morning.
--- NOTE | 2022-03-29 23:49 | P.PN ---
Subjective Progress Note Date: 03/29/22 Principal diagnosis: Meningitis Patient is a 51-year-old male who was brought into the ER after the patient was found to be unresponsive and did have episodes of vomiting prior to that, patient did have a significant positive CSF examination suggestive of acute bacterial meningitis, patient got intubated protect his airways. The patient was evaluated by ENT yesterday concerning for left immediately infection CT of the left ear did show suspicious for left middle and external ear infection, The patient was extubated 03/28/2022 today's evaluation that is 03/29/2022, the patient did spike a fever of 102 this morning, the patient is complaining of a headache and some pain to the right ear area however no worsening, patient denied any nausea vomiting or diarrhea, patient denies chest pain shortness of breath or cough Objective - Vital Signs Vital signs: Vital Signs Temp 101.5 F H 03/29/22 12:00 Pulse 91 03/29/22 14:00 Resp 20 03/29/22 14:00 BP 160/98 03/29/22 14:00 Pulse Ox 98 03/29/22 14:00 FiO2 45 03/29/22 14:00 Intake & Output 03/28/22 03/29/22 03/29/22 18:59 06:59 18:59 Intake Total 1090 1720 1260 Output Total 436 460 6433 Balance 515 1100 140 Weight 105 kg 103 kg Intake: IV 340 1450 825 0.9 KVO 340 900 275 Vancomycin 1,750 mg In 500 500 Sodium Chloride 0.9% 500 ml 500 ml @ 167 mls/hr IVPB Q12H [facility] Rx#: [id number] cefTRIAXone 2 gm In 50 50 Sodium Chloride 0.9% 50 ml @ 100 mls/hr IVPB Q12H [facility] Rx#:[id number] Intake, IV Titration 750 75 Amount Potassium Chloride 20 meq 150 In Water For Injection 1 100ml.bag @ 50 mls/hr IVPB Q2H [facility] Rx#: [id number] Sodium Chloride 0.9% 1, 75 000 ml @ 25 mls/hr IV . Q24H [facility] Rx#:[id number] Vancomycin 1,750 mg In 500 Sodium Chloride 0.9% 500 ml 500 ml @ 167 mls/hr IVPB Q12H [facility] Rx#: [id number] propofoL 1,000 mg In 100 Empty Bag 1 bag @ 20 MCG/ KG/MIN 12.247 mls/hr IV . Q8H10M [facility] Rx#:[id number] Oral 270 360 Output: Urine 476 680 4127 Other: Voiding Method Indwelling Catheter Indwelling Catheter Indwelling Catheter # Bowel Movements 0 0 0 ABP, PAP, CO, CI - Last Documented Arterial Blood Pressure 189/83 - Exam GENERAL DESCRIPTION: Middle-aged lady lying in bed in no distress RESPIRATORY SYSTEM: Unlabored breathing , decreased breath sounds at bases HEART: S1 S2 regular rate and rhythm , ABDOMEN: Soft , no tenderness EXTREMITIES: No edema feet - Labs CBC & Chem 7: 03/29/22 04:50 03/29/22 04:50 Labs: Abnormal Lab Results - Last 24 Hours (Table) 03/29/22 03/29/22 Range/Units 04:50 04:50 WBC 13.6 H (3.8-10.6) k/uL RBC 3.85 L (4.30-5.90) m/uL Hgb 10.9 L (13.0-17.5) gm/dL Hct 32.8 L (39.0-53.0) % Chloride 110 H (98-107) mmol/L Carbon Dioxide 20 L (22-30) mmol/L Glucose 166 H (74-99) mg/dL Calcium 7.5 L (8.4-10.2) mg/dL Microbiology - Last 24 Hours (Table) 03/27/22 13:45 Gram Stain - Final Ear - Right Wound Culture - Final 03/26/22 11:25 Blood Culture - Preliminary Blood No Growth after 72 hours 03/26/22 11:25 Blood Culture - Preliminary Blood No Growth after 72 hours 03/26/22 13:15 Gram Stain - Preliminary Sputum Sputum Culture - Preliminary Streptococcus pneumoniae 03/26/22 14:13 CSF Gram Stain - Preliminary Cerebral Spinal Fluid CSF Culture - Preliminary Assessment and Plan (1) Mastoiditis of right side Current Visit: Yes Status: Acute Code(s): H70.91 - UNSPECIFIED MASTOIDITIS, RIGHT EAR SNOMED Code(s): 5877817233146212 (2) Meningitis Current Visit: Yes Status: Acute Code(s): G03.9 - MENINGITIS, UNSPECIFIED SNOMED Code(s): 1429132 Plan: 1patient presented hospital with sepsis in this patient who did have a fever elevated white count abnormal CSF likely secondary to bacterial meningitis would be more likely strep pneumo while waiting for the cultures to be finalized. 2patient seemed to show some clinical improvement and has been extubated culture has been negative so far with concern for possible right middle ear infection the source of this meningitis it'll be less likely Listeria 3-the patient sputum is growing strep pneumo more likely the etiology of his meningitis 4patient to continue with Rocephin and vancomycin awaiting for culture finalized Time with Patient: Less than 30
[2022-03-30] MEDS ORDERED: hydrALAZINE HCL 25 MG TAB PO STA (01:00)
[2022-03-30] MEDS: ACETAMINOPHEN TAB 325 MG TAB PO PRN ×2 (03:14→19:51)
[2022-03-30] MEDS: IPRATROPIUM-ALBUTEROL 3 ML NEB INHALATION SCH ×7 (03:48→23:09)
[2022-03-30 04:59] LABS: Basophils # (A) 0.1 k/uL (0-0.2); Basophils % (A) 0 %; Eosinophils # (A) 0.3 k/uL (0-0.7); Eosinophils % (A) 2 %; HCT 32.2 % (39.0-53.0); HGB 10.6 gm/dL (13.0-17.5); Lymphocytes # (A) 1.3 k/uL (1.0-4.8); Lymphocytes % (A) 11 %; MCH 27.8 pg (25.0-35.0); MCHC 32.8 g/dL (31.0-37.0); MCV 84.8 fL (80.0-100.0); Mean Platelet Volume 9.1; Monocytes # (A) 0.8 k/uL (0-1.0); Monocytes % (A) 7 %; Neutrophils # (A) 8.4 k/uL (1.3-7.7); Neutrophils % (A) 77 %; Platelet Count 236 k/uL (150-450); RDW 14.5 % (11.5-15.5); WBC 10.9 k/uL (3.8-10.6)
[2022-03-30 05:21] LABS: African American GFR (CKD) >90 (>60 ml/min/1.73 sqM); Anion Gap 10 mmol/L; Blood Urea Nitrogen 14 mg/dL (9-20); Calcium 7.8 mg/dL (8.4-10.2); Carbon Dioxide 22 mmol/L (22-30); Chloride 107 mmol/L (98-107); Glucose 121 mg/dL (74-99); Non-African American GFR(CKD) >90 (>60 ml/min/1.73 sqM); Potassium 3.7 mmol/L (3.5-5.1); Sodium 139 mmol/L (137-145)
[2022-03-30] MEDS: NITROGLYCERIN OINT 1 INCH/GM PACKET TOPICAL SCH ×4 (05:30→23:15)
[2022-03-30] MEDS ORDERED: POTASSIUM CHLORIDE ER 20 MEQ TAB.ER PO SCH (06:00)
[2022-03-30] MEDS ORDERED: VANCOMYCIN TROUGH DUE 1 EACH MISC MISCELLANE ONE (08:00)
[2022-03-30 09:16] LABS: African American GFR (CKD) >90 (>60 ml/min/1.73 sqM); Non-African American GFR(CKD) >90 (>60 ml/min/1.73 sqM)
--- NOTE | 2022-03-30 09:50 | P.PN ---
Subjective Progress Note Date: 03/30/22 This morning patient was on nasal cannula at 5 L. He states that he is having occasional cough. He is also complaining of some head and neck pain. Patient also states that he feels as if he needs a bowel movement. Objective - Vital Signs Vital signs: Vital Signs Temp 99.7 F H 03/30/22 08:00 Pulse 77 03/30/22 09:00 Resp 27 H 03/30/22 09:00 BP 151/88 03/30/22 09:00 Pulse Ox 97 03/30/22 09:00 FiO2 45 03/29/22 16:19 Intake & Output 03/29/22 03/30/22 03/30/22 18:59 06:59 18:59 Intake Total 1410 350 50 Output Total 1746 1415 210 Balance -336 -1065 -160 Weight 104 kg Intake: IV 975 350 50 0.9 KVO 425 300 50 Vancomycin 1,750 mg In 500 Sodium Chloride 0.9% 500 ml 500 ml @ 167 mls/hr IVPB Q12H [facility] Rx#: [id number] cefTRIAXone 2 gm In 50 50 Sodium Chloride 0.9% 50 ml @ 100 mls/hr IVPB Q12H [facility] Rx#:[id number] Intake, IV Titration 75 Amount Sodium Chloride 0.9% 1, 75 000 ml @ 25 mls/hr IV . Q24H [facility] Rx#:[id number] Oral 360 Output: Urine 1745 1415 210 Stool 1 Other: Voiding Method Indwelling Catheter Indwelling Catheter # Bowel Movements 0 1 ABP, PAP, CO, CI - Last Documented Arterial Blood Pressure 198/76 - Exam General examination -AAO 3, lethargic Heart - + S1S2 no murmurs Lungs -diminished breath sounds bilaterally Abdomen soft NT ND +ve BS Extremities - No edema, generalized weakness [employer] -left-sided weakness greater to right-side. Patient states that he does have some residual left-sided weakness from his previous stroke Psych -lethargic and somnolent - Labs CBC & Chem 7: 03/30/22 04:07 03/30/22 08:48 Labs: Abnormal Lab Results - Last 24 Hours (Table) 03/30/22 03/30/22 Range/Units 04:07 04:07 WBC 10.9 H (3.8-10.6) k/uL RBC 3.80 L (4.30-5.90) m/uL Hgb 10.6 L (13.0-17.5) gm/dL Hct 32.2 L (39.0-53.0) % Neutrophils # 8.4 H (1.3-7.7) k/uL Glucose 121 H (74-99) mg/dL Calcium 7.8 L (8.4-10.2) mg/dL Microbiology - Last 24 Hours (Table) 03/26/22 14:13 CSF Gram Stain - Final Cerebral Spinal Fluid CSF Culture - Final 03/27/22 13:45 Anaerobic Culture - Preliminary Ear - Right 03/27/22 13:45 Gram Stain - Final Ear - Right Wound Culture - Final 03/26/22 11:25 Blood Culture - Preliminary Blood No Growth after 72 hours 03/26/22 11:25 Blood Culture - Preliminary Blood No Growth after 72 hours 03/26/22 13:15 Gram Stain - Preliminary Sputum Sputum Culture - Preliminary Streptococcus pneumoniae Assessment and Plan Assessment: Ventilator dependent respiratory failure Streptococcus pneumonia Mild pulmonary edema Patient intubated in the ED for GCS score of 7. Patient extubated on 03/28/2022. Patient antibiotics as below Pulmonology on board Patient currently on 5 L nasal cannula Lasix as needed per pulmonology Consult PT OT once patient is more stable Toxic encephalopathy Sepsis on admission Bacterial meningitis likely due to mastoiditis translocation into the CSF fluid Right ear mastoiditis status post Right typmanostomy and tube placement on 03/27/2022 by ENT Lumbar puncture shows low blood glucose, elevated proteins and elevated WBC. Cultures from CSF fluid negative to date Follow up on cultures done from draining the right ear Infectious disease on board Patient on IV Rocephin and Rocephin. Bactrim discontinued WBC improving. Lactic acid has normalized. 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 Patient was admitted in June 2021 for thromboembolic strokes. He was discharged on Eliquis I spoke with the patient's stepmother who states that patient was not taking Eliquis. Patient however states that he is taking his Eliquis. I will resume his Eliquis Resume atorvastatin CODE STATUS: Full code DVT prophylaxis: Resume Eliquis Anticipated length of stay: Depending on clinical course Anticipated discharge place: home
[2022-03-30] MEDS: hydrALAZINE HCL 10 MG TAB PO SCH ×3 (09:51→20:07)
[2022-03-30] MEDS: OFLOXACIN 0.3% OPHTH DROPS 5 ML BOTTLE RIGHT EAR SCH ×2 (09:51→20:06)
[2022-03-30] MEDS: VANCOMYCIN 1,750 MG in SODIUM CHLORIDE 0.9% 500 ML 500 ML IVPB SCH (09:52)
[2022-03-30] MEDS: PANTOPRAZOLE 40 MG/10 ML VIAL IVP SCH (09:52)
[2022-03-30] MEDS: KETOROLAC 15 MG/ML 1 ML VIAL IVP PRN ×2 (11:33→19:50)
--- NOTE | 2022-03-30 12:09 | P.PN ---
Subjective Progress Note Date: 03/30/22 This is a 51-year-old white male brought into the ER with decreased level of consciousness. According to EMS, patient was seen vomiting multiple times then he laid on the floor, and he was unresponsive. When EMS arrived, patient was only responsive to deep painful stimuli. Patient was not following any instructions, he was brought into the ER, and as soon as he arrived, patient underwent intubation and mechanical ventilation. He underwent lumbar puncture results of which are pending. Patient received a dose of Rocephin, and I saw the patient I recommended adding vancomycin, patient is ALLERGIC to penicillin Gram stain from the lumbar puncture is pending. Not much history could be obtained from the patient because he just received succinylcholine, he is on propofol, and he is on mechanical ventilation. 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 And the new right sided mastoiditis noted. According to the ER physician that the last tube during the lumbar puncture was noted to be a bit cloudy again Gram stain is pending and workup on the spinal fluid is pending. On presentation the patient was noted to be febrile, he had elevated lactic acid of 6.3, he had leukocytosis, all consistent with a picture of sepsis. Drug screen was negative. Hemodynamically the patient was stable, did not require any pressors, COVID-19 PCR was not detected Reevaluated today on 03/27/22, patient remains in the ICU, intubated and mechanically. I saw this patient yesterday in the emergency room, and admitted the patient to the ICU with presumptive acute meningitis and respiratory failure. Patient presented with an unresponsive episode associated with fever, leukocytosis, altered mental status, elevated lactic acid, and abnormal spinal fluid on his initial lumbar puncture. Patient was placed on 3 antibiotics including ceftriaxone, vancomycin, and Bactrim. Final cultures on the spinal fluid are pending, but the spinal fluid results are consistent with acute meningitis. The Gram stain is showing many polymorphonuclear leukocytes, the Gram stain is negative so far. The protein in the spinal fluid is over 600 and glucose less than 20, significant leukocytosis is noted with 94% noted to be PMNs. Again this is clearly a picture of acute bacterial meningitis patient was also found to have mastoiditis, and otitis media, patient was seen by ENT, and he is undergoing myringotomy today and tube placement in his right ear. As his mastoiditis is felt to be the most likely cause of his meningitis.Today the patient is on assist control rate of 24 time volume 450 FiO2 50% and PEEP of 5, ABG showed a pO2 of 89 pCO2 34 pH of 7.42. Patient is on propofol at 50 mcg/kg/m, IV fluid at 75 mL per hour in the formal 0.9 normal saline. Patient is receiving antibiotics, GI and DVT prophylaxis, and the patient is being followed by neurology and by infectious disease on the case. Patient was seen by ENT today. Reevaluated today on 03/28/22, patient remains in the ICU, intubated and mechanically ventilated. He is on assist control rate of 24 time volume 450 FiO2 45% PEEP of 5. ABG showed a pO2 of 121 pCO2 36 pH of 7.41. Chest x-ray showed minimal left basilar atelectasis. Patient is on propofol at 50 mcg/kg/m she is also on IV fluid at 65 mL per hour. Yesterday he underwent right ear tube placement by ENT, fluid drained was apparently purulent Gram stain remains negative, cultures are pending from the fluid obtained from the right ear. Patient remains on Bactrim vancomycin and Rocephin. His FiO2 was decreased down to 40%. And I am planning today to hold propofol, I would like to assess the patient's mental status, and also assess weaning present parameters and possibly weaning if possible today. Continues to have leukocytosis with WBC count of 25.1 hemoglobin 12.2. Basic metabolic profile is normal renal profile is normal Reevaluated today on 03/29/22, patient remains in the ICU, he was extubated yesterday, tolerated the extubation well. However the patient is not coop erating with deep coughing and deep breathing, his chest x-ray showed mostly atelectasis, low volumes, and possibly some mild interstitial edema. His O2 saturations are marginal, hence I'm recommending Lasix 20 mg IV push 1, cutting down his IV fluid to KVO, and the patient may have to go on BiPAP briefly. Cut down his pain medications, patient was getting Dilaudid for headaches. Cultures remain negative except he had a sputum culture that positive for Streptococcus pneumoniae WBC count is 13.6 hemoglobin is 10.9, basic metabolic profile and renal profile is normal The patient is seen today 03/30/2022 in follow-up in the intensive care unit. He is currently awake and alert. Somewhat slow to respond. He is hard of hearing. He was extubated on 03/27/2022. He is currently on 6 L high flow nasal cannula. He's been alternating with BiPAP 12/6 and 45% FiO2. 0.9 normal saline at KVO. His sputum culture was positive for streptococcal pneumonia. Cerebral spinal fluid cultures are revealing no growth. Blood cultures no growth. Ear culture from the right pending. White count 10.9. Hemoglobin 10.6. Sodium 139. Potassium 3.7. Creatinine 0.85. BUN 14. GFR greater than 90. Vancomycin trough 10.2. He remains on ceftriaxone and vancomycin. Continued on bronchodilators. Anticoagulated with a liquid. Receiving Ocuflox to the right ear. Objective - Vital Signs Vital signs: Vital Signs Temp 99.7 F H 03/30/22 08:00 Pulse 87 03/30/22 11:39 Resp 21 03/30/22 11:00 BP 146/72 03/30/22 11:00 Pulse Ox 93 L 03/30/22 11:00 FiO2 45 03/29/22 16:19 Intake & Output 03/29/22 03/30/22 03/30/22 18:59 06:59 18:59 Intake Total 1410 350 100 Output Total 1746 1415 510 Balance -336 -3268 -410 Weight 104 kg Intake: IV 975 350 100 0.9 KVO 425 300 100 Vancomycin 1,750 mg In 500 Sodium Chloride 0.9% 500 ml 500 ml @ 167 mls/hr IVPB Q12H [facility] Rx#: [id number] cefTRIAXone 2 gm In 50 50 Sodium Chloride 0.9% 50 ml @ 100 mls/hr IVPB Q12H [facility] Rx#:[id number] Intake, IV Titration 75 Amount Sodium Chloride 0.9% 1, 75 000 ml @ 25 mls/hr IV . Q24H [facility] Rx#:[id number] Oral 360 Output: Urine 1745 1415 510 Stool 1 Other: Voiding Method Indwelling Catheter Indwelling Catheter # Bowel Movements 0 1 1 ABP, PAP, CO, CI - Last Documented Arterial Blood Pressure 185/72 - Exam GENERAL EXAM: Alert, 51-year-old male patient, on 6 L nasal cannula, comfortable in no apparent distress. HEAD: Normocephalic. EYES: Normal reaction of pupils, equal size. NOSE: Clear with pink turbinates. THROAT: No erythema or exudates. NECK: No masses, no JVD. CHEST: No chest wall deformity. LUNGS: Equal air entry with no crackles, wheeze, rhonchi or dullness. CVS: S1 and S2 normal with no audible murmur, regular rhythm. ABDOMEN: No hepatosplenomegaly, normal bowel sounds, no guarding or rigidity. SPINE: No scoliosis or deformity SKIN: No rashes CENTRAL NERVOUS SYSTEM: No focal deficits, tone is normal in all 4 extremities. EXTREMITIES: There is no peripheral edema. No clubbing, no cyanosis. Peripheral pulses are intact. - Labs CBC & Chem 7: 03/30/22 04:07 03/30/22 08:48 Labs: Abnormal Lab Results - Last 24 Hours (Table) 03/30/22 03/30/22 Range/Units 04:07 04:07 WBC 10.9 H (3.8-10.6) k/uL RBC 3.80 L (4.30-5.90) m/uL Hgb 10.6 L (13.0-17.5) gm/dL Hct 32.2 L (39.0-53.0) % Neutrophils # 8.4 H (1.3-7.7) k/uL Glucose 121 H (74-99) mg/dL Calcium 7.8 L (8.4-10.2) mg/dL Microbiology - Last 24 Hours (Table) 03/26/22 14:13 CSF Gram Stain - Final Cerebral Spinal Fluid CSF Culture - Final 03/27/22 13:45 Anaerobic Culture - Preliminary Ear - Right 03/27/22 13:45 Gram Stain - Final Ear - Right Wound Culture - Final 03/26/22 11:25 Blood Culture - Preliminary Blood No Growth after 72 hours 03/26/22 11:25 Blood Culture - Preliminary Blood No Growth after 72 hours 03/26/22 13:15 Gram Stain - Preliminary Sputum Sputum Culture - Preliminary Streptococcus pneumoniae Assessment and Plan Assessment: Acute hypoxic respiratory failure, secondary to Streptococcus pneumoniae in sputum culture, acute meningitis requiring intubation on 03/26/2022. Subsequently extubated 03/27/2022. Altered mental status secondary to above, follow-up CAT scan of the brain revealed evidence of old right-sided infarct in the internal capsule and temporal lobe without change. No hemorrhage. EEG revealed moderate to severe background slowing secondary to metabolic encephalopathy. Acute mastoiditis as noted on CT of the brain. Status post right tympanostomy. Postoperative day #3 History of CVA with abnormal CT of the brain, multiple previous infarcts noted. History of COVID-19 pneumonia back in June of 2021. Hypertension Hyperlipidemia Plan: The patient was seen and evaluated Chest x-ray, labs and medications reviewed Remains on ceftriaxone and vancomycin. Continue bronchodilators. Add incentive spirometer Titrate the FiO2 as tolerated Continue to monitor closely here in the ICU We will continue to follow I have personally seen and examined the patient, performed the documentation and the assessment and plan as written. Number of minutes spent on the visit: 10.
[2022-03-30] MEDS ORDERED: VANCOMYCIN 1,750 MG in SODIUM CHLORIDE 0.9% 500 ML 500 ML IVPB SCH (18:00)
[2022-03-30] MEDS ORDERED: LABETALOL 5 MG/ML VIAL MDV IVP ONE (18:44)
[2022-03-30] MEDS: SODIUM CHLORIDE 0.9% 1,000 ML IV SCH (19:58)
[2022-03-30] MEDS: ATORVASTATIN 40 MG TAB PO SCH (20:06)
[2022-03-30] MEDS: APIXABAN 5 MG TAB PO SCH (20:06)
--- NOTE | 2022-03-30 22:57 | P.PN ---
Subjective Progress Note Date: 03/30/22 Principal diagnosis: Meningitis Patient is a 51-year-old male who was brought into the ER after the patient was found to be unresponsive and did have episodes of vomiting prior to that, patient did have a significant positive CSF examination suggestive of acute bacterial meningitis, patient got intubated protect his airways. The patient was evaluated by ENT yesterday concerning for left immediately infection CT of the left ear did show suspicious for left middle and external ear infection, The patient was extubated 03/28/2022 today's evaluation that is 03/30/2022, the patient is afebrile this morning, the patient is breathing comfortably on a 6 L nasal cannula, patient headache has slightly decreased intensity denies any chest pain no pain to the right ear no nausea and vomiting no abdominal pain or diarrhea Objective - Vital Signs Vital signs: Vital Signs Temp 99.7 F H 03/30/22 08:00 Pulse 86 03/30/22 11:28 Resp 21 03/30/22 11:00 BP 146/72 03/30/22 11:00 Pulse Ox 93 L 03/30/22 11:00 FiO2 45 03/29/22 16:19 Intake & Output 03/29/22 03/30/22 03/30/22 18:59 06:59 18:59 Intake Total 1410 350 100 Output Total 1746 1415 510 Balance -336 -1065 -410 Weight 104 kg Intake: IV 975 350 100 0.9 KVO 425 300 100 Vancomycin 1,750 mg In 500 Sodium Chloride 0.9% 500 ml 500 ml @ 167 mls/hr IVPB Q12H [facility] Rx#: [id number] cefTRIAXone 2 gm In 50 50 Sodium Chloride 0.9% 50 ml @ 100 mls/hr IVPB Q12H [facility] Rx#:[id number] Intake, IV Titration 75 Amount Sodium Chloride 0.9% 1, 75 000 ml @ 25 mls/hr IV . Q24H [facility] Rx#:[id number] Oral 360 Output: Urine 1745 1415 510 Stool 1 Other: Voiding Method Indwelling Catheter Indwelling Catheter # Bowel Movements 0 1 1 ABP, PAP, CO, CI - Last Documented Arterial Blood Pressure 198/76 - Exam GENERAL DESCRIPTION: Middle-aged lady lying in bed in no distress RESPIRATORY SYSTEM: Unlabored breathing , decreased breath sounds at bases HEART: S1 S2 regular rate and rhythm , ABDOMEN: Soft , no tenderness EXTREMITIES: No edema feet - Labs CBC & Chem 7: 03/30/22 04:07 03/30/22 08:48 Labs: Abnormal Lab Results - Last 24 Hours (Table) 03/30/22 03/30/22 Range/Units 04:07 04:07 WBC 10.9 H (3.8-10.6) k/uL RBC 3.80 L (4.30-5.90) m/uL Hgb 10.6 L (13.0-17.5) gm/dL Hct 32.2 L (39.0-53.0) % Neutrophils # 8.4 H (1.3-7.7) k/uL Glucose 121 H (74-99) mg/dL Calcium 7.8 L (8.4-10.2) mg/dL Microbiology - Last 24 Hours (Table) 03/26/22 14:13 CSF Gram Stain - Final Cerebral Spinal Fluid CSF Culture - Final 03/27/22 13:45 Anaerobic Culture - Preliminary Ear - Right 03/27/22 13:45 Gram Stain - Final Ear - Right Wound Culture - Final 03/26/22 11:25 Blood Culture - Preliminary Blood No Growth after 72 hours 03/26/22 11:25 Blood Culture - Preliminary Blood No Growth after 72 hours 03/26/22 13:15 Gram Stain - Preliminary Sputum Sputum Culture - Preliminary Streptococcus pneumoniae Assessment and Plan (1) Mastoiditis of right side Current Visit: Yes Status: Acute Code(s): H70.91 - UNSPECIFIED MASTOIDITIS, RIGHT EAR SNOMED Code(s): 0806387111582789 (2) Meningitis Current Visit: Yes Status: Acute Code(s): G03.9 - MENINGITIS, UNSPECIFIED SNOMED Code(s): 4173529 Plan: 1patient presented hospital with sepsis in this patient who did have a fever elevated white count abnormal CSF likely secondary to bacterial meningitis would be more likely strep pneumo while waiting for the cultures to be finalized. 2patient seemed to show some clinical improvement and has been extubated culture has been negative so far with concern for possible right middle ear infection the source of this meningitis it'll be less likely Listeria 3-the patient sputum is growing strep pneumo more likely the etiology of his meningitis, which is a sensitive pathogen 4patient to continue with Rocephin and we will discontinue vancomycin and monitor clinical course closely Time with Patient: Less than 30
[2022-03-31] MEDS: KETOROLAC 15 MG/ML 1 ML VIAL IVP PRN (02:45)
[2022-03-31] MEDS: IPRATROPIUM-ALBUTEROL 3 ML NEB INHALATION SCH ×6 (03:14→23:05)
[2022-03-31 05:10] LABS: Basophils # (A) 0.1 k/uL (0-0.2); Basophils % (A) 1 %; Eosinophils # (A) 0.6 k/uL (0-0.7); Eosinophils % (A) 6 %; HCT 32.5 % (39.0-53.0); HGB 10.8 gm/dL (13.0-17.5); Lymphocytes # (A) 1.1 k/uL (1.0-4.8); Lymphocytes % (A) 11 %; MCH 28.5 pg (25.0-35.0); MCHC 33.1 g/dL (31.0-37.0); Mean Platelet Volume 8.1; Monocytes # (A) 0.7 k/uL (0-1.0); Monocytes % (A) 7 %; Neutrophils # (A) 7.4 k/uL (1.3-7.7); Neutrophils % (A) 73 %; Platelet Count 273 k/uL (150-450); RBC 3.78 m/uL (4.30-5.90); RDW 14.1 % (11.5-15.5); WBC 10.1 k/uL (3.8-10.6)
[2022-03-31] MEDS: NITROGLYCERIN OINT 1 INCH/GM PACKET TOPICAL SCH ×4 (05:18→23:47)
[2022-03-31 05:19] LABS: African American GFR (CKD) >90 (>60 ml/min/1.73 sqM); Anion Gap 8 mmol/L; Blood Urea Nitrogen 18 mg/dL (9-20); Calcium 7.8 mg/dL (8.4-10.2); Carbon Dioxide 24 mmol/L (22-30); Chloride 108 mmol/L (98-107); Glucose 116 mg/dL (74-99); Non-African American GFR(CKD) >90 (>60 ml/min/1.73 sqM); Potassium 3.8 mmol/L (3.5-5.1); Sodium 140 mmol/L (137-145)
[2022-03-31] MEDS ORDERED: POTASSIUM CHLORIDE ER 20 MEQ TAB.ER PO SCH (07:00)
--- NOTE | 2022-03-31 07:56 | XR ---
EXAMINATION TYPE: XR chest 1V portable DATE OF EXAM: 03/31/2022 COMPARISON: Chest x-ray dated 03/29/2022 HISTORY: Pneumonia TECHNIQUE: Single frontal view of the chest is obtained. FINDINGS: Right jugular central venous catheter shows the distal tip in the right atrium as on prior exam. The interstitium and central vascularity are increased, patchy bilateral airspace disease is n oted. There is no evident pneumothorax or sizable effusion. Heart is enlarged. Patient may be rotated , spine shows a curvature, there is thoracic spondylosis. Arthropathy is present within the shoulders . There may be some right midlung scarring, atelectasis. IMPRESSION: Correlate for congestive heart failure, pneumonia not excluded
[2022-03-31] MEDS: PANTOPRAZOLE 40 MG/10 ML VIAL IVP SCH (08:29)
[2022-03-31] MEDS: APIXABAN 5 MG TAB PO SCH ×2 (08:30→19:58)
[2022-03-31] MEDS: hydrALAZINE HCL 10 MG TAB PO SCH ×3 (08:30→20:01)
[2022-03-31] MEDS: OFLOXACIN 0.3% OPHTH DROPS 5 ML BOTTLE RIGHT EAR SCH ×2 (08:30→20:36)
--- NOTE | 2022-03-31 11:13 | P.PN ---
Subjective Progress Note Date: 03/31/22 This is a 51-year-old white male brought into the ER with decreased level of consciousness. According to EMS, patient was seen vomiting multiple times then he laid on the floor, and he was unresponsive. When EMS arrived, patient was only responsive to deep painful stimuli. Patient was not following any instructions, he was brought into the ER, and as soon as he arrived, patient underwent intubation and mechanical ventilation. He underwent lumbar puncture results of which are pending. Patient received a dose of Rocephin, and I saw the patient I recommended adding vancomycin, patient is ALLERGIC to penicillin Gram stain from the lumbar puncture is pending. Not much history could be obtained from the patient because he just received succinylcholine, he is on propofol, and he is on mechanical ventilation. 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 And the new right sided mastoiditis noted. According to the ER physician that the last tube during the lumbar puncture was noted to be a bit cloudy again Gram stain is pending and workup on the spinal fluid is pending. On presentation the patient was noted to be febrile, he had elevated lactic acid of 6.3, he had leukocytosis, all consistent with a picture of sepsis. Drug screen was negative. Hemodynamically the patient was stable, did not require any pressors, COVID-19 PCR was not detected Reevaluated today on 03/27/22, patient remains in the ICU, intubated and mechanically. I saw this patient yesterday in the emergency room, and admitted the patient to the ICU with presumptive acute meningitis and respiratory failure. Patient presented with an unresponsive episode associated with fever, leukocytosis, altered mental status, elevated lactic acid, and abnormal spinal fluid on his initial lumbar puncture. Patient was placed on 3 antibiotics including ceftriaxone, vancomycin, and Bactrim. Final cultures on the spinal fluid are pending, but the spinal fluid results are consistent with acute meningitis. The Gram stain is showing many polymorphonuclear leukocytes, the Gram stain is negative so far. The protein in the spinal fluid is over 600 and glucose less than 20, significant leukocytosis is noted with 94% noted to be PMNs. Again this is clearly a picture of acute bacterial meningitis patient was also found to have mastoiditis, and otitis media, patient was seen by ENT, and he is undergoing myringotomy today and tube placement in his right ear. As his mastoiditis is felt to be the most likely cause of his meningitis.Today the patient is on assist control rate of 24 time volume 450 FiO2 50% and PEEP of 5, ABG showed a pO2 of 89 pCO2 34 pH of 7.42. Patient is on propofol at 50 mcg/kg/m, IV fluid at 75 mL per hour in the formal 0.9 normal saline. Patient is receiving antibiotics, GI and DVT prophylaxis, and the patient is being followed by neurology and by infectious disease on the case. Patient was seen by ENT today. Reevaluated today on 03/28/22, patient remains in the ICU, intubated and mechanically ventilated. He is on assist control rate of 24 time volume 450 FiO2 45% PEEP of 5. ABG showed a pO2 of 121 pCO2 36 pH of 7.41. Chest x-ray showed minimal left basilar atelectasis. Patient is on propofol at 50 mcg/kg/m she is also on IV fluid at 65 mL per hour. Yesterday he underwent right ear tube placement by ENT, fluid drained was apparently purulent Gram stain remains negative, cultures are pending from the fluid obtained from the right ear. Patient remains on Bactrim vancomycin and Rocephin. His FiO2 was decreased down to 40%. And I am planning today to hold propofol, I would like to assess the patient's mental status, and also assess weaning present parameters and possibly weaning if possible today. Continues to have leukocytosis with WBC count of 25.1 hemoglobin 12.2. Basic metabolic profile is normal renal profile is normal Reevaluated today on 03/29/22, patient remains in the ICU, he was extubated yesterday, tolerated the extubation well. However the patient is not coop erating with deep coughing and deep breathing, his chest x-ray showed mostly atelectasis, low volumes, and possibly some mild interstitial edema. His O2 saturations are marginal, hence I'm recommending Lasix 20 mg IV push 1, cutting down his IV fluid to KVO, and the patient may have to go on BiPAP briefly. Cut down his pain medications, patient was getting Dilaudid for headaches. Cultures remain negative except he had a sputum culture that positive for Streptococcus pneumoniae WBC count is 13.6 hemoglobin is 10.9, basic metabolic profile and renal profile is normal The patient is seen today 03/30/2022 in follow-up in the intensive care unit. He is currently awake and alert. Somewhat slow to respond. He is hard of hearing. He was extubated on 03/27/2022. He is currently on 6 L high flow nasal cannula. He's been alternating with BiPAP 12/6 and 45% FiO2. 0.9 normal saline at KVO. His sputum culture was positive for streptococcal pneumonia. Cerebral spinal fluid cultures are revealing no growth. Blood cultures no growth. Ear culture from the right pending. White count 10.9. Hemoglobin 10.6. Sodium 139. Potassium 3.7. Creatinine 0.85. BUN 14. GFR greater than 90. Vancomycin trough 10.2. He remains on ceftriaxone and vancomycin. Continued on bronchodilators. Anticoagulated with a liquid. Receiving Ocuflox to the right ear. The patient is seen today 03/31/2022 in follow-up in the intensive care unit. He remains awake and alert in no acute distress. He is maintaining good O2 saturations in the 90s on 4 L/m per nasal cannula. He has normal saline at KVO. He has not utilized the BiPAP. Chest x-ray shows right triple-lumen catheter in place. Some increased interstitial and central vascularity and some patchy bilateral airspace disease noted. Sputum culture was positive for Streptococcus pneumoniae. Cerebral spinal fluid revealed no growth. He remains on ceftriaxone. Ocuflox to the right ear. He is anticoagulated with Eliquis. Remains on bronchodilators. Objective - Vital Signs Vital signs: Vital Signs Temp 98.7 F 03/31/22 08:00 Pulse 79 03/31/22 10:00 Resp 17 03/31/22 10:00 BP 152/91 03/31/22 10:00 Pulse Ox 100 03/31/22 10:00 FiO2 45 03/29/22 16:19 Intake & Output 03/30/22 03/31/22 03/31/22 18:59 06:59 18:59 Intake Total 1825 375 25 Output Total 1305 1540 130 Balance 520 -1165 -105 Weight 104.8 kg Intake: IV 825 375 25 0.9 KVO 275 325 25 Vancomycin 1,750 mg In 500 Sodium Chloride 0.9% 500 ml 500 ml @ 167 mls/hr IVPB Q12H [facility] Rx#: [id number] cefTRIAXone 2 gm In 50 50 Sodium Chloride 0.9% 50 ml @ 100 mls/hr IVPB Q12H [facility] Rx#:[id number] Intake, IV Titration 500 Amount Vancomycin 1,750 mg In 500 Sodium Chloride 0.9% 500 ml 500 ml @ 167 mls/hr IVPB Q8H [facility] Rx#: [id number] Oral 500 Output: Urine 1305 1540 130 Other: Voiding Method Indwelling Catheter Indwelling Catheter Indwelling Catheter # Bowel Movements 1 ABP, PAP, CO, CI - Last Documented Arterial Blood Pressure 185/72 - Exam GENERAL EXAM: Alert, pleasant 51-year-old male patient, on 4 L nasal cannula, comfortable in no apparent distress. HEAD: Normocephalic. EYES: Normal reaction of pupils, equal size. NOSE: Clear with pink turbinates. THROAT: No erythema or exudates. NECK: No masses, no JVD. CHEST: No chest wall deformity. LUNGS: Equal air entry with no crackles, wheeze, rhonchi or dullness. CVS: S1 and S2 normal with no audible murmur, regular rhythm. ABDOMEN: No hepatosplenomegaly, normal bowel sounds, no guarding or rigidity. SPINE: No scoliosis or deformity SKIN: No rashes CENTRAL NERVOUS SYSTEM: No focal deficits, tone is normal in all 4 extremities. EXTREMITIES: There is no peripheral edema. No clubbing, no cyanosis. Peripheral pulses are intact. - Labs CBC & Chem 7: 03/31/22 04:44 03/31/22 04:44 Labs: Abnormal Lab Results - Last 24 Hours (Table) 03/31/22 03/31/22 Range/Units 04:44 04:44 RBC 3.78 L (4.30-5.90) m/uL Hgb 10.8 L (13.0-17.5) gm/dL Hct 32.5 L (39.0-53.0) % Chloride 108 H (98-107) mmol/L Glucose 116 H (74-99) mg/dL Calcium 7.8 L (8.4-10.2) mg/dL Microbiology - Last 24 Hours (Table) 03/26/22 11:25 Blood Culture - Preliminary Blood No Growth after 96 hours 03/26/22 11:25 Blood Culture - Preliminary Blood No Growth after 96 hours 03/26/22 13:15 Gram Stain - Final Sputum Sputum Culture - Final Streptococcus pneumoniae 03/26/22 14:13 CSF Gram Stain - Final Cerebral Spinal Fluid CSF Culture - Final Assessment and Plan Assessment: Acute hypoxic respiratory failure, secondary to Streptococcus pneumoniae in sp utum culture, acute meningitis requiring intubation on 03/26/2022. Subsequently extubated 03/27/2022. Improved and on 4 L nasal cannula. Altered mental status secondary to above, follow-up CAT scan of the brain revealed evidence of old right-sided infarct in the internal capsule and temporal lobe without change. No hemorrhage. EEG revealed moderate to severe background slowing secondary to metabolic encephalopathy. Acute mastoiditis as noted on CT of the brain. Status post right tympanostomy. Postoperative day #4 History of CVA with abnormal CT of the brain, multiple previous infarcts noted. History of COVID-19 pneumonia back in June of 2021. Hypertension Hyperlipidemia Plan: The patient was seen and evaluated Chest x-ray, labs and medications reviewed Remains on ceftriaxone Continue bronchodilators, incentive spirometer Titrate the FiO2 as tolerated Could be transferred to the regular medical floor without telemetry We will continue to follow I have personally seen and examined the patient, performed the documentation and the assessment and plan as written. Number of minutes spent on the visit: 10.
--- NOTE | 2022-03-31 14:02 | P.PN ---
Subjective Progress Note Date: 03/31/22 I am seeing the patient for the first time during this admission. Please refer to Dr. Naranjo's notes for further details. Briefly, it seems the patient has pansinusitis with mastoiditis and it seems the patient has acute meningitis bacterial from otologic source. Patient denies any headache and stated has minimal neck pain in entire region. He denies of any nausea or vomiting. Objective - Vital Signs Vital signs: Vital Signs Temp 98.7 F 03/31/22 08:00 Pulse 79 03/31/22 10:00 Resp 17 03/31/22 10:00 BP 152/91 03/31/22 10:00 Pulse Ox 100 03/31/22 10:00 FiO2 45 03/29/22 16:19 Intake & Output 03/30/22 03/31/22 03/31/22 18:59 06:59 18:59 Intake Total 1825 375 25 Output Total 1305 1540 130 Balance 520 -1165 -105 Weight 104.8 kg Intake: IV 825 375 25 0.9 KVO 275 325 25 Vancomycin 1,750 mg In 500 Sodium Chloride 0.9% 500 ml 500 ml @ 167 mls/hr IVPB Q12H [facility] Rx#: [id number] cefTRIAXone 2 gm In 50 50 Sodium Chloride 0.9% 50 ml @ 100 mls/hr IVPB Q12H [facility] Rx#:[id number] Intake, IV Titration 500 Amount Vancomycin 1,750 mg In 500 Sodium Chloride 0.9% 500 ml 500 ml @ 167 mls/hr IVPB Q8H [facility] Rx#: [id number] Oral 500 Output: Urine 1305 1540 130 Other: Voiding Method Indwelling Catheter Indwelling Catheter Indwelling Catheter # Bowel Movements 1 ABP, PAP, CO, CI - Last Documented Arterial Blood Pressure 185/72 - Exam GENERAL: The patient is lying in bed and is not in acute distress. HENT: Supple neck. NEUROLOGICAL: Higher mental function: The patient is awake, alert, oriented to self, place and time. Patient is following commands. No aphasia and no neglect. Cranial nerves: The pupils are round, equal and reactive to light . Visual george are full to confrontation throughout. Extraocular movement is intact no nystagmus is noted. Facial sensation is normal to touch throughout. The facial strength is normal throughout. Hearing is severely decreased bilaterally to hand rub. Tongue is midline and moved [id number] without any difficulty. No dysarthria is noted. Shoulder shrug is normal bilaterally. Motor: The strength is 5 over 5 throughout. Normal tone and bulk. Cerebellum: Normal finger to nose bilaterally. Sensation: Sensation is normal to touch throughout. SOME OF THE WORK-UP DURING THIS HOSPITAL VISIT CONSISTED OF: * EEG was abnormal due to background slowing of moderate to severe degree. This is suggestive of generalized cerebral dysfunction as can be seen with toxic metabolic encephalopathy or related to diffuse structural brain abnormality. Clinical correlation is recommended. No epileptiform activity was seen. * Repeat CT head 03/27/2022 is stable, with no evidence of hydrocephalus from bacterial meningitis. * CT of the internal auditory canal revealed pansinusitis, bilateral mastoiditis. Increased density in the right middle ear in the right external auditory canal, consistent with otitis internal and external. Cholesteatoma should be considered. The brace in the left external auditory canal. No evidence of any significant inflammation of the left middle ear. - Labs CBC & Chem 7: 03/31/22 04:44 03/31/22 04:44 Labs: Abnormal Lab Results - Last 24 Hours (Table) 03/31/22 03/31/22 Range/Units 04:44 04:44 RBC 3.78 L (4.30-5.90) m/uL Hgb 10.8 L (13.0-17.5) gm/dL Hct 32.5 L (39.0-53.0) % Chloride 108 H (98-107) mmol/L Glucose 116 H (74-99) mg/dL Calcium 7.8 L (8.4-10.2) mg/dL Microbiology - Last 24 Hours (Table) 03/26/22 11:25 Blood Culture - Preliminary Blood No Growth after 120 hours 03/26/22 11:25 Blood Culture - Preliminary Blood No Growth after 120 hours 03/26/22 13:15 Gram Stain - Final Sputum Sputum Culture - Final Streptococcus pneumoniae Assessment and Plan Assessment: * Acute meningitis, most likely bacterial from otologic source. Patient has been suffering from otitis media for 5 days prior to arrival. * Pansinusitis, with mastoiditis * Right-sided eustachian tube obstruction with otomastoiditis and associated meningitis. * Status post extubation. * Status post right indirect tympanostomy and tube placement 03/27/2022. * Cephalgia, due to above. * Recent history of acute ischemic stroke 06/13/2021 with Covid infection at that time. * Borderline diabetes Plan: * * Patient on on ceftriaxone and Vancomycin was discontinued. ID following and will defer modification of medication to I.D. team. CSF Gram stain and culture so far negative. White cells has improved further down to 13,600 * Patient had undergone right-sided tympanostomy tube placement for eustachian tube obstruction. * Patient previously was prescribed Eliquis for cardioembolic stroke. Will follow-up the patient sporadically. Time with Patient: Less than 30
--- NOTE | 2022-03-31 16:00 | P.PN ---
Subjective Progress Note Date: 03/31/22 Patient is a 50-year-old male with a past medical history of COVID-19, thromboembolic stroke who was brought into the ED because of altered mental status. Patient was intubated on admission. Reported that about 5 days ago the patient was complaining of ear pain. In the ED patient was found to have a fever of 102.3F. WBC count 31.4, lactic acid 6.3, troponin 0.33 and bilirubin 2.3. Chest x-ray showed pulmonary vascular congestion. CT head showed multiple old right-sided infarcts now progressed from June 2021. 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 Lumbar puncture was performed on admission. LP fluid analysis was pointing towards a bacterial meningitis. The source was thought to be related to otitis media, mastoiditis status post myringotomy and tube placement of the right ear by ENT. Infectious disease was consulted and patient was started on Bactrim, vancomycin and Rocephin. CSF culture currently negative. Blood cultures are currently negative. Ear culture is pending. Sputum culture grew streptococcal pneumonia. His antibiotics are currently downgraded to Rocephin only. Patient was extubated on 03/28/2022. He was given intermittent Lasix for interstitial edema seen on chest x-ray. Patient was seen and examined on 03/31/2022. He reported drainage into his mouth. He had no other complaints. Currently on 4 L nasal cannula. General: non toxic, no distress, lethargic Derm: warm, dry Head: atraumatic, normocephalic, symmetric Eyes: EOMI, no lid lag, anicteric sclera Mouth: no lip lesion, mucus membranes moist Cardiovascular: S1S2 reg, no murmur Lungs: Decreased breath sounds, no rhonchi, no rales , no accessory muscle use Ext: no gross muscle atrophy, no edema, no contractures Neuro: no focal neuro deficits Psych: Alert, oriented, appropriate affect #Ventilator dependent respiratory failure #Streptococcus pneumonia #Mild pulmonary edema Patient extubated on 03/28/2022. Patient antibiotics as below. Pulmonology on board. Patient currently on 4 L nasal cannula. Lasix as needed per pulmonology. Consult PT OT once patient is more stable. #Toxic encephalopathy #Sepsis on admission #Bacterial meningitis likely due to mastoiditis translocation into the CSF fluid #Right ear mastoiditis status post right typmanostomy and tube placement on 03/27/2022 by ENT Lumbar puncture shows low blood glucose, elevated proteins and elevated WBC. Cultures from CSF fluid negative to date. Follow up on cultures done from draining the right ear. Infectious disease on board. Patient on IV Rocephin. Bactrim and Vancomycin discontinued. #Lactic acidosis likely due to sepsis Resolved. #Elevated troponin likely due to type II [place] per demand ischemia secondary to sepsis Troponin trending down. #Elevated bilirubin likely due to sepsis Resolved. 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 Patient was admitted in June 2021 for thromboembolic strokes. Continue Eliquis. Resume atorvastatin. Objective - Vital Signs Vital signs: Vital Signs Temp 99.5 F 03/31/22 14:00 Pulse 79 03/31/22 10:00 Resp 20 03/31/22 14:00 BP 163/92 03/31/22 14:00 Pulse Ox 100 03/31/22 10:00 FiO2 45 03/29/22 16:19 Intake & Output 03/30/22 03/31/22 03/31/22 18:59 06:59 18:59 Intake Total 1825 375 25 Output Total 1305 1540 130 Balance 520 -1165 -105 Weight 104.8 kg Intake: IV 825 375 25 0.9 KVO 275 325 25 Vancomycin 1,750 mg In 500 Sodium Chloride 0.9% 500 ml 500 ml @ 167 mls/hr IVPB Q12H [facility] Rx#: [id number] cefTRIAXone 2 gm In 50 50 Sodium Chloride 0.9% 50 ml @ 100 mls/hr IVPB Q12H [facility] Rx#:[id number] Intake, IV Titration 500 Amount Vancomycin 1,750 mg In 500 Sodium Chloride 0.9% 500 ml 500 ml @ 167 mls/hr IVPB Q8H [facility] Rx#: [id number] Oral 500 Output: Urine 1305 1540 130 Other: Voiding Method Indwelling Catheter Indwelling Catheter Indwelling Catheter # Bowel Movements 1 1 ABP, PAP, CO, CI - Last Documented Arterial Blood Pressure 185/72 - Labs CBC & Chem 7: 03/31/22 04:44 03/31/22 04:44 Labs: Abnormal Lab Results - Last 24 Hours (Table) 03/31/22 03/31/22 Range/Units 04:44 04:44 RBC 3.78 L (4.30-5.90) m/uL Hgb 10.8 L (13.0-17.5) gm/dL Hct 32.5 L (39.0-53.0) % Chloride 108 H (98-107) mmol/L Glucose 116 H (74-99) mg/dL Calcium 7.8 L (8.4-10.2) mg/dL Microbiology - Last 24 Hours (Table) 03/27/22 13:45 Anaerobic Culture - Final Ear - Right 03/26/22 11:25 Blood Culture - Preliminary Blood No Growth after 120 hours 03/26/22 11:25 Blood Culture - Preliminary Blood No Growth after 120 hours 03/26/22 13:15 Gram Stain - Final Sputum Sputum Culture - Final Streptococcus pneumoniae
[2022-03-31] MEDS: SODIUM CHLORIDE 0.9% 1,000 ML IV SCH (19:03)
[2022-03-31] MEDS: ACETAMINOPHEN TAB 325 MG TAB PO PRN (19:58)
[2022-03-31] MEDS: ATORVASTATIN 40 MG TAB PO SCH (19:58)
[2022-04-01] MEDS: IPRATROPIUM-ALBUTEROL 3 ML NEB INHALATION SCH ×5 (03:15→20:39)
[2022-04-01] MEDS: NITROGLYCERIN OINT 1 INCH/GM PACKET TOPICAL SCH ×4 (05:48→23:15)
[2022-04-01 07:11] LABS: African American GFR (CKD) >90 (>60 ml/min/1.73 sqM); Non-African American GFR(CKD) >90 (>60 ml/min/1.73 sqM)
[2022-04-01] MEDS: OFLOXACIN 0.3% OPHTH DROPS 5 ML BOTTLE RIGHT EAR SCH ×2 (08:51→20:23)
[2022-04-01] MEDS: hydrALAZINE HCL 10 MG TAB PO SCH ×3 (08:51→20:24)
[2022-04-01] MEDS: PANTOPRAZOLE 40 MG/10 ML VIAL IVP SCH (08:51)
[2022-04-01] MEDS: APIXABAN 5 MG TAB PO SCH ×2 (08:52→20:24)
--- NOTE | 2022-04-01 11:22 | P.PN ---
Subjective Progress Note Date: 04/01/22 Patient is a 50-year-old male with a past medical history of COVID-19, thromboembolic stroke who was brought into the ED because of altered mental status. Patient was intubated on admission. Reported that about 5 days ago the patient was complaining of ear pain. In the ED patient was found to have a fever of 102.3F. WBC count 31.4, lactic acid 6.3, troponin 0.33 and bilirubin 2.3. Chest x-ray showed pulmonary vascular congestion. CT head showed multiple old right-sided infarcts now progressed from June 2021. 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 Lumbar puncture was performed on admission. LP fluid analysis was pointing towards a bacterial meningitis. The source was thought to be related to otitis media, mastoiditis status post myringotomy and tube placement of the right ear by ENT. Infectious disease was consulted and patient was started on Bactrim, vancomycin and Rocephin. CSF culture currently negative. Blood cultures are currently negative. Ear culture is pending. Sputum culture grew streptococcal pneumonia. His antibiotics are currently downgraded to Rocephin only. Patient was extubated on 03/28/2022. He was given intermittent Lasix for interstitial edema seen on chest x-ray. Patient was seen and examined on 03/31/2022. He reported drainage into his mouth. He had no other complaints. Currently not on any supplemental oxygen. General: non toxic, no distress, slow to respond Derm: warm, dry Head: atraumatic, normocephalic, symmetric Eyes: EOMI, no lid lag, anicteric sclera Mouth: no lip lesion, mucus membranes moist Cardiovascular: S1S2 reg, no murmur Lungs: Decreased breath sounds, no rhonchi, no rales , no accessory muscle use Ext: no gross muscle atrophy, no edema, no contractures Neuro: no focal neuro deficits Psych: Alert, oriented, appropriate affect #Ventilator dependent respiratory failure #Streptococcus pneumonia #Mild pulmonary edema Patient extubated on 03/28/2022. Patient antibiotics as below. Pulmonology on board. Patient currently on 4 L nasal cannula. Lasix as needed per pulmonology. Consult PT OT once patient is more stable. #Toxic encephalopathy #Sepsis on admission #Bacterial meningitis likely due to mastoiditis translocation into the CSF fluid #Right ear mastoiditis status post right typmanostomy and tube placement on 03/27/2022 by ENT Lumbar puncture shows low blood glucose, elevated proteins and elevated WBC. Cultures from CSF fluid negative to date. Follow up on cultures done from draining the right ear. Infectious disease on board. Patient on IV Rocephin. Bactrim and Vancomycin discontinued. #Lactic acidosis likely due to sepsis Resolved. #Elevated troponin likely due to type II [place] per demand ischemia secondary to sepsis Troponin trending down. #Elevated bilirubin likely due to sepsis Resolved. 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 Patient was admitted in June 2021 for thromboembolic strokes. Continue Eliquis. Resume atorvastatin. [PT and OT consulted. Patient appears very weak. Would benefit from SNF. Will communicate with Case management.] Objective - Vital Signs Vital signs: Vital Signs Temp 98.6 F 04/01/22 08:00 Pulse 87 04/01/22 08:00 Resp 17 04/01/22 08:00 BP 154/94 04/01/22 08:00 Pulse Ox 100 03/31/22 10:00 FiO2 45 03/29/22 16:19 Intake & Output 03/31/22 04/01/22 04/01/22 18:59 06:59 18:59 Intake Total 45 20 Output Total 130 650 Balance -85 -630 Weight 103.1 kg Intake: IV 45 20 0.9 KVO 45 20 Output: Urine 130 650 Other: Voiding Method Indwelling Catheter Urinal Urinal # Voids 1 # Bowel Movements 1 1 ABP, PAP, CO, CI - Last Documented Arterial Blood Pressure 185/72 - Labs CBC & Chem 7: 03/31/22 04:44 04/01/22 06:19 Labs: Microbiology - Last 24 Hours (Table) 03/27/22 13:45 Anaerobic Culture - Final Ear - Right 03/26/22 11:25 Blood Culture - Preliminary Blood No Growth after 120 hours 03/26/22 11:25 Blood Culture - Preliminary Blood No Growth after 120 hours
--- NOTE | 2022-04-01 12:08 | P.PN ---
Subjective Progress Note Date: 04/01/22 This is a 51-year-old white male brought into the ER with decreased level of consciousness. According to EMS, patient was seen vomiting multiple times then he laid on the floor, and he was unresponsive. When EMS arrived, patient was only responsive to deep painful stimuli. Patient was not following any instructions, he was brought into the ER, and as soon as he arrived, patient underwent intubation and mechanical ventilation. He underwent lumbar puncture results of which are pending. Patient received a dose of Rocephin, and I saw the patient I recommended adding vancomycin, patient is ALLERGIC to penicillin Gram stain from the lumbar puncture is pending. Not much history could be obtained from the patient because he just received succinylcholine, he is on propofol, and he is on mechanical ventilation. 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 And the new right sided mastoiditis noted. According to the ER physician that the last tube during the lumbar puncture was noted to be a bit cloudy again Gram stain is pending and workup on the spinal fluid is pending. On presentation the patient was noted to be febrile, he had elevated lactic acid of 6.3, he had leukocytosis, all consistent with a picture of sepsis. Drug screen was negative. Hemodynamically the patient was stable, did not require any pressors, COVID-19 PCR was not detected Reevaluated today on 03/27/22, patient remains in the ICU, intubated and mechanically. I saw this patient yesterday in the emergency room, and admitted the patient to the ICU with presumptive acute meningitis and respiratory failure. Patient presented with an unresponsive episode associated with fever, leukocytosis, altered mental status, elevated lactic acid, and abnormal spinal fluid on his initial lumbar puncture. Patient was placed on 3 antibiotics including ceftriaxone, vancomycin, and Bactrim. Final cultures on the spinal fluid are pending, but the spinal fluid results are consistent with acute meningitis. The Gram stain is showing many polymorphonuclear leukocytes, the Gram stain is negative so far. The protein in the spinal fluid is over 600 and glucose less than 20, significant leukocytosis is noted with 94% noted to be PMNs. Again this is clearly a picture of acute bacterial meningitis patient was also found to have mastoiditis, and otitis media, patient was seen by ENT, and he is undergoing myringotomy today and tube placement in his right ear. As his mastoiditis is felt to be the most likely cause of his meningitis.Today the patient is on assist control rate of 24 time volume 450 FiO2 50% and PEEP of 5, ABG showed a pO2 of 89 pCO2 34 pH of 7.42. Patient is on propofol at 50 mcg/kg/m, IV fluid at 75 mL per hour in the formal 0.9 normal saline. Patient is receiving antibiotics, GI and DVT prophylaxis, and the patient is being followed by neurology and by infectious disease on the case. Patient was seen by ENT today. Reevaluated today on 03/28/22, patient remains in the ICU, intubated and mechanically ventilated. He is on assist control rate of 24 time volume 450 FiO2 45% PEEP of 5. ABG showed a pO2 of 121 pCO2 36 pH of 7.41. Chest x-ray showed minimal left basilar atelectasis. Patient is on propofol at 50 mcg/kg/m she is also on IV fluid at 65 mL per hour. Yesterday he underwent right ear tube placement by ENT, fluid drained was apparently purulent Gram stain remains negative, cultures are pending from the fluid obtained from the right ear. Patient remains on Bactrim vancomycin and Rocephin. His FiO2 was decreased down to 40%. And I am planning today to hold propofol, I would like to assess the patient's mental status, and also assess weaning present parameters and possibly weaning if possible today. Continues to have leukocytosis with WBC count of 25.1 hemoglobin 12.2. Basic metabolic profile is normal renal profile is normal Reevaluated today on 03/29/22, patient remains in the ICU, he was extubated yesterday, tolerated the extubation well. However the patient is not coop erating with deep coughing and deep breathing, his chest x-ray showed mostly atelectasis, low volumes, and possibly some mild interstitial edema. His O2 saturations are marginal, hence I'm recommending Lasix 20 mg IV push 1, cutting down his IV fluid to KVO, and the patient may have to go on BiPAP briefly. Cut down his pain medications, patient was getting Dilaudid for headaches. Cultures remain negative except he had a sputum culture that positive for Streptococcus pneumoniae WBC count is 13.6 hemoglobin is 10.9, basic metabolic profile and renal profile is normal The patient is seen today 03/30/2022 in follow-up in the intensive care unit. He is currently awake and alert. Somewhat slow to respond. He is hard of hearing. He was extubated on 03/27/2022. He is currently on 6 L high flow nasal cannula. He's been alternating with BiPAP 12/6 and 45% FiO2. 0.9 normal saline at KVO. His sputum culture was positive for streptococcal pneumonia. Cerebral spinal fluid cultures are revealing no growth. Blood cultures no growth. Ear culture from the right pending. White count 10.9. Hemoglobin 10.6. Sodium 139. Potassium 3.7. Creatinine 0.85. BUN 14. GFR greater than 90. Vancomycin trough 10.2. He remains on ceftriaxone and vancomycin. Continued on bronchodilators. Anticoagulated with a liquid. Receiving Ocuflox to the right ear. The patient is seen today 03/31/2022 in follow-up in the intensive care unit. He remains awake and alert in no acute distress. He is maintaining good O2 saturations in the 90s on 4 L/m per nasal cannula. He has normal saline at KVO. He has not utilized the BiPAP. Chest x-ray shows right triple-lumen catheter in place. Some increased interstitial and central vascularity and some patchy bilateral airspace disease noted. Sputum culture was positive for Streptococcus pneumoniae. Cerebral spinal fluid revealed no growth. He remains on ceftriaxone. Ocuflox to the right ear. He is anticoagulated with Eliquis. Remains on bronchodilators. The patient is seen today 04/01/2022 in follow-up in the intensive care unit. He is resting comfortably in bed. Awake and alert in no acute distress. He is maintaining good O2 saturations in the 90s on room air. No IV fluids. He is continued on antibiotics in the form of ceftriaxone. Sputum culture was positive for Streptococcus pneumoniae. She was spinal fluid revealed no growth. Blood cultures reveal no growth. Creatinine 0.81. GFR greater than 90. Objective - Vital Signs Vital signs: Vital Signs Temp 98.6 F 04/01/22 08:00 Pulse 87 04/01/22 08:00 Resp 17 04/01/22 08:00 BP 154/94 04/01/22 08:00 Pulse Ox 100 03/31/22 10:00 FiO2 45 03/29/22 16:19 Intake & Output 03/31/22 04/01/22 04/01/22 18:59 06:59 18:59 Intake Total 45 20 Output Total 130 650 Balance -85 -630 Weight 103.1 kg Intake: IV 45 20 0.9 KVO 45 20 Output: Urine 130 650 Other: Voiding Method Indwelling Catheter Urinal Urinal # Voids 1 # Bowel Movements 1 1 ABP, PAP, CO, CI - Last Documented Arterial Blood Pressure 185/72 - Exam GENERAL EXAM: Alert, 51-year-old male patient, on room air, comfortable in no apparent distress. HEAD: Normocephalic. EYES: Normal reaction of pupils, equal size. NOSE: Clear with pink turbinates. THROAT: No erythema or exudates. NECK: No masses, no JVD. CHEST: No chest wall deformity. LUNGS: Equal air entry with no crackles, wheeze, rhonchi or dullness. CVS: S1 and S2 normal with no audible murmur, regular rhythm. ABDOMEN: No hepatosplenomegaly, normal bowel sounds, no guarding or rigidity. SPINE: No scoliosis or deformity SKIN: No rashes CENTRAL NERVOUS SYSTEM: No focal deficits, tone is normal in all 4 extremities. EXTREMITIES: There is no peripheral edema. No clubbing, no cyanosis. Peripheral pulses are intact. - Labs CBC & Chem 7: 03/31/22 04:44 04/01/22 06:19 Labs: Microbiology - Last 24 Hours (Table) 03/27/22 13:45 Anaerobic Culture - Final Ear - Right 03/26/22 11:25 Blood Culture - Preliminary Blood No Growth after 120 hours 03/26/22 11:25 Blood Culture - Preliminary Blood No Growth after 120 hours Assessment and Plan Assessment: Acute hypoxic respiratory failure, secondary to Streptococcus pneumoniae in sputum culture, acute meningitis requiring intubation on 03/26/2022. Subsequently extubated 03/27/2022. Improved and on room air Altered mental status secondary to above, follow-up CAT scan of the brain revealed evidence of old right-sided infarct in the internal capsule and temporal lobe without change. No hemorrhage. EEG revealed moderate to severe background slowing secondary to metabolic encephalopathy. Acute mastoiditis as noted on CT of the brain. Status post right tympanostomy. Postoperative day #5 History of CVA with abnormal CT of the brain, multiple previous infarcts noted. History of COVID-19 pneumonia back in June of 2021. Hypertension Hyperlipidemia Plan: The patient was seen and evaluated Labs and medications reviewed Remains on ceftriaxone Continue bronchodilators, incentive spirometer [facility] I have personally seen and examined the patient, performed the documentation and the assessment and plan as written. Number of minutes spent on the visit: 10.
[2022-04-01] MEDS: SODIUM CHLORIDE 0.9% 1,000 ML IV SCH (20:07)
[2022-04-01] MEDS: KETOROLAC 15 MG/ML 1 ML VIAL IVP PRN (20:22)
[2022-04-01] MEDS: ACETAMINOPHEN TAB 325 MG TAB PO PRN (20:22)
[2022-04-01] MEDS: ATORVASTATIN 40 MG TAB PO SCH (20:24)
[2022-04-02 08:41] LABS: HCT 36.4 % (39.6-50.0); HGB 11.4 g/dL (13.0-17.0); MCH 26.8 pg (27.0-32.0); MCHC 31.3 g/dL (32.0-37.0); MCV 85.6 fL (80.0-97.0); NRBC Per 100 WBC 0 /100 WBCS (0.0-0.0); Platelet Count 402 X 10*3/uL (140-440); RBC 4.25 X 10*6/uL (4.40-5.60); RDW 14.4 % (11.5-14.5); WBC 9.12 X 10*3/uL (4.50-10.00)
[2022-04-02 08:46] LABS: African American GFR (CKD) 99.1 (60.0-200.0); Anion Gap 10.6 mmol/L (10.00-18.00); BUN/Creat Ratio 17.7 Ratio (12.00-20.00); Blood Urea Nitrogen 17.7 mg/dL (9.0-27.0); Calcium 8.6 mg/dL (8.7-10.3); Carbon Dioxide 24.4 mmol/L (20.0-27.5); Non-African American GFR(CKD) 85.5 (60.0-200.0); Potassium 3.9 mmol/L (3.5-5.5)
--- NOTE | 2022-04-02 08:49 | P.PN ---
Subjective Progress Note Date: 04/02/22 This is a 51-year-old white male brought into the ER with decreased level of consciousness. According to EMS, patient was seen vomiting multiple times then he laid on the floor, and he was unresponsive. When EMS arrived, patient was only responsive to deep painful stimuli. Patient was not following any instructions, he was brought into the ER, and as soon as he arrived, patient underwent intubation and mechanical ventilation. He underwent lumbar puncture results of which are pending. Patient received a dose of Rocephin, and I saw the patient I recommended adding vancomycin, patient is ALLERGIC to penicillin Gram stain from the lumbar puncture is pending. Not much history could be obtained from the patient because he just received succinylcholine, he is on propofol, and he is on mechanical ventilation. 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 And the new right sided mastoiditis noted. According to the ER physician that the last tube during the lumbar puncture was noted to be a bit cloudy again Gram stain is pending and workup on the spinal fluid is pending. On presentation the patient was noted to be febrile, he had elevated lactic acid of 6.3, he had leukocytosis, all consistent with a picture of sepsis. Drug screen was negative. Hemodynamically the patient was stable, did not require any pressors, COVID-19 PCR was not detected Reevaluated today on 03/27/22, patient remains in the ICU, intubated and mechanically. I saw this patient yesterday in the emergency room, and admitted the patient to the ICU with presumptive acute meningitis and respiratory failure. Patient presented with an unresponsive episode associated with fever, leukocytosis, altered mental status, elevated lactic acid, and abnormal spinal fluid on his initial lumbar puncture. Patient was placed on 3 antibiotics including ceftriaxone, vancomycin, and Bactrim. Final cultures on the spinal fluid are pending, but the spinal fluid results are consistent with acute meningitis. The Gram stain is showing many polymorphonuclear leukocytes, the Gram stain is negative so far. The protein in the spinal fluid is over 600 and glucose less than 20, significant leukocytosis is noted with 94% noted to be PMNs. Again this is clearly a picture of acute bacterial meningitis patient was also found to have mastoiditis, and otitis media, patient was seen by ENT, and he is undergoing myringotomy today and tube placement in his right ear. As his mastoiditis is felt to be the most likely cause of his meningitis.Today the patient is on assist control rate of 24 time volume 450 FiO2 50% and PEEP of 5, ABG showed a pO2 of 89 pCO2 34 pH of 7.42. Patient is on propofol at 50 mcg/kg/m, IV fluid at 75 mL per hour in the formal 0.9 normal saline. Patient is receiving antibiotics, GI and DVT prophylaxis, and the patient is being followed by neurology and by infectious disease on the case. Patient was seen by ENT today. Reevaluated today on 03/28/22, patient remains in the ICU, intubated and mechanically ventilated. He is on assist control rate of 24 time volume 450 FiO2 45% PEEP of 5. ABG showed a pO2 of 121 pCO2 36 pH of 7.41. Chest x-ray showed minimal left basilar atelectasis. Patient is on propofol at 50 mcg/kg/m she is also on IV fluid at 65 mL per hour. Yesterday he underwent right ear tube placement by ENT, fluid drained was apparently purulent Gram stain remains negative, cultures are pending from the fluid obtained from the right ear. Patient remains on Bactrim vancomycin and Rocephin. His FiO2 was decreased down to 40%. And I am planning today to hold propofol, I would like to assess the patient's mental status, and also assess weaning present parameters and possibly weaning if possible today. Continues to have leukocytosis with WBC count of 25.1 hemoglobin 12.2. Basic metabolic profile is normal renal profile is normal Reevaluated today on 03/29/22, patient remains in the ICU, he was extubated yesterday, tolerated the extubation well. However the patient is not coop erating with deep coughing and deep breathing, his chest x-ray showed mostly atelectasis, low volumes, and possibly some mild interstitial edema. His O2 saturations are marginal, hence I'm recommending Lasix 20 mg IV push 1, cutting down his IV fluid to KVO, and the patient may have to go on BiPAP briefly. Cut down his pain medications, patient was getting Dilaudid for headaches. Cultures remain negative except he had a sputum culture that positive for Streptococcus pneumoniae WBC count is 13.6 hemoglobin is 10.9, basic metabolic profile and renal profile is normal The patient is seen today 03/30/2022 in follow-up in the intensive care unit. He is currently awake and alert. Somewhat slow to respond. He is hard of hearing. He was extubated on 03/27/2022. He is currently on 6 L high flow nasal cannula. He's been alternating with BiPAP 12/6 and 45% FiO2. 0.9 normal saline at KVO. His sputum culture was positive for streptococcal pneumonia. Cerebral spinal fluid cultures are revealing no growth. Blood cultures no growth. Ear culture from the right pending. White count 10.9. Hemoglobin 10.6. Sodium 139. Potassium 3.7. Creatinine 0.85. BUN 14. GFR greater than 90. Vancomycin trough 10.2. He remains on ceftriaxone and vancomycin. Continued on bronchodilators. Anticoagulated with a liquid. Receiving Ocuflox to the right ear. The patient is seen today 03/31/2022 in follow-up in the intensive care unit. He remains awake and alert in no acute distress. He is maintaining good O2 saturations in the 90s on 4 L/m per nasal cannula. He has normal saline at KVO. He has not utilized the BiPAP. Chest x-ray shows right triple-lumen catheter in place. Some increased interstitial and central vascularity and some patchy bilateral airspace disease noted. Sputum culture was positive for Streptococcus pneumoniae. Cerebral spinal fluid revealed no growth. He remains on ceftriaxone. Ocuflox to the right ear. He is anticoagulated with Eliquis. Remains on bronchodilators. The patient is seen today 04/01/2022 in follow-up in the intensive care unit. He is resting comfortably in bed. Awake and alert in no acute distress. He is maintaining good O2 saturations in the 90s on room air. No IV fluids. He is continued on antibiotics in the form of ceftriaxone. Sputum culture was positive for Streptococcus pneumoniae. She was spinal fluid revealed no growth. Blood cultures reveal no growth. Creatinine 0.81. GFR greater than 90. The patient is seen today 04/02/2022 in follow-up on the regular medical floor. He sitting up in bed. Awake and alert in no acute distress. Maintaining good O2 saturations in the 90s on room air. No shortness of breath, cough or congestion. He remains on ceftriaxone. White count 9.1. Hemoglobin 11.4. Sodium 141 potassium 3.9. BUN 17. Creatinine 1.0. Objective - Vital Signs Vital signs: Vital Signs Temp 99 F 04/02/22 08:00 Pulse 79 04/02/22 08:00 Resp 19 04/02/22 08:00 BP 168/97 04/02/22 08:00 Pulse Ox 93 L 04/02/22 08:00 FiO2 45 03/29/22 16:19 Intake & Output 04/01/22 04/02/22 04/02/22 18:59 06:59 18:59 Intake Total 200 Output Total 920 1000 Balance -720 -1000 Weight 103.5 kg Intake: Oral 200 Output: Urine 920 1000 Other: Voiding Method Urinal Urinal # Voids 1 ABP, PAP, CO, CI - Last Documented Arterial Blood Pressure 185/72 - Exam GENERAL EXAM: Alert, pleasant 51-year-old male patient, on room air, comfortable in no apparent distress. HEAD: Normocephalic. EYES: Normal reaction of pupils, equal size. NOSE: Clear with pink turbinates. THROAT: No erythema or exudates. NECK: No masses, no JVD. CHEST: No chest wall deformity. LUNGS: Equal air entry with no crackles, wheeze, rhonchi or dullness. CVS: S1 and S2 normal with no audible murmur, regular rhythm. ABDOMEN: No hepatosplenomegaly, normal bowel sounds, no guarding or rigidity. SPINE: No scoliosis or deformity SKIN: No rashes CENTRAL NERVOUS SYSTEM: No focal deficits, tone is normal in all 4 extremities. EXTREMITIES: There is no peripheral edema. No clubbing, no cyanosis. Peripheral pulses are intact. - Labs CBC & Chem 7: 04/02/22 04:57 04/02/22 04:57 Labs: Abnormal Lab Results - Last 24 Hours (Table) 04/02/22 04/02/22 Range/Units 04:57 04:57 RBC 4.25 L (4.40-5.60) X 10*6/uL Hgb 11.4 L (13.0-17.0) g/dL Hct 36.4 L (39.6-50.0) % MCH 26.8 L (27.0-32.0) pg MCHC 31.3 L (32.0-37.0) g/dL Glucose 118 H (70-110) mg/dL Calcium 8.6 L (8.7-10.3) mg/dL Microbiology - Last 24 Hours (Table) 03/26/22 11:25 Blood Culture - Final Blood No Growth after 144 hours 03/26/22 11:25 Blood Culture - Final Blood No Growth after 144 hours Assessment and Plan Assessment: Acute hypoxic respiratory failure, secondary to Streptococcus pneumoniae in sputum culture, acute meningitis requiring intubation on 03/26/2022. Subsequently extubated 03/27/2022. Improved and on room air Altered mental status secondary to above, follow-up CAT scan of the brain revealed evidence of old right-sided infarct in the internal capsule and temporal lobe without change. No hemorrhage. EEG revealed moderate to severe background slowing secondary to metabolic encephalopathy. Acute mastoiditis as noted on CT of the brain. Status post right tympanostomy. Postoperative day #5 History of CVA with abnormal CT of the brain, multiple previous infarcts noted. History of COVID-19 pneumonia back in June of 2021. Hypertension Hyperlipidemia Plan: The patient was seen and evaluated Labs and medications reviewed Remains on ceftriaxone per ID services Patient is cleared for discharge from the pulmonary standpoint [facility] I have personally seen and examined the patient, performed the documentation and the assessment and plan as written. Number of minutes spent on the visit: 10.
[2022-04-02] MEDS: APIXABAN 5 MG TAB PO SCH (09:59)
[2022-04-02] MEDS: PANTOPRAZOLE 40 MG/10 ML VIAL IVP SCH (09:59)
[2022-04-02] MEDS: OFLOXACIN 0.3% OPHTH DROPS 5 ML BOTTLE RIGHT EAR SCH (10:05)
[2022-04-02] MEDS: hydrALAZINE HCL 10 MG TAB PO SCH ×2 (10:06→14:26)
[2022-04-02 11:36] VITALS: BMI 32.7
--- NOTE | 2022-04-02 12:11 | P.PN ---
Subjective Progress Note Date: 04/02/22 The patient seen at bedside he continues to have urine loss otherwise denies any neurological deficits. Objective - Vital Signs Vital signs: Vital Signs Temp 99 F 04/02/22 08:00 Pulse 79 04/02/22 08:00 Resp 19 04/02/22 08:00 BP 168/97 04/02/22 08:00 Pulse Ox 93 L 04/02/22 08:00 FiO2 45 03/29/22 16:19 Intake & Output 04/01/22 04/02/22 04/02/22 18:59 06:59 18:59 Intake Total 200 118 Output Total 920 1000 Balance -720 -1000 118 Weight 103.5 kg 103.5 kg Intake: Oral 200 118 Output: Urine 920 1000 Other: Voiding Method Urinal Urinal # Voids 1 ABP, PAP, CO, CI - Last Documented Arterial Blood Pressure 185/72 - Labs CBC & Chem 7: 04/02/22 04:57 04/02/22 04:57 Labs: Abnormal Lab Results - Last 24 Hours (Table) 04/02/22 04/02/22 Range/Units 04:57 04:57 RBC 4.25 L (4.40-5.60) X 10*6/uL Hgb 11.4 L (13.0-17.0) g/dL Hct 36.4 L (39.6-50.0) % MCH 26.8 L (27.0-32.0) pg MCHC 31.3 L (32.0-37.0) g/dL Glucose 118 H (70-110) mg/dL Calcium 8.6 L (8.7-10.3) mg/dL Microbiology - Last 24 Hours (Table) 03/26/22 11:25 Blood Culture - Final Blood No Growth after 144 hours 03/26/22 11:25 Blood Culture - Final Blood No Growth after 144 hours Assessment and Plan Assessment: * Acute meningitis, most likely bacterial from otologic source. Patient has been suffering from otitis media for 5 days prior to arrival. * Pansinusitis, with mastoiditis * Right-sided eustachian tube obstruction with otomastoiditis and associated meningitis. * Severe hearing loss sequela from meningitis/otomastoiditis. * Status post extubation. * Status post right indirect tympanostomy and tube placement 03/27/2022. * Cephalgia, due to above. * Recent history of acute ischemic stroke 06/13/2021 with Covid infection at that time. * Borderline diabetes Plan: * Patient on on ceftriaxone and Vancomycin was discontinued. ID following and will defer modification of medication to I.D. team. CSF Gram stain and culture so far negative. White cells has improved further down to 13,600 * Patient had undergone right-sided tympanostomy tube placement for eustachian tube obstruction. * Patient previously was prescribed Eliquis for cardioembolic stroke. * Recommend the patient follow up with a neurologist as well as ENT as an outpatient within with 1-2 weeks. No additional workup is needed from a neurologic perspective. He is clear for discharge from a neurologic perspective Will follow-up the patient sporadically. Time with Patient: Less than 30
[2022-04-02] MEDS: NITROGLYCERIN OINT 1 INCH/GM PACKET TOPICAL SCH ×2 (12:25→18:39)
[2022-04-02 13:54] VITALS: PULSE 85; RESP 15; TEMP 98
--- NOTE | 2022-04-02 15:34 | P.DS ---
Providers Date of admission: 03/26/22 14:01 Expected date of discharge: 04/02/22 Attending physician: Tiara Kim MD Consults: 03/26/22 14:12 Consult Physician Urgent Consulting Provider: Parul Ayala Consult Reason/Comments: Critical care management Do you want consulting provider notified?: Yes 03/26/22 14:56 Consult Physician Urgent Consulting Provider: Tristan Eller Consult Reason/Comments: Mastoiditis Do you want consulting provider notified?: Yes 03/26/22 15:01 Consult Physician Urgent Consulting Provider: Adam Naranjo Consult Reason/Comments: encephalopathy Do you want consulting provider notified?: Yes 03/26/22 15:19 Consult Physician Routine Consulting Provider: Elva Vasquez Consult Reason/Comments: fever Do you want consulting provider notified?: Yes Primary care physician: Caro Center Course: Patient is a 50-year-old male with a past medical history of COVID-19, thromboembolic stroke who was brought into the ED because of altered mental status. Patient was intubated on admission. Reported that about 5 days ago the patient was complaining of ear pain. In the ED patient was found to have a fever of 102.3F. WBC count 31.4, lactic acid 6.3, troponin 0.33 and bilirubin 2.3. Chest x-ray showed pulmonary vascular congestion. CT head showed multiple old right-sided infarcts now progressed from June 2021. 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 His troponin was downtrending which is thought to be related to type II [place] per demand ischemia secondary to sepsis. Lumbar puncture was performed on admission. LP fluid analysis was pointing towards a bacterial meningitis. The source was thought to be related to otitis media, mastoiditis status post myringotomy and tube placement of the right ear by ENT. Infectious disease was consulted and patient was started on Bactrim, vancomycin and Rocephin. CSF culture currently negative. Blood cultures cur rently negative. Ear culture is negative. Sputum culture grew streptococcal pneumonia. His antibiotics are downgraded to Rocephin only. Patient was extubated on 03/28/2022. He was given intermittent Lasix for interstitial edema seen on chest x-ray. Patient was noted to have elevated blood pressure for which he was started on hydralazine and titrated up to 25 mg by mouth 3 times a day. He was also restarted on Eliquis and Lipitor for history of thromboembolic stroke. PT and OT evaluated the patient and recommended SNIF. Patient was accepted at [facility] in [place]. Patient was seen and examined on 04/02/2022. He had no other complaints. Currently not on any supplemental oxygen. Case was discussed with Dr. Vasquez recommended Ofloxacin ear drops and Rocephin 2 g IV twice a day for 30 days. He is advised to follow-up with his PCP within 1-2 days of discharge. Advised to follow-up with ENT Dr. Childs within 1 week of discharge. Advised to follow-up with infectious disease Dr. Vasquez within 1 week of discharge. Pertinent studies include CT brain, chest x-ray, EKG, internal auditory canal CT Procedures include lumbar puncture, myringotomy and tube placement of the right ear General: non toxic, no distress, slow to respond Derm: warm, dry Head: atraumatic, normocephalic, symmetric Eyes: EOMI, no lid lag, anicteric sclera Mouth: no lip lesion, mucus membranes moist Cardiovascular: S1S2 reg, no murmur Lungs: Decreased breath sounds, no rhonchi, no rales , no accessory muscle use Ext: no gross muscle atrophy, no edema, no contractures Neuro: no focal neuro deficits Psych: Alert, oriented, appropriate affect Discharge diagnosis: #Toxic encephalopathy #Sepsis on admission #Bacterial meningitis likely due to mastoiditis translocation into the CSF fluid #Right ear mastoiditis status post right typmanostomy and tube placement on 03/27/2022 by ENT #Lactic acidosis likely due to sepsis #Elevated troponin likely due to type II NJ per demand ischemia secondary to sepsis #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 Patient Condition at Discharge: Stable Plan - Discharge Summary New Discharge Prescriptions: New hydrALAZINE HCL [Apresoline] 25 mg PO TID tab Ipratropium-Albuterol Nebulize [Duoneb 0.5 mg-3 mg/3 ml Soln] 3 ml INHALATION RT-Q2H PRN each PRN Reason: Shortness Of Breath Or Wheezing Acetaminophen Tab [Tylenol] 650 mg PO Q4HR PRN tab PRN Reason: Fever And/ Or Pain Apixaban [Eliquis] 5 mg PO BID tab Atorvastatin [Lipitor] 40 mg PO HS tab Ofloxacin 0.3% Ophth Soln [Ocuflox Ophth Soln] 10 drops RIGHT EAR BID ml cefTRIAXone [Rocephin] 2 gm IVPB Q12H 30 Days each Continue Qovlesil-Dvobivloq-Ik Otic [Cortisporin Otic Soln] 4 drops OTIC TID Omeprazole [PriLOSEC] 40 mg PO DAILY Discharge Medication List Favwtzpj-Aoazwquwl-Rk Otic [Cortisporin Otic Soln] 4 drops OTIC TID 03/26/22 [History] Omeprazole [PriLOSEC] 40 mg PO DAILY 03/26/22 [History] Acetaminophen Tab [Tylenol] 650 mg PO Q4HR PRN tab 04/02/22 [Rx] Apixaban [Eliquis] 5 mg PO BID tab 04/02/22 [Rx] Atorvastatin [Lipitor] 40 mg PO HS tab 04/02/22 [Rx] Ipratropium-Albuterol Nebulize [Duoneb 0.5 mg-3 mg/3 ml Soln] 3 ml INHALATION R T-Q2H PRN each 04/02/22 [Rx] Ofloxacin 0.3% Ophth Soln [Ocuflox Ophth Soln] 10 drops RIGHT EAR BID ml 04/02/22 [Rx] cefTRIAXone [Rocephin] 2 gm IVPB Q12H 30 Days each 04/02/22 [Rx] hydrALAZINE HCL [Apresoline] 25 mg PO TID tab 04/02/22 [Rx] Follow up Appointment(s)/Referral(s): Tristan Eller DO [Doctor of Osteopathic Medicine] - 1 Week Gurmeet Pretty MD [Primary Care Provider] - 1-2 days Elva Vasquez MD [STAFF PHYSICIAN] - 1 Week Activity/Diet/Wound Care/Special Instructions: Diet: Low salt FU with PCP within 1-2 days of DC. FU with ENT Dr. Eller within 1 week of DC. FU with ID Dr. Vasquez within 1 week of DC. Continue Rocephin 2 g IV BID for 30 days. Take all medications as advised. Discharge Disposition: TRANSFER TO SNF/ECF
[2022-04-02] MEDS ORDERED: hydrALAZINE HCL 25 MG TAB PO SCH (16:00)
[2022-04-02 18:47] VITALS: BP 146/87
== END 2022-04-02 19:48 | DRG 853 ==
LOC: EC 10:23 → 2SICU 14:01 → 6NMEDSUR 04-01 13:14
PROVIDERS: ADMIT Internal Medicine; ATTEND Internal Medicine
PROC: 0BH18EZ Insertion of Endotracheal Airway into Trachea, Via Natural or Artificial Opening Endoscopic (ICD-10-PCS; principal; 2022-03-26)
PROC: 5A1945Z Respiratory Ventilation, 24-96 Consecutive Hours (ICD-10-PCS; 2022-03-26)
PROC: 009U3ZX Drainage of Spinal Canal, Percutaneous Approach, Diagnostic (ICD-10-PCS; 2022-03-26)
PROC: 099500Z Drainage of Right Middle Ear with Drainage Device, Open Approach (ICD-10-PCS; 2022-03-27)
PROC: 03HY32Z Insertion of Monitoring Device into Upper Artery, Percutaneous Approach (ICD-10-PCS; 2022-03-27)
PROC: 4A133B1 Monitoring of Arterial Pressure, Peripheral, Percutaneous Approach (ICD-10-PCS; 2022-03-27)
PROC: 4A133J1 Monitoring of Arterial Pulse, Peripheral, Percutaneous Approach (ICD-10-PCS; 2022-03-27)
PROC: 02HV33Z Insertion of Infusion Device into Superior Vena Cava, Percutaneous Approach (ICD-10-PCS; 2022-03-27)
DX: A40.3 Sepsis due to Streptococcus pneumoniae (principal); G03.8 Meningitis due to other specified causes; J96.01 Acute respiratory failure with hypoxia; G92.8 Other toxic encephalopathy; J81.0 Acute pulmonary edema; I21.A1 Myocardial infarction type 2; E87.20 Acidosis, unspecified; Z99.11 Dependence on respirator [ventilator] status; I69.354 Hemiplegia and hemiparesis following cerebral infarction affecting left non-dominant side; H70.001 Acute mastoiditis without complications, right ear; I10 Essential (primary) hypertension; R32 Unspecified urinary incontinence; H68.101 Unspecified obstruction of Eustachian tube, right ear; J32.4 Chronic pansinusitis; H66.91 Otitis media, unspecified, right ear; B95.3 Streptococcus pneumoniae as the cause of diseases classified elsewhere; E78.5 Hyperlipidemia, unspecified; R73.03 Prediabetes; H91.8X1 Other specified hearing loss, right ear; H92.01 Otalgia, right ear; Z20.822 Contact with and (suspected) exposure to COVID-19; Z28.310 Unvaccinated for COVID-19; Z88.0 Allergy status to penicillin; Z86.16 Personal history of COVID-19; Z87.01 Personal history of pneumonia (recurrent); Z79.01 Long term (current) use of anticoagulants
CPT/HCPCS: 31500; 36410; 36415; 36600; 62270; 70450; 70482; 71045; 76937; 80048; 80053; 80061; 80202; 80306; 81001; 82140; 82565; 82805; 82945; 83605; 84157; 84484; 85025; 85027; 85610; 85730; 86592; 87040; 87070; 87075; 87077; 87186; 87205; 87635; 89050; 93005; 94002; 94003; 94640; 94660; 95822; 96361; 96365; 96366; 96375; 99291

== ENCOUNTER → 2023-05-07 | Day surgery (SDC) | payer OTHER ==
[~2023-05-07] MED LIST: BENZOCAINE SPRAY 1 CAN MUCOUS MEM ONE; MIDAZOLAM 2 MG/2 ML VIAL IVP ONE; SODIUM CHLORIDE 0.9% 500 ML 500 ML IV ONE; fentaNYL (PF) 50 MCG/ML 2 ML AMP IVP ONE; fentaNYL (PF) 50 MCG/ML 2 ML AMP ONE
[2023-05-07 11:45] VITALS: RESP 16; TEMP 97.7
--- NOTE | 2023-05-07 12:54 | P.PCN ---
Date of Procedure: 05/07/23 Operative Findings: TRANSESOPHAGEAL ECHOCARDIOGRAM LAUNCH CHECK OUT: PAUL AGARWAL MD, RPVI INDICATION: Rule out cardiac source of embolization SEDATION: Conscious sedation COMPLICATION: None LEVEL OF SEDATION Moderate sedation length of 15 minutes PROCEDURE DESCRIPTION: After obtaining an informed consent, the patient was brought to transesophageal echocardiogram room. Pulse oximetry and heart monitors were attached to the patient. The patient throat was sprayed using lidocaine. The patient was turned into left lateral position. After that a bite guard was placed. After an appropriate conscious sedation was initiated, the transesophageal echocardiogram was advanced through a bite guard into the mid esophagus. A 2-D echocardiogram images, color Doppler images, continuous wave images, pulse-wave images, of various cardiac structure were performed. After that the transesophageal echocardiogram probe was advanced into the stomach and fixed to obtain transgastric view was. The probe was brought into the mid esophagus. Inter-atrial septum was interrogated using 2D images, color Doppler images, and then contrast study. After that transesophageal echocardiogram was withdrawn out and upon withdrawing the descending thoracic aorta all the way up to the arch was evaluated. CONCLUSION: 1. No evidence of cardiac source of embolization 2. Intact interatrial septum was no evidence of PFO or ASD 3. Normal biventricular dimension and systolic function 4. Normal intracardiac valves beside mild aortic insufficiency and mild mitral insufficiency 5. No evidence of pericardial effusion
[2023-05-07 13:57] VITALS: BP 114/74; PULSE 75
== END ==
LOC: CATHCVL 10:57
PROVIDERS: ATTEND Internal Medicine Interventional Cardiology
DX: Z04.9 Encounter for examination and observation for unspecified reason (principal); E78.5 Hyperlipidemia, unspecified; Z86.73 Personal history of transient ischemic attack (TIA), and cerebral infarction without residual deficits; Z86.16 Personal history of COVID-19; Z79.02 Long term (current) use of antithrombotics/antiplatelets; Z79.899 Other long term (current) drug therapy
CPT/HCPCS: 93312; 93320; 93325; 99152; J2250; J3010

== ENCOUNTER 2023-06-13 11:42 | Emergency (ER) | payer OTHER ==
[2023-06-13 11:49] VITALS: TEMP 98.4
[2023-06-13 12:13] LABS: Basophils # (A) 0.1 k/uL (0-0.2); Basophils % (A) 1 %; Eosinophils # (A) 0.2 k/uL (0-0.7); Eosinophils % (A) 2 %; HCT 51.1 % (39.0-53.0); Lymphocytes % (A) 19 %; MCH 28.8 pg (25.0-35.0); MCHC 33.2 g/dL (31.0-37.0); MCV 86.7 fL (80.0-100.0); Mean Platelet Volume 8.2; Monocytes # (A) 0.5 k/uL (0-1.0); Monocytes % (A) 5 %; Neutrophils # (A) 7.6 k/uL (1.3-7.7); Neutrophils % (A) 73 %; Platelet Count 300 k/uL (150-450); RBC 5.89 m/uL (4.30-5.90); RDW 14.4 % (11.5-15.5); WBC 10.4 k/uL (3.8-10.6)
[2023-06-13 12:25] LABS: ALT 68 U/L (4-49); AST 42 U/L (17-59); African American GFR (CKD) >90 (>60 ml/min/1.73 sqM); Albumin 4.9 g/dL (3.5-5.0); Alkaline Phosphatase 107 U/L (38-126); Anion Gap 16 mmol/L; Blood Urea Nitrogen 26 mg/dL (9-20); Calcium 9.3 mg/dL (8.4-10.2); Carbon Dioxide 14 mmol/L (22-30); Chloride 116 mmol/L (98-107); Glucose 129 mg/dL (74-99); Non-African American GFR(CKD) >90 (>60 ml/min/1.73 sqM); Potassium 3.9 mmol/L (3.5-5.1); Sodium 146 mmol/L (137-145); Total Bilirubin 1.1 mg/dL (0.2-1.3); Total Protein 8.2 g/dL (6.3-8.2)
--- NOTE | 2023-06-13 13:03 | ED ---
General Adult HPI - General Chief complaint: Nausea/Vomiting/Diarrhea Stated complaint: NVD, Weakness Time Seen by Provider: 06/13/23 12:05 Source: patient Mode of arrival: ambulatory Limitations: no limitations - History of Present Illness Initial comments: Dictation was produced using zintin dictation software. please excuse any grammatical, word or spelling errors. Chief Complaint: 52-year-old male presents to the emergency department for diarrhea History of Present Illness: Patient is a 52-year-old male has past medical histo ry stroke GERD dyslipidemia hypertension pneumonia. States that for the last 5 days he's been suffering from watery diarrhea. He states that he's been having approximately 2 episodes per hour while he is awake. Denies any abdominal pain. Complains of some mild nausea. He has poor appetite. Denies any fever or chills or night sweats. Patient is a poor historian. Denies any history of abdominal surgery. He states he is aware of other people that he knows that have similar symptoms. The ROS documented in this emergency department record has been reviewed and confirmed by me. Those systems with pertinent positive or negative responses have been documented in the HPI. All other systems are other negative and/or noncontributory. - Related Data Home Medications Medication Instructions Recorded Confirmed Atorvastatin [Lipitor] 80 mg PO HS 05/04/23 05/07/23 Clopidogrel [Plavix] 75 mg PO DAILY 05/04/23 05/07/23 Ezetimibe [Zetia] 10 mg PO DAILY 05/04/23 05/07/23 Famotidine [Pepcid] 20 mg PO DAILY 05/04/23 05/04/23 Previous Rx's Medication Instructions Recorded Ipratropium-Albuterol Nebulize 3 ml INHALATION RT-Q2H PRN each 04/02/22 [Duoneb 0.5 mg-3 mg/3 ml Soln] Azithromycin [Zithromax Z Pack] 1 tab PO DIRECTED #6 tab 06/13/23 Allergies Allergy/AdvReac Type Severity Reaction Status Date / Time Penicillins Allergy Rash/Hives Verified 06/13/23 11:49 Review of Systems ROS Statement: Those systems with pertinent positive or pertinent negative responses have been documented in the HPI. ROS Other: All systems not noted in ROS Statement are negative. Past Medical History Past Medical History: CVA/TIA, GERD/Reflux, Hyperlipidemia, Hypertension, Pneumonia Additional Past Medical History / Comment(s): Stroke 06/27, residual left side hand weakness. recent imaging shows "hole" in heart, hx. bacterial meningitis last year, pneumonia >1year ago, hx. of spontaneous collapsed lung as a teen History of Any Multi-Drug Resistant Organisms: None Reported Past Surgical History: No Surgical Hx Reported Additional Past Surgical History / Comment(s): surg. to repair collapsed lung as a teen Past Anesthesia/Blood Transfusion Reactions: No Reported Reaction Past Psychological History: No Psychological Hx Reported Smoking Status: Former smoker Past Alcohol Use History: Occasional Past Drug Use History: None Reported - Past Family History Father Family Medical History: Hyperlipidemia, Hypertension Mother Family Medical History: Dementia General Exam - General Exam Comments Initial Comments: PHYSICAL EXAM: General Impression: Alert and oriented x3, not in acute distress HEENT: Normocephalic atraumatic, extra-ocular movements intact, pupils equal and reactive to light bilaterally, mucous membranes moist. Cardiovascular: Heart regular rate and rhythm Chest: Able to complete full sentences, no retractions, no tachypnea Abdomen: abdomen soft, non-tender, non-distended, no organomegaly Musculoskeletal: Pulses present and equal in all extremities, no peripheral edema Motor: no focal deficits noted Neurological: CN II-XII grossly intact, no focal motor or sensory deficits noted Skin: Intact with no visualized rashes Psych: Normal affect and mood Limitations: no limitations Course Vital Signs 06/13/23 06/13/23 11:47 15:44 Temperature 98.4 F Pulse Rate 111 H 80 Respiratory 20 18 Rate Blood Pressure 113/89 132/88 O2 Sat by Pulse 96 98 Oximetry EKG Findings - EKG Comments: EKG Findings:: My EKG interpretation: Ventricular rate 86, sinus rhythm, TX interval 112, QRS 107, QTC 46. EKG compared to EKG from 03/26/2022 showing no changes.. Overall, this EKG is unremarkable Medical Decision Making - Medical Decision Making Was pt. sent in by a medical professional or institution (, PA, CARD CLOTHIER, urgent care, hospital, or jail...) When possible be specific @ -No Did you speak to anyone other than the patient for history (EMS, parent, family, police, friend...)? What history was obtained from this source @ -No Did you review nursing and triage notes (agree or disagree)? Why? @ -I reviewed and agree with nursing and triage notes Were old charts reviewed (outside hosp., previous admission, EMS record, old EKG, old radiological studies, urgent care reports/EKG's, jail records)? Report findings @ -No old charts were reviewed Differential Diagnosis (chest pain, altered mental status, abdominal pain women, abdominal pain men, vaginal bleeding, musculoskeletal, weakness, fever, dyspnea, syncope, headache, dizziness, GI bleed, back pain, seizure, CVA, palpatations, mental health)? @ -not applicable EKG interpreted by me (3pts min.). @ -None done X-rays interpreted by me (1pt min.). @ -None done CT interpreted by me (1pt min.). @ -None done U/S interpreted by me (1pt. min.). @ -None done What testing was considered but not performed or refused? (CT, X-rays, U/S, labs)? Why? @ -None What meds were considered but not given or refused? Why? @ -None Did you discuss the management of the patient with other professionals (professionals i.e. , PA, CARD CLOTHIER, lab, RT, psych nurse, social insurance administrator, textile pin worker, teacher, command center officer, case management manager)? Give summary @ -No Was smoking cessation discussed for >3mins.? @ -No Was critical care preformed (if so, how long)? @ -No Were there social determinants of health that impacted care today? How? (Homeles sness, low income, unemployed, alcoholism, drug addiction, transportation, low edu. Level, literacy, decrease access to med. care, fpc, rehab)? @ -No Was there de-escalation of care discussed even if they declined (Discuss DNR or withdrawal of care, Hospice)? DNR status @ -No What co-morbidities impacted this encounter? (DM, HTN, Smoking, COPD, CAD, Cancer, CVA, ARF, Chemo, Hep., AIDS, mental health diagnosis, sleep apnea, morbid obesity)? @ -None Was patient admitted / discharged? Hospital course, mention meds given and route, prescriptions, significant lab abnormalities, going to OR and other pertinent info. @ -52-year-old male presents to the emergency department for 5 days of watery diarrhea. Vital signs stable. No obvious exposure. Physical examination shows well-appearing male in no acute distress. Laboratory evaluation obtained. Patient does have mild acidosis likely caused by dehydration from profuse diarrhea. Otherwise negative. X-ray shows no obstruction or free air. Patient treated with IV fluids and antidiarrheal medications. Patient discharged with prescription for Zithromax. Told to follow up closely with primary care doctor as he may need stool testing. Patient observed in the emergency department for approximately 5 hours. Reevaluated at bedside at 5:00 PM from been stable medical condition. Patient is agreeable to plan Undiagnosed new problem with uncertain prognosis? @ -No Drug Therapy requiring intensive monitoring for toxicity (Heparin, Nitro, Insulin, Cardizem)? @ -No Were any procedures done? @ -No Diagnosis/symptom? Acute, or Chronic, or Acute on Chronic? Uncomplicated (without systemic symptoms) or Complicated (systemic symptoms)? @ -Diarrhea Side effects of treatment? @ -No Exacerbation, Progression, or Severe Exacerbation? @ -No Poses a threat to life or bodily function? How? (Chest pain, USA, ND, pneumonia, PE, COPD, DKA, ARF, appy, cholecystitis, CVA, Diverticulitis, Homicidal, Suicidal, threat to staff... and all critical care pts) @ -yes - Lab Data Result diagrams: 06/13/23 11:54 06/13/23 11:54 Lab Results 06/13/23 06/13/23 06/13/23 Range/Units 11:54 11:54 11:54 WBC 10.4 (3.8-10.6) k/uL RBC 5.89 (4.30-5.90) m/uL Hgb 17.0 (13.0-17.5) gm/dL Hct 51.1 (39.0-53.0) % MCV 86.7 (80.0-100.0) fL MCH 28.8 (25.0-35.0) pg MCHC 33.2 (31.0-37.0) g/dL RDW 14.4 (11.5-15.5) % Plt Count 300 (150-450) k/uL MPV 8.2 Neutrophils % 73 % Lymphocytes % 19 % Monocytes % 5 % Eosinophils % 2 % Basophils % 1 % Neutrophils # 7.6 (1.3-7.7) k/uL Lymphocytes # 2.0 (1.0-4.8) k/uL Monocytes # 0.5 (0-1.0) k/uL Eosinophils # 0.2 (0-0.7) k/uL Basophils # 0.1 (0-0.2) k/uL Sodium 146 H (137-145) mmol/L Potassium 3.9 (3.5-5.1) mmol/L Chloride 116 H (98-107) mmol/L Carbon Dioxide 14 L (22-30) mmol/L Anion Gap 16 mmol/L BUN 26 H (9-20) mg/dL Creatinine 0.95 (0.66-1.25) mg/dL Est GFR (CKD-EPI)AfAm >90 (>60 ml/min/1.73 sqM) Est GFR (CKD-EPI)NonAf >90 (>60 ml/min/1.73 sqM) Glucose 129 H (74-99) mg/dL Plasma Lactic Acid Scar (0.7-2.0) mmol/L Calcium 9.3 (8.4-10.2) mg/dL Magnesium (1.6-2.3) mg/dL Total Bilirubin 1.1 (0.2-1.3) mg/dL AST 42 (17-59) U/L ALT 68 H (4-49) U/L Alkaline Phosphatase 107 (38-126) U/L Total Protein 8.2 (6.3-8.2) g/dL Albumin 4.9 (3.5-5.0) g/dL Influenza Type A (PCR) Not Detected (Not Detectd) Influenza Type B (PCR) Not Detected (Not Detectd) RSV (PCR) Not Detected (Not Detectd) SARS-CoV-2 (PCR) Not Detected (Not Detectd) 06/13/23 06/13/23 Range/Units 13:47 13:47 WBC (3.8-10.6) k/uL RBC (4.30-5.90) m/uL Hgb (13.0-17.5) gm/dL Hct (39.0-53.0) % MCV (80.0-100.0) fL MCH (25.0-35.0) pg MCHC (31.0-37.0) g/dL RDW (11.5-15.5) % Plt Count (150-450) k/uL MPV Neutrophils % % Lymphocytes % % Monocytes % % Eosinophils % % Basophils % % Neutrophils # (1.3-7.7) k/uL Lymphocytes # (1.0-4.8) k/uL Monocytes # (0-1.0) k/uL Eosinophils # (0-0.7) k/uL Basophils # (0-0.2) k/uL Sodium (137-145) mmol/L Potassium (3.5-5.1) mmol/L Chloride (98-107) mmol/L Carbon Dioxide (22-30) mmol/L Anion Gap mmol/L BUN (9-20) mg/dL Creatinine (0.66-1.25) mg/dL Est GFR (CKD-EPI)AfAm (>60 ml/min/1.73 sqM) Est GFR (CKD-EPI)NonAf (>60 ml/min/1.73 sqM) Glucose (74-99) mg/dL Plasma Lactic Acid Scar 0.9 (0.7-2.0) mmol/L Calcium (8.4-10.2) mg/dL Magnesium 2.1 (1.6-2.3) mg/dL Total Bilirubin (0.2-1.3) mg/dL AST (17-59) U/L ALT (4-49) U/L Alkaline Phosphatase (38-126) U/L Total Protein (6.3-8.2) g/dL Albumin (3.5-5.0) g/dL Influenza Type A (PCR) (Not Detectd) Influenza Type B (PCR) (Not Detectd) RSV (PCR) (Not Detectd) SARS-CoV-2 (PCR) (Not Detectd) Disposition Clinical Impression: Diarrhea Disposition: HOME SELF-CARE Condition: Fair Instructions (If sedation given, give patient instructions): Acute Diarrhea (ED) Prescriptions: Azithromycin [Zithromax Z Pack] 1 tab PO DIRECTED #6 tab Is patient prescribed a controlled substance at d/c from ED?: No Referrals: Tom Fuentes MD [Primary Care Provider] - 1-2 days Time of Disposition: 17:02
--- NOTE | 2023-06-13 13:12 | XR ---
EXAMINATION TYPE: XR abdomen 1V DATE OF EXAM: 06/13/2023 Comparison: None Clinical History: 52-year-old male diarrhea Findings: Lung bases are clear. No evidence for free intraperitoneal air. Numerous air-fluid levels throughout the small bowel and colon extending distally to the rectum. No d ilated bowel loops. Left-sided pelvic phlebolith. Impression: No evidence for free air or bowel obstruction. Scattered air-fluid levels throughout both small bowel and colon suggesting diarrheal state/enteritis.
[2023-06-13] MEDS ORDERED: LOPERAMIDE 2 MG CAP PO STA (14:11)
[2023-06-13] MEDS ORDERED: SODIUM CHLORIDE 0.9% 1,000 ML IV STA (15:53)
[2023-06-13] MEDS ORDERED: DIPHENOX-ATROP STARTER PACK 8 TAB BTL PO STA (15:54)
[2023-06-13 16:00] VITALS: RESP 18
[2023-06-13 17:29] VITALS: BP 139/94; PULSE 76
[2023-06-13 17:32] LABS: Amorphous Sediment,Urine Rare /hpf; Appearance,Urine Cloudy (Clear); Bilirubin,Urine Negative (Negative); Blood,Urine Negative (Negative); Calcium Oxalate Crystals,Urine Occasional /hpf; Color,Urine Yellow; Glucose,Urine (UA) Negative (Negative); Ketones,Urine Negative (Negative); Leukocyte Esterase,Urine Negative (Negative); Mucus,Urine Many /hpf; Nitrite,Urine Negative (Negative); PH, Urine 5.5 (5.0-8.0); Protein,Urine 1+ (Negative); RBC,Urine 1 /hpf (0-5); Specific Gravity,Urine 1.036 (1.001-1.035); Urobilinogen,Urine <2.0 mg/dL (<2.0); WBC,Urine 1 /hpf (0-5)
== END 2023-06-13 17:13 | disposition home or self-care (01) ==
LOC: EC 11:42
DX: R19.7 Diarrhea, unspecified (principal); I10 Essential (primary) hypertension; E78.5 Hyperlipidemia, unspecified; K21.9 Gastro-esophageal reflux disease without esophagitis; Z79.02 Long term (current) use of antithrombotics/antiplatelets; Z79.899 Other long term (current) drug therapy; Z87.891 Personal history of nicotine dependence; Z88.0 Allergy status to penicillin; Z20.822 Contact with and (suspected) exposure to COVID-19
CPT/HCPCS: 36415; 74018; 80053; 81001; 83605; 83735; 85025; 87636; 93005; 96360; 99285

== ENCOUNTER 2024-01-07 06:15 | Day surgery (SDC) | payer MEDICARE, OTHER ==
--- NOTE | 2024-01-06 13:52 | P.GSHP ---
History of Present Illness H&P Date: 01/06/24 Chief Complaint: Chronic cholecystitis Refer to recent history and physical. Patient is a 53-year-old male with right upper quadrant pain. Ultrasound shows gallstones. Recent HIDA scan shows nonvisualization of the gallbladder. Last labs on our computer is from June showing a mildly elevated transaminase. Denies any change in the color of his skin urine or stool. Past Medical History Past Medical History: CVA/TIA, GERD/Reflux, Hyperlipidemia, Hypertension, Pneumonia Additional Past Medical History / Comment(s): Stroke 06/28, residual left side hand weakness. hx. bacterial meningitis 2021, pneumonia 2021, hx. of spontaneous collapsed lung as a teen, gallstones History of Any Multi-Drug Resistant Organisms: None Reported Past Surgical History: No Surgical Hx Reported Additional Past Surgical History / Comment(s): surg. to repair collapsed lung as a teen, myringotomy/tube right ear, [facility] Past Anesthesia/Blood Transfusion Reactions: No Reported Reaction Smoking Status: Former smoker - Past Family History Father Family Medical History: Hyperlipidemia, Hypertension Mother Family Medical History: Dementia Medications and Allergies Home Medications Medication Instructions Recorded Confirmed Type Ipratropium-Albuterol Nebulize 3 ml INHALATION RT-Q2H PRN each 04/02/22 01/05/24 Rx [Duoneb 0.5 mg-3 mg/3 ml Soln] Atorvastatin [Lipitor] 80 mg PO HS 05/04/23 01/05/24 History Clopidogrel [Plavix] 75 mg PO DAILY 05/04/23 01/05/24 History Ezetimibe [Zetia] 10 mg PO DAILY 05/04/23 01/05/24 History Losartan-Hctz 50-12.5 mg [Hyzaar 1 tab PO DAILY 01/05/24 01/05/24 History 50-12.5] Pantoprazole [Protonix] 40 mg PO DAILY 01/05/24 01/05/24 History Allergies Allergy/AdvReac Type Severity Reaction Status Date / Time Penicillins Allergy Rash/Hives Verified 01/05/24 15:27 Surgical - Exam Physical exam: General: Well-developed, well-nourished HEENT: Normocephalic, sclerae nonicteric Abdomen: Nontender, nondistended Extremities: No edema Neuro: Alert and oriented Assessment and Plan (1) Chronic cholecystitis Narrative/Plan: 53-year-old male with chronic cholecystitis. Will proceed with laparoscopic, possible open cholecystectomy tomorrow. Check CMP preoperatively. Risks of bleeding, infection, bile leak, bile duct injury, retained common bile duct stone, trocar injury, conversion to an open procedure, hernia, anesthesia related complications were reviewed. The patient understands and wishes to proceed. Status: Acute Code(s): K81.1 - CHRONIC CHOLECYSTITIS SNOMED Code(s): 39436847
[2024-01-07] MEDS ORDERED: LIDOCAINE 1% (10MG/ML) FOR IV START INTRADERMA PRN (06:17)
[2024-01-07] MEDS: IV FLUID CONTINUATION 1,000 ML IV ONE ×3 (06:42→12:45)
[2024-01-07] MEDS: ACETAMINOPHEN TAB 500 MG TAB PO PRN (07:03)
[2024-01-07] MEDS: DEXAMETHASONE SOD PHOSPHATE 4 MG/ML 1 ML VIAL IV ONE (07:03)
[2024-01-07] MEDS: HEPARIN SODIUM,PORCINE 5,000 UNIT/ML 1 ML VIAL SQ PRN (07:03)
[2024-01-07] MEDS: ONDANSETRON 4 MG/2 ML VIAL IVP ONE (07:03)
[2024-01-07] MEDS: LACTATED RINGERS 1,000 ML IV SCH (07:04)
[2024-01-07] MEDS ORDERED: NEOSTIGMINE 1 MG/ML 10 ML VIAL ONE (07:36)
[2024-01-07] MEDS ORDERED: GLYCOPYRROLATE 0.2 MG/ML 2 ML VIAL ONE (07:36)
[2024-01-07] MEDS ORDERED: MIDAZOLAM 2 MG/2 ML VIAL ONE (07:36)
[2024-01-07] MEDS ORDERED: SUCCINYLCHOLINE CHLORIDE 200 MG/10 ML VIAL IV ONE (07:36)
[2024-01-07] MEDS ORDERED: fentaNYL (PF) 50 MCG/ML 2 ML AMP ONE (07:36)
[2024-01-07] MEDS ORDERED: KETOROLAC 15 MG/ML 1 ML VIAL ONE (07:36)
[2024-01-07] MEDS ORDERED: PROPOFOL 10 MG/ML 20 ML VIAL IV ONE (07:36)
[2024-01-07] MEDS ORDERED: LIDOCAINE 1% INJ 10MG/ML (20 ML MDV) ONE (07:36)
[2024-01-07] MEDS ORDERED: ROCURONIUM 10 MG/ML (5 ML VIAL) IV ONE (07:36)
[2024-01-07] MEDS: BUPIVACAINE (PF) 0.25% 30 ML VIAL SQ ONE ×2 (07:51)
[2024-01-07] MEDS: HYDROmorphone 0.5 MG/0.5 ML SYRINGE IVP PRN (09:01)
--- NOTE | 2024-01-07 09:02 | P.OP ---
Date of Procedure: 01/07/24 Procedure(s) Performed: PREOPERATIVE DIAGNOSIS: Chronic cholecystitis POSTOPERATIVE DIAGNOSIS: Same PROCEDURE: Laparoscopic cholecystectomy SURGEON: Toribio EBL: Minimal see anesthesia record ANESTHESIA: Gen. COMPLICATIONS: None OPERATIVE PROCEDURE: The patient was brought and placed on the operating room table in the supine position. The patient was placed under general anesthesia at that time. The abdomen was prepped and draped in the usual sterile fashion. A small vertical infraumbilical incision was made. The fascia was grasped with the Ramandeep forceps. The fascia was retracted anteriorly. The Veress needle was advanced into the peritoneal cavity. The saline drop test was normal. Insufflation took place up to 15 mmHg. A 5 mm optical trocar was advanced and the peritoneal cavity. 2 additional 5 mm trochars were placed in the right upper quadrant under direct visualization. A 12 mm trocar was advanced into the epigastric incision site. The gallbladder was retracted superiorly and laterally. The peritoneum overlying the infundibulum was bluntly dissected. The patient's cystic duct was visualized. The junction between the cystic duct common and hepatic duct was identified. The critical view of safety was achieved after blunt dissection. The cystic duct was then divided after placement of 3 12 mm clips on the patient's side and one on the specimen side. The cystic artery was identified and clipped as well. A small vessel was seen along the gallbladder fossa and clipped as well. The gallbladder was then removed from the liver bed using electrocautery. The gallbladder was then removed from the epigastric trocar site with an Endo Catch bag. The gallbladder fossa was irrigated with saline. There was no evidence of any bleeding or biliary drainage seen. The fascia at the 12 millimeter site was closed using a Christiano-Antony 0 Vicryl stitch. The trochars were then removed. The skin at all 4 sites was closed using a 4-0 Monocryl stitch. Skin glue was utilized on the incision sites. At the end of this procedure the sponge and needle counts were correct. DISPOSITION: Stable to the recovery room
[2024-01-07] MEDS: METOCLOPRAMIDE 5 MG/ML 2 ML VIAL IVP STA (13:03)
[2024-01-07 14:58] VITALS: RESP 18
[2024-01-07] MEDS: droPERidol 5 MG/2 ML VIAL IVP ONE (14:58)
[2024-01-07] MEDS: ACETAMINOPHEN TAB 325 MG TAB PO SCH (14:59)
[2024-01-07] MEDS: IBUPROFEN 600 MG TAB PO SCH (15:00)
[2024-01-07 17:39] VITALS: BP 138/84; PULSE 60; TEMP 97.7
== END 2024-01-07 18:46 ==
LOC: OR 06:15 → 5NMEDONC 09:30 → OR 18:46
PROVIDERS: ATTEND Surgery
DX: K80.10 Calculus of gallbladder with chronic cholecystitis without obstruction (principal); I10 Essential (primary) hypertension; E78.5 Hyperlipidemia, unspecified; K21.9 Gastro-esophageal reflux disease without esophagitis; I69.354 Hemiplegia and hemiparesis following cerebral infarction affecting left non-dominant side; Z87.891 Personal history of nicotine dependence; Z88.0 Allergy status to penicillin; Z79.02 Long term (current) use of antithrombotics/antiplatelets; Z79.899 Other long term (current) drug therapy
CPT/HCPCS: 47562; J1644; J1100; J2765; J0690; J2405; J1170; J0665